=== PATIENT | male | born 1950 | race Caucasian/White ===

== ENCOUNTER 2016-04-20 14:42 | Emergency (ER) | payer OTHER ==
[~2016-04-20] VITALS: Ht 170.2 cm; Wt 116.6 kg
[~2016-04-20 14:42] MED LIST: ALBUTEROL2.5 MG/3 M INH; AMIODARONE HCL200 M1 PO; ASPIRIN CHILDRE81 MG PO; ASPIRIN EC81 M1 PO; ATORVASTATIN CA20 M1 PO; ATORVASTATIN CA20 MG PO; ATORVASTATIN CA40 MG PO; BACTRIM DS 8001 TAB PO; CIPRO 500MG TA500 MG PO; CLOPIDOGREL75 M1 PO; COUMADIN2.5 M1 PO; FLOMAX(MONOGRA0.4 MG PO; HEPARIN 2525000 UNI1 IV; HUMALOG 100U100 U/ML SC; HUMALOG100 U/ML SC; INVOKANA100 MG PO; LANTUS SOLOS100 U/ML SC; LANTUS100 U/ML SC; LEVEMIR 10100 UNITS/ SC; LEVOTHYROXINE112 MCG PO; LOPRESSOR 12.12.5 MG PO; LOVENOX150 MG/1 M SC; MIRALAX17 GM PO; NAC600 MG PO; NOVOLIN R1000 UNIT2 SC; Senokot S PO; ULTRAM50 M1 PO; VANCOMYCIN 11000 MG IV
[2016-04-20] MEDS ORDERED: FUROSEMIDE40 M1 PO (16:07)
[2016-04-20] MEDS ORDERED: LEVOTHYROXINE88 MCG PO (16:07)
[2016-04-20] MEDS ORDERED: TAMSULOSIN HCL0.4 M1 PO (16:08)
[2016-04-20] MEDS ORDERED: AMMONIUM LACTA226 GM TOP (16:08)
[2016-04-20] MEDS ORDERED: LANTUS100 UNIT/1 SC ×2 (16:09→16:10)
[2016-04-20] MEDS ORDERED: HUMALOG100 UNIT/2 SC (16:09)
[2016-04-20] MEDS ORDERED: SYMBICORT 16010.2 GM INH (16:11)
[2016-04-20] MEDS ORDERED: SPIRIVA18 MCG INH (16:11)
[2016-04-20 16:26] VITALS: BP 108/74
--- NOTE | 2016-04-20 16:30 | ED GENERAL ADULT ---
History of Present Illness General Chief Complaint: Laceration Procedure Stated Complaint: LEFT HAND LAC Source: patient, family Exam Limitations: no limitations Vital Signs & Intake/Output Vital Signs & Intake/Output Vital Signs Date Time Temp Pulse Resp B/P Pulse O2 O2 Flow FiO2 Ox Delivery Rate 04/20 1626 96.8 74 20 108/74 97 Room Air 04/20 1600 96 04/20 1451 96.5 75 20 90/60 92 Room Air Allergies Coded Allergies: Penicillins (PT DOES NOT REMEMBER 12/05/15) ampicillin (RASH 12/05/15) sulbactam (RASH 12/05/15) Reconcile Medications Amiodarone HCl 200 MG TABLET 1 TAB PO QAM HEART (Reported) Ammonium Lactate 12 % LOTION 1 MAGNUS TOP PRN FEET (Reported) Aspirin (Ecotrin*) 81 MG TABLET.DR 1 TAB PO DAILY HEART/HEALTH (Reported) Atorvastatin Calcium 20 MG TABLET 1 TAB PO DAILY CHOLESTEROL (Reported) Budesonide/Formoterol Fumarate (Symbicort 160-4.5 Mcg Inhaler) 160 MCG-4.5 MCG/ ACTUATION HFA.AER.AD 2 PUF INH BID COPD (Reported) Clopidogrel Bisulfate (Clopidogrel) 75 MG TABLET 1 TAB PO QAM BLOOD THINNER ( Reported) Furosemide 40 MG TABLET 1 TAB PO DAILY DIURETIC (Reported) Insulin Lispro (Humalog) 100 UNIT/ML VIAL DM (Reported) Insulin-Lantus (Lantus) 100 UNIT/ML VIAL 35 UNITS SC QPM DM (Reported) Insulin-Lantus (Lantus) 100 UNIT/ML VIAL 45 UNITS SC QAM DM (Reported) Levothyroxine Sodium 88 MCG TABLET 1 TAB PO DAILY THYROID (Reported) Tamsulosin HCl 0.4 MG CAP.ER.24H 1 CAP PO DAILY PROSTATE (Reported) Tiotropium [place] (Spiriva) 18 MCG CAP.W.DEV 1 CAP INH DAILY COPD (Reported) Warfarin Sodium (Coumadin) 2.5 MG TABLET 1 TAB PO AD BLOOD THINNER (Reported) Triage Note: PT TO ED FOR LAC TO LEFT HAND RING FINGER. 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 PT IS ON COUMADIN AND PLAVIX. UNKNOWN LAST TETANUS. Triage Nurses Notes Reviewed? yes HPI: This is a 65 yo male with significant cardiac history who is on ASA, coumadin and plaavix therapy at this time. He has most of his medications managed at [facility]. He was using a pen knife this am to cut tape and cut a shallow part of his l. ring finger. Pt was concerned as he did not stop bleeding so he came to ED. (OPAL LADD MD) Onset: Abrupt Duration: day(s):, constant, continues in ED, waxing and waning Injury Environment: home Severity: moderate, severe (YESI MATHEW,GIOVANI Meyer) Past History Travel History Traveled to [place] past 21 day No Medical History Any Pertinent Medical History? 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 Hx Contributory? No (OPAL LADD MD) Review of Systems Review of Systems Constitutional: Reports: no symptoms. EENTM: Reports: no symptoms. Respiratory: Reports: no symptoms. Cardiovascular: Reports: no symptoms. GI: Reports: no symptoms. Genitourinary: Reports: no symptoms. Musculoskeletal: Denies: no symptoms. Skin: Denies: erythema, lesions. Hematologic/Endocrine: Reports: bleeding. (OPAL LADD MD) Physical Exam Physical Exam General Appearance: well developed/nourished, no apparent distress, alert, awake , comfortable Head: atraumatic, normal appearance Ears, Nose, Throat: normal pharynx, normal ENT inspection Neck: normal inspection Respiratory: normal breath sounds Cardiovascular: regular rate/rhythm Gastrointestinal: soft, non-tender Extremities: L. FOUTH METACARPAL WITH SHALLOW 2 CM BROAD BASED CUT WITH NO AVULSION PRESENT. pROFUSELY BLEEDING. nO OTHERY ERYTHEMA PRESENT. PT HAS NO TENDERNESS TO PALPATION. Core Measures ACS in differential dx? No CVA/TIA Diagnosis: No Severe Sepsis Present: No Septic Shock Present: No (OPAL LADD MD) Progress Differential Diagnoses I considered the following diagnoses in my evaluation of the patient: [ABRASION, AVULSION, CUT, INFECTED WOUND] Plan of Care: USED STERILE SALINE SOLUTION TO CLEAN DIGIT. USED CALCIUM ALGINATE DRESSING FOR INITIAL LAYER WITH GAUZE FOR WRAPPING. DID NOT USE TOPICAL ANTIBIOTIC PT HAS OPEN SHALLOW WOUND. Initial ED EKG: none (OPAL LADD MD) Departure Departure Time of Disposition: 1627 Disposition: HOME OR SELF CARE Condition: Stable Clinical Impression Primary Impression: Wound abscess Referrals: DMITRIY MATHEW,RY Fox (PCP/Family) Additional Instructions: 1. Keep area of wound clean 2. Continue to use the calcium alginate dressing and gauze to wrap wound 3. No need for oral antibiotics unless you notice the digit becoming warm, red and exuding pus 4. Your would will continue to bleed as you are on three blood thinners but applying adequate pressure with help clot. 4. Do not stop blood thinners without the guidance of your PCP or finisher hand. Departure Forms: Customer Survey General Discharge Information (OPAL LADD MD) Resident Co-Sign Statement Statement: ED Attending supervision documentation- [x] I saw and evaluated the patient. I have also reviewed all the pertinent lab results and diagnostic results. I agree with the findings and the plan of care as documented in the Resident's documentation. [] I have reviewed the ED Record and agree with the Resident's documentation. [] Additions or exceptions (if any) to the Resident's note and plan are summarized below: [] (YESI MATHEW,GIOVANI Meyer) Critical Care Note Critical Care Note Critical Care Time: non-applicable (OPAL LADD MD)
== END 2016-04-20 16:53 ==
LOC: ERH 14:42
DX: S61.215A Laceration without foreign body of left ring finger without damage to nail, initial encounter (principal); W26.8XXA Contact with other sharp object(s), not elsewhere classified, initial encounter; Y93.89 Activity, other specified; Y92.9 Unspecified place or not applicable

== ENCOUNTER 2017-06-23 15:10 | Inpatient (IN) | payer OTHER ==
[~2017-06-23] VITALS: Ht 170.2 cm; Wt 122.5 kg
[~2017-06-23 15:10] MED LIST changes: +AMMONIUM LACTA226 GM TOP; +FUROSEMIDE40 M1 PO; +HUMALOG100 UNIT/2 SC; +LANTUS100 UNIT/1 SC; +PREDNISONE10 M2 PO; +SPIRIVA18 MCG INH; +SYMBICORT 16010.2 GM INH; +TAMSULOSIN HCL0.4 M1 PO; +ZITHROMAX500 M2 PO
--- NOTE | 2017-06-23 15:59 | ED GI/GU/ABDOMINAL COMPLAINT ---
History of Present Illness General Chief Complaint: General Adult Stated Complaint: PT SHAKEY,HEADACHE,CAN'T HOLD HIS HEAD UP Source: patient, family, old records Exam Limitations: no limitations Vital Signs & Intake/Output Vital Signs & Intake/Output Vital Signs Date Time Temp Pulse Resp B/P B/P Pulse O2 O2 Flow FiO2 Mean Ox Delivery Rate 06/23 1853 98.9 82 18 118/56 95 Room Air 06/23 1522 99.0 80 18 103/68 94 Room Air Allergies Coded Allergies: Penicillins (PT DOES NOT REMEMBER 12/05/15) ampicillin (RASH 12/05/15) sulbactam (RASH 12/05/15) Reconcile Medications Amiodarone (Cordarone) 200 MG TABLET 1 TAB PO QAM HEART (Reported) Aspirin (Ecotrin*) 81 MG TABLET.DR 1 TAB PO DAILY HEART/HEALTH (Reported) Atorvastatin Calcium 20 MG TABLET 1 TAB PO DAILY CHOLESTEROL (Reported) Clopidogrel Bisulfate (Clopidogrel) 75 MG TABLET 1 TAB PO QAM BLOOD THINNER ( Reported) Furosemide 40 MG TABLET 1 TAB PO DAILY DIURETIC (Reported) Insulin Lispro (Humalog) 100 UNIT/ML VIAL DM (Reported) Insulin-Lantus (Lantus) 100 UNIT/ML VIAL 30 UNITS SC QPM DM (Reported) Insulin-Lantus (Lantus) 100 UNIT/ML VIAL 40 UNITS SC QAM DM (Reported) Levothyroxine Sodium 112 MCG TABLET 1 TAB PO DAILY AC THYROID (Reported) Tamsulosin HCl 0.4 MG CAP.ER.24H 1 CAP PO DAILY PROSTATE (Reported) Tiotropium [place] (Spiriva) 18 MCG CAP.W.DEV 1 CAP INH DAILY COPD (Reported) Warfarin Sodium (Coumadin) 2.5 MG TABLET 1 TAB PO MoTuThSa BLOOD THINNER ( Reported) Triage Note: 66 YO MALE TO TRIAGE C/O INCRASE IN WEAKESS AND UPPER BACK PAIN. STATES L SIDED ABD PAIN, STATES HE HASNT BEEN ABLE TO EAT FOR 2 DAYS DUE TO THE PAIN AND WEAKNESS. NOTED WITH RENESS TO RLE, STATES HE HAD CELLULITIS RECENTLY. Triage Nurses Notes Reviewed? yes Duration: getting worse Timing: recent history Quality/Severity: severe Severity Numbers: 7 Location: generalized abdomen Radiation: no radiation HPI: Patient is a 66-year-old male with a past medical history of COPD, diabetes, CABG currently on Plavix Coumadin and aspirin, remote history of colon cancer in remission status post colectomy, who presents emergency room with concerns of a three-day history of nonproductive cough and dyspnea on exertion and shortness of breath intermittent abdominal pain generalized weakness and fatigue and lower extremity swelling and weeping wounds Patient denies any fever but does have chills. Denies any chest pain arm pain jaw pain nausea vomiting. Patient states that he is too weak to go to bed last 2 days and has had decreased by mouth intake. Last bowel movement was 2 days ago no blood no melena. Patient is also complaining of left-sided low back pain with no mechanism of injury for the past 3 days (Kenan Martins) Past History Travel History Traveled to [place] past 21 day No Medical History Any Pertinent Medical History? 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 Hx Contributory? No (Kenan Martins) Review of Systems Review of Systems Constitutional: Reports: see HPI, chills, malaise, weakness. EENTM: Reports: see HPI. Respiratory: Reports: see HPI, cough, short of breath. Cardiovascular: Reports: see HPI, peripheral edema. Denies: chest pain. GI: Reports: see HPI, abdominal pain. Genitourinary: Reports: no symptoms. Musculoskeletal: Reports: see HPI, back pain. Skin: Reports: see HPI. Neurological/Psychological: Reports: no symptoms. Hematologic/Endocrine: Reports: no symptoms. Immunologic/Allergic: Reports: no symptoms. All Other Systems: Reviewed and Negative (Kenan Martins) Physical Exam Physical Exam General Appearance: alert, awake, lethargic Head: atraumatic Eyes: Bilateral: normal appearance, PERRL, EOMI. Ears, Nose, Throat, Mouth: hearing grossly normal, moist mucous membrane Neck: normal inspection, no midline tenderness Respiratory: normal breath sounds, chest non-tender, no respiratory distress Cardiovascular: regular rate/rhythm Gastrointestinal: normal bowel sounds, soft, tenderness Back: normal inspection, LEFT LATERAL POINT TENDERNESS Neurologic/Psych: no motor/sensory deficits, awake Comments: Noted bilateral lower extremity decreased dermatome sensation noted skin scabs and mild weeping serous anginous discharge +1 edema Core Measures ACS in differential dx? No Sepsis Present: Yes Sepsis Focused Exam Completed? Yes (Neli TREVIÑO,Kenan) Progress Differential Diagnosis: AMI, appendicitis, biliary colic, bowel obstruction, colon cancer, cholecystitis, diverticulitis, epididymitis, esophageal varices, gastritis, hepatitis, hernia, hemorrhoids, ischemic bowel, inflamm bowel dis, Malinda-Aysha tear, orchitis, pancreatitis, prostatitis, peptic ulcer, PUD/GERD, perforated viscous, pyelonephritis, SBO, STD, testicular torsion, ureterolithiasis, urinary retention, urethritis, UTI/pyelo Plan of Care: Orders Procedure Date/time Status Nothing by Mouth 06/24 B Active Patient Data 06/23 192 Active Admit to inpatient 06/23 191 Active LACTIC ACID 06/23 191 Active CULTURE,URINE 06/23 1821 Active URINALYSIS 06/23 1821 Complete LIPASE 06/23 1622 Complete CREATINE PHOSPHOKINASE 06/23 1622 Complete AMYLASE 06/23 1622 Complete PARTIAL THROMBOPLASTIN TIME 06/23 1613 Complete PROTHROMBIN TIME 06/23 1613 Complete BLOOD CULTURE 06/23 1610 Active TROPONIN LEVEL 06/23 1610 Complete LACTIC ACID 06/23 161 Complete COMPREHENSIVE METABOLIC PANEL 06/23 161 Complete CBC WITHOUT DIFFERENTIAL 06/23 161 Complete B-TYPE NATRIURETIC PEP (BNP) 06/23 161 Complete EKG 06/23 1610 Active Intake & Output 06/23 1555 Active Current Medications Sig/Sj Start time Last Medication Dose Stop Time Status Admin Sodium Chloride 1,000 ML BOLUS ONE 06/23 1900 AC (Normal Saline 0.9%) 06/23 1958 Sodium Chloride 1,000 ML BOLUS ONE 06/23 1900 AC (Normal Saline 0.9%) 06/23 1958 Laboratory Tests 05/09/18 1917: Lactic Acid Pending 06/23/171834: Urine Color YEL, Urine Clarity HAZY H, Urine pH 6.5, Ur Specific Barto 1.015, Urine Protein NEG, Urine Ketones NEG, Urine Nitrite NEG, Urine Bilirubin NEG, Urine Urobilinogen 0.2, Ur Leukocyte Esterase MOD H, Ur Microscopic SEDIMENT EXAMINED, Urine RBC 10-15 H, Urine WBC 15-25 H, Ur Epithelial Cells RARE, Urine Bacteria FEW H, Urine Hemoglobin LARGE H, Urine Glucose >=1000 H 06/23/17 162: Amylase Cancelled, Lipase Cancelled 06/23/17 162: Anion Gap 14, Estimated GFR 26 L, BUN/Creatinine Ratio 10.4, Glucose 321 H, Lactic Acid 2.1, Calcium 8.9, Total Bilirubin 2.0 H, AST 32, ALT 40, Alkaline Phosphatase 112, Creatine Kinase 100, Troponin I < 0.01, Dzt-[id number]-Bcmuqifhzri Pept 371 H, Total Protein 7.5, Albumin 3.8, Globulin 3.7, Albumin/Globulin Ratio 1.0 L, Amylase 40, Lipase 164, PT 24.6 H, INR 2.24 H, APTT 38 H, CBC w Diff MAN DIFF ORDERED, RBC 5.55, MCV 86.3, MCH 28.2, MCHC 32.7 L, RDW 15.5 H, MPV 8.5, Gran % 86.4 H, Lymphocytes % 3.4 L, Monocytes % 10.0 H, Eosinophils % 0.1, Basophils % 0.1, Absolute Granulocytes 14.8 H, Segmented Neutrophils 84 H, Band Neutrophils 1, Absolute Lymphocytes 0.6 L, Lymphocytes 4 L, Monocytes 10 H, Absolute Monocytes 1.7 H, Absolute Eosinophils 0, Basophils 1, Absolute Basophils 0, Platelet Estimate VERIFIED BY SMEAR, Normocytic RBCs VERIFIED, Normochromic RBCs VERIFIED, Fld Total RBCs Counted 100 06/23/17 1620: Creatine Kinase Cancelled Microbiology 06/23 1834 URINE ROUT: Urine Culture - RECD 06/23 164 BLOOD: Blood Culture - RECD 06/23 1621 BLOOD: Blood Culture - RECD Differential diagnoses include COPD acute MO pulmonary embolism sepsis cellulitis DVT meningitis Diagnostic Imaging: Viewed by Me: CT Scan. Radiology Impression: acute abnormality Initial ED EK BPM,MULTIPLE ARTIFACT, FIRST DEGREE AV BLOCK Comments: PATIENT: CARRIE JACK PRESENT AGE: 66 PATIENT ACCOUNT NO: [id number] : 50 LOCATION: [facility] ORDERING PHYSICIAN: Kenan TREVIÑO SERVICE DATE: 06/23/17 EXAM TYPE: CAT - CT ABD & PELVIS W/O IV CONTRAS; CT CHEST WO IV CONTRAST EXAMINATION: CT CHEST, ABDOMEN, AND PELVIS WITHOUT CONTRAST CLINICAL INFORMATION: Cough, shortness of breath, and abdominal pain. COMPARISON: Pelvic CT fibroid [address] 12/05/2015. TECHNIQUE: Multidetector CT acquisitions of the chest, abdomen, and pelvis are obtained without contrast. Multiplanar reformats are acquired and utilized for image interpretation. FINDINGS: CHEST CT: There is no focal consolidation or pneumothorax. A partially calcified 7 mm pulmonary nodule along the periphery of the right middle lobe and calcified right hilar lymph nodes compatible with the sequela of old granulomatous disease are redemonstrated. There is atelectasis versus chronic appearing scarring within the lingula and left lower lobe and there is a trace dependent left pleural effusion with adjacent airspace opacity that may reflect atelectasis versus pneumonia. There are tiny innumerable groundglass nodules within the right upper lobe and to a lesser extent the superior segment of the right lower lobe and right middle lobe that are nonspecific and that may be the sequela of old infection or smoking-related lung disease. These are similar in pattern to the prior exam. There are a few similar nodules along the major fissure, likely fissural lymph nodes. There are mild dependent secretions within the trachea. Redemonstrated calcified mediastinal and hilar lymph nodes of the sequela of old granulomatous disease. Prominent mediastinal and hilar lymph nodes are stable. There is coronary artery atherosclerotic calcification. Heart is normal in size without a pericardial effusion. Retropharyngeal course of the common carotid arteries. The thyroid gland is unremarkable. No acute osseous abnormalities. Thoracic spondylosis. Median sternotomy wires. Old healed rib fractures. ABDOMEN AND PELVIS WITHOUT CONTRAST: Limited evaluation of the unenhanced liver, spleen, adrenal glands, and pancreas reveals no definite abnormality. There is cholelithiasis without acute cholecystitis. Left-sided obstructive uropathy with a 4 mm obstructing calculus at the left ureterovesicular junction resulting in moderate left-sided hydroureteronephrosis and significant left-sided perinephric stranding. There is a 1.2 cm calculus within the upper pole of the left kidney. Punctate nonobstructing calculus within the lower pole of the right kidney. There are multiple calculi scattered throughout the right renal hilum, the largest within the midpole measuring up to 1 cm. Partial colectomy changes. There is an enterocolonic anastomosis within the left lower quadrant. No focal inflammatory changes adjacent to the large or the small bowel. No bowel obstruction. There is no free air and there is no intra-abdominal free fluid. No mesenteric or retroperitoneal adenopathy. The pelvic viscera are normal. No pelvic adenopathy. There are no acute osseous abnormalities. Bilateral L5 pars defects with grade 1 spondylolytic anterolisthesis of L5 on S1. Degenerative changes throughout the lumbar spine. There is rectus sheath diastases that is similar to the prior exam. IVC filter in place. Extensive aortoiliac atherosclerotic calcification. IMPRESSION: - Left-sided obstructive uropathy with a 4 mm obstructing calculus (mean Hounsfield units 442) at the left ureterovesicular junction resulting in moderate left-sided hydroureteronephrosis and significant left-sided perinephric stranding. There is also a 1.2 cm calculus within the upper pole of the left kidney. Multiple additional bilateral renal calculi as described. - There is cholelithiasis without acute cholecystitis. - There is atelectasis versus chronic appearing scarring within the lingula and left lower lobe and there is a trace dependent left pleural effusion with adjacent airspace opacity that may reflect atelectasis versus pneumonia. - There are tiny innumerable groundglass nodules within the right upper lobe and to a lesser extent the superior segment of the right lower lobe and right middle lobe that are nonspecific and that may be the sequela of old infection or smoking-related lung disease. These are similar in pattern to the prior exam. - There are mild dependent secretions within the trachea. - Prominent mediastinal and hilar lymph nodes are stable. - Bilateral L5 pars defects with grade 1 spondylolytic anterolisthesis of L5 on S1. DICTATED BY: Steven Springer MD DATE/TIME DICTATED:06/23/171752 PULL OUT OPERATOR:EDEL DATE/TIME TRANSCRIBED:06/23/171752 (Kenan Martins) ED Sepsis Exam Date of Focused Sepsis Exam: 06/23/17 Time of Focused Sepsis Exam: 1750 Sepsis Cardiac Exam: Regular Rate/Rhythm Sepsis Resp Exam: CTA Sepsis Cap Refill Exam: <2 Sec Sepsis Peripheral Pulse Exam: Normal Sepsis Peripheral Pulse Location: Radial Sepsis Skin Color Exam: Normal for Ethnicity Skin Temp/Moisture Exam: Warm/Dry (Kenan Martins) Departure Departure Disposition: STILL A PATIENT Condition: Stable Clinical Impression Primary Impression: Sepsis Secondary Impressions: Kidney stone on left side, Obstructive uropathy, Pyelonephritis Referrals: Mathew MATHEW,Aashish Fox (PCP/Family) Departure Forms: Customer Survey General Discharge Information Admission Note Spoke With: Ian Sears MD Documentation of Exam: Documentation of any treatments & extenuating circumstances including Concerns Regarding Discharge (functional status, medication knowledge or non-compliance, living conditions, etc.) that warrant an admission rather than observation: [ Patient requires IV antibiotics IV fluid resuscitation repeat labs ureteral stenting urology consultation and close monitoring for concerns of sepsis etiology pyelonephritis] (Kenan Martins) PA/MANAGER TRADE Co-Sign Statement Statement: ED Attending supervision documentation- [X] I saw and evaluated the patient. I have also reviewed all the pertinent lab results and diagnostic results. I agree with the findings and the plan of care as documented in the PA's/MANAGER TRADE's documentation. [] I have reviewed the ED Record and agree with the PA's/MANAGER TRADE's documentation. [] Additions or exceptions (if any) to the PAs/MANAGER TRADE's note and plan are summarized below: [] Bilateral flank pain. No acute distress on my exam. (Steven Parson DO)
[2017-06-23 16:46] LABS: ABSOLUTE BASOPHIL COUNT 0 /CUMM (0.0-0.2); ABSOLUTE EOSINOPHIL COUNT 0 /CUMM (0.0-0.7); ABSOLUTE GRANULOCYTE CT 14.8 /CUMM (1.4-6.5); ABSOLUTE LYMPH COUNT 0.6 /CUMM (1.2-3.4); ABSOLUTE MONOCYTE COUNT 1.7 /CUMM (0.10-0.60); BASOPHIL % 0.1 % (0.0-2.0); EOSINOPHIL % 0.1 % (0-5); GRANULOCYTE % 86.4 % (42.2-75.2); HEMATOCRIT 47.9 % (42-52); MEAN CORPUSCULAR HGB 28.2 PG (27.0-31.0); MEAN CORPUSCULAR HGB CONC 32.7 G/DL (33.0-37.0); MEAN CORPUSCULAR VOLUME 86.3 FL (80.0-94.0); MEAN PLATELET VOLUME 8.5 FL (7.4-10.4); PLATELET COUNT 296 /CUMM (130-400); RBC DISTRIBUTION WIDTH 15.5 % (11.5-14.5); RED BLOOD CELL CT 5.55 /CUMM (4.70-6.10); WHITE BLOOD CELL COUNT 17.1 /CUMM (4.8-10.8)
[2017-06-23 16:59] LABS: PT 24.6 SEC (9.4-12.5); PTT 38 SEC (25-37)
--- NOTE | 2017-06-23 18:12 | CT SCAN REPORT ---
EXAMINATION: CT CHEST, ABDOMEN, AND PELVIS WITHOUT CONTRAST CLINICAL INFORMATION: Cough, shortness of breath, and abdominal pain. COMPARISON: Pelvic CT fibroid [address] 12/05/2015. TECHNIQUE: Multidetector CT acquisitions of the chest, abdomen, and pelvis are obtained without contrast. Multiplanar reformats are acquired and utilized for image interpretation. FINDINGS: CHEST CT: There is no focal consolidation or pneumothorax. A partially calcified 7 mm pulmonary nodule along the periphery of the right middle lobe and calcified right hilar lymph nodes compatible with the sequela of old granulomatous disease are redemonstrated. There is atelectasis versus chronic appearing scarring within the lingula and left lower lobe and there is a trace dependent left pleural effusion with adjacent airspace opacity that may reflect atelectasis versus pneumonia. There are tiny innumerable groundglass nodules within the right upper lobe and to a lesser extent the superior segment of the right lower lobe and right middle lobe that are nonspecific and that may be the sequela of old infection or smoking-related lung disease. These are similar in pattern to the prior exam. There are a few similar nodules along the major fissure, likely fissural lymph nodes. There are mild dependent secretions within the trachea. Redemonstrated calcified mediastinal and hilar lymph nodes of the sequela of old granulomatous disease. Prominent mediastinal and hilar lymph nodes are stable. There is coronary artery atherosclerotic calcification. Heart is normal in size without a pericardial effusion. Retropharyngeal course of the common carotid arteries. The thyroid gland is unremarkable. No acute osseous abnormalities. Thoracic spondylosis. Median sternotomy wires. Old healed rib fractures. ABDOMEN AND PELVIS WITHOUT CONTRAST: Limited evaluation of the unenhanced liver, spleen, adrenal glands, and pancreas reveals no definite abnormality. There is cholelithiasis without acute cholecystitis. Left-sided obstructive uropathy with a 4 mm obstructing calculus at the left ureterovesicular junction resulting in moderate left-sided hydroureteronephrosis and significant left-sided perinephric stranding. There is a 1.2 cm calculus within the upper pole of the left kidney. Punctate nonobstructing calculus within the lower pole of the right kidney. There are multiple calculi scattered throughout the right renal hilum, the largest within the midpole measuring up to 1 cm. Partial colectomy changes. There is an enterocolonic anastomosis within the left lower quadrant. No focal inflammatory changes adjacent to the large or the small bowel. No bowel obstruction. There is no free air and there is no intra-abdominal free fluid. No mesenteric or retroperitoneal adenopathy. The pelvic viscera are normal. No pelvic adenopathy. There are no acute osseous abnormalities. Bilateral L5 pars defects with grade 1 spondylolytic anterolisthesis of L5 on S1. Degenerative changes throughout the lumbar spine. There is rectus sheath diastases that is similar to the prior exam. IVC filter in place. Extensive aortoiliac atherosclerotic calcification. IMPRESSION: - Left-sided obstructive uropathy with a 4 mm obstructing calculus (mean Hounsfield units 442) at the left ureterovesicular junction resulting in moderate left-sided hydroureteronephrosis and significant left-sided perinephric stranding. There is also a 1.2 cm calculus within the upper pole of the left kidney. Multiple additional bilateral renal calculi as described. - There is cholelithiasis without acute cholecystitis. - There is atelectasis versus chronic appearing scarring within the lingula and left lower lobe and there is a trace dependent left pleural effusion with adjacent airspace opacity that may reflect atelectasis versus pneumonia. - There are tiny innumerable groundglass nodules within the right upper lobe and to a lesser extent the superior segment of the right lower lobe and right middle lobe that are nonspecific and that may be the sequela of old infection or smoking-related lung disease. These are similar in pattern to the prior exam. - There are mild dependent secretions within the trachea. - Prominent mediastinal and hilar lymph nodes are stable. - Bilateral L5 pars defects with grade 1 spondylolytic anterolisthesis of L5 on S1.
--- NOTE | 2017-06-23 19:51 | History & Physical ---
Marilyn Gracia MD,[facility] 06/23/17 1950: General Information and HPI MD Statement: I have seen and personally examined CARRIE CHASE and documented this H&P. The patient is a 66 year old M who presented with a patient stated chief complaint of [flank pain]. Exam Limitations: poor historian, drowsy History of Present Illness: Paatient is 66 y M with PMH of DM II, COPD not on home o2, HLP, kidney stone (s/ p placement and removal of stent in 2006), BPH, colon cancer (s/p chemotherapy + hemicolectomy, followed Dr Chi and was cleared), parox. atrial fibrillation on Coumadin, NSTEMI s/p ?stent, CABG in 2014, on dual Anitplt, diastolic CHF (not in 2015 Echo), DVT/massive bilateral PE, IVC filter in place 2006, DM2, diabetic neuropathy, diabetic nephropathy, history of recurrent right-sided pleural effusion status post right thoracotomy and right lung decortication and pneumolysis in 2006 ,MRSA bacteremia and osteomyelitis (Finger), osteoarthritis, sleep apnea on CPAP/BiPAP presented to the ED for evaluation of cough, SOB and weakness. Patient was drowsy during the conversation due to pain medication, and was contacted to complete the history. According to the , patient had left side flank pain for the last 2 days, flank pain was constant with no radiation or aliviating or aggreviating factors. He also had generalized weakness, decreased appetite, decreased ambulation. He also reported to have increased swelling and weeping of bilateral lower extremities. He also reported worsening of shortness of breathing, cough, sputum for the last 3 days. He also reported burning during urination. Patient reported his son had flulike/pneumonia symptoms. Patient last visited ED in March 2016 for hip pain and was placed in the STR for 10 days. Recent admission to [place] in October 2016 for acute respiratory distress due to bronchitis/COPD. Last Echo EF 55%, mod , R vent dilation with no sign of Pulm isufficiency. In baseline he ambulates with walker. Allergies/Medications Allergies: Coded Allergies: Penicillins (PT DOES NOT REMEMBER 12/05/15) ampicillin (RASH 12/05/15) sulbactam (RASH 12/05/15) Past History Travel History Traveled to [place] past 21 day No Medical History Neurological: NONE EENT: NONE Cardiovascular: hypertension, hyperlipidemia, CABG Respiratory: COPD, pulmonary embolism Gastrointestinal: REVERSAL OF ILLEOSTOMY COLON CA COLECTOMY Hepatic: NONE Renal: MRSA bacteremia 2/2 uti/prostatitis Musculoskeletal: osteoarthritis Psychiatric: NONE Endocrine: diabetes Blood Disorders: DVT, PE Cancer(s): colon/rectal cancer MENTAL HEALTH SOCIAL WORKER/Reproductive: NONE History of MRSA: Yes History of VRE: No History of CDIFF: No Surgical History Surgical History: colon resection (s/p r hemicolectomy), hernia repair- incisional, hernia repair-inguinal, s/p decortication for empyema s/p IVC filter Past Family/Social History Family History Relations & Conditions if any hypertension in family obesity in family SISTER SISTER (nephrectomy for cancer). Psychosocial History Who Do You Live With? spouse Services at Home: Nursing, None Primary Language: Lithuanian Functional Ability ADLs Independent: dressing, eating, toileting, bathing. Ambulation: independent, cane, walker, non-ambulatory IADLs Independent: shopping, housework, finances, food prep, telephone, transportation , medication admin. Review of Systems Review of Systems Constitutional: Reports: see HPI. Exam & Diagnostic Data Last 24 Hrs of Vital Signs/I&O Vital Signs Date Time Temp Pulse Resp B/P B/P Pulse O2 O2 Flow FiO2 Mean Ox Delivery Rate 06/23 2034 80 20 112/55 94 Room Air 06/23 1853 98.9 82 18 118/56 95 Room Air 06/23 1522 99.0 80 18 103/68 94 Room Air Intake & Output 06/23 1600 06/23 0800 06/23 0000 Intake Total Output Total Balance Patient 260 lb Weight Weight Reported by Patient Measurement Method Physical Exam General Appearance No Acute Distress, drowsy, arousable, oriented Skin Bilateral LE edema, skin changes, erythema of the right leg, bullea in medical side of ankle. Skin Temp/Moisture Exam: Warm/Dry Sepsis Skin Exam (color): Normal for Ethnicity HEENT Atraumatic Cardiovascular Normal S1, Normal S2 Lungs Clear to Auscultation Abdomen Soft, No Tenderness, Flank tenderness in left side Neurological Normal Speech Extremities as noted above, amputation of finger Last 24 Hrs of Labs/Jack: Laboratory Tests 06/23/17 191: Lactic Acid 2.0 06/23/171834: Urine Color YEL, Urine Clarity HAZY H, Urine pH 6.5, Ur Specific [place] 1.015, Urine Protein NEG, Urine Ketones NEG, Urine Nitrite NEG, Urine Bilirubin NEG, Urine Urobilinogen 0.2, Ur Leukocyte Esterase MOD H, Ur Microscopic SEDIMENT EXAMINED, Urine RBC 10-15 H, Urine WBC 15-25 H, Ur Epithelial Cells RARE, Urine Bacteria FEW H, Urine Hemoglobin LARGE H, Urine Glucose >=1000 H 06/23/17 162: Amylase Cancelled, Lipase Cancelled 06/23/17 1622: Anion Gap 14, Estimated GFR 26 L, BUN/Creatinine Ratio 10.4, Glucose 321 H, Lactic Acid 2.1, Calcium 8.9, Total Bilirubin 2.0 H, Direct Bilirubin 0.6 H, AST 32, ALT 40, Alkaline Phosphatase 112, Creatine Kinase 100, Troponin I < 0.01 , Rqa-[id number]-Bftdwglqlya Pept 371 H, Total Protein 7.5, Albumin 3.8, Globulin 3.7, Albumin/Globulin Ratio 1.0 L, Amylase 40, Lipase 164, PT 24.6 H, INR 2.24 H, APTT 38 H, CBC w Diff MAN DIFF ORDERED, RBC 5.55, MCV 86.3, MCH 28.2, MCHC 32.7 L, RDW 15.5 H, MPV 8.5, Gran % 86.4 H, Lymphocytes % 3.4 L, Monocytes % 10.0 H, Eosinophils % 0.1, Basophils % 0.1, Absolute Granulocytes 14.8 H, Segmented Neutrophils 84 H, Band Neutrophils 1, Absolute Lymphocytes 0.6 L, Lymphocytes 4 L, Monocytes 10 H, Absolute Monocytes 1.7 H, Absolute Eosinophils 0, Basophils 1, Absolute Basophils 0, Platelet Estimate VERIFIED BY SMEAR, Normocytic RBCs VERIFIED, Normochromic RBCs VERIFIED, Fld Total RBCs Counted 100 06/23/17 1620: Creatine Kinase Cancelled Microbiology 06/23 2225 URINE ROUT: Urine Culture - RECD 06/23 1835 URINE ROUT: Urine Culture - RECD 06/23 1645 BLOOD: Blood Culture - RECD 06/23 162 BLOOD: Blood Culture - RECD Assessment/Plan Assessment: Paatient is 66 y M with presented with flank pain, decreased appetite, SOB, cough, sputum, left leg erythema, and edema, weakness PMH: DM II, COPD not on home o2, HLP, kidney stone (s/p placement and removal of stent in 2006), BPH, colon cancer (s/p chemotherapy + hemicolectomy, followed Dr Chi and was cleared), parox. atrial fibrillation on Coumadin, NSTEMI s/p ? stent, CABG in 2014, on dual Anitplt, diastolic CHF (not in 2015 Echo), DVT/ massive bilateral PE, IVC filter in place 2006, DM2, diabetic neuropathy, diabetic nephropathy, history of recurrent right-sided pleural effusion status post right thoracotomy and right lung decortication and pneumolysis in 2006 , MRSA bacteremia and osteomyelitis (Finger), osteoarthritis, sleep apnea on CPAP /BiPAP VS, Ph Ex at admission: Insignificant Labs at admission: WBC 17.1, bands 1, sodium 131, CR 2.5, total bili 2, INR 2.2, UA active Imagings at admission: Abd and Chest CT: - Left-sided obstructive uropathy with a 4 mm obstructing calculus (mean Hounsfield units 442) at the left ureterovesicular junction resulting in moderate left-sided hydroureteronephrosis and significant left-sided perinephric stranding. There is also a 1.2 cm calculus within the upper pole of the left kidney. Multiple additional bilateral renal calculi as described. - There is cholelithiasis without acute cholecystitis. - There is atelectasis versus chronic appearing scarring within the lingula and left lower lobe and there is a trace dependent left pleural effusion with adjacent airspace opacity that may reflect atelectasis versus pneumonia. - There are tiny innumerable groundglass nodules within the right upper lobe and to a lesser extent the superior segment of the right lower lobe and right middle lobe that are nonspecific and that may be the sequela of old infection or smoking-related lung disease. These are similar in pattern to the prior exam. - There are mild dependent secretions within the trachea. - Prominent mediastinal and hilar lymph nodes are stable. - Bilateral L5 pars defects with grade 1 spondylolytic anterolisthesis of L5 on S1. Patient was admitted to [facility] floor for management of following conditions: Obstructive uropathy Urinary tract infection ALMAS and CKD, most likely prerenal considering unilateral obstruction COPD/bronchitis Casey increased -Admit patient to general medicine -Monitor vital sign -IV fluids -Stent placement to urology -Ceftriaxone -Watch for WBC count and fever, no treatment for cellulitis or respiratory for now -Follow cultures -Continue home medication, Coumadin, aspirin, Plavix, atorvastatin, amiodarone, levothyroxine, tamsulosin -TRC, nebs -Accu-Chek, sliding scale insulin -Hold Lasix for now FC Diabetic diet after procedure DVT: ppx, on warfarin As Ranked By This Provider Problem List: 1. Kidney stone on left side 2. Urinary tract infection Core Measures/Misc (11/01) Acute Coronary Syndrome ACS Diagnosis: No Congestive Heart Failure Congestive Heart Failure Diagnosis No Cerebrovascular Accident CVA/TIA Diagnosis: No VTE (View Protocol) VTE Risk Factors Age>40 No Mechanical VTE Prophylaxis d/t N/A MechProphylax Ordered No VTE Pharm Prophylaxis d/t NA PharmProphylax ordered Sepsis (View protocol) Sepsis Present: No Himanshu MATHEW,[facility] 06/23/17 2329: Resident Review Statement Resident Statement: examined this patient, discussed with mechanical engineering intern, agreed with mechanical engineering intern, discussed with family Other Findings: Mr. Chase is a 66-year-old male with past medical history significant for hypertension, hyperlipidemia, type 2 diabetes mellitus, colon cancer status post colostomy(reversed), paroxysmal atrial fibrillation on Coumadin, DVT/PE status post IVC filter, coronary artery disease status post CABG, COPD not on home o2, remote history of kidney stone s/p stent follow-up with Dr. Nava, BPH, osteomyelitis, right side pleural effusion status post right pleurectomy and right lung decortication pneumoysis in 2006 sleep apnea on CPAP presented to ED with chief complaint of 3 days of cough, left flank pain, lower extremity swelling and wound weeping. History was obtained from the patient and confirmed over the phone by the . Patient is alert oriented 3 however very fatigued and lethargic. He reported generalized body weakness and fatigability for the last couple of days, new onset of productive cough of thick white sputum not associated with shortness of breath or fever however he reported chills. He also reported lower extremity worsening venous stasis skin changes in terms of erythema, swelling and wound weeping. Patient reported left flank pain associated with dysuria but no hematuria. He had follow up with Dr. Nava last week (annual follow up) did not have any symptoms at that time. He also reported decrease appetite but reported well hydration. On admission vital signs temperature 99, pulse 80, blood pressure 103/68, saturating 94% on room air Pertinent lab leukocytosis 17.1 with left shift and bands 1, H&H 15.7/47.9, platelet 296, sodium 131 corrected sodium 133, potassium 4.6, BUN/creatinine 26/ 2.5 with baseline creatinine 1-5, glucose 321, INR 2.24, urine positive leukoesterase with white blood cell 15-25 Problem list #UTI with left-sided obstructive uropathy with 4 mm obstructing calculus causing left side hydroureteronephrosis with significant left side perinephritic stranding #Dehydration #ALMAS on CKD #Diabetes mellitus #CAD, hypertension, hyperlipidemia #Paroxysmal atrial fibrillation on Coumadin Plan -Admit to general medical floor -Vitals every shift -N.p.o. for urological procedure -Accu Check -Levemir 20 twice daily, home dose is Lantus 40 units every morning and 30 q. p.m. -IV fluid -Garland catheter -Avoid NSAIDs or any nephrotoxic medication -Continue home medication -Repeat CBCs, BMP, liver function test, magnesium and phosphorus, INR in a.m. -DVT prophylaxis Coumadin based on INR, Alps -Code full [id number] 06/24/17 0034: General Information and HPI Allergies/Medications Home Med list Albuterol Sulfate 0.63 MG/3 ML VIAL.NEB 1 Vial INH/NED TID PRN lung health ( Reported) Amiodarone (Cordarone) 200 MG TABLET 1 TAB PO QAM HEART (Reported) Aspirin (Ecotrin*) 81 MG TABLET.DR 1 TAB PO DAILY HEART/HEALTH (Reported) Atorvastatin Calcium 20 MG TABLET 1 TAB PO DAILY CHOLESTEROL (Reported) Clopidogrel Bisulfate (Clopidogrel) 75 MG TABLET 1 TAB PO QAM BLOOD THINNER ( Reported) Furosemide (Lasix) 20 MG TABLET 3 TAB PO DAILY leg swelling (Reported) Insulin Lispro (Humalog) 100 UNIT/ML VIAL DM (Reported) Insulin-Lantus (Lantus) 100 UNIT/ML VIAL 30 UNITS SC QPM DM (Reported) Insulin-Lantus (Lantus) 100 UNIT/ML VIAL 40 UNITS SC QAM DM (Reported) Levothyroxine Sodium 112 MCG TABLET 1 TAB PO DAILY AC THYROID (Reported) Tamsulosin HCl 0.4 MG CAP.ER.24H 1 CAP PO DAILY PROSTATE (Reported) Warfarin Sodium (Coumadin) 2.5 MG TABLET 1 TAB PO MoTuThSa BLOOD THINNER ( Reported) Attending MD Review Statement Attending Statement Attending MD Statement: examined this patient, discuss w/resident/PA/MEDICAL ASSISTANT PER DIEM, agreed w/resident/PA/MEDICAL ASSISTANT PER DIEM, reviewed EMR data (avail), reviewed images, amended to note Attending Assessment/Plan: CC: Lethargy, weakness, Left-sided flank pain PMH: DM, CAD S/P CABG, COPD, history of kidney stone, BPH, history of colon cancer S/P resection and chemotherapy followed by reconstruction surgery, paroxysmal atrial fibrillation, HFpEF, history of DVT/PE S/P IVC filter, CKD, history of recurrent pleural effusion S/P thoracotomy and decortication, history of MRSA osteomyelitis, TAYLER noncompliant with CPAP, hypothyroidism Patient came to ER for feeling extremely lethargic, poorly, tired since last 3 days, associated chills but no fever. He endorses left-sided flank pain, nonradiating, severe, persistent, present at rest. He also complains of burning urination since last 3 days. He has not eaten much in last 3 days but denies any nausea or vomiting. Productive cough with thick sputum production white colored, no blood. Denies any chest pain, chest tightness, breathing difficulty. Patient also mentioned to one of the ER staff said that he was recently treated for his lower extremity cellulitis. Vitals: Temperature 99.0, pulse 80, RR 18, blood pressure 103/68, saturating 94% on room air. On exam: A O 3, cooperative, distress due to pain and chills, neck supple, JVD normal, no lymphadenopathy, mucosa dry, no focal neurological deficit, bilateral lower extremity edema left more than right, superficial erosion and mild redness on left lower extremity with weeping but no elevation in temperature or warmth, CVS: S1-S2, RRR. RS: Clear to auscultate bilaterally. Abdomen: Soft, NT, ND, bowel sounds present, left CVA tenderness, Farrell's sign negative CT chest without IV contrast, CT abdomen and pelvis without IV contrast: - Left-sided obstructive uropathy with a 4 mm obstructing calculus (mean Hounsfield units 442) at the left ureterovesicular junction resulting in moderate left-sided hydroureteronephrosis and significant left-sided perinephric stranding. There is also a 1.2 cm calculus within the upper pole of the left kidney. Multiple additional bilateral renal calculi as described. - There is cholelithiasis without acute cholecystitis. - There is atelectasis versus chronic appearing scarring within the lingula and left lower lobe and there is a trace dependent left pleural effusion with adjacent airspace opacity that may reflect atelectasis versus pneumonia. - There are tiny innumerable groundglass nodules within the right upper lobe and to a lesser extent the superior segment of the right lower lobe and right middle lobe that are nonspecific and that may be the sequela of old infection or smoking-related lung disease. These are similar in pattern to the prior exam. - There are mild dependent secretions within the trachea. - Prominent mediastinal and hilar lymph nodes are stable. - Bilateral L5 pars defects with grade 1 spondylolytic anterolisthesis of L5 on S1. Assessment and plan 66-year-old male with extensive past medical history presented in ER for lethargy, weakness, chills, poor appetite since last 3 days, no nausea vomiting. He has left flank pain and increased cough with white colored sputum production but denies any chest pain or chest tightness. He had temperature of 99.0 in ER and had left CVA tenderness, chest was clear to auscultate. Labs showl eukocytosis with left shift mild hyponatremia 131, hyperglycemia 321 and acute kidney injury with creatinine increased up to 2.5 from 1.6. He has mildly elevated bilirubin but transaminases and alkaline phosphatase is normal, lipase 164. UA has moderate leukocyte Estrace and CT scan shows left-sided obstructive uropathy as mentioned above. Patient appears to have sepsis secondary to pyelonephritis along with obstructive uropathy. Patient also has worsening productive cough since last 3-[address] chest mentions of left-sided airspace changes: But left this is versus pneumonia. This appears less likely pneumonia at this point given we have obvious source of infection. + Left-sided obstructive uropathy + Sepsis secondary to pyelonephritis + Hyponatremia + Hyperglycemia + Acute kidney injury - Admit to general medicine after the procedure - Continue gentle hydration - Pain control - Continue IV ceftriaxone - Follow blood culture, urine culture, obtain sputum culture - Confirm his medications with his and continue them except Lasix - Continue sliding scale insulin for now along with basal insulin Levemir 20 units twice a day
--- NOTE | 2017-06-23 20:59 | Cons- Urology ---
General Information and HPI Consulting Request Date of Consult: 06/23/17 Requested By: Ian Sears MD Reason for Consult: Obstructing L distal ureteral stone with L flank pain, hydronephrosis and pyuria Source of Information: patient, old records Exam Limitations: no limitations History of Present Illness: This patient is followed in the office for BPH and is on tamsulosin. He has a hx of urinary stones in the remote past. He presented to the ER today with a 2 day hx of L flank pain, and malaise. In the ER CT scan showed an obstructing 4 mm L distal ureteral stone with proximal L hydro-ureteronephrosis and L perinephric stranding. He also has bilateral non obstructing renal calculi. U/ A showed significant pyuria. He has a leukocytosis to 17k and lactic acid of 2.1. He has a hx of DM He received a dose of ceftriaxone in the ER Allergies/Medications Allergies: Coded Allergies: Penicillins (PT DOES NOT REMEMBER 12/05/15) ampicillin (RASH 12/05/15) sulbactam (RASH 12/05/15) Home Med List: Amiodarone (Cordarone) 200 MG TABLET 1 TAB PO QAM HEART (Reported) Aspirin (Ecotrin*) 81 MG TABLET.DR 1 TAB PO DAILY HEART/HEALTH (Reported) Atorvastatin Calcium 20 MG TABLET 1 TAB PO DAILY CHOLESTEROL (Reported) Clopidogrel Bisulfate (Clopidogrel) 75 MG TABLET 1 TAB PO QAM BLOOD THINNER ( Reported) Furosemide 40 MG TABLET 1 TAB PO DAILY DIURETIC (Reported) Insulin Lispro (Humalog) 100 UNIT/ML VIAL DM (Reported) Insulin-Lantus (Lantus) 100 UNIT/ML VIAL 30 UNITS SC QPM DM (Reported) Insulin-Lantus (Lantus) 100 UNIT/ML VIAL 40 UNITS SC QAM DM (Reported) Levothyroxine Sodium 112 MCG TABLET 1 TAB PO DAILY AC THYROID (Reported) Tamsulosin HCl 0.4 MG CAP.ER.24H 1 CAP PO DAILY PROSTATE (Reported) Tiotropium Robbins (Spiriva) 18 MCG CAP.W.DEV 1 CAP INH DAILY COPD (Reported) Warfarin Sodium (Coumadin) 2.5 MG TABLET 1 TAB PO MoTuThSa BLOOD THINNER ( Reported) Current Medications: Current Medications Sig/Sj Start time Last Medication Dose Route Stop Time Status Admin Ceftriaxone Sodium 0 .STK-MED ONE 06/23 1918 DC .ROUTE Ceftriaxone Sodium 1,000 MG ONCE ONE 06/23 1899 DC 06/23 IV 06/23 Sodium Chloride 1,000 ML BOLUS ONE 06/23 1899 DC IV 06/23 1958 Sodium Chloride 1,000 ML BOLUS ONE 06/23 1899 DC IV 06/23 1958 Sodium Chloride 1,000 ML BOLUS ONE 06/23 183 DC 06/23 IV 06/23 Past History Medical History Neurological: NONE EENT: NONE Cardiovascular: hypertension, hyperlipidemia, CABG Respiratory: COPD, pulmonary embolism Gastrointestinal: REVERSAL OF ILLEOSTOMY COLON CA COLECTOMY Hepatic: NONE Renal: MRSA bacteremia 2/2 uti/prostatitis Musculoskeletal: osteoarthritis Psychiatric: NONE Endocrine: diabetes Blood Disorders: DVT, PE Cancer(s): colon/rectal cancer AS400 PROGRAMMER/Reproductive: NONE Surgical History Pertinent Surgical History: colon resection (s/p r hemicolectomy), hernia repair -incisional, hernia repair-inguinal, s/p decortication for empyema s/p IVC filter Family History Relations & Conditions If Any: hypertension in family obesity in family SISTER SISTER (nephrectomy for cancer). Psychosocial History Who Do You Live With? spouse Services at Home: Nursing, None Primary Language: [place] Functional Ability ADLs Independent: dressing, eating, toileting, bathing. Ambulation: independent, cane, walker, non-ambulatory IADLs Independent: shopping, housework, finances, food prep, telephone, transportation , medication admin. Exam & Diagnostic Data Vital Signs and I&O Vital Signs Date Time Temp Pulse Resp B/P B/P Pulse O2 O2 Flow FiO2 Mean Ox Delivery Rate 06/23 2033 80 20 112/55 94 Room Air 06/23 1853 98.9 82 18 118/56 95 Room Air 06/23 1522 99.0 80 18 103/68 94 Room Air Intake & Output 06/23 1600 06/24 0700 06/23 0000 06/22 1600 06/22 0000 Intake Total Output Total Balance Patient 260 lb Weight Weight Reported by Patient Measurement Method Somewhat ill-appearing. No acute distress Back: L CVA tenderness Abd: soft. Some LUQ tenderness. No peritoneal signs Genitalia: normal male Laboratory Tests 06/23 1835 1622 Chemistry Lactic Acid (0.7 - 2.1 mmol/L) 2.0 Amylase Cancelled Lipase Cancelled Urines Urine Color (YEL,AMB,STR) YEL Urine Clarity (CLEAR) HAZY H Urine pH (5.0 - 8.0) 6.5 Ur Specific [place] (1.001 - 1.035) 1.015 Urine Protein (NEG,<30 MG/DL) NEG Urine Ketones (NEG) NEG Urine Nitrite (NEG) NEG Urine Bilirubin (NEG) NEG Urine Urobilinogen (0.1 - 1.0 EU/dl) 0.2 Ur Leukocyte Esterase (NEG) MOD H Ur Microscopic SEDIMENT EXAMINED Urine RBC (0 - 5 /HPF) 10-15 H Urine WBC (0 - 2 /HPF) 15-25 H Ur Epithelial Cells (NONE,FEW) RARE Urine Bacteria (NEG/NONE) FEW H Urine Hemoglobin (NEG) LARGE H Urine Glucose (N MG/DL) >=1000 H 06/23 06/23 1622 1620 Chemistry Sodium (137 - 145 mmol/L) 131 L Potassium (3.5 - 5.1 mmol/L) 4.6 Chloride (98 - 107 mmol/L) 89 L Carbon Dioxide (22 - 30 mmol/L) 28 Anion Gap (5 - 16) 14 BUN (9 - 20 mg/dL) 26 H Creatinine (0.7 - 1.2 mg/dL) 2.5 H Estimated GFR (>60 ml/min) 26 L BUN/Creatinine Ratio (7 - 25 %) 10.4 Glucose (65 - 99 mg/dL) 321 H Lactic Acid (0.7 - 2.1 mmol/L) 2.1 Calcium (8.4 - 10.2 mg/dL) 8.9 Total Bilirubin (0.2 - 1.3 mg/dL) 2.0 H Direct Bilirubin (< 0.4 mg/dL) 0.6 H AST (17 - 59 U/L) 32 ALT (21 - 72 U/L) 40 Alkaline Phosphatase (< 127 U/L) 112 Creatine Kinase (55 - 170 U/L) 100 Cancelled Troponin I (<0.11 ng/ml) < 0.01 Kko-H-Cdsvdfyvcks Pept (<125 pg/mL) 371 H Total Protein (6.3 - 8.2 g/dL) 7.5 Albumin (3.5 - 5.0 g/dL) 3.8 Globulin (1.9 - 4.2 gm/dL) 3.7 Albumin/Globulin Ratio (1.1 - 2.2 %) 1.0 L Amylase (30 - 110 U/L) 40 Lipase (23 - 300 U/L) 164 Coagulation PT (9.4 - 12.5 SEC) 24.6 H INR (0.90 - 1.17) 2.24 H APTT (25 - 37 SEC) 38 H Hematology CBC w Diff MAN DIFF ORDERED WBC (4.8 - 10.8 /CUMM) 17.1 H RBC (4.70 - 6.10 /CUMM) 5.55 Hgb (14.0 - 18.0 G/DL) 15.7 Hct (42 - 52 %) 47.9 MCV (80.0 - 94.0 FL) 86.3 MCH (27.0 - 31.0 PG) 28.2 MCHC (33.0 - 37.0 G/DL) 32.7 L RDW (11.5 - 14.5 %) 15.5 H Plt Count (130 - 400 /CUMM) 296 MPV (7.4 - 10.4 FL) 8.5 Gran % (42.2 - 75.2 %) 86.4 H Lymphocytes % (20.5 - 51.1 %) 3.4 L Monocytes % (1.7 - 9.3 %) 10.0 H Eosinophils % (0 - 5 %) 0.1 Basophils % (0.0 - 2.0 %) 0.1 Absolute Granulocytes (1.4 - 6.5 /CUMM) 14.8 H Segmented Neutrophils (42.2 - 75.2 %) 84 H Band Neutrophils (0.0 - 5.0 %) 1 Absolute Lymphocytes (1.2 - 3.4 /CUMM) 0.6 L Lymphocytes (20.5 - 51.1 %) 4 L Monocytes (1.7 - 9.3 %) 10 H Absolute Monocytes (0.10 - 0.60 /CUMM) 1.7 H Absolute Eosinophils (0.0 - 0.7 /CUMM) 0 Basophils (0.0 - 2.0 %) 1 Absolute Basophils (0.0 - 0.2 /CUMM) 0 Platelet Estimate (ADEQUATE) VERIFIED BY SMEAR Normocytic RBCs VERIFIED Normochromic RBCs VERIFIED Other Body Source Fld Total RBCs Counted (%) 100 Assessment/Plan Assessment/Plan Imp: 1. Obstructing L distal ureteral calculus with proximal L hydro- ureteronephrosis, L flank pain and U/A suspicious for infection 2. DM 3. HTN 4. Hyperlipidemia 5. COPD 6. Hx of pulmonary embolism, anticoagulated Consult Acknowledgment - Thank you for your consult request.
--- NOTE | 2017-06-23 23:00 | Operative Report ---
Operative/Inv Procedure Report Surgery Date: 06/23/17 Name of Procedure: Cystoscopy, insertion of left double-J ureteral stent Pre-Operative Diagnosis: Left pyelonephritis with obstructing left distal ureteral calculus Post-Operative Diagnosis: Same Estimated Blood Loss: scant Surgeon/Welder First Class: Brandy Anesthesia: moderate sedation Drains: 26 cm 6 Austrian left double-J ureteral stent with short suture. A 16 Austrian Garland Specimens: Left kidney urine for culture Complications: None Condition: Fair Operative Indication: This patient presented to the emergency room with a 2 day history of left flank and left-sided abdominal pain, weakness and chills. His urine analysis showed pyuria. CT scan of the abdomen and pelvis showed a 4-5 mm obstructing stone in the left distal ureter with proximal hydroureteronephrosis. There were also bilateral nonobstructing renal stones. His white blood cell count was 17,000. His creatinine was elevated at 2.5 and his lactic acid level was 2.1. Based on the above was felt that he should have urgent attempt at left ureteral stent insertion to drain the left kidney. Operative/Procedure Note Note: The patient was taken to the operating room and identified. He is placed in the supine position on the cystoscopy table. Timeout was executed appropriately with the patient awake. Total intravenous anesthesia was given. The patient was then placed in the dorsolithotomy position and prepped and draped in usual fashion for cystoscopy. A surgical pause was executed appropriately. A fluoroscopy images taken with a marker on the left side of the abdomen to confirm the correct side of the surgery as well as a correct orientation of the fluoroscopy image. The 22 Austrian cystoscope sheath was placed into the bladder under direct vision using the 30 lens. Anterior urethra was normal. The prostatic urethra showed a mild to moderate prostatic hypertrophy with partial bladder outlet obstruction. Most recently meters in length. Upon entering the bladder there was a significant amount of debris noted. The bladder mucosa was inflamed. The right and left ureteral orifices were normal in location and appearance. A guidewire was placed through the cystoscope and attempted to place it in the left ureter was unsuccessful. Therefore an angle tip Glidewire was placed through an open-ended catheter. This initially would not advance into the left ureter. Some contrast was injected through the open-ended catheter into the left ureter and there was J hooking of the distal ureter. Once the contrast was injected purulent drainage was seen from the left ureter. With some further manipulation of the angle tip Glidewire through the open-ended catheter the Glidewire eventually bypassed the stone without the level of the kidney. The open-ended catheter was placed over the wire and the wire removed. Some urine from the left kidney was collected for culture. A small amount of contrast was injected through the open-ended catheter to outline the left renal collecting system. A solo wire was then placed through the open-ended catheter which was removed. Under visual fluoroscopic control a 26 cm 6 Austrian left double-J ureteral stent was placed. One stent was then placed a guidewire was removed. Fluoroscopy confirmed the proximal end of the stent coiled in the left upper pole renal calyx. The distal end of the stent was coiled in the bladder. A short suture was left attached the distal end of the stent. Purulent urine could be seen draining from the stent. A 16 Austrian Garland catheter was placed. Completion was taken to the ICU since the recovery room was closed at this time of night Findings: Left distal ureteral obstruction with purulent urine proximal to the left distal ureteral stone Discharge Disposition: Critical Care Unit
[2017-06-23] MEDS ORDERED: LASIX20 M1 PO (23:38)
[2017-06-23] MEDS ORDERED: ALBUTEROL0.63 MG/1 INH/SOL (23:39)
--- NOTE | 2017-06-23 23:40 | RADIOLOGY REPORT ---
EXAMINATION: XR KIDNEYS, URETER, BLADDER CLINICAL INDICATION: Left ureteral stent COMPARISON: CT from today TECHNIQUE: AP fluoroscopic view of the abdomen. 4 images. Total fluoroscopic time 24.4 seconds. FINDINGS: There is retrograde contrast injection into the left ureter demonstrating a distal ureteral filling defect consistent with a calculus seen on recent CT. Mild fullness of the left collecting system is noted. Final image demonstrates a left ureteral stent in place. IMPRESSION: Fluoroscopic guidance for left ureteral stent placement. Please refer to procedural report for further information.
[2017-06-24] VITALS (7 sets, daily range): BP systolic 104–122; BP diastolic 62–80
--- NOTE | 2017-06-24 00:36 | Admission Certification ---
Admission Certification Certification Statement - As attending physician, I certify that at the time of - admission, based on clinical presentation, severity of - symptoms, need for further diagnostic testing and - therapeutic interventions, and risk of adverse outcomes - without in-hospital treatment, in my clinical assessment, - this patient requires an acute hospital stay for a minimum - of two nights or longer. I have also considered psychsocial - factors such as support system, advanced age, financial - issues, cognitive issues, and failed out-patient treatments, - past re-admission history, safety of patient, and lack of - compliance as applicable. Specific rationale supporting this admission is: Left obstructive uropathy with pyelonephritis causing sepsis
--- NOTE | 2017-06-24 07:09 | PN- Housestaff ---
[facility] 0709: Subjective Follow-up For: Left hydroureteronephrosis due to left ureteric to status post stent placement. Sepsis due to acute left sided pyelonephritis Acute on chronic kidney injury Gram-positive bacteremia Subjective: No overnight events. Patient remained afebrile with a seen and examined this morning. He is on 2 L of oxygen and maintaining saturation 95%. Patient denied any chest pain, short of breath, palpitation, nausea, vomiting, chills, fever, abdominal pain dysuria. Patient is going to gram-positive cocci in blood. Review of Systems Constitutional: Denies: chills, fever, malaise. EENTM: Reports: no symptoms. Cardiovascular: Denies: chest pain, orthopena, palpitations. Respiratory: Reports: cough. Denies: short of breath, sputum production. Gastrointestinal: Denies: abdominal pain, constipation, diarrhea, nausea, vomiting. Genitourinary: Reports: no symptoms. Neurological/Psychological: Reports: no symptoms. Objective Last 24 Hrs of Vital Signs/I&O Vital Signs Date Time Temp Pulse Resp B/P B/P Pulse O2 O2 Flow FiO2 Mean Ox Delivery Rate 06/24 0902 70 114/72 06/24 0620 98.3 75 18 112/70 96 Nasal 4.0L Cannula 06/24 0423 97.9 69 18 120/68 95 Nasal Cannula 06/24 0235 98.1 73 20 118/64 95 Nasal 4.0L Cannula 06/24 0126 97 Nasal 4.0L Cannula 06/24 0040 97.9 87 20 122/62 97 Nasal 4.0L Cannula 06/23 2034 80 20 112/55 94 Room Air 06/23 1853 98.9 82 18 118/56 95 Room Air 06/23 1522 99.0 80 18 103/68 94 Room Air Intake & Output 06/24 1600 06/24 0800 06/24 0000 Intake Total 900 Output Total 625 Balance 275 Intake, IV 800 Intake, Oral 100 Number 0 Bowel Movements Output, Urine 625 Patient 270 lb Weight Weight Bed scale Measurement Method Physical Exam General Appearance: Alert, Oriented X3, Cooperative Skin: No Rashes Skin Temp/Moisture Exam: Warm/Dry Sepsis Skin Exam (color): Normal for Ethnicity HEENT: Atraumatic, PERRLA, EOMI Neck: Supple Cardiovascular: Normal S1, Normal S2 Lungs: Clear to Auscultation Abdomen: Soft, No Tenderness Neurological: Normal Speech, Strength at 5/5 X4 Ext, Normal Tone Extremities: No Edema, B/L chronic venous changes with blisters. Assessment/Plan Assessment: 66-year-old male with past medical history significant for hypertension, hyperlipidemia, type 2 diabetes mellitus, colon cancer status post colostomy( reversed), paroxysmal atrial fibrillation on Coumadin, DVT/PE status post IVC filter, coronary artery disease status post CABG, COPD not on home o2, remote history of kidney stone s/p stent follow-up with Dr. Nava, BPH, osteomyelitis, right side pleural effusion status post right pleurectomy and right lung decortication pneumoysis in 2006 sleep apnea on CPAP presented to ED with chief complaint of 3 days of cough, left flank pain, lower extremity swelling and wound weeping. We are seeing the patient for following problems: Sepsis secondary to acute pyelonephritis: -Admission patient having elevated WBC count and organ failure with lactci acid formation. Her imaging study patient was found to have left pyelonephritis. -Lactic acid is trended. -Continue gentle IV hydration. -Continue ceftriaxone -We will monitor his WBC count and LFTs. -His blood cultures are positive with gram-positive cocci. Patient has a history of MRSA infection in the past. -We will follow ID recommendations regarding antibiotics. Left ureterohydronephrosis due to left ureteral stone status post stent placement: -Purulent urine was drained with stent placement. -Postop day 1 -Continue gentle IV hydration -Discontinue Garland's catheter and we will follow x-ray KUB results. -Follow-up urology recommendations Acute on chronic kidney injury: -Patient has baseline GFR 45 and creatinine 1.5 -Presented with creatinine 2.5 and GFR 26 -Stage III CKD -No nephrotoxic medications -Gentle IV hydration -Follow-up renal function -Hold Lasix History of hypertension hyperlipidemia: -Continue atorvastatin -Holding his Lasix History of A. fib on anticoagulation: -Continue amiodarone -Continue Coumadin -Check INR History of CAD status post stent placement: -Continue aspirin and Plavix H/O diastolic CHF: -Holding lasix due to acute on chronic kidney injury. History of diabetes: -Accu-Cheks -Insulin NovoLog according to sliding scale -Continue insulin Levemir 20 units twice a day H/O COPD/TAYLER: -Continue night time CPAP as needed H/O B/L chronic venous statis: -Had b/l pedal edema and is on lasix -Left leg wounds with statis dermatitis. -Right leg statis dermatitis with a blister. DVT prophylaxis: Mechanical and patient is already on warfarin CODE STATUS: Full code Problem List: 1. Pyelonephritis 2. Sepsis 3. Kidney stone on left side Pain Ratin Pain Location: none Pain Goal: Remain pain free Pain Plan: pain pathway Tomorrow's Labs & Rationales: cbc/bep/inr Leobardo Monteiro MDchikinancy 06/24/17 1121: Attending MD Review Statement Attending Statement Attending MD Statement: examined this patient, discuss w/resident/PA/PLATE PUT IN WORKER, agreed w/resident/PA/PLATE PUT IN WORKER, reviewed EMR data (avail), discussed with nursing, discussed with case mgmt, amended to note Attending Assessment/Plan: Patient seen and examined. Lethargic not in acute distress. He is afebrile. He is hemodynamically stable. Denies nausea vomiting. Denies shortness of breath or cough. Denies chest pain. Admits to some flank pain. Garland catheter is in place draining concentrated urine. Comment currently maintaining saturation on 4 L of oxygen saturating 96%. Patient admits to history of COPD. He denies being on any inhalers however he does have Spiriva and his medication regimen. Nursing staff states that he declined to take his medication this morning. On examination he has adequate entry bilaterally with no added sounds. Abdomen soft and nontender. He has trace peripheral edema. Labs show improvement in his white cell count and creatinine level. Problems: 1. Sepsis secondary to pyelonephritis. 2. Acute on chronic kidney disease secondary to obstructive uropathy. 3. Left-sided hydroureteronephrosis secondary to obstructing renal stone 4. Gram-positive cocci bacteremia 5. Atrial fibrillation on anticoagulation 6. COPD not on home oxygen 7. Coronary artery disease status post CABG on dual antiplatelet therapy. 8. History of DVT and pulmonary embolism. IVC filter in place. 9. Diabetes mellitus with complications of neuropathy, nephropathy 10. Obstructive sleep apnea on CPAP therapy. Plan: -Patient is now growing gram-positive cocci in blood culture bottles. Recommend adding vancomycin to his regimen. Continue antibiotic therapy with IV ceftriaxone for his pyelonephritis. -ID consultation for antibiotic stewardship. -Discontinue Garland catheter as recommended by the urology service. Mobilize patient. -Renal function is improving. Continue to monitor serum chemistry. -Continue anticoagulant therapy. -Respiratory therapy to provide patient with CPAP therapy at night and TRC
--- NOTE | 2017-06-24 07:28 | PN- Urology ---
Subjective Subjective: Feels better. L flank pain resolved Objective Vital Signs and I&Os Vital Signs Date Time Temp Pulse Resp B/P B/P Pulse O2 O2 Flow FiO2 Mean Ox Delivery Rate 06/25 619 98.3 75 18 112/70 96 Nasal 4.0L Cannula 06/24 0423 97.9 69 18 120/68 95 Nasal Cannula 06/24 0235 98.1 73 20 118/64 95 Nasal 4.0L Cannula 06/24 0126 97 Nasal 4.0L Cannula 06/24 0040 97.9 87 20 122/62 97 Nasal 4.0L Cannula 06/23 2034 80 20 112/55 94 Room Air 06/23 1853 98.9 82 18 118/56 95 Room Air 06/23 1522 99.0 80 18 103/68 94 Room Air Intake & Output 06/24 0800 06/24 0000 06/23 1600 06/23 0800 06/23 0000 06/22 1600 Intake Total Output Total 625 Balance -625 Number 0 Bowel Movements Output, Urine 625 Patient 270 lb 260 lb Weight Weight Bed scale Reported by Patient Measurement Method Back: soft and non tender Genitalia: marrero in place. Draining mostly clear urine Laboratory Tests 06/23 06/23 06/23 1917 1835 1622 Chemistry Lactic Acid (0.7 - 2.1 mmol/L) 2.0 Amylase Cancelled Lipase Cancelled Urines Urine Color (YEL,AMB,STR) YEL Urine Clarity (CLEAR) HAZY H Urine pH (5.0 - 8.0) 6.5 Ur Specific [place] (1.001 - 1.035) 1.015 Urine Protein (NEG,<30 MG/DL) NEG Urine Ketones (NEG) NEG Urine Nitrite (NEG) NEG Urine Bilirubin (NEG) NEG Urine Urobilinogen (0.1 - 1.0 EU/dl) 0.2 Ur Leukocyte Esterase (NEG) MOD H Ur Microscopic SEDIMENT EXAMINED Urine RBC (0 - 5 /HPF) 10-15 H Urine WBC (0 - 2 /HPF) 15-25 H Ur Epithelial Cells (NONE,FEW) RARE Urine Bacteria (NEG/NONE) FEW H Urine Hemoglobin (NEG) LARGE H Urine Glucose (N MG/DL) >=1000 H 06/23 06/23 1622 1620 Chemistry Sodium (137 - 145 mmol/L) 131 L Potassium (3.5 - 5.1 mmol/L) 4.6 Chloride (98 - 107 mmol/L) 89 L Carbon Dioxide (22 - 30 mmol/L) 28 Anion Gap (5 - 16) 14 BUN (9 - 20 mg/dL) 26 H Creatinine (0.7 - 1.2 mg/dL) 2.5 H Estimated GFR (>60 ml/min) 26 L BUN/Creatinine Ratio (7 - 25 %) 10.4 Glucose (65 - 99 mg/dL) 321 H Lactic Acid (0.7 - 2.1 mmol/L) 2.1 Calcium (8.4 - 10.2 mg/dL) 8.9 Total Bilirubin (0.2 - 1.3 mg/dL) 2.0 H Direct Bilirubin (< 0.4 mg/dL) 0.6 H AST (17 - 59 U/L) 32 ALT (21 - 72 U/L) 40 Alkaline Phosphatase (< 127 U/L) 112 Creatine Kinase (55 - 170 U/L) 100 Cancelled Troponin I (<0.11 ng/ml) < 0.01 Mhu-T-Pxhorncmois Pept (<125 pg/mL) 371 H Total Protein (6.3 - 8.2 g/dL) 7.5 Albumin (3.5 - 5.0 g/dL) 3.8 Globulin (1.9 - 4.2 gm/dL) 3.7 Albumin/Globulin Ratio (1.1 - 2.2 %) 1.0 L Amylase (30 - 110 U/L) 40 Lipase (23 - 300 U/L) 164 Coagulation PT (9.4 - 12.5 SEC) 24.6 H INR (0.90 - 1.17) 2.24 H APTT (25 - 37 SEC) 38 H Hematology CBC w Diff MAN DIFF ORDERED WBC (4.8 - 10.8 /CUMM) 17.1 H RBC (4.70 - 6.10 /CUMM) 5.55 Hgb (14.0 - 18.0 G/DL) 15.7 Hct (42 - 52 %) 47.9 MCV (80.0 - 94.0 FL) 86.3 MCH (27.0 - 31.0 PG) 28.2 MCHC (33.0 - 37.0 G/DL) 32.7 L RDW (11.5 - 14.5 %) 15.5 H Plt Count (130 - 400 /CUMM) 296 MPV (7.4 - 10.4 FL) 8.5 Gran % (42.2 - 75.2 %) 86.4 H Lymphocytes % (20.5 - 51.1 %) 3.4 L Monocytes % (1.7 - 9.3 %) 10.0 H Eosinophils % (0 - 5 %) 0.1 Basophils % (0.0 - 2.0 %) 0.1 Absolute Granulocytes (1.4 - 6.5 /CUMM) 14.8 H Segmented Neutrophils (42.2 - 75.2 %) 84 H Band Neutrophils (0.0 - 5.0 %) 1 Absolute Lymphocytes (1.2 - 3.4 /CUMM) 0.6 L Lymphocytes (20.5 - 51.1 %) 4 L Monocytes (1.7 - 9.3 %) 10 H Absolute Monocytes (0.10 - 0.60 /CUMM) 1.7 H Absolute Eosinophils (0.0 - 0.7 /CUMM) 0 Basophils (0.0 - 2.0 %) 1 Absolute Basophils (0.0 - 0.2 /CUMM) 0 Platelet Estimate (ADEQUATE) VERIFIED BY SMEAR Normocytic RBCs VERIFIED Normochromic RBCs VERIFIED Other Body Source [place] Total RBCs Counted (%) 100 Assessment/Plan Assessment/Plan Imp: 1. Improved s/p cysto and L ureteral stent insertion for L distal ureteral stone and pyonephrosis. Patient also has non obstructing bilateral renal stones Plan: 1. OK to remove marrero today 2. Please order KUB 3. Continue ceftriaxone 4. f/u cultures 5. In view of comorbidities will likely give 4-6 weeks in hopes that L distal ureteral stone will pass. If not he will require L ureteroscopy and laser litho which will require general anesthesia 6. Strain urine
[2017-06-24 07:55] LABS: ABSOLUTE BASOPHIL COUNT 0 /CUMM (0.0-0.2); ABSOLUTE EOSINOPHIL COUNT 0.1 /CUMM (0.0-0.7); ABSOLUTE LYMPH COUNT 0.8 /CUMM (1.2-3.4); BASOPHIL % 0 % (0.0-2.0); WHITE BLOOD CELL COUNT 15.5 /CUMM (4.8-10.8)
[2017-06-24 08:02] LABS: ABSOLUTE GRANULOCYTE CT 12.9 /CUMM (1.4-6.5); ABSOLUTE MONOCYTE COUNT 1.7 /CUMM (0.10-0.60); EOSINOPHIL % 0.6 % (0-5); GRANULOCYTE % 83.1 % (42.2-75.2); MEAN CORPUSCULAR VOLUME 87.7 FL (80.0-94.0); MEAN PLATELET VOLUME 8.7 FL (7.4-10.4); PLATELET COUNT 261 /CUMM (130-400); RBC DISTRIBUTION WIDTH 15.5 % (11.5-14.5)
[2017-06-24 08:16] LABS: HEMATOCRIT 41.2 % (42-52)
[2017-06-24 08:18] LABS: PT 26.5 SEC (9.4-12.5)
--- NOTE | 2017-06-24 15:07 | RADIOLOGY REPORT ---
EXAMINATION: XR KIDNEYS, URETER, BLADDER CLINICAL INDICATION: Obstructive uropathy. COMPARISON: CT of the chest, abdomen and pelvis done on 06/23/2017. Fluoroscopic images obtained at the time of the left-sided internal ureteric stent placement on 06/23/2017. TECHNIQUE: AP view of the abdomen. FINDINGS: There is a left-sided internal ureteric stent present, appears in good position. There is a radiopaque density seen projecting over the left renal outline partially obscured by the superior part of the stent, measures 1.6 cm at its maximum dimension, consistent with previous CT detected radiopaque calculus. There is a 0.7 cm radiodensity seen projecting over the superior right renal outline, and 0.8 cm radiodensity at the inferior right renal outline, consistent with previous CT detected right renal calculi. Incidental note is made of an IVC filter. Nonspecific bowel gas pattern is noted. IMPRESSION: 1. Left-sided internal ureteric stent, appears in good position. 2. Bilateral renal calculi. 3. Evidence of inferior vena cava filter.
--- NOTE | 2017-06-24 16:10 | Cons- Infect Disease ---
General Information and HPI Consulting Request Date of Consult: 06/24/17 Requested By: Meghana Monteiro MD Reason for Consult: Positive blood cultures for gram-positive cocci in clusters Source of Information: patient, family, old records History of Present Illness: This is a 66-year-old man with diabetes, hypertension, coronary artery disease, status post CABG, atrial fibrillation, maintained on Coumadin, hyperlipidemia, chronic renal insufficiency, COPD, sleep apnea, DVT/PE, status post IVC filter, colon cancer, status post resection, BPH and nephrolithiasis, with a history of MRSA sepsis of urologic origin 3 years prior to admission, last hospitalized 8 months prior to admission with an exacerbation of COPD, seen in the emergency room 2-1/2 months prior to admission with left groin pain and found to have a tear/avulsion of the distal left iliopsoas tendon, discharged to a short-term rehab facility for 10 days, with difficulty in raising his left leg since then, admitted on June 23 with a several day history of left flank pain, burning on urination, anorexia with decreased p.o. intake, increased weakness and chills. On admission he was afebrile, with a blood pressure of 103/68. Laboratory data revealed a white blood cell count of 17,000, glucose 321, BUN/creatinine 26 and 2.5, bilirubin 2.0, INR 2.24/PTT 38. Urinalysis 10-15 RBC/15-[address] of the chest, abdomen and pelvis revealed left-sided obstructive uropathy with a 4 mm obstructing calculus at the left UVJ resulting in a moderate left-sided hydroureteronephrosis and significant left-sided perinephric stranding, with additional bilateral renal calculi; cholelithiasis without acute cholecystitis; atelectasis versus chronic appearing scarring within the lingula and left lower lobe with a trace left pleural effusion. He was begun on Ceftriaxone and taken to the OR that evening for cystoscopy and insertion of a left double-J ureteral stent. He has remained afebrile since admission and feels improved today. This morning blood cultures 2 were reported positive for gram-positive cocci in clusters. Allergies/Medications Allergies: Coded Allergies: Penicillins (PT DOES NOT REMEMBER 12/05/15) ampicillin (RASH 12/05/15) sulbactam (RASH 12/05/15) Home Med List: Albuterol Sulfate 0.63 MG/3 ML VIAL.NEB 1 Vial INH/NDE TID PRN lung health ( Reported) Amiodarone (Cordarone) 200 MG TABLET 1 TAB PO QAM HEART (Reported) Aspirin (Ecotrin*) 81 MG TABLET.DR 1 TAB PO DAILY HEART/HEALTH (Reported) Atorvastatin Calcium 20 MG TABLET 1 TAB PO DAILY CHOLESTEROL (Reported) Clopidogrel Bisulfate (Clopidogrel) 75 MG TABLET 1 TAB PO QAM BLOOD THINNER ( Reported) Furosemide (Lasix) 20 MG TABLET 3 TAB PO DAILY leg swelling (Reported) Insulin Lispro (Humalog) 100 UNIT/ML VIAL DM (Reported) Insulin-Lantus (Lantus) 100 UNIT/ML VIAL 30 UNITS SC QPM DM (Reported) Insulin-Lantus (Lantus) 100 UNIT/ML VIAL 40 UNITS SC QAM DM (Reported) Levothyroxine Sodium 112 MCG TABLET 1 TAB PO DAILY AC THYROID (Reported) Tamsulosin HCl 0.4 MG CAP.ER.24H 1 CAP PO DAILY PROSTATE (Reported) Warfarin Sodium (Coumadin) 2.5 MG TABLET 1 TAB PO MoTuThSa BLOOD THINNER ( Reported) Past History Travel History Traveled to [place] past 21 day No Medical History Blood Transfusion Hx: No Neurological: NONE EENT: NONE Cardiovascular: AFIB, hypertension, hyperlipidemia, CABG Respiratory: COPD, obstructive sleep apnea, pulmonary embolism Hepatic: NONE Renal: benign prost hyperplasia, chronic kidney disease, uti/prostatitis Musculoskeletal: osteoarthritis Psychiatric: NONE Endocrine: diabetes Blood Disorders: DVT, PE Cancer(s): colon/rectal cancer [employer] P[employer] HELPER/Reproductive: NONE History of MRSA: Yes History of VRE: No History of CDIFF: No Isolation History: Contact Surgical History Surgical History: CABG, colon resection (s/p r hemicolectomy), hernia repair- incisional, hernia repair-inguinal, s/p decortication for empyema s/p IVC filter R INDEX FINGER AMPT Family History Relations & Conditions If Any: hypertension in family obesity in family SISTER SISTER (nephrectomy for cancer). Psychosocial History Where Do You Live? Home Who Do You Live With? spouse Services at Home: None Primary Language: Slovak Smoking Status: Former Smoker Functional Ability ADLs Independent: dressing, eating, toileting, bathing. Ambulation: independent, cane, walker, non-ambulatory IADLs Independent: shopping, housework, finances, food prep, telephone, transportation , medication admin. Review of Systems Review of Systems All Other Systems: Reviewed and Negative Exam & Diagnostic Data Last 24 Hrs of Vital Signs/I&O Vital Signs Date Time Temp Pulse Resp B/P B/P Pulse O2 O2 Flow FiO2 Mean Ox Delivery Rate 06/24 1445 Nasal 2.0L Cannula 06/24 1434 98.1 73 22 110/75 97 Room Air 06/24 0905 70 114/72 06/24 0902 70 114/72 06/24 0800 97 Nasal 4.0L Cannula 06/24 0620 98.3 75 18 112/70 96 Nasal 4.0L Cannula 06/24 0423 97.9 69 18 120/68 95 Nasal Cannula 06/24 0235 98.1 73 20 118/64 95 Nasal 4.0L Cannula 06/24 0126 97 Nasal 4.0L Cannula 06/24 0040 97.9 87 20 122/62 97 Nasal 4.0L Cannula 06/23 2034 80 20 112/55 94 Room Air 06/23 1853 98.9 82 18 118/56 95 Room Air Intake & Output 06/24 1600 06/24 0800 06/24 0000 Intake Total 700 900 Output Total 725 625 Balance -25 275 Intake, IV 700 800 Intake, Oral 100 Number 0 Bowel Movements Output, Urine 725 625 Patient 270 lb Weight Weight Bed scale Measurement Method Physical Exam Other Physical Findings: He is awake and alert in no acute distress. He is afebrile. Skin reveals no rash. HEENT exam is negative. Neck is supple with no adenopathy. Lungs are clear. Heart irregular rhythm with no murmur. Abdomen is obese, soft, nontender with positive bowel sounds. Back no CVA tenderness. Extremities mild erythema of the left lower extremity, with multiple superficial ulcerations; 2+ pulses, with no cyanosis, clubbing or edema; pain on lifting the left leg. Neuro is without focality. Garland catheter is in place. Last 24 Hours of Lab Results: Laboratory Tests 06/24 06/23 0705 1917 Chemistry Sodium (137 - 145 mmol/L) 133 L Potassium (3.5 - 5.1 mmol/L) 4.0 Chloride (98 - 107 mmol/L) 96 L Carbon Dioxide (22 - 30 mmol/L) 28 Anion Gap (5 - 16) 9 BUN (9 - 20 mg/dL) 24 H Creatinine (0.7 - 1.2 mg/dL) 2.0 H Estimated GFR (>60 ml/min) 34 L BUN/Creatinine Ratio (7 - 25 %) 12.0 Lactic Acid (0.7 - 2.1 mmol/L) 2.0 Magnesium (1.6 - 2.3 mg/dL) 1.8 Total Bilirubin (0.2 - 1.3 mg/dL) 1.1 Direct Bilirubin (< 0.4 mg/dL) 0.3 AST (17 - 59 U/L) 20 ALT (21 - 72 U/L) 27 Alkaline Phosphatase (< 127 U/L) 80 Total Protein (6.3 - 8.2 g/dL) 5.8 L Albumin (3.5 - 5.0 g/dL) 2.8 L Coagulation PT (9.4 - 12.5 SEC) 26.5 H INR (0.90 - 1.17) 2.41 H Hematology CBC w Diff NO MAN DIFF REQ WBC (4.8 - 10.8 /CUMM) 15.5 H RBC (4.70 - 6.10 /CUMM) 4.70 Hgb (14.0 - 18.0 G/DL) 13.2 L Hct (42 - 52 %) 41.2 L MCV (80.0 - 94.0 FL) 87.7 MCH (27.0 - 31.0 PG) 28.0 MCHC (33.0 - 37.0 G/DL) 32.0 L RDW (11.5 - 14.5 %) 15.5 H Plt Count (130 - 400 /CUMM) 261 MPV (7.4 - 10.4 FL) 8.7 Gran % (42.2 - 75.2 %) 83.1 H Lymphocytes % (20.5 - 51.1 %) 5.0 L Monocytes % (1.7 - 9.3 %) 11.3 H Eosinophils % (0 - 5 %) 0.6 Basophils % (0.0 - 2.0 %) 0 Absolute Granulocytes (1.4 - 6.5 /CUMM) 12.9 H Absolute Lymphocytes (1.2 - 3.4 /CUMM) 0.8 L Absolute Monocytes (0.10 - 0.60 /CUMM) 1.7 H Absolute Eosinophils (0.0 - 0.7 /CUMM) 0.1 Absolute Basophils (0.0 - 0.2 /CUMM) 0 06/23 06/23 1835 1622 Chemistry Amylase Cancelled Lipase Cancelled Urines Urine Color (YEL,AMB,STR) YEL Urine Clarity (CLEAR) HAZY H Urine pH (5.0 - 8.0) 6.5 Ur Specific [place] (1.001 - 1.035) 1.015 Urine Protein (NEG,<30 MG/DL) NEG Urine Ketones (NEG) NEG Urine Nitrite (NEG) NEG Urine Bilirubin (NEG) NEG Urine Urobilinogen (0.1 - 1.0 EU/dl) 0.2 Ur Leukocyte Esterase (NEG) MOD H Ur Microscopic SEDIMENT EXAMINED Urine RBC (0 - 5 /HPF) 10-15 H Urine WBC (0 - 2 /HPF) 15-25 H Ur Epithelial Cells (NONE,FEW) RARE Urine Bacteria (NEG/NONE) FEW H Urine Hemoglobin (NEG) LARGE H Urine Glucose (N MG/DL) >=1000 H 06/23 06/23 1622 1620 Chemistry Sodium (137 - 145 mmol/L) 131 L Potassium (3.5 - 5.1 mmol/L) 4.6 Chloride (98 - 107 mmol/L) 89 L Carbon Dioxide (22 - 30 mmol/L) 28 Anion Gap (5 - 16) 14 BUN (9 - 20 mg/dL) 26 H Creatinine (0.7 - 1.2 mg/dL) 2.5 H Estimated GFR (>60 ml/min) 26 L BUN/Creatinine Ratio (7 - 25 %) 10.4 Glucose (65 - 99 mg/dL) 321 H Lactic Acid (0.7 - 2.1 mmol/L) 2.1 Calcium (8.4 - 10.2 mg/dL) 8.9 Total Bilirubin (0.2 - 1.3 mg/dL) 2.0 H Direct Bilirubin (< 0.4 mg/dL) 0.6 H AST (17 - 59 U/L) 32 ALT (21 - 72 U/L) 40 Alkaline Phosphatase (< 127 U/L) 112 Creatine Kinase (55 - 170 U/L) 100 Cancelled Troponin I (<0.11 ng/ml) < 0.01 Ier-C-Lthydwayrqz Pept (<125 pg/mL) 371 H Total Protein (6.3 - 8.2 g/dL) 7.5 Albumin (3.5 - 5.0 g/dL) 3.8 Globulin (1.9 - 4.2 gm/dL) 3.7 Albumin/Globulin Ratio (1.1 - 2.2 %) 1.0 L Amylase (30 - 110 U/L) 40 Lipase (23 - 300 U/L) 164 Coagulation PT (9.4 - 12.5 SEC) 24.6 H INR (0.90 - 1.17) 2.24 H APTT (25 - 37 SEC) 38 H Hematology CBC w Diff MAN DIFF ORDERED WBC (4.8 - 10.8 /CUMM) 17.1 H RBC (4.70 - 6.10 /CUMM) 5.55 Hgb (14.0 - 18.0 G/DL) 15.7 Hct (42 - 52 %) 47.9 MCV (80.0 - 94.0 FL) 86.3 MCH (27.0 - 31.0 PG) 28.2 MCHC (33.0 - 37.0 G/DL) 32.7 L RDW (11.5 - 14.5 %) 15.5 H Plt Count (130 - 400 /CUMM) 296 MPV (7.4 - 10.4 FL) 8.5 Gran % (42.2 - 75.2 %) 86.4 H Lymphocytes % (20.5 - 51.1 %) 3.4 L Monocytes % (1.7 - 9.3 %) 10.0 H Eosinophils % (0 - 5 %) 0.1 Basophils % (0.0 - 2.0 %) 0.1 Absolute Granulocytes (1.4 - 6.5 /CUMM) 14.8 H Segmented Neutrophils (42.2 - 75.2 %) 84 H Band Neutrophils (0.0 - 5.0 %) 1 Absolute Lymphocytes (1.2 - 3.4 /CUMM) 0.6 L Lymphocytes (20.5 - 51.1 %) 4 L Monocytes (1.7 - 9.3 %) 10 H Absolute Monocytes (0.10 - 0.60 /CUMM) 1.7 H Absolute Eosinophils (0.0 - 0.7 /CUMM) 0 Basophils (0.0 - 2.0 %) 1 Absolute Basophils (0.0 - 0.2 /CUMM) 0 Platelet Estimate (ADEQUATE) VERIFIED BY SMEAR Normocytic RBCs VERIFIED Normochromic RBCs VERIFIED Other Body Source Fld Total RBCs Counted (%) 100 Last 24 Hours of Jack Results: Blood cultures 2 June 23 positive for gram-positive cocci in clusters Urine culture June 23 from the ER greater than 100,000 colonies of Staph aureus Urine culture June 23 from the OR negative Diagnostic Data Recent Imaging Findings: CT of the chest, abdomen and pelvis revealed left-sided obstructive uropathy with a 4 mm obstructing calculus at the left UVJ resulting in a moderate left- sided hydroureteronephrosis and significant left-sided perinephric stranding, with additional bilateral renal calculi; cholelithiasis without acute cholecystitis; atelectasis versus chronic appearing scarring within the lingula and left lower lobe with a trace left pleural effusion. Assessment/Plan Assessment/Plan Impression: This is a 66-year-old man with multiple medical problems including diabetes, atrial fibrillation, maintained on Coumadin, COPD and nephrolithiasis, admitted on June 23 with a several day history of left flank pain, burning on urination, anorexia with decreased p.o. intake, increased weakness and chills, found to be afebrile with a leukocytosis, pyuria and with a CT of the chest, abdomen and pelvis revealed left-sided obstructive uropathy with a 4 mm obstructing calculus , status post cystoscopy with placement of a left ureteral stent on the evening of admission, now with blood cultures 2 positive for gram-positive cocci in clusters and with a urine culture positive for Staph aureus. His clinical picture is consistent with sepsis of urologic origin. Given his history of MRSA it seems likely that his blood and urine cultures will prove to be MRSA, and his antibiotics should be adjusted to cover this organism pending final cultures. Of note staph aureus is an unusual urinary pathogen in the absence of instrumentation or catheterization, but he did have a similar presentation 3 years ago. He has no manifestations of endocarditis but he may need further evaluation for this, including EVELYNE, to help determine the optimal duration of therapy. Urology comments noted and appreciated. With regard to his left iliopsoas tear, review of his previous CT scan reveals a probable hematoma, which appears much smaller on his recent scan. Suggestion: 1. Repeat blood cultures 2 in the AM 2. Echocardiogram 3. Follow-up final blood and urine cultures 4. Discontinue Garland catheter 5. Discontinue Ceftriaxone 6. Begin Vancomycin 1500 mg IV every 24 hour pending above Consult Acknowledgment - Thank you for your consult request.
[2017-06-25 02:00] VITALS: BP 98/68
[2017-06-25 06:45] VITALS: BP 110/50
--- NOTE | 2017-06-25 07:22 | PN- Housestaff ---
[facility]: Subjective Follow-up For: Left hydroureteronephrosis due to left ureteric to status post stent placement. Sepsis due to acute left sided pyelonephritis Acute on chronic kidney injury MRSA bacteremia Subjective: No overnight events. Patient remained afebrile overnight. Seen and examined this morning. He denied any chest pain, short of breath, nausea, vomiting, chills, fever, abdominal pain dysuria. He is using 1 L of oxygen and maintaining saturation 93%. We will try to wean off his oxygen today. As he is not using any home oxygen at home. Patient is using CPAP at nighttime but not using regularly. He refused to use Cpap last night. Patient is going for an echocardiogram today Review of Systems Constitutional: Denies: chills, fever. EENTM: Reports: no symptoms. Cardiovascular: Denies: chest pain, palpitations. Respiratory: Denies: cough, short of breath, sputum production. Gastrointestinal: Denies: abdominal pain, constipation, diarrhea, nausea, vomiting. Genitourinary: Reports: no symptoms. Neurological/Psychological: Reports: no symptoms. Objective Last 24 Hrs of Vital Signs/I&O Vital Signs Date Time Temp Pulse Resp B/P B/P Pulse O2 O2 Flow FiO2 Mean Ox Delivery Rate 06/25 0645 98.2 64 26 110/50 93 Room Air 06/25 0200 98.9 68 20 98/68 94 Nasal 1.5L Cannula 06/25 0000 Nasal 1.5L Cannula 06/24 2230 98.9 70 20 104/72 936 Nasal 1.5L Cannula 06/24 1850 99.9 73 20 110/80 93 Nasal 1.5L Cannula 06/24 1600 97 Nasal 2.0L Cannula 06/24 1445 Nasal 2.0L Cannula 06/24 1434 98.1 73 22 110/75 97 Room Air 06/24 0905 70 114/72 06/24 0902 70 114/72 Intake & Output 06/25 1600 06/25 0800 06/25 0000 Intake Total 700 400 Output Total 250 575 Balance 450 -175 Intake, IV 600 300 Intake, Oral 100 100 Output, Urine 250 575 Physical Exam General Appearance: Alert, Oriented X3, Cooperative Skin Temp/Moisture Exam: Warm/Dry Sepsis Skin Exam (color): Normal for Ethnicity HEENT: Atraumatic, PERRLA, EOMI Neck: Supple Cardiovascular: Normal S1, Normal S2 Lungs: Clear to Auscultation Abdomen: Soft, No Tenderness Neurological: Normal Speech, Strength at 5/5 X4 Ext, Normal Tone Extremities: B/L chronic venous chages with wounds on left leg Assessment/Plan Assessment: 66-year-old male with past medical history significant for hypertension, hyperlipidemia, type 2 diabetes mellitus, colon cancer status post colostomy( reversed), paroxysmal atrial fibrillation on Coumadin, DVT/PE status post IVC filter, coronary artery disease status post CABG, COPD not on home o2, remote history of kidney stone s/p stent follow-up with Dr. Nava, BPH, osteomyelitis, right side pleural effusion status post right pleurectomy and right lung decortication pneumoysis in 2006 sleep apnea on CPAP presented to ED with chief complaint of 3 days of cough, left flank pain, lower extremity swelling and wound weeping. We are seeing the patient for following problems: Sepsis secondary to acute pyelonephritis: -Admission patient having elevated WBC count and organ failure with lactci acid formation. Her imaging study patient was found to have left pyelonephritis. -Ceftriaxone was discontinued yesterday and vancomycin was started. day 2 -We will monitor his WBC count and LFTs. -Blood and urine culture is growing MRSA -If his repeat blood culturers come back positive we will repeat blood cultures. -We will follow ID recommendations regarding antibiotics. -We will do echocardiogram to look for infective endocarditis as patient having MRSA bacteremia. Possibly patient need EVELYNE to rule out endocarditis and then we will decide about total duration of antibiotics. Left ureterohydronephrosis due to left ureteral stone status post stent placement: -Purulent urine was drained with stent placement. -Postop day 2 -Patient is drinking without any complaint. We will encourage oral hydration. -Urology will follow the patient as outpatient. If patient will not be able to pass his stone lithotripsy will be done as outpatient. -Follow-up urology recommendations Acute on chronic kidney injury:(improving) -Patient has baseline GFR 45 and creatinine 1.5 -Presented with creatinine 2.5 and GFR 26 -Stage III CKD -No nephrotoxic medications -Today his creatinine level is 1.7 -Hold Lasix History of hypertension hyperlipidemia: -Continue atorvastatin -Holding his Lasix History of A. fib on anticoagulation: -Continue amiodarone -We are holding his coumadin to prepare him for proline possibly on Wednesday. If his comes below 2 and proline is delayed then we will start iv heparin. -His INR is 2.45 History of CAD status post stent placement: -Continue aspirin and Plavix H/O diastolic CHF: -Holding lasix due to acute on chronic kidney injury. History of diabetes: -Accu-Cheks -Insulin NovoLog according to sliding scale -Continue insulin Levemir 20 units twice a day -His fasting blood sugar level is 101 today H/O COPD/TAYLER: -Continue night time CPAP as needed H/O B/L chronic venous statis: -Had b/l pedal edema and is on lasix -Left leg wounds with statis dermatitis. -Right leg statis dermatitis with a blister. DVT prophylaxis: Mechanical and patient is already on warfarin CODE STATUS: Full code Problem List: 1. Urinary tract infection 2. Kidney stone on left side 3. Pyelonephritis 4. Sepsis Pain Ratin Pain Location: none Pain Goal: Remain pain free Pain Plan: pain pathway Tomorrow's Labs & Rationales: cbc/bep/inr Meghana Monteiro MD 06/25/17 1107: Attending MD Review Statement Attending Statement Attending MD Statement: examined this patient, discuss w/resident/PA/ADMINISTRATIVE LIAISON, agreed w/resident/PA/ADMINISTRATIVE LIAISON, reviewed EMR data (avail), discussed with nursing, discussed with case mgmt, amended to note Attending Assessment/Plan: Patient seen and examined. Lying comfortably in bed and not in acute distress. No issues overnight reported by nursing staff. Afebrile and hemodynamically stable. Cultures are growing staph aureus in the urine. Blood cultures positive for gram-positive cocci. Is alert and oriented 3. Ambulating freely. Offers no new complaints this morning. Is reluctant to have a PICC line placed stating that the procedure was painful last time he had one. Plan: -Continue antibiotic therapy with vancomycin. -Patient is scheduled for echocardiogram today to evaluate for endocarditis. -Follow-up antibiotic sensitivity from cultures. -Duration of antibiotic therapy to be decided pending results of echocardiogram. -Patient encouraged to use his bronchodilators. Wean off oxygen supplementation. -Mobilize patient as tolerated.
--- NOTE | 2017-06-25 07:24 | PN- Urology ---
Subjective Subjective: Feels better Objective Vital Signs and I&Os Vital Signs Date Time Temp Pulse Resp B/P B/P Pulse O2 O2 Flow FiO2 Mean Ox Delivery Rate 06/25 0645 98.2 64 26 110/50 93 Room Air 06/25 0200 98.9 68 20 98/68 94 Nasal 1.5L Cannula 06/25 0000 Nasal 1.5L Cannula 06/24 2230 98.9 70 20 104/72 936 Nasal 1.5L Cannula 06/24 1850 99.9 73 20 110/80 93 Nasal 1.5L Cannula 06/24 1600 97 Nasal 2.0L Cannula 06/24 1445 Nasal 2.0L Cannula 06/24 1434 98.1 73 22 110/75 97 Room Air 06/24 0905 70 114/72 06/24 0902 70 114/72 06/24 0800 97 Nasal 4.0L Cannula Intake & Output 06/25 0800 06/25 0000 06/24 1600 06/24 0800 06/24 0000 /09 1600 Intake Total 700 400 700 900 Output Total 250 575 725 625 Balance 450 -175 -25 275 Intake, IV 600 300 700 800 Intake, Oral 100 100 100 Number 0 Bowel Movements Output, Urine 250 575 725 625 Patient 270 lb 260 lb Weight Weight Bed scale Reported by Patient Measurement Method Back: no CVA tenderness Abd: soft and non tender Genitalia: marrero is out. Voiding spontaneously WBC count trending down Blood and urine cultures pos for Staph Patient now on vanco per ID Assessment/Plan Assessment/Plan Imp: 1. POD #2 s/p cysto and L ureteral stent insertion for obstructing stone with pyonephrosis. Clinically improved but with blood and urine cultures pos for staph 2. L distal ureteral stone 3. Other bilateral non obstructing stones Plan: 1. Agree with vanco for now 2. Further abx per ID 3. If L ureteral stone does not pass spontaneously will need L ureteroscopy and laser litho at some point in future
[2017-06-25 08:52] LABS: ABSOLUTE BASOPHIL COUNT 0 /CUMM (0.0-0.2); ABSOLUTE EOSINOPHIL COUNT 0.4 /CUMM (0.0-0.7); ABSOLUTE GRANULOCYTE CT 9.7 /CUMM (1.4-6.5); ABSOLUTE LYMPH COUNT 0.8 /CUMM (1.2-3.4); ABSOLUTE MONOCYTE COUNT 1.5 /CUMM (0.10-0.60); BASOPHIL % 0.4 % (0.0-2.0); GRANULOCYTE % 78.3 % (42.2-75.2); MEAN CORPUSCULAR HGB 28.5 PG (27.0-31.0); MEAN CORPUSCULAR HGB CONC 32.7 G/DL (33.0-37.0); MEAN CORPUSCULAR VOLUME 87.2 FL (80.0-94.0); MEAN PLATELET VOLUME 8.6 FL (7.4-10.4); PLATELET COUNT 319 /CUMM (130-400); RBC DISTRIBUTION WIDTH 15.2 % (11.5-14.5); RED BLOOD CELL CT 4.24 /CUMM (4.70-6.10); WHITE BLOOD CELL COUNT 12.4 /CUMM (4.8-10.8)
[2017-06-25 08:54] LABS: PT 26.9 SEC (9.4-12.5)
[2017-06-25 14:00] VITALS: BP 104/52
--- NOTE | 2017-06-25 14:15 | PN- Infect Dx ---
Subjective Subjective: Afebrile. He notes some discomfort with urination but otherwise feels improved. Objective Last 24 Hrs of Vital Signs/I&O Vital Signs Date Time Temp Pulse Resp B/P B/P Pulse O2 O2 Flow FiO2 Mean Ox Delivery Rate 06/25 1400 98.2 68 26 104/52 97 Nasal Cannula 06/25 0847 68 114/72 06/25 0847 68 114/72 06/25 0800 95 Nasal 1.5L Cannula 06/25 0645 98.2 64 26 110/50 93 Room Air 06/25 0200 98.9 68 20 98/68 94 Nasal 1.5L Cannula 06/25 0000 Nasal 1.5L Cannula 06/24 2230 98.9 70 20 104/72 936 Nasal 1.5L Cannula 06/24 1850 99.9 73 20 110/80 93 Nasal 1.5L Cannula 06/24 1600 97 Nasal 2.0L Cannula 06/24 1445 Nasal 2.0L Cannula 06/24 1434 98.1 73 22 110/75 97 Room Air Intake & Output 06/25 1600 06/25 0800 06/25 0000 Intake Total 700 400 Output Total 250 575 Balance 450 -175 Intake, IV 600 300 Intake, Oral 100 100 Output, Urine 250 575 Physical Exam Other Physical Findings: He appears comfortable in no acute distress Lungs are clear Heart regular rhythm with no murmur Back no CVA tenderness Extremities venous stasis changes both lower extremities, with superficial ulcerations on the left leg, with mild surrounding erythema Results Last 24 Hours of Lab Results: Laboratory Tests 06/25 0744 Chemistry Sodium (137 - 145 mmol/L) 134 L Potassium (3.5 - 5.1 mmol/L) 3.8 Chloride (98 - 107 mmol/L) 98 Carbon Dioxide (22 - 30 mmol/L) 26 Anion Gap (5 - 16) 11 BUN (9 - 20 mg/dL) 24 H Creatinine (0.7 - 1.2 mg/dL) 1.7 H Estimated GFR (>60 ml/min) 41 L BUN/Creatinine Ratio (7 - 25 %) 14.1 Coagulation PT (9.4 - 12.5 SEC) 26.9 H INR (0.90 - 1.17) 2.45 H Hematology CBC w Diff NO MAN DIFF REQ WBC (4.8 - 10.8 /CUMM) 12.4 H RBC (4.70 - 6.10 /CUMM) 4.24 L Hgb (14.0 - 18.0 G/DL) 12.1 L Hct (42 - 52 %) 37.0 L MCV (80.0 - 94.0 FL) 87.2 MCH (27.0 - 31.0 PG) 28.5 MCHC (33.0 - 37.0 G/DL) 32.7 L RDW (11.5 - 14.5 %) 15.2 H Plt Count (130 - 400 /CUMM) 319 MPV (7.4 - 10.4 FL) 8.6 Gran % (42.2 - 75.2 %) 78.3 H Lymphocytes % (20.5 - 51.1 %) 6.3 L Monocytes % (1.7 - 9.3 %) 12.0 H Eosinophils % (0 - 5 %) 3.0 Basophils % (0.0 - 2.0 %) 0.4 Absolute Granulocytes (1.4 - 6.5 /CUMM) 9.7 H Absolute Lymphocytes (1.2 - 3.4 /CUMM) 0.8 L Absolute Monocytes (0.10 - 0.60 /CUMM) 1.5 H Absolute Eosinophils (0.0 - 0.7 /CUMM) 0.4 Absolute Basophils (0.0 - 0.2 /CUMM) 0 Last 24 Hours of Jack Results: Blood cultures 2 June 23 positive for MRSA Urine culture June 23 (from the ER) revealed "multiple colony types present consistent with contamination" Urine culture June 23 (from the OR) approximately 40,000 colonies of Staph aureus Assessment/Plan ID Impression: MRSA sepsis of urologic origin, status post cystoscopy and insertion of a left ureteral stent 2 days ago for an obstructing left distal ureteral calculus, with his temperatures remaining normal and his white blood cell count decreasing on Vancomycin, Day 2 of treatment. Though he has no manifestations of endocarditis a EVELYNE will likely need to be done to determine the optimal duration of therapy. Suggestion: 1. Follow-up blood cultures from today 2. Follow-up echocardiogram done earlier today 3. Would pursue a EVELYNE if the transthoracic echo is negative 4. Will need to pursue placement of a Pro-Line (which will require discontinuation of Coumadin and possible bridging with Heparin) 5. Further management of his nephrolithiasis per Urology 6. Continue Vancomycin Dr. Parry will be covering over the weekend
--- NOTE | 2017-06-25 15:30 | Cons- Cardiology ---
General Information and HPI Consulting Request Date of Consult: 06/25/17 Requested By: Meghana Monteiro MD Reason for Consult: MRSA bacteremia; possible performance of TE Source of Information: patient, old records Exam Limitations: no limitations History of Present Illness: Mr. Chase is a very nice 66-year-old, unfortunate white male who is well-known to me. His past medical history is remarkable for diabetes, chronic obstructive pulmonary disease, restrictive lung disease related to post bypass surgery issues, kidney stones, colon cancer status post chemotherapy and hemicolectomy, paroxysmal atrial for ablation on Coumadin, history of coronary bypass surgery in 2014, prior diastolic heart failure, history of DVT and significant bilateral pulmonary emboli with IVC filter placement, etc. The patient is now admitted to the hospital with kidney stone and obstructive uropathy requiring ureteral stent placement. Subsequently, the patient has been noted to have MRSA bacteremia. I was asked to see the patient for performance of a possible transesophageal echocardiogram. At the moment, the patient is sitting in the bedside chair. He has no specific complaints. He is feeling better than on admission. He is concerned about his lower extremity edema and weeping skin ulcerations on his left lower extremity. Of note, the patient was recently entered into the [facility] for improved monitoring and treatment of his lower extremity edema Allergies/Medications Allergies: Coded Allergies: Penicillins (PT DOES NOT REMEMBER 12/05/15) ampicillin (RASH 12/05/15) sulbactam (RASH 12/05/15) Home Med List: Albuterol Sulfate 0.63 MG/3 ML VIAL.NEB 1 Vial INH/NED TID PRN lung health ( Reported) Amiodarone (Cordarone) 200 MG TABLET 1 TAB PO QAM HEART (Reported) Aspirin (Ecotrin*) 81 MG TABLET.DR 1 TAB PO DAILY HEART/HEALTH (Reported) Atorvastatin Calcium 20 MG TABLET 1 TAB PO DAILY CHOLESTEROL (Reported) Clopidogrel Bisulfate (Clopidogrel) 75 MG TABLET 1 TAB PO QAM BLOOD THINNER ( Reported) Furosemide (Lasix) 20 MG TABLET 3 TAB PO DAILY leg swelling (Reported) Insulin Lispro (Humalog) 100 UNIT/ML VIAL DM (Reported) Insulin-Lantus (Lantus) 100 UNIT/ML VIAL 30 UNITS SC QPM DM (Reported) Insulin-Lantus (Lantus) 100 UNIT/ML VIAL 40 UNITS SC QAM DM (Reported) Levothyroxine Sodium 112 MCG TABLET 1 TAB PO DAILY AC THYROID (Reported) Tamsulosin HCl 0.4 MG CAP.ER.24H 1 CAP PO DAILY PROSTATE (Reported) Warfarin Sodium (Coumadin) 2.5 MG TABLET 1 TAB PO MoTuThSa BLOOD THINNER ( Reported) Current Medications: Current Medications Sig/Sj Start time Last Medication Dose Route Stop Time Status Admin Acetaminophen 650 MG Q6P PRN 06/23 2315 AC 06/24 PO 0122 Albuterol Sulfate 3 ML Q4P PRN 06/24 1530 AC INH Amiodarone HCl 200 MG QAM 06/24 0900 AC 06/25 PO 0847 Aspirin Buffered 81 MG DAILY 06/24 09 AC 06/25 PO 0847 Atorvastatin Calcium 20 MG 1700 06/24 1700 AC 06/24 PO 1656 Ceftriaxone Sodium 1,000 MG DAILY 06/24 0900 DC 06/24 IV 0904 Clopidogrel Bisulfate 75 MG QAM 06/24 0900 AC 06/25 PO 0847 Dextrose/Sodium 1,000 ML .Q10H 06/23 2315 DC 06/24 Chloride IV 1059 Insulin Aspart 0 TIDAC 06/24 0800 AC 06/24 SC 1657 Insulin Detemir 20 UNITS BID 06/24 0900 AC 06/25 SC 0847 Levothyroxine Sodium 0.112 MG DAILY AC 06/24 0700 AC 06/25 PO 0559 Sodium Chloride 1,000 ML Q13H 06/24 1545 DC 06/24 IV 06/25 0444 1645 Tamsulosin HCl 0.4 MG DAILY 06/24 09 AC 06/25 PO 0847 Tiotropium [place] 1 PUF DAILY 06/24 09 AC INH Vancomycin HCl 1,500 MG 1800 06/25 1800 AC Sodium Chloride 250 ML IV Vancomycin HCl 1,500 MG Q24 06/25 0900 CAN IV Vancomycin HCl 2,000 MG ONCE ONE 06/24 1600 DC 06/24 Sodium Chloride 500 ML IV 06/24 1759 1731 Vancomycin HCl 2,000 MG ONCE ONE 06/24 1545 CAN IV 06/24 1546 Warfarin Sodium 2.5 MG COUMADIN 1700 ONE 06/25 1700 CAN PO 06/25 1701 Warfarin Sodium 2.5 MG COUMADIN 1700 ONE 06/24 1700 DC 06/24 PO 06/24 1701 1701 Past History Travel History Traveled to [place] past 21 day No Medical History Blood Transfusion Hx: No Neurological: NONE EENT: NONE Cardiovascular: AFIB, hypertension, hyperlipidemia, CABG Respiratory: COPD, obstructive sleep apnea, pulmonary embolism Hepatic: NONE Renal: benign prost hyperplasia, chronic kidney disease, uti/prostatitis Musculoskeletal: osteoarthritis Psychiatric: NONE Endocrine: diabetes Blood Disorders: DVT, PE Cancer(s): colon/rectal cancer [employer] INST[employer]ER/Reproductive: NONE Surgical History Surgical History: CABG, colon resection (s/p r hemicolectomy), hernia repair- incisional, hernia repair-inguinal, s/p decortication for empyema s/p IVC filter R INDEX FINGER AMPT Family History Relations & Conditions If Any: hypertension in family obesity in family SISTER SISTER (nephrectomy for cancer). Psychosocial History Where Do You Live? Home Who Do You Live With? spouse Services at Home: None Primary Language: Czech Smoking Status: Former Smoker Functional Ability ADLs Independent: dressing, eating, toileting, bathing. Ambulation: independent, cane, walker, non-ambulatory IADLs Independent: shopping, housework, finances, food prep, telephone, transportation , medication admin. ECHO Results (as available) Report: CONCLUSIONS Normal left ventricular size, wall thickness and systolic function with no obvious regional wall motion abnormalities. The left atrium is normal in size. The mitral valve is normal in structure and function. Diffuse thickening (sclerosis) of the aortic valve cusps without reduced excursion. No aortic stenosis. No aortic regurgitation. Pulmonary artery systolic pressure is normal. No obvious valvular vegetations are seen on this study. Consider EVELYNE if clinically indicated. Exam & Diagnostic Data Vital Signs and I&O Vital Signs Date Time Temp Pulse Resp B/P B/P Pulse O2 O2 Flow FiO2 Mean Ox Delivery Rate 06/25 1400 98.2 68 26 104/52 97 Nasal Cannula 06/25 0847 68 114/72 06/25 0847 68 114/72 06/25 0800 95 Nasal 1.5L Cannula 06/25 0645 98.2 64 26 110/50 93 Room Air 06/25 0200 98.9 68 20 98/68 94 Nasal 1.5L Cannula 06/25 0000 Nasal 1.5L Cannula 06/24 2230 98.9 70 20 104/72 936 Nasal 1.5L Cannula 06/24 1850 99.9 73 20 110/80 93 Nasal 1.5L Cannula 06/24 1600 97 Nasal 2.0L Cannula Intake & Output 05/11 1600 05/11 0800 05/11 0000 06/24 0806/24 0000 Intake Total 700 400 700 900 Output Total 250 575 725 625 Balance 450 -175 -25 275 Intake, IV 600 300 700 800 Intake, Oral 100 100 100 Number 0 Bowel Movements Output, Urine 250 575 725 625 Patient 270 lb Weight Weight Bed scale Measurement Method Physical Exam: General Appearance: well developed/nourished, overweight white male,, alert, awake, oriented Head: normal HEENT: Normal Neck: supple, JVP normal, carotid upstrokes normal bilaterally, no masses or thyromegaly Respiratory: chest non-tender, essentially clear to auscultation and percussion bilaterally Cardiovascular: regular rate/rhythm, normal S1, S2, 1-2/6 systolic murmur Abdomen: normal bowel sounds, soft, non-tender Extremities: normal inspection, bilateral lower extremity edema, greater on the left side. Bilateral stasis changes, worse on the left side. Unroofed blister with weeping left lower extremity Vascular: Pulses are 2+ and equal bilaterally Neurologic: Grossly normal/nonfocal Labs/Jack Results: Laboratory Tests 06/25 06/24 0744 0705 Chemistry Sodium (137 - 145 mmol/L) 134 L 133 L Potassium (3.5 - 5.1 mmol/L) 3.8 4.0 Chloride (98 - 107 mmol/L) 98 96 L Carbon Dioxide (22 - 30 mmol/L) 26 28 Anion Gap (5 - 16) 11 9 BUN (9 - 20 mg/dL) 24 H 24 H Creatinine (0.7 - 1.2 mg/dL) 1.7 H 2.0 H Estimated GFR (>60 ml/min) 41 L 34 L BUN/Creatinine Ratio (7 - 25 %) 14.1 12.0 Magnesium (1.6 - 2.3 mg/dL) 1.8 Total Bilirubin (0.2 - 1.3 mg/dL) 1.1 Direct Bilirubin (< 0.4 mg/dL) 0.3 AST (17 - 59 U/L) 20 ALT (21 - 72 U/L) 27 Alkaline Phosphatase (< 127 U/L) 80 Total Protein (6.3 - 8.2 g/dL) 5.8 L Albumin (3.5 - 5.0 g/dL) 2.8 L Coagulation PT (9.4 - 12.5 SEC) 26.9 H 26.5 H INR (0.90 - 1.17) 2.45 H 2.41 H Hematology CBC w Diff NO MAN DIFF REQ NO MAN DIFF REQ WBC (4.8 - 10.8 /CUMM) 12.4 H 15.5 H RBC (4.70 - 6.10 /CUMM) 4.24 L 4.70 Hgb (14.0 - 18.0 G/DL) 12.1 L 13.2 L Hct (42 - 52 %) 37.0 L 41.2 L MCV (80.0 - 94.0 FL) 87.2 87.7 MCH (27.0 - 31.0 PG) 28.5 28.0 MCHC (33.0 - 37.0 G/DL) 32.7 L 32.0 L RDW (11.5 - 14.5 %) 15.2 H 15.5 H Plt Count (130 - 400 /CUMM) 319 261 MPV (7.4 - 10.4 FL) 8.6 8.7 Gran % (42.2 - 75.2 %) 78.3 H 83.1 H Lymphocytes % (20.5 - 51.1 %) 6.3 L 5.0 L Monocytes % (1.7 - 9.3 %) 12.0 H 11.3 H Eosinophils % (0 - 5 %) 3.0 0.6 Basophils % (0.0 - 2.0 %) 0.4 0 Absolute Granulocytes (1.4 - 6.5 /CUMM) 9.7 H 12.9 H Absolute Lymphocytes (1.2 - 3.4 /CUMM) 0.8 L 0.8 L Absolute Monocytes (0.10 - 0.60 /CUMM) 1.5 H 1.7 H Absolute Eosinophils (0.0 - 0.7 /CUMM) 0.4 0.1 Absolute Basophils (0.0 - 0.2 /CUMM) 0 0 06/23 06/23 06/23 191 1835 1622 Chemistry Lactic Acid (0.7 - 2.1 mmol/L) 2.0 Amylase Cancelled Lipase Cancelled Urines Urine Color (YEL,AMB,STR) YEL Urine Clarity (CLEAR) HAZY H Urine pH (5.0 - 8.0) 6.5 Ur Specific [place] (1.001 - 1.035) 1.015 Urine Protein (NEG,<30 MG/DL) NEG Urine Ketones (NEG) NEG Urine Nitrite (NEG) NEG Urine Bilirubin (NEG) NEG Urine Urobilinogen (0.1 - 1.0 EU/dl) 0.2 Ur Leukocyte Esterase (NEG) MOD H Ur Microscopic SEDIMENT EXAMINED Urine RBC (0 - 5 /HPF) 10-15 H Urine WBC (0 - 2 /HPF) 15-25 H Ur Epithelial Cells (NONE,FEW) RARE Urine Bacteria (NEG/NONE) FEW H Urine Hemoglobin (NEG) LARGE H Urine Glucose (N MG/DL) >=1000 H 06/23 06/23 1622 1620 Chemistry Sodium (137 - 145 mmol/L) 131 L Potassium (3.5 - 5.1 mmol/L) 4.6 Chloride (98 - 107 mmol/L) 89 L Carbon Dioxide (22 - 30 mmol/L) 28 Anion Gap (5 - 16) 14 BUN (9 - 20 mg/dL) 26 H Creatinine (0.7 - 1.2 mg/dL) 2.5 H Estimated GFR (>60 ml/min) 26 L BUN/Creatinine Ratio (7 - 25 %) 10.4 Glucose (65 - 99 mg/dL) 321 H Lactic Acid (0.7 - 2.1 mmol/L) 2.1 Calcium (8.4 - 10.2 mg/dL) 8.9 Total Bilirubin (0.2 - 1.3 mg/dL) 2.0 H Direct Bilirubin (< 0.4 mg/dL) 0.6 H AST (17 - 59 U/L) 32 ALT (21 - 72 U/L) 40 Alkaline Phosphatase (< 127 U/L) 112 Creatine Kinase (55 - 170 U/L) 100 Cancelled Troponin I (<0.11 ng/ml) < 0.01 [id number] Pept (<125 pg/mL) 371 H Total Protein (6.3 - 8.2 g/dL) 7.5 Albumin (3.5 - 5.0 g/dL) 3.8 Globulin (1.9 - 4.2 gm/dL) 3.7 Albumin/Globulin Ratio (1.1 - 2.2 %) 1.0 L Amylase (30 - 110 U/L) 40 Lipase (23 - 300 U/L) 164 Coagulation PT (9.4 - 12.5 SEC) 24.6 H INR (0.90 - 1.17) 2.24 H APTT (25 - 37 SEC) 38 H Hematology CBC w Diff MAN DIFF ORDERED WBC (4.8 - 10.8 /CUMM) 17.1 H RBC (4.70 - 6.10 /CUMM) 5.55 Hgb (14.0 - 18.0 G/DL) 15.7 Hct (42 - 52 %) 47.9 MCV (80.0 - 94.0 FL) 86.3 MCH (27.0 - 31.0 PG) 28.2 MCHC (33.0 - 37.0 G/DL) 32.7 L RDW (11.5 - 14.5 %) 15.5 H Plt Count (130 - 400 /CUMM) 296 MPV (7.4 - 10.4 FL) 8.5 Gran % (42.2 - 75.2 %) 86.4 H Lymphocytes % (20.5 - 51.1 %) 3.4 L Monocytes % (1.7 - 9.3 %) 10.0 H Eosinophils % (0 - 5 %) 0.1 Basophils % (0.0 - 2.0 %) 0.1 Absolute Granulocytes (1.4 - 6.5 /CUMM) 14.8 H Segmented Neutrophils (42.2 - 75.2 %) 84 H Band Neutrophils (0.0 - 5.0 %) 1 Absolute Lymphocytes (1.2 - 3.4 /CUMM) 0.6 L Lymphocytes (20.5 - 51.1 %) 4 L Monocytes (1.7 - 9.3 %) 10 H Absolute Monocytes (0.10 - 0.60 /CUMM) 1.7 H Absolute Eosinophils (0.0 - 0.7 /CUMM) 0 Basophils (0.0 - 2.0 %) 1 Absolute Basophils (0.0 - 0.2 /CUMM) 0 Platelet Estimate (ADEQUATE) VERIFIED BY SMEAR Normocytic RBCs VERIFIED Normochromic RBCs VERIFIED Other Body Source Fld Total RBCs Counted (%) 100 Diagnostic Data Other Results CTA chest: IMPRESSION: - Left-sided obstructive uropathy with a 4 mm obstructing calculus (mean Hounsfield units 442) at the left ureterovesicular junction resulting in moderate left-sided hydroureteronephrosis and significant left-sided perinephric stranding. There is also a 1.2 cm calculus within the upper pole of the left kidney. Multiple additional bilateral renal calculi as described. - There is cholelithiasis without acute cholecystitis. - There is atelectasis versus chronic appearing scarring within the lingula and left lower lobe and there is a trace dependent left pleural effusion with adjacent airspace opacity that may reflect atelectasis versus pneumonia. - There are tiny innumerable groundglass nodules within the right upper lobe and to a lesser extent the superior segment of the right lower lobe and right middle lobe that are nonspecific and that may be the sequela of old infection or smoking-related lung disease. These are similar in pattern to the prior exam. - There are mild dependent secretions within the trachea. - Prominent mediastinal and hilar lymph nodes are stable. - Bilateral L5 pars defects with grade 1 spondylolytic anterolisthesis of L5 on S1. Assessment/Plan Assessment/Plan Assessment: 1. MRSA bacteremia 2. Coronary disease, status post bypass surgery 3. Tricuspid insufficiency with mild pulmonary hypertension 4. Nephrolithiasis with left hydronephrosis and ureteral stent placement 5. Diabetes 6. Restrictive lung disease related to post surgical/bypass related issues and underlying COPD 7. Probable sleep apnea 8. Acute on chronic renal insufficiency 9. History of hypertension/hyperlipidemia 10. History of paroxysmal atrial fibrillation on anticoagulant therapy 11. Lower extremity edema with venous insufficiency and venous stasis changes Recommendations: -Continue as recommended by infectious disease service and medical team -Continue conservative treatment for lower extremity edema including leg elevation, [place] wraps if necessary for control of edema, sodium restriction, etc. -Restart low-dose Lasix when able -I will discuss the EVELYNE further with Dr. astorga. For now, EVELYNE equipment is not available and no further procedures can be performed until at least Wednesday. Consult Acknowledgment - Thank you for your consult request.
--- NOTE | 2017-06-25 16:12 | ECHOCARDIOGRAM REPORT ---
CARRIE JACK Age: 66 : 1950 Gender: M Exam Date: 06/25/2017 10:28 Exam Location: [address] [place] [address] Ht (in): 67 Wt (lb): 270 BSA: 2.47 BP: 110 / 50 Ordering Physician: Eloisa Hernandez MD Referring Physician: Eloisa Hernandez MD Technologist: Hieu Hicks [facility] Room Number: 226-1 Indications: INFECTIVE ENDOCARDITIS Rhythm: Sinus Technical Quality: Fair FINDINGS Left Ventricle Normal size left ventricle. Hypokinetic inferior wall. Borderline normal left ventricular ejection fraction estimated at 50-55%. Right Ventricle Right ventricle not well visualized, grossly normal. Right Atrium Right atrium not well visualized, grossly normal. Left Atrium Mild to moderate left atrial dilatation. Mitral Valve Mitral valve thickened. Aortic Valve Trileaflet aortic valve. Diffuse thickening (sclerosis) of the aortic valve cusps without reduced excursion. No aortic stenosis. No aortic regurgitation. Tricuspid Valve Tricuspid valve not well visualized, grossly normal. Mild tricuspid regurgitation. Right ventricular systolic pressure estimated to be elevated at 45 mmHg. Pulmonic Valve Pulmonic valve not well visualized, grossly normal. Pericardium No pericardial effusion. Great Vessels Aortic root and proximal ascending aorta not well visualized, grossly normal. CONCLUSIONS 1. This was a technically difficult examination. 2. Mild aortic sclerosis is present with no valvular stenosis or insufficiency. Minimal enlargement of the ascending aorta is present. 3. Mitral leaflet thickening is present with no valvular prolapse. Mild to moderate left atrial enlargement is present. 4. There is no pericardial fluid present. 5. The left ventricular chamber size is normal with an ejection fraction of 50-55%. Localized inferoposterior hypokinesia appears to be present. 6. Mild tricuspid insufficiency is present with mild pulmonary hypertension and an estimated RV systolic pressure of 45 mmHg Austen Gregory M.D. (Electronically Signed) Final Date: 25 Jun 2017 16:11 MEASUREMENTS (Male / Female) Normal Values 2D ECHO LV Diastolic Diameter PLAX 4.9 cm 4.2 - 5.9 / 3.9 - 5.3 cm LV Systolic Diameter PLAX 3.1 cm 2.1 - 4.0 cm LV Fractional Shortening PLAX 36.7 % 25 - 46 % LV Ejection Fraction 2D Teich 66.4 % IVS Diastolic Thickness 1.1 cm LVPW Diastolic Thickness 1.1 cm LV Relative Wall Thickness 0.4 RV Internal Dim ED PLAX 2.8 cm 1.9 - 3.8 cm LVOT Diameter 2.1 cm Aortic Root Diameter 2.9 cm LA Systolic Diameter LX 3.4 cm 3.0 - 4.0 / 2.7 - 3.8 cm LA Volume 61.0 cm 18 - 58 / 22 - 52 cm Ascending Aorta Diameter 3.8 cm DOPPLER AV Peak Velocity 100.0 cm/s AV Peak Gradient 4.0 mmHg AV Mean Velocity 71.9 cm/s AV Mean Gradient 2.0 mmHg AV Velocity Time Integral 23.5 cm LVOT Peak Velocity 73.5 cm/s LVOT Peak Gradient 2.2 mmHg LVOT Mean Velocity 54.8 cm/s LVOT Mean Gradient 1.0 mmHg LVOT Velocity Time Integral 19.2 cm LVOT Stroke Volume 66.5 cm AV Area Cont Eq vti 2.8 cm AV Area Cont Eq pk 2.5 cm MV Peak Velocity 88.2 cm/s MV Peak Gradient 3.1 mmHg MV Mean Velocity 54.3 cm/s MV Mean Gradient 1.0 mmHg Mitral E Point Velocity 73.5 cm/s Mitral A Point Velocity 95.8 cm/s Mitral E to A Ratio 0.8 MV PHT Velocity 89.6 cm/s MV Deceleration [place] 251.0 cm/s MV Pressure Half Time 107.1 ms MV Area PHT 2.1 cm MV Deceleration Time 296.0 ms TR Peak Velocity 311.0 cm/s TR Peak Gradient 38.7 mmHg Right Atrial Pressure 5.0 mmHg Pulmonary Artery Systolic Pressu 43.7 mmHg Right Ventricular Systolic Press 43.7 mmHg
[2017-06-25 21:55] VITALS: BP 128/80
[2017-06-26 06:20] VITALS: BP 122/74
--- NOTE | 2017-06-26 08:16 | PN- Housestaff ---
Subjective Follow-up For: Left hydroureteronephrosis due to left ureteric to status post stent placement. Sepsis due to acute left sided pyelonephritis Acute on chronic kidney injury MRSA bacteremia Subjective: Patient seen and examined. He is eating breakfast and states that he feels good. He denies any chest pain, shortness of breath, abdominal pain, fever, chills. Patient is not currently on O2. Patient had a TTE yesterday which did not show any evidence of vegetation. Patient is continued on vancomycin. Overnight vitals are stable. Continues to not use CPAP regularly. Review of Systems Constitutional: Reports: no symptoms. Cardiovascular: Reports: no symptoms. Respiratory: Reports: no symptoms. Gastrointestinal: Reports: no symptoms. Genitourinary: Reports: no symptoms. Musculoskeletal: Reports: no symptoms. Skin: Reports: change in skin color, lesions. Objective Last 24 Hrs of Vital Signs/I&O Vital Signs Date Time Temp Pulse Resp B/P B/P Pulse O2 O2 Flow FiO2 Mean Ox Delivery Rate 06/26 1121 112/62 06/26 0852 70 104/00 06/26 0800 93 Room Air 06/26 0620 97.8 85 20 122/74 97 Nasal Cannula 06/26 0000 Nasal 1.5L Cannula 06/25 2155 98.2 74 20 128/80 96 06/25 1600 Nasal 1.5L Cannula 06/25 1400 98.2 68 26 104/52 97 Nasal Cannula Intake & Output 06/26 1600 12 0800 06/26 0000 Intake Total 200 100 Output Total 400 Balance -200 100 Intake, Oral 200 100 Output, Urine 400 Physical Exam General Appearance: Alert, Oriented X3, Cooperative Skin: No Rashes, patient has left lower leg bandage from healing ulcer Skin Temp/Moisture Exam: Warm/Dry Sepsis Skin Exam (color): Normal for Ethnicity HEENT: Atraumatic, EOMI, Mucous Membr. moist/pink Cardiovascular: Regular Rate, Normal S1, Normal S2 Lungs: Clear to Auscultation, Normal Air Movement Abdomen: Normal Bowel Sounds, Soft, No Tenderness Neurological: Normal Speech Extremities: No Clubbing, No Cyanosis, Normal Pulses Current Medications: Current Medications Sig/Sj Start time Last Medication Dose Route Stop Time Status Admin Acetaminophen 650 MG Q6P PRN 06/23 2315 AC 06/24 PO 0122 Albuterol Sulfate 3 ML Q4P PRN 06/24 1530 AC INH Amiodarone HCl 200 MG QAM 06/24 0900 AC 06/26 PO 0852 Aspirin Buffered 81 MG DAILY 06/24 09 AC 06/26 PO 0852 Atorvastatin Calcium 20 MG 1700 06/24 1700 AC 06/25 PO 1718 Clopidogrel Bisulfate 75 MG QAM 06/24 0900 AC 06/26 PO 0852 Insulin Aspart 0 TIDAC 06/24 08 AC 06/26 SC 1211 Insulin Detemir 20 UNITS BID 06/24 09 AC 06/26 SC 0853 Levothyroxine Sodium 0.112 MG DAILY AC 06/24 0700 AC 06/26 PO 0548 Sodium Chloride 500 ML BOLUS ONE 06/26 1145 DC 06/26 IV 06/26 1244 1211 Sodium Chloride 500 ML BOLUS ONE 06/26 0930 DC 06/26 IV 06/26 1029 0928 Tamsulosin HCl 0.4 MG DAILY 06/24 09 AC 06/25 PO 0847 Tiotropium [place]mark 1 PUF DAILY 06/24 09 AC 06/26 INH 0854 Vancomycin HCl 1,500 MG 1800 06/25 1800 AC 06/25 Sodium Chloride 250 ML IV 1728 Warfarin Sodium 2.5 MG COUMADIN 1700 ONE 06/25 1700 CAN PO 06/25 1701 Last 24 Hrs of Lab/Jack Results Last 24 Hrs of Labs/Mics: Laboratory Tests 06/26/17 0655: Anion Gap 10, Estimated GFR 47 L, BUN/Creatinine Ratio 15.3, PT 26.3 H, INR 2.39 H, CBC w Diff NO MAN DIFF REQ, RBC 4.36 L, MCV 88.0, MCH 28.5, MCHC 32.4 L, RDW 15.3 H, MPV 8.6, Gran % 74.3, Lymphocytes % 6.8 L, Monocytes % 12.5 H, Eosinophils % 5.6 H, Basophils % 0.8, Absolute Granulocytes 6.0, Absolute Lymphocytes 0.6 L, Absolute Monocytes 1.0 H, Absolute Eosinophils 0.5, Absolute Basophils 0.1 Assessment/Plan Assessment: 66-year-old male with past medical history significant for hypertension, hyperlipidemia, type 2 diabetes mellitus, colon cancer status post colostomy ( reversed), paroxysmal atrial fibrillation on Coumadin, DVT/PE status post IVC filter, coronary artery disease status post CABG, COPD not on home o2, remote history of kidney stone s/p stent follow-up with Dr. Nava, BPH, osteomyelitis, right side pleural effusion status post right pleurectomy and right lung decortication pneumoysis in 2006 sleep apnea on CPAP presented to ED with chief complaint of 3 days of cough, left flank pain, lower extremity swelling and wound weeping. We are seeing the patient for following problems: Sepsis secondary to acute pyelonephritis: -Admission patient having elevated WBC count and organ failure with lactic acid formation. On imaging study patient was found to have left pyelonephritis. -Ceftriaxone was discontinued and vancomycin was started. day 3 -We will monitor his WBC count and LFTs. -Blood and urine culture is growing MRSA from April 23 with repeat cultures taken on April 25. -If his repeat blood culturers come back positive we will repeat blood cultures. -We will follow ID recommendations regarding antibiotics. -TTE NO EVIDENCE ENDOCARDITIS, possibly patient need EVELYNE to rule out endocarditis and then we will decide about total duration of antibiotics. Follow ID recommendations. Left ureterohydronephrosis due to left ureteral stone status post stent placement: -Purulent urine was drained with stent placement. -Postop day 3 -Patient is drinking without any complaint. We will encourage oral hydration. -Urology will follow the patient as outpatient. If patient will not be able to pass his stone lithotripsy will be done as outpatient. -Follow-up urology recommendations Acute on chronic kidney injury:(improving) -Patient has baseline GFR 45 and creatinine 1.5 -Presented with creatinine 2.5 and GFR 26 -Stage III CKD -No nephrotoxic medications -Today his creatinine level is 1.5 -Hold Lasix History of hypertension hyperlipidemia: -Continue atorvastatin -Holding his Lasix History of A. fib on anticoagulation: -Continue amiodarone -We are holding his coumadin to prepare him for proline possibly on Wednesday. If his comes below 2 and proline is delayed then we will start iv heparin. -His INR is 2.39 History of CAD status post stent placement: -Continue aspirin and Plavix H/O diastolic CHF: -Holding lasix due to acute on chronic kidney injury. History of diabetes: -Accu-Cheks -Insulin NovoLog according to sliding scale -Continue insulin Levemir 20 units twice a day H/O COPD/TAYLER: -Continue night time CPAP as needed H/O B/L chronic venous statis: -Had b/l pedal edema and is on lasix -Left leg wounds with statis dermatitis. -Left leg statis dermatitis with a blister. DVT prophylaxis: Mechanical and patient is already on warfarin CODE STATUS: Full code Problem List: 1. Urinary tract infection 2. Kidney stone on left side 3. Pyelonephritis 4. Sepsis Pain Ratin Pain Location: na Pain Goal: Remain pain free Pain Plan: na Tomorrow's Labs & Rationales: na
--- NOTE | 2017-06-26 08:39 | PN- Urology ---
Subjective Subjective: Continues to feel better every day Objective Vital Signs and I&Os Vital Signs Date Time Temp Pulse Resp B/P B/P Pulse O2 O2 Flow FiO2 Mean Ox Delivery Rate 06/27 619 97.8 85 20 122/74 97 Nasal Cannula 06/26 0000 Nasal 1.5L Cannula 06/25 2155 98.2 74 20 128/80 96 06/25 1600 Nasal 1.5L Cannula 06/25 1400 98.2 68 26 104/52 97 Nasal Cannula 06/25 0847 68 114/72 06/25 0847 68 114/72 Intake & Output 06/26 1600 06/26 0800 06/26 0000 06/25 1600 06/25 0800 06/25 0000 Intake Total 200 100 520 700 400 Output Total 400 520 250 575 Balance -200 100 0 450 -175 Intake, IV 600 300 Intake, Oral 200 100 520 100 100 Output, Urine 400 520 250 575 Back: No CVA tenderness Abd: soft and non tender. Bladder not palpable Laboratory Tests 06/26 654 Chemistry Sodium Pending Potassium Pending Chloride Pending Carbon Dioxide Pending Anion Gap Pending BUN Pending Creatinine Pending BUN/Creatinine Ratio Pending Coagulation PT Pending INR Pending Hematology CBC w Diff Pending WBC Pending RBC Pending Hgb Pending Hct Pending MCV Pending MCH Pending MCHC Pending RDW Pending Plt Count Pending MPV Pending Leukocytosis and renal fxn continue to improve Culture pos for MRSA and pt on IV vanco KUB: Not able to see L distal ureteral stone Assessment/Plan Assessment/Plan Imp: 1. s/p insertion of L ureteral stent for urosepsis due to 4-5 mm obstructing L distal ureteral stone with pyonephrosis 2. Other bilateral non obstructing renal stones Plan: 1. Abx per ID 2. Would prefer to observe L distal ureteral stone for 4-6 weeks to see if it will pass spontaneously in effort to avoid general anesthesia. If stone doesn't pass or unable to wait 4-6 weeks then would need L ureteroscopy, laser litho and stent exchange under general anesthesia
[2017-06-26 08:56] LABS: PT 26.3 SEC (9.4-12.5)
[2017-06-26 08:58] LABS: ABSOLUTE BASOPHIL COUNT 0.1 /CUMM (0.0-0.2); ABSOLUTE EOSINOPHIL COUNT 0.5 /CUMM (0.0-0.7); ABSOLUTE LYMPH COUNT 0.6 /CUMM (1.2-3.4); BASOPHIL % 0.8 % (0.0-2.0); EOSINOPHIL % 5.6 % (0-5); GRANULOCYTE % 74.3 % (42.2-75.2); HEMATOCRIT 38.4 % (42-52); MEAN CORPUSCULAR HGB 28.5 PG (27.0-31.0); MEAN CORPUSCULAR HGB CONC 32.4 G/DL (33.0-37.0); MEAN PLATELET VOLUME 8.6 FL (7.4-10.4); PLATELET COUNT 307 /CUMM (130-400); RBC DISTRIBUTION WIDTH 15.3 % (11.5-14.5); RED BLOOD CELL CT 4.36 /CUMM (4.70-6.10); WHITE BLOOD CELL COUNT 8.1 /CUMM (4.8-10.8)
--- NOTE | 2017-06-26 11:09 | PN- Att Addend ---
Attending Addendum Attending Brief Note Patient seen and examined. No issues overnight reported by nursing staff. Remains afebrile and hemodynamically stable. Resting comfortably and not in any acute distress. Blood pressure this morning noted to be low. Nursing staff reported blood pressure low 100 systolic via Doppler. Patient denies any dizziness. Denies any chest pain or palpitations. He reports feeling well. He declines to use CPAP therapy at night. Vital Signs Date Time Temp Pulse Resp B/P B/P Pulse O2 O2 Flow FiO2 Mean Ox Delivery Rate 06/26 0852 70 104/00 06/26 0800 93 Room Air 06/26 0620 97.8 85 20 122/74 97 Nasal Cannula 06/26 0000 Nasal 1.5L Cannula 06/25 2155 98.2 74 20 128/80 96 06/25 1600 Nasal 1.5L Cannula 06/25 1400 98.2 68 26 104/52 97 Nasal Cannula General appearance: Obese and not in any acute distress. HEENT: Anicteric, no pallor, pupils equal and reactive. Neck: Supple with no jugular venous distention. Heart: S1-S2 irregular. Lungs: Adequate and symmetric air entry bilaterally with no added sounds. Abdomen: Nondistended with normal bowel sounds. Soft, nontender with no palpable masses. Extremities: No pedal edema. No cyanosis. Skin: Intact Laboratory Tests 06/26/17 0655: Anion Gap 10, Estimated GFR 47 L, BUN/Creatinine Ratio 15.3, PT 26.3 H, INR 2.39 H, CBC w Diff NO MAN DIFF REQ, RBC 4.36 L, MCV 88.0, MCH 28.5, MCHC 32.4 L, RDW 15.3 H, MPV 8.6, Gran % 74.3, Lymphocytes % 6.8 L, Monocytes % 12.5 H, Eosinophils % 5.6 H, Basophils % 0.8, Absolute Granulocytes 6.0, Absolute Lymphocytes 0.6 L, Absolute Monocytes 1.0 H, Absolute Eosinophils 0.5, Absolute Basophils 0.1 Microbiology 06/25 1143 BLOOD: Blood Culture - RECD Problems: 1. Sepsis secondary to acute pyelonephritis and MRSA bacteremia 2. Left hydroureteronephrosis secondary to obstructive stone. 3. Acute on chronic kidney disease; improving 4. Atrial fibrillation on anticoagulation 5. Hypotension Plan: -Fluid bolus with normal saline at 500cc an hour 1 L. He is currently afebrile. No leukocytosis on labs. Low blood pressure does not appear to be secondary to sepsis at present. -Hold Flomax this morning. Administer at bedtime. -Continue amiodarone for rate control. -Coumadin on hold in anticipation of prolonged placement on Wednesday. Monitor INR through the . -Urology follow-up this morning appreciated. -Further treatment course will be determined by response of blood pressure to fluid bolus. -Continue antibiotic course with vancomycin. No vegetations listed on transthoracic echocardiogram. Transesophageal echocardiogram currently not functioning per report from the cardiology service, consider completing this procedure as an outpatient to help determine antibiotic duration.
[2017-06-26 11:21] VITALS: BP 112/62
--- NOTE | 2017-06-26 12:58 | PN- Infect Dx ---
Subjective Subjective: This is a 66-year-old man with a significant past medical history for diabetes, atrial fibrillation, chronic renal insufficiency, COPD, colon cancer, a history of MRSA sepsis of urologic origin 3 years prior to admission. He was admitted on June 23 with a several day history of left flank pain, burning on urination, anorexia with decreased p.o. intake, increased weakness and chills. On admission he was afebrile and a white blood cell count of 17,000. CT of the chest, abdomen and pelvis revealed left-sided obstructive uropathy with a 4 mm obstructing calculus at the left UVJ resulting in a moderate left-sided hydroureteronephrosis and significant left-sided perinephric stranding, with additional bilateral renal calculi; cholelithiasis without acute cholecystitis; atelectasis versus chronic appearing scarring within the lingula and left lower lobe with a trace left pleural effusion. He was begun on Ceftriaxone and taken to the OR that evening for cystoscopy and insertion of a left double-J ureteral stent. He has remained afebrile since admission and his white blood cell count has normalized. Blood cultures demonstrate MRSA. The patient feels very well today and is sitting up eating. Review of Systems Constitutional: Reports: no symptoms. EENTM: Reports: no symptoms. Cardiovascular: Reports: no symptoms. Respiratory: Reports: no symptoms. Gastrointestinal: Reports: no symptoms. Genitourinary: Reports: no symptoms. Musculoskeletal: Reports: no symptoms. Skin: Reports: no symptoms. Neurological/Psychological: Reports: no symptoms. Objective Last 24 Hrs of Vital Signs/I&O Vital Signs Date Time Temp Pulse Resp B/P B/P Pulse O2 O2 Flow FiO2 Mean Ox Delivery Rate 06/26 1121 112/62 06/26 0852 70 104/00 06/26 0800 93 Room Air 06/26 0620 97.8 85 20 122/74 97 Nasal Cannula 06/26 0000 Nasal 1.5L Cannula 06/25 2155 98.2 74 20 128/80 96 06/25 1600 Nasal 1.5L Cannula 06/25 1400 98.2 68 26 104/52 97 Nasal Cannula Intake & Output 06/26 1600 06/26 0800 05 0000 Intake Total 200 100 Output Total 400 Balance -200 100 Intake, Oral 200 100 Output, Urine 400 Physical Exam General Appearance: well developed/nourished, no apparent distress, alert, awake Head: atraumatic Neck: normal inspection, supple, full range of motion Cardiovascular: regular rate/rhythm Respiratory: normal breath sounds, chest non-tender, no respiratory distress Abdomen: normal bowel sounds, soft, non-tender Extremities: Legs dressed Neurologic/Psychiatric: no motor/sensory deficits, awake, alert, oriented x 3 Results Last 24 Hours of Lab Results: Laboratory Tests 06/26 0655 Chemistry Sodium (137 - 145 mmol/L) 138 Potassium (3.5 - 5.1 mmol/L) 4.0 Chloride (98 - 107 mmol/L) 101 Carbon Dioxide (22 - 30 mmol/L) 27 Anion Gap (5 - 16) 10 BUN (9 - 20 mg/dL) 23 H Creatinine (0.7 - 1.2 mg/dL) 1.5 H Estimated GFR (>60 ml/min) 47 L BUN/Creatinine Ratio (7 - 25 %) 15.3 Coagulation PT (9.4 - 12.5 SEC) 26.3 H INR (0.90 - 1.17) 2.39 H Hematology CBC w Diff NO MAN DIFF REQ WBC (4.8 - 10.8 /CUMM) 8.1 RBC (4.70 - 6.10 /CUMM) 4.36 L Hgb (14.0 - 18.0 G/DL) 12.4 L Hct (42 - 52 %) 38.4 L MCV (80.0 - 94.0 FL) 88.0 MCH (27.0 - 31.0 PG) 28.5 MCHC (33.0 - 37.0 G/DL) 32.4 L RDW (11.5 - 14.5 %) 15.3 H Plt Count (130 - 400 /CUMM) 307 MPV (7.4 - 10.4 FL) 8.6 Gran % (42.2 - 75.2 %) 74.3 Lymphocytes % (20.5 - 51.1 %) 6.8 L Monocytes % (1.7 - 9.3 %) 12.5 H Eosinophils % (0 - 5 %) 5.6 H Basophils % (0.0 - 2.0 %) 0.8 Absolute Granulocytes (1.4 - 6.5 /CUMM) 6.0 Absolute Lymphocytes (1.2 - 3.4 /CUMM) 0.6 L Absolute Monocytes (0.10 - 0.60 /CUMM) 1.0 H Absolute Eosinophils (0.0 - 0.7 /CUMM) 0.5 Absolute Basophils (0.0 - 0.2 /CUMM) 0.1 Last 24 Hours of Jack Results: Microbiology Date/Time Procedure - Status Source Growth 06/25 1143 Blood Culture - RECD BLOOD 06/25 0744 Blood Culture - RECD BLOOD 06/23 2321 Respiratory Culture - CAN LOWER RESP Cancelled: SPECIMEN NOT RECEIVED IN LABORATORY 06/23 232 Gram Stain - CAN LOWER RESP Cancelled: SPECIMEN NOT RECEIVED IN LABORATORY 06/23 2225 Urine Culture - RES URINE ROUT STAPH AUREUS 06/23 1835 Urine Culture - COMP URINE ROUT 06/23 1645 Blood Culture - RES BLOOD METH RESIST STAPH AUREUS 06/23 1622 Blood Culture - RES BLOOD METH RESIST STAPH AUREUS Recent Imaging Studies: Reviewed Assessment/Plan ID Impression: This patient is a 66-year-old white male with MRSA sepsis of urologic origin, status post cystoscopy and insertion of a left ureteral stent 2 days ago for an obstructing left distal ureteral calculus. His temperatures and white blood cell count are now normal. Will need an EVELYNE to determine duration of therapy. This could be done as an outpatient. Suggestion: 1. Cultures remain negative could consider discharge as early as tomorrow if remain negative 2. Would pursue a EVELYNE as an outpatient 3. We will need line placement for optimal course of antibiotics 4. Continue Vancomycin
[2017-06-26 14:46] VITALS: BP 130/75
[2017-06-26 22:09] VITALS: BP 110/60
[2017-06-27 04:00] VITALS: BP 122/70
--- NOTE | 2017-06-27 06:36 | PN- Housestaff ---
[facility] Subjective Follow-up For: Left hydroureteronephrosis due to left ureteric stone s/p stent placement. Sepsis due to acute pyelonephritis Acute on chronic kidney injury(improving) MRSA bacteremia Subjective: Overnight events. Patient remained afebrile. Seen and examined this morning. He denied any chest pain, short of breath, nausea, vomiting, chills, fever, abdominal pain and dysuria. Patient is on room air and maintaining saturation 96%. We are holding his Coumadin to prepare him for pro-line tomorrow. Review of Systems Constitutional: Denies: chills, malaise. EENTM: Reports: no symptoms. Cardiovascular: Denies: chest pain, orthopena, palpitations. Respiratory: Denies: cough, short of breath, sputum production. Gastrointestinal: Denies: abdominal pain, constipation, diarrhea, melena, nausea, vomiting. Genitourinary: Reports: no symptoms. Neurological/Psychological: Reports: no symptoms. Objective Last 24 Hrs of Vital Signs/I&O Vital Signs Date Time Temp Pulse Resp B/P B/P Pulse O2 O2 Flow FiO2 Mean Ox Delivery Rate 06/27 0857 110/56 06/27 0400 97.8 72 20 122/70 96 Room Air 06/26 2209 98.5 66 20 110/60 96 06/26 1446 98.3 80 20 130/75 97 06/26 1121 112/62 Intake & Output 06/27 1600 06/27 0800 06/27 0000 Intake Total 360 400 Output Total 650 800 Balance -290 -400 Intake, Oral 360 400 Output, Urine 650 800 Physical Exam General Appearance: Alert, Oriented X3, Cooperative Skin: No Rashes Skin Temp/Moisture Exam: Warm/Dry Sepsis Skin Exam (color): Normal for Ethnicity HEENT: Atraumatic, PERRLA, EOMI Neck: Supple Cardiovascular: Normal S1, Normal S2 Lungs: Clear to Auscultation Abdomen: Soft, No Tenderness Neurological: Normal Speech, Strength at 5/5 X4 Ext, Normal Tone Extremities: b/l chronic venous changes with blisters on left leg and one blister on right Assessment/Plan Assessment: 66-year-old male with past medical history significant for hypertension, hyperlipidemia, type 2 diabetes mellitus, colon cancer status post colostomy ( reversed), paroxysmal atrial fibrillation on Coumadin, DVT/PE status post IVC filter, coronary artery disease status post CABG, COPD not on home o2, remote history of kidney stone s/p stent follow-up with Dr. Nava, BPH, osteomyelitis, right side pleural effusion status post right pleurectomy and right lung decortication pneumoysis in 2006 sleep apnea on CPAP presented to ED with chief complaint of 3 days of cough, left flank pain, lower extremity swelling and wound weeping. We are seeing the patient for following problems: Sepsis secondary to acute pyelonephritis: -Admission patient having elevated WBC count and organ failure with lactic acid formation. On imaging study patient was found to have left pyelonephritis. -Ceftriaxone was discontinued and vancomycin was started. day 4 -Blood and urine culture is growing MRSA from April 23 with repeat cultures taken on April 25. -If his repeat blood culturers come back positive we will repeat blood cultures. -We will follow ID recommendations regarding antibiotics. -Patient is afebrile and his WBC count is within normal limits. -His transthoracic echocardiogram is negative for endocarditis follow EVELYNE to rule out endocarditis. Left ureterohydronephrosis due to left ureteral stone status post stent placement: -Purulent urine was drained with stent placement. -Postop day 4 -Urology will follow the patient as outpatient with CT scan abdomen. If patient will not be able to pass his stone lithotripsy will be done as outpatient. -Garland's catheter was removed. -Follow-up urology recommendations Acute on chronic kidney injury:(improving) -Patient has baseline GFR 45 and creatinine 1.5 -Presented with creatinine 2.5 and GFR 26 -Stage III CKD -No nephrotoxic medications -Hold Lasix History of hypertension hyperlipidemia: -Continue atorvastatin -Holding his Lasix History of A. fib on anticoagulation: -Continue amiodarone -We are holding his coumadin to prepare him for proline possibly on Wednesday. If his comes below 2 and proline is delayed then we will start iv heparin. -Today INR is 2.04 History of CAD status post stent placement: -Continue aspirin and Plavix H/O diastolic CHF: -Holding lasix due to acute on chronic kidney injury. History of diabetes: -Accu-Cheks -Insulin NovoLog according to sliding scale -Continue insulin Levemir 20 units twice a day H/O COPD/TAYLER: -Continue night time CPAP as needed H/O B/L chronic venous statis: -Had b/l pedal edema and is on lasix -Left leg wounds with statis dermatitis. -Left leg statis dermatitis with a blister. DVT prophylaxis: Mechanical and patient is already on warfarin CODE STATUS: Full code Problem List: 1. Pyelonephritis 2. Kidney stone on left side 3. Sepsis Pain Ratin Pain Location: none Pain Goal: Remain pain free Pain Plan: pain pathway Tomorrow's Labs & Rationales: inr Meghana Monteiro MD 06/27/17 1006: Attending MD Review Statement Attending Statement Attending MD Statement: examined this patient, discuss w/resident/PA/ENTRY LEVEL CHEMIST, agreed w/resident/PA/ENTRY LEVEL CHEMIST, reviewed EMR data (avail), discussed with nursing, discussed with case mgmt, amended to note Attending Assessment/Plan: Patient seen and examined. Sitting comfortably in his chair not in any acute distress. No issues overnight reported by nursing staff. He remains afebrile hemodynamically stable. He has no leukocytosis on laboratory data. Blood pressure was on the lower side yesterday morning. After a liter fluid bolus his blood pressure improved and remains stable. Coumadin is on hold in anticipation of pleural line during the week. Follow-up INR today. If within acceptable range tomorrow his pro-line may be placed and patient discharged home on antibiotic recommendations per the ID service. He will follow-up with the cardiology service as an outpatient for scheduling of a EVELYNE.
--- NOTE | 2017-06-27 08:33 | PN- Urology ---
Subjective Subjective: Patient comfortable Objective Vital Signs and I&Os Vital Signs Date Time Temp Pulse Resp B/P B/P Pulse O2 O2 Flow FiO2 Mean Ox Delivery Rate 06/27 0400 97.8 72 20 122/70 96 Room Air 06/26 2209 98.5 66 20 110/60 96 06/26 1446 98.3 80 20 130/75 97 06/26 1121 112/62 06/26 0852 70 104/00 Intake & Output 06/27 1600 06/27 0800 06/27 0000 06/26 1600 06/26 0800 06/26 0000 Intake Total 816 661 4335 200 100 Output Total 650 800 700 400 Balance -290 -400 1050 -200 100 Intake, IV 1000 Intake, Oral 360 400 750 200 100 Output, Urine 650 800 700 400 Back: no CVA tenderness Abd: soft and non tender voiding spontaneously Laboratory Tests 06/27 07 Coagulation PT Pending INR Pending Hematology CBC w Diff Pending WBC Pending RBC Pending Hgb Pending Hct Pending MCV Pending MCH Pending MCHC Pending RDW Pending Plt Count Pending MPV Pending Leukocytosis resolved and renal fxn continues to improve Assessment/Plan Assessment/Plan Imp: 1. s/p L ureteral stent insertion for obstructing L distal ureteral stone with pyonephrosis 2. bilateral non obstructing renal stones Plan: 1. Agree with vanco per ID for MRSA in blood and urine 2. Pt will f/u in office and will repeat CT scan. If L ureteral stone has passed will just remove stent. If not he will need L ureteroscopy and laser lithotripsy in the future 3. continue tamsulosin
[2017-06-27 10:21] LABS: PT 22.4 SEC (9.4-12.5)
[2017-06-27 10:28] LABS: ABSOLUTE BASOPHIL COUNT 0 /CUMM (0.0-0.2); ABSOLUTE EOSINOPHIL COUNT 0.4 /CUMM (0.0-0.7); ABSOLUTE LYMPH COUNT 0.6 /CUMM (1.2-3.4); BASOPHIL % 0.6 % (0.0-2.0); EOSINOPHIL % 5.4 % (0-5); GRANULOCYTE % 74.3 % (42.2-75.2); HEMATOCRIT 39.3 % (42-52); MEAN CORPUSCULAR HGB 28.5 PG (27.0-31.0); MEAN CORPUSCULAR HGB CONC 32.7 G/DL (33.0-37.0); MEAN CORPUSCULAR VOLUME 87.2 FL (80.0-94.0); MEAN PLATELET VOLUME 8.4 FL (7.4-10.4); PLATELET COUNT 352 /CUMM (130-400); RBC DISTRIBUTION WIDTH 15.7 % (11.5-14.5); WHITE BLOOD CELL COUNT 8.1 /CUMM (4.8-10.8)
--- NOTE | 2017-06-27 12:07 | PN- Infect Dx ---
Subjective Subjective: This patient is a 66-year-old man with a MRSA bacteremia of urologic origin. The patient currently feels well has no complaints and is sitting in the chair eating lunch. Afebrile with a normal white blood cell count. Review of Systems Constitutional: Reports: no symptoms. EENTM: Reports: no symptoms. Cardiovascular: Reports: no symptoms. Respiratory: Reports: no symptoms. Gastrointestinal: Reports: no symptoms. Genitourinary: Reports: no symptoms. Musculoskeletal: Reports: no symptoms. Skin: Reports: no symptoms. Neurological/Psychological: Reports: no symptoms. Objective Last 24 Hrs of Vital Signs/I&O Vital Signs Date Time Temp Pulse Resp B/P B/P Pulse O2 O2 Flow FiO2 Mean Ox Delivery Rate 06/27 0857 110/56 06/27 0400 97.8 72 20 122/70 96 Room Air 06/26 2209 98.5 66 20 110/60 96 06/26 1446 98.3 80 20 130/75 97 Intake & Output 06/27 1600 06/27 0800 06/27 0000 Intake Total 360 400 Output Total 650 800 Balance -290 -400 Intake, Oral 360 400 Output, Urine 650 800 Physical Exam General Appearance: well developed/nourished, no apparent distress, alert, awake Head: atraumatic Neck: normal inspection, supple Cardiovascular: regular rate/rhythm Respiratory: normal breath sounds, lungs clear Abdomen: normal bowel sounds, soft, non-tender Results Last 24 Hours of Lab Results: Laboratory Tests 06/27 0713 Coagulation PT (9.4 - 12.5 SEC) 22.4 H INR (0.90 - 1.17) 2.04 H Hematology CBC w Diff NO MAN DIFF REQ WBC (4.8 - 10.8 /CUMM) 8.1 RBC (4.70 - 6.10 /CUMM) 4.50 L Hgb (14.0 - 18.0 G/DL) 12.8 L Hct (42 - 52 %) 39.3 L MCV (80.0 - 94.0 FL) 87.2 MCH (27.0 - 31.0 PG) 28.5 MCHC (33.0 - 37.0 G/DL) 32.7 L RDW (11.5 - 14.5 %) 15.7 H Plt Count (130 - 400 /CUMM) 352 MPV (7.4 - 10.4 FL) 8.4 Gran % (42.2 - 75.2 %) 74.3 Lymphocytes % (20.5 - 51.1 %) 7.7 L Monocytes % (1.7 - 9.3 %) 12.0 H Eosinophils % (0 - 5 %) 5.4 H Basophils % (0.0 - 2.0 %) 0.6 Absolute Granulocytes (1.4 - 6.5 /CUMM) 6.0 Absolute Lymphocytes (1.2 - 3.4 /CUMM) 0.6 L Absolute Monocytes (0.10 - 0.60 /CUMM) 1.0 H Absolute Eosinophils (0.0 - 0.7 /CUMM) 0.4 Absolute Basophils (0.0 - 0.2 /CUMM) 0 Last 24 Hours of Jack Results: Microbiology Date/Time Procedure - Status Source Growth 06/25 1143 Blood Culture - RES BLOOD 06/25 0744 Blood Culture - RES BLOOD Recent Imaging Studies: No new studies Assessment/Plan ID Impression: This patient is a 66-year-old white male with MRSA sepsis of urologic origin, status post cystoscopy and insertion of a left ureteral stent 2 days ago for an obstructing left distal ureteral calculus. His temperatures and white blood cell count remain normal. Will need an EVELYNE to determine duration of therapy as an outpatient. Current stay dependent on for line placement. Suggestion: 1. Continue vancomycin 2. Monitor INR for line placement
[2017-06-27 14:55] VITALS: BP 100/86
[2017-06-27 22:07] VITALS: BP 140/70
[2017-06-28 06:06] VITALS: BP 120/70
--- NOTE | 2017-06-28 07:05 | PN- Housestaff ---
Subjective Follow-up For: Left hydroureteronephrosis due to left ureteric stone s/p stent placement. Sepsis due to acute pyelonephritis (improved) Acute on chronic kidney injury(improving) MRSA bacteremia Subjective: No overnight events. Patient remained afebrile. Seen and examined this morning. He denied any chest pain, nausea, vomiting, chills, fever, abdominal pain and dysuria. Patient is asymptomatic he is waiting for pro-line placement for his IV antibiotics. We discontinued his Coumadin since Wednesday and we also discontinued his aspirin and Plavix now. After the pro line placement patient will be discharged. Patient will not be able to get PICC line because of his chronic kidney injury. We'll have to wait till Wednesday for pro line. Review of Systems Constitutional: Denies: chills, fever. EENTM: Reports: no symptoms. Cardiovascular: Denies: chest pain, orthopena, palpitations. Respiratory: Denies: cough, short of breath, sputum production. Gastrointestinal: Denies: abdominal pain, diarrhea, melena, nausea, vomiting. Genitourinary: Reports: no symptoms. Neurological/Psychological: Reports: no symptoms. Objective Last 24 Hrs of Vital Signs/I&O Vital Signs Date Time Temp Pulse Resp B/P B/P Pulse O2 O2 Flow FiO2 Mean Ox Delivery Rate 06/28 0955 95 Room Air 06/28 0805 59 120/70 06/28 0805 59 120/70 06/28 0800 Room Air 06/28 0606 98.0 59 20 120/70 93 Room Air 06/27 2207 98.1 63 20 140/70 93 06/27 1455 97.5 66 18 100/86 94 Room Air 06/27 1221 94 Room Air Room Air Intake & Output 06/28 1600 06/28 0800 06/28 0000 Intake Total 560 650 Output Total Balance 560 650 Intake, IV 250 Intake, Oral 560 400 Physical Exam General Appearance: Alert, Oriented X3, Cooperative Skin Temp/Moisture Exam: Warm/Dry Sepsis Skin Exam (color): Normal for Ethnicity, Cyanotic HEENT: Atraumatic, PERRLA, EOMI Neck: Supple Cardiovascular: Normal S1, Normal S2 Lungs: Clear to Auscultation Abdomen: Soft, No Tenderness Neurological: Normal Speech, Strength at 5/5 X4 Ext, Normal Tone Extremities: B/L pedal edema with chronic venous changes with blisters, Left leg swelling is more comp[are tp left and more blisters Assessment/Plan Assessment: 66-year-old male with past medical history significant for hypertension, hyperlipidemia, type 2 diabetes mellitus, colon cancer status post colostomy ( reversed), paroxysmal atrial fibrillation on Coumadin, DVT/PE status post IVC filter, coronary artery disease status post CABG, COPD not on home o2, remote history of kidney stone s/p stent follow-up with Dr. Nava, BPH, osteomyelitis, right side pleural effusion status post right pleurectomy and right lung decortication pneumoysis in 2006 sleep apnea on CPAP presented to ED with chief complaint of 3 days of cough, left flank pain, lower extremity swelling and wound weeping. We are seeing the patient for following problems: Sepsis secondary to acute pyelonephritis:(improved) -Admission patient having elevated WBC count and organ failure with lactic acid formation. On imaging study patient was found to have left pyelonephritis. -Continue IV vancomycin for MRSA bacteremia. D5 -Patient is growing MRSA in blood and urine. His TT echocardiogram is negative for endocarditis but patient needs transesophageal echocardiogram to rule out endocarditis. If patient would not have endocarditis then he will get antibiotics for 2 weeks. -Might be patient won't be able to get EVELYNE as inpatient then we will follow Dr. Gregory as outpatient for EVELYNE as inpatient machine is not working. -Patient is afebrile and his WBC count is within normal limits. Left ureterohydronephrosis due to left ureteral stone status post stent placement: -Purulent urine was drained with stent placement. -Postop day 5 -Urology will follow the patient as outpatient with CT scan abdomen. If patient will not be able to pass his stone lithotripsy will be done as outpatient. If L ureteral stone has passed will just remove stent. If not he will need L ureteroscopy and laser lithotripsy in the future. Acute on chronic kidney injury:(improving) -Patient has baseline GFR 45 and creatinine 1.5 -Presented with creatinine 2.5 and GFR 26 -Stage III CKD -No nephrotoxic medications -Today his creatinine is at his baseline 1.5 -Lasix is on hold. History of hypertension hyperlipidemia: -Continue atorvastatin -Holding his Lasix History of A. fib on anticoagulation: -Continue amiodarone -We are holding his Coumadin for pro line placement. Today his INR is 1.61 -Patient will get his proline on Wednesday and then we will resume his Coumadin after that. History of CAD status post stent placement: -We are holding his aspirin and Plavix for proline placement. H/O diastolic CHF: -Holding lasix due to acute on chronic kidney injury. History of hypothyroidism: -Continue levothyroxine History of diabetes: -Accu-Cheks -Insulin NovoLog according to sliding scale -Continue insulin Levemir 20 units twice a day -Fasting blood sugar level is 166 this morning. H/O COPD/TAYLER: -Patient doesn't want to use CPAP. He was using CPAP intermittently at home. H/O B/L chronic venous statis: -Had b/l pedal edema and is on lasix -Left leg wounds with statis dermatitis. -Left leg statis dermatitis with a blister. -Continue leg elevation and dressing on the left leg. DVT prophylaxis: Mechanical and holding his Coumadin for procedure. We will start s/c heparin for DVT prophylaxis and will hold midnight on 06/29/17 so that he can get pro line on Wednesday morning. CODE STATUS: Full code Problem List: 1. Pyelonephritis 2. Sepsis 3. Kidney stone on left side Pain Ratin Pain Location: none Pain Goal: Remain pain free Pain Plan: pain pathway Tomorrow's Labs & Rationales: inr
[2017-06-28 08:17] LABS: PT 17.6 SEC (9.4-12.5)
--- NOTE | 2017-06-28 11:40 | PN- Att Addend ---
Attending Addendum Attending Brief Note Patient seen and examined. Plan of care discussed with the medical team and the patient. Available lab work and radiology test reports were reviewed. Patient feels well and he has been able to ambulate. Denies any recent fever chills or chest pains or difficulty breathing. Overall appears stable. Exam: General: Patient awake alert oriented without any distress CVS: S1 plus S2 without any murmur or gallops Chest: Few scattered crepitation without any wheeze. There is no respiratory distress. Abdomen: Soft non-tender, bowel sound present, no guarding or rebound [employer]: Awake alert oriented without any focal neuro deficit and follows commands appropriately Extremities: No edema; no clubbing or cyanosis noted; right medial malleolus shows a small superficial lesion; left mcfarlane is covered with dressing Assessment * Acute pyelonephritis secondary to MRSA * Sepsis secondary to MRSA * Left hydronephrosis due to ureteral stone status post stent placement * Acute and chronic renal failure improving * Diabetes- well-controlled on current insulin regimen Plan * Patient agrees to proceed with PICC line * There for discharge tomorrow PICC line has been successfully inserted * Can resume Coumadin and aspirin and Plavix if PICC line has been inserted * Prepare for discharge home tomorrow Current Medications Sig/Sj Start time Last Medication Dose Route Stop Time Status Admin Acetaminophen 650 MG Q6P PRN 06/23 2315 AC 06/24 PO 0122 Albuterol Sulfate 3 ML Q4P PRN 06/24 1530 AC 06/27 INH 1221 Amiodarone HCl 200 MG QAM 06/24 899 AC 06/28 PO 0805 Aspirin Buffered 81 MG DAILY 06/24 899 DC 06/28 PO 0805 Atorvastatin Calcium 20 MG 1700 06/24 1700 AC 06/27 PO 1627 Clopidogrel Bisulfate 75 MG QAM 06/24 09 DC 06/28 PO 0806 Insulin Aspart 0 TIDAC 06/25 799 AC 06/28 SC 0805 Insulin Detemir 20 UNITS BID 06/24 899 AC 06/28 SC 0804 Levothyroxine Sodium 0.112 MG DAILY AC 06/24 0700 AC 06/28 PO 0542 Tamsulosin HCl 0.4 MG DAILY 06/24 899 AC 06/28 PO 0805 Tiotropium [place] 1 PUF DAILY 06/24 899 AC 06/28 INH 0805 Vancomycin HCl 1,500 MG 1800 06/25 1800 AC 06/27 Sodium Chloride 250 ML IV 1816 Laboratory Tests 06/28/17 0734: PT 17.6 H, INR 1.61 H 06/27/17 0713: PT 22.4 H, INR 2.04 H, CBC w Diff NO MAN DIFF REQ, RBC 4.50 L, MCV 87.2, MCH 28.5, MCHC 32.7 L, RDW 15.7 H, MPV 8.4, Gran % 74.3, Lymphocytes % 7.7 L, Monocytes % 12.0 H, Eosinophils % 5.4 H, Basophils % 0.6, Absolute Granulocytes 6.0, Absolute Lymphocytes 0.6 L, Absolute Monocytes 1.0 H, Absolute Eosinophils 0.4, Absolute Basophils 0 06/26/17 0655: Anion Gap 10, Estimated GFR 47 L, BUN/Creatinine Ratio 15.3, PT 26.3 H, INR 2.39 H, CBC w Diff NO MAN DIFF REQ, RBC 4.36 L, MCV 88.0, MCH 28.5, MCHC 32.4 L, RDW 15.3 H, MPV 8.6, Gran % 74.3, Lymphocytes % 6.8 L, Monocytes % 12.5 H, Eosinophils % 5.6 H, Basophils % 0.8, Absolute Granulocytes 6.0, Absolute Lymphocytes 0.6 L, Absolute Monocytes 1.0 H, Absolute Eosinophils 0.5, Absolute Basophils 0.1 Microbiology 06/25 1143 BLOOD: Blood Culture - RES Vital Signs Date Time Temp Pulse Resp B/P B/P Pulse O2 O2 Flow FiO2 Mean Ox Delivery Rate 06/28 0955 95 Room Air 06/28 0805 59 120/70 06/28 0805 59 120/70 06/28 0800 Room Air 06/28 0606 98.0 59 20 120/70 93 Room Air 06/27 2207 98.1 63 20 140/70 93 06/27 1455 97.5 66 18 100/86 94 Room Air 06/27 1221 94 Room Air Room Air Intake & Output 06/28 1600 06/28 0800 06/28 0000 Intake Total 560 650 Output Total Balance 560 650 Intake, IV 250 Intake, Oral 560 400 Patient 270 lb Weight
--- NOTE | 2017-06-28 11:44 | PN- Infect Dx ---
Subjective Subjective: Afebrile without complaints Objective Last 24 Hrs of Vital Signs/I&O Vital Signs Date Time Temp Pulse Resp B/P B/P Pulse O2 O2 Flow FiO2 Mean Ox Delivery Rate 06/28 0955 95 Room Air 06/28 0805 59 120/70 06/28 0805 59 120/70 06/28 0800 Room Air 06/28 0606 98.0 59 20 120/70 93 Room Air 06/27 2207 98.1 63 20 140/70 93 06/27 1455 97.5 66 18 100/86 94 Room Air 06/27 1221 94 Room Air Room Air Intake & Output 06/28 1600 06/28 0800 06/28 0000 Intake Total 560 650 Output Total Balance 560 650 Intake, IV 250 Intake, Oral 560 400 Patient 270 lb Weight Physical Exam Other Physical Findings: He appears comfortable in no acute distress Lungs are clear Heart regular rhythm with no murmur Back no CVA tenderness Results Last 24 Hours of Lab Results: Laboratory Tests 06/28 0734 Coagulation PT (9.4 - 12.5 SEC) 17.6 H INR (0.90 - 1.17) 1.61 H Last 24 Hours of Jack Results: Blood cultures 2 June 23 positive for MRSA Urine culture June 23 approximately 40,000 colonies of MRSA Blood cultures June 25 negative Recent Imaging Studies: Echocardiogram June 25, a technically difficult exam, no evidence of vegetations Assessment/Plan ID Impression: Stable, with temperatures and white blood cell count normal, on Vancomycin, Day 5 of treatment for MRSA sepsis of urologic origin, status post cystoscopy and insertion of a left ureteral stent 5 days ago for an obstructing left distal ureteral calculus. His repeat blood cultures are negative; therefore more permanent IV access can be pursued but, unfortunately, he has received Plavix today; therefore a Pro-Line will not be able to be placed for another 2 days. Though he has no manifestations of endocarditis a EVELYNE will help to determine the optimal duration of therapy; unfortunately the equipment for this test is not currently available. Suggestion: 1. Await placement of a Pro-Line 2. Would pursue EVELYNE when able (can do as an outpatient) 3. Further management of his nephrolithiasis per Urology 4. Vancomycin trough level before tonight's dose 5. Continue Vancomycin, with duration depending on the results of the EVELYNE
[2017-06-28 14:01] VITALS: BP 132/84
[2017-06-28 23:13] VITALS: BP 120/60
[2017-06-29 06:20] VITALS: BP 122/74
--- NOTE | 2017-06-29 07:12 | PN- Housestaff ---
Subjective Follow-up For: Left hydroureteronephrosis due to left ureteric stone s/p stent placement. Sepsis due to acute pyelonephritis (improved) Acute on chronic kidney injury(improving) MRSA bacteremia Subjective: No over night events. Remained afirile over night. Denied chest pain, short of breath, cough, chills, fever, abdominal pain dysuria. Patient is waiting for Proline placement. He is off Coumadin, aspirin and Plavix. He was started on subcutaneous heparin for DVT prophylaxis. We will discontinue it tonight. Patient will be discharged tomorrow after the Pro line placement. Review of Systems Constitutional: Denies: chills, fever, malaise. EENTM: Reports: no symptoms. Cardiovascular: Denies: chest pain, orthopena, palpitations. Respiratory: Denies: cough, short of breath, sputum production. Gastrointestinal: Denies: abdominal pain, constipation, diarrhea, nausea, vomiting. Genitourinary: Denies: discharge, frequency, pain. Musculoskeletal: Reports: no symptoms. Neurological/Psychological: Reports: no symptoms. Objective Last 24 Hrs of Vital Signs/I&O Vital Signs Date Time Temp Pulse Resp B/P B/P Pulse O2 O2 Flow FiO2 Mean Ox Delivery Rate 06/29 0620 97.9 75 20 122/74 95 Room Air 06/29 0000 Room Air 06/28 2313 97.8 64 20 120/60 94 Room Air 06/28 1401 97.8 62 20 132/84 96 06/28 0955 95 Room Air Intake & Output 06/29 1600 06/29 0800 06/29 0000 Intake Total 240 Output Total 525 Balance -285 Intake, Oral 240 Number 1 Bowel Movements Output, Urine 525 Physical Exam General Appearance: Alert, Oriented X3, Cooperative Skin: No Rashes Skin Temp/Moisture Exam: Warm/Dry Sepsis Skin Exam (color): Normal for Ethnicity HEENT: Atraumatic, PERRLA, EOMI Neck: Supple Cardiovascular: Normal S1, Normal S2 Lungs: Clear to Auscultation Abdomen: Soft, No Tenderness Neurological: Normal Speech, Strength at 5/5 X4 Ext, Normal Tone Extremities: B/L chronic venous changes with multiple blisters on left leg with dressing. Right leg has venous statis., Left leg has swelling compare to right Assessment/Plan Assessment: 66-year-old male with past medical history significant for hypertension, hyperlipidemia, type 2 diabetes mellitus, colon cancer status post colostomy ( reversed), paroxysmal atrial fibrillation on Coumadin, DVT/PE status post IVC filter, coronary artery disease status post CABG, COPD not on home o2, remote history of kidney stone s/p stent follow-up with Dr. Nava, BPH, osteomyelitis, right side pleural effusion status post right pleurectomy and right lung decortication pneumoysis in 2006 sleep apnea on CPAP presented to ED with chief complaint of 3 days of cough, left flank pain, lower extremity swelling and wound weeping. We are seeing the patient for following problems: Sepsis secondary to acute pyelonephritis:(improved) -Admission patient having elevated WBC count and organ failure with lactic acid formation. On imaging study patient was found to have left pyelonephritis. -Continue IV vancomycin for MRSA bacteremia. D6 -Proline placement will be done tomorrow and he will be discharged tomorrow to complete 14 days course of vancomycin. He will take vancomycin 7 more days through pro line. -Possible EVELYNE tomorrow to rule out endocarditis. Patient will be kept NPO midnight. -Patient is afebrile and his WBC count is within normal limits. Left ureterohydronephrosis due to left ureteral stone status post stent placement: -Purulent urine was drained with stent placement. -Postop day 6 -Urology will follow the patient as outpatient with CT scan abdomen. If patient will not be able to pass his stone lithotripsy will be done as outpatient. If L ureteral stone has passed will just remove stent. If not he will need L ureteroscopy and lithotripsy in the future. Acute on chronic kidney injury:(improved) -Patient has baseline GFR 45 and creatinine 1.5 -Presented with creatinine 2.5 and GFR 26 -Stage III CKD -No nephrotoxic medications -Creatinine is at his baseline 1.5 -Lasix is on hold. History of hypertension hyperlipidemia: -Continue atorvastatin -Holding his Lasix History of A. fib on anticoagulation: -Continue amiodarone -We are holding his Coumadin for pro line placement. Today his INR is 1.38 -Patient will get his proline on tomorrow and then we will resume his Coumadin after that. History of CAD status post stent placement: -We are holding his aspirin and Plavix for proline placement. H/O diastolic CHF: -Holding lasix due to acute on chronic kidney injury. History of hypothyroidism: -Continue levothyroxine History of diabetes: -Accu-Cheks -Insulin NovoLog according to sliding scale -Continue insulin Levemir 20 units twice a day -Fasting blood sugar level is 181 this morning. H/O COPD/TAYLER: -Patient doesn't want to use CPAP. He was using CPAP intermittently at home. H/O B/L chronic venous statis: -Had b/l pedal edema and is on lasix -Left leg wounds with statis dermatitis. -Left leg statis dermatitis with a blister. -Continue leg elevation and dressing on the left leg. DVT prophylaxis: Mechanical and holding his Coumadin for procedure. We will start s/c heparin for DVT prophylaxis and will discontinue tonight so that he can get pro line on Wednesday. CODE STATUS: Full code Problem List: 1. Pyelonephritis 2. Kidney stone on left side 3. Sepsis Pain Ratin Pain Location: none Pain Goal: Remain pain free Pain Plan: pain pathway Tomorrow's Labs & Rationales: inr
--- NOTE | 2017-06-29 07:26 | PN- Urology ---
Subjective Subjective: Comfortable. No complaints. Awaiting insertion of Pro-line Objective Vital Signs and I&Os Vital Signs Date Time Temp Pulse Resp B/P B/P Pulse O2 O2 Flow FiO2 Mean Ox Delivery Rate 06/30 619 97.9 75 20 122/74 95 Room Air 06/29 0000 Room Air 06/28 2313 97.8 64 20 120/60 94 Room Air 06/28 1401 97.8 62 20 132/84 96 06/28 0955 95 Room Air 06/28 0805 59 120/70 06/28 0805 59 120/70 06/28 0800 Room Air Intake & Output 06/29 0800 06/29 0000 06/28 1600 06/28 0800 06/28 0000 06/27 1600 Intake Total 240 480 560 650 500 Output Total 525 200 Balance -285 480 560 650 300 Intake, IV 250 Intake, Oral 240 480 560 400 500 Number 1 Bowel Movements Output, Urine 525 200 Patient 270 lb Weight Voiding adequately Laboratory Tests 06/29 06/28 06/28 0715 1640 0734 Coagulation PT (9.4 - 12.5 SEC) Pending 17.6 H INR (0.90 - 1.17) Pending 1.61 H Toxicology Vancomycin Trough (10.0 - 20.0 ug/mL) 12.1 Assessment/Plan Assessment/Plan Imp: 1. s/p L ureteral stent insertion for obstructing L distal ureteral stone and pyonephrosis Plan: 1. Abx per ID 2. Office f/u in 2 weeks. Will zack repeat CT at that time. If L ureteral stone has not passed will need L ureteroscopy and laser lithotripsy
[2017-06-29 08:34] LABS: PT 15.1 SEC (9.4-12.5)
--- NOTE | 2017-06-29 10:27 | Patient Discharge Instructions ---
Discharge Instructions General Discharge Information You were seen/treated for: Left hydroureteronephrosis due to left ureteric stone s/p stent placement. Sepsis due to acute pyelonephritis. Acute on chronic kidney injury. MRSA bacteremia. Watch for these problems: Fever, chills, altered mental status, pus urine, flank pain, abdominal pain, diarrhea, decrease in urine output, hematuria and dysuria. If you experience any of these symptoms please come to ED or call your primary care physician. Special Instructions: Please follow-up with your primary care physician in one week. Follow-up with your urologist in 1 week. Possible ureteroscopy and lithotripsy as outpatient if ureteric stone won't pass at that point. Use vancomycin through a proline for 9 more days till July 09. Follow-up with your learning and development director as outpatient for adjustment of lasix dose and check BEP for creatinine/BUN. Will need a CBC, BUN/creatinine and Vancomycin trough level at least weekly as an outpatient. -Please start your coumadin tomorrow 07/01/17 and check INR. Dose coumadin according to INR to keep it between 2-3. -You can start aspirin and plevix tomorrow 07/01/17. -Please follow the same insuline regimen as you were using in hospi[place] and visit Dr. Umaña as soon as possible for insulin dose adjustment. Diet Recommended Diet: Diabetic Activity Activity Self Limited: Yes Acute Coronary Syndrome Inclusion Criteria At DC or during hospital stay patient has or had the following: ACS DIAGNOSIS No Discharge Core Measures Meds if any: Prescribed or Continued at Discharge Meds if any: NOT Prescribed or Continued at Discharge Congestive Heart Failure Inclusion Criteria At DC or during hospital stay patient has or had the following: CHF DIAGNOSIS No Discharge Core Measures Meds if any: Prescribed or Continued at Discharge Meds if any: NOT Prescribed or Continued at Discharge Cerebrovascular accident Inclusion Criteria At DC or during hospital stay patient has or had the following: CVA/TIA Diagnosis No Discharge Core Measures Meds if any: Prescribed or Continued at Discharge Meds if any: NOT Prescribed or Continued at Discharge Venous thromboembolism Inclusion Criteria VTE Diagnosis No VTE Type NONE VTE Confirmed by (Test) NONE Discharge Core Measures - Per Current guidelines, there needs to be overlap - treatment for the first 5 days of Warfarin therapy. - If discharged on Warfarin prior to 5 days of - overlap therapy, the patient will need to be - assessed for post discharge needs including - *Post discharge parental anticoagulation - *Warfarin and/or parental anticoagulation education - *Follow up date to check INR post discharge At least 5 days overlap therapy as Inpatient No Meds if any: Prescribed or Continued at Discharge Note: Overlap Therapy is Warfarin and Anticoagulant Meds if any: NOT Prescribed or Continued at Discharge
[2017-06-29] MEDS ORDERED: VANCO 1.51.5 GM/250 IV (10:30)
--- NOTE | 2017-06-29 11:44 | PN- Cardiology ---
Subjective Subjective: No chest pain. No shortness of breath. No palpitations. No chills. No lightheadedness or dizziness. Objective Vital Signs and I&Os Vital Signs Date Time Temp Pulse Resp B/P B/P Pulse O2 O2 Flow FiO2 Mean Ox Delivery Rate 06/29 1009 122/74 06/29 1008 122/74 06/29 0800 Room Air 06/29 0620 97.9 75 20 122/74 95 Room Air 06/29 0000 Room Air 06/28 2313 97.8 64 20 120/60 94 Room Air 06/28 1401 97.8 62 20 132/84 96 Intake & Output 06/29 1600 06/29 0800 06/29 0000 06/28 1600 06/28 0800 06/28 0000 Intake Total 240 480 560 650 Output Total 525 Balance -285 480 560 650 Intake, IV 250 Intake, Oral 240 480 560 400 Number 1 Bowel Movements Output, Urine 525 Patient 270 lb Weight Physical Exam: Gen: NAD HEENT: normal Lungs: clear to auscultation, normal resp. effort Heart: RRR, S1, S2, no murmurs Abdomen: Soft, nontender, no masses Extremities: No clubbing, cyanosis, or edema. Neuro: Alert and oriented x 3, cranial nerves intact Current Medications: Current Medications Sig/Sj Start time Last Medication Dose Route Stop Time Status Admin Acetaminophen 650 MG Q6P PRN 06/23 2315 AC 06/24 PO 0122 Albuterol Sulfate 3 ML Q4P PRN 06/24 1530 AC 06/27 INH 1221 Amiodarone HCl 200 MG QAM 06/24 0900 AC 06/29 PO 1009 Atorvastatin Calcium 20 MG 1700 06/24 1700 AC 06/28 PO 1733 Heparin Sodium 5,000 UNIT Q8 06/28 1618 AC 06/29 (Porcine) SC 06/29 2300 0640 Insulin Aspart 0 TIDAC 06/24 0800 AC 06/29 SC 1008 Insulin Detemir 20 UNITS BID 06/24 0900 AC 06/29 SC 1008 Levothyroxine Sodium 0.112 MG DAILY AC 06/24 0700 AC 06/29 PO 0640 Patient Medication 1 ED ONE ONE 06/28 1500 DC 06/28 Teaching ED 06/28 1501 1733 Tamsulosin HCl 0.4 MG DAILY 06/24 0900 AC 06/29 PO 1008 Tiotropium [place] 1 PUF DAILY 06/24 0900 AC 06/29 INH 1008 Vancomycin HCl 1,500 MG 1800 06/25 1800 AC 06/28 Sodium Chloride 250 ML IV 1900 Results Last 48 Hrs of Labs/Mics: Laboratory Tests 06/29/17 0715: PT 15.1 H, INR 1.38 H 06/28/17 1640: Vancomycin Trough 12.1 06/28/17 0734: PT 17.6 H, INR 1.61 H Recent Imaging Studies: Echocardiogram 06/25/17: 1. This was a technically difficult examination. 2. Mild aortic sclerosis is present with no valvular stenosis or insufficiency. Minimal enlargement of the ascending aorta is present. 3. Mitral leaflet thickening is present with no valvular prolapse. Mild to moderate left atrial enlargement is present. 4. There is no pericardial fluid present. 5. The left ventricular chamber size is normal with an ejection fraction of 50-55%. Localized inferoposterior hypokinesia appears to be present. 6. Mild tricuspid insufficiency is present with mild pulmonary hypertension and an estimated RV systolic pressure of 45 mmHg Assessment/Plan Assessment/Plan Assessment: 1. MRSA bacteremia 2. Coronary disease, status post bypass surgery 3. Tricuspid insufficiency with mild pulmonary hypertension 4. Nephrolithiasis with left hydronephrosis and ureteral stent placement 5. Diabetes 6. Restrictive lung disease related to post surgical/bypass related issues and underlying COPD 7. Probable sleep apnea 8. Acute on chronic renal insufficiency 9. History of hypertension/hyperlipidemia 10. History of paroxysmal atrial fibrillation on anticoagulant therapy 11. Lower extremity edema with venous insufficiency and venous stasis changes Recommendations: * EVELYNE tomorrow if possible. The equipment has been unavailable, but is due to be back in service by tomorrow. * N.p.o. after midnight * Continue cardiac medications Continue telemetry? Not applicable
--- NOTE | 2017-06-29 11:46 | PN- Att Addend ---
Attending Addendum Attending Brief Note Patient seen and examined. Plan of care discussed with the medical team and the patient. Available lab work and radiology test reports were reviewed. No additional complaints today. Patient feels well and he has been able to ambulate. Denies any recent fever chills or chest pains or difficulty breathing. Overall appears stable. Exam: General: Patient awake alert oriented without any distress CVS: S1 plus S2 without any murmur or gallops Chest: Few scattered crepitation without any wheeze. There is no respiratory distress. Abdomen: Soft non-tender, bowel sound present, no guarding or rebound [employer]: Awake alert oriented without any focal neuro deficit and follows commands appropriately Extremities: No edema; no clubbing or cyanosis noted; right medial malleolus shows a small superficial lesion; left mcfarlane is covered with dressing Assessment * Acute pyelonephritis secondary to MRSA- stable on vancomycin * Sepsis secondary to MRSA * Left hydronephrosis due to ureteral stone status post stent placement * Acute and chronic renal failure improving * Diabetes- well-controlled on current insulin regimen Plan * Waiting for proline to be inserted tomorrow * Please check INR tomorrow morning * Prepare for discharge home tomorrow Current Medications Sig/Sj Start time Last Medication Dose Route Stop Time Status Admin Acetaminophen 650 MG Q6P PRN 06/23 2315 AC 06/24 PO 0122 Albuterol Sulfate 3 ML Q4P PRN 06/24 1530 AC 06/27 INH 1221 Amiodarone HCl 200 MG QAM 06/24 0900 AC 06/29 PO 1009 Atorvastatin Calcium 20 MG 1700 06/24 1700 AC 06/28 PO 1733 Heparin Sodium 5,000 UNIT Q8 06/28 1618 AC 06/29 (Porcine) SC 06/29 2300 0640 Insulin Aspart 0 TIDAC 06/24 0800 AC 06/29 SC 1008 Insulin Detemir 20 UNITS BID 06/24 0900 AC 06/29 SC 1008 Levothyroxine Sodium 0.112 MG DAILY AC 06/24 0700 AC 06/29 PO 0640 Patient Medication 1 ED ONE ONE 06/28 1500 DC 06/28 Teaching ED 06/28 1501 1733 Tamsulosin HCl 0.4 MG DAILY 06/24 0900 AC 06/29 PO 1008 Tiotropium [place] 1 PUF DAILY 06/24 0900 AC 06/29 INH 1008 Vancomycin HCl 1,500 MG 1800 06/25 1800 AC 06/28 Sodium Chloride 250 ML IV 1900 Laboratory Tests 06/29/17 0715: PT 15.1 H, INR 1.38 H 06/28/17 1640: Vancomycin Trough 12.1 06/28/17 0734: PT 17.6 H, INR 1.61 H 06/27/17 0713: PT 22.4 H, INR 2.04 H, CBC w Diff NO MAN DIFF REQ, RBC 4.50 L, MCV 87.2, MCH 28.5, MCHC 32.7 L, RDW 15.7 H, MPV 8.4, Gran % 74.3, Lymphocytes % 7.7 L, Monocytes % 12.0 H, Eosinophils % 5.4 H, Basophils % 0.6, Absolute Granulocytes 6.0, Absolute Lymphocytes 0.6 L, Absolute Monocytes 1.0 H, Absolute Eosinophils 0.4, Absolute Basophils 0 Vital Signs Date Time Temp Pulse Resp B/P B/P Pulse O2 O2 Flow FiO2 Mean Ox Delivery Rate 06/29 1009 122/74 06/29 1008 122/74 06/29 0800 Room Air 06/29 0620 97.9 75 20 122/74 95 Room Air 06/29 0000 Room Air 06/28 2313 97.8 64 20 120/60 94 Room Air 06/28 1401 97.8 62 20 132/84 96 Intake & Output 06/29 1600 06/29 0800 06/29 0000 Intake Total 240 Output Total 525 Balance -285 Intake, Oral 240 Number 1 Bowel Movements Output, Urine 525
[2017-06-29 13:56] VITALS: BP 130/62
--- NOTE | 2017-06-29 15:43 | PN- Infect Dx ---
Subjective Subjective: Afebrile without complaints Objective Last 24 Hrs of Vital Signs/I&O Vital Signs Date Time Temp Pulse Resp B/P B/P Pulse O2 O2 Flow FiO2 Mean Ox Delivery Rate 06/29 1412 94 Room Air 06/29 1356 97.7 70 20 130/62 90 Room Air 06/29 1009 122/74 06/29 1008 122/74 06/29 0800 Room Air 06/29 0620 97.9 75 20 122/74 95 Room Air 06/29 0000 Room Air 06/28 2313 97.8 64 20 120/60 94 Room Air Intake & Output 06/29 1600 06/29 0800 06/29 0000 Intake Total 240 Output Total 525 Balance -285 Intake, Oral 240 Number 1 Bowel Movements Output, Urine 525 Patient 270 lb Weight Physical Exam Other Physical Findings: He appears comfortable in no acute distress Back no CVA tenderness Results Last 24 Hours of Lab Results: Laboratory Tests 06/29 06/28 0715 1640 Coagulation PT (9.4 - 12.5 SEC) 15.1 H INR (0.90 - 1.17) 1.38 H Toxicology Vancomycin Trough (10.0 - 20.0 ug/mL) 12.1 Last 24 Hours of Jack Results: Blood cultures 2 June 25 negative Assessment/Plan ID Impression: Stable, with temperatures and white blood cell count remaining normal, on Vancomycin, Day 6 of treatment for MRSA sepsis of urologic origin, status post cystoscopy and insertion of a left ureteral stent 6 days ago for an obstructing left distal ureteral calculus. He is scheduled for a Pro-Line and, tentatively, a EVELYNE in the a.m. (to determine the optimal duration of therapy). His Vancomycin trough level last evening was 12 and his dose can be increased. Suggestion: 1. Await placement of a Pro-Line in the a.m. 2. Await possible EVELYNE in the a.m. 3. Repeat BUN/creatinine in the a.m. 4. Further management of his nephrolithiasis per Urology 5. Increase Vancomycin to 1750 mg IV every 24 hours, with duration dependent on EVELYNE results 6. Will need a CBC, BUN/creatinine and Vancomycin trough level at least weekly as an outpatient
--- NOTE | 2017-06-29 16:11 | Discharge Summary ---
Visit Information Visit Dates Admission Date: 06/23/17 Discharge Date: 06/30/17 Hospital Course Course Attending Physician: Natali MATHEW,Alejandro Primary Care Physician: Aashish Carmona MD Hospital Course: 66 YO M with PMH of HTN, HLD, type 2 diabetes mellitus, colon cancer status post colostomy (reversed), paroxysmal atrial fibrillation on Coumadin, DVT/PE status post IVC filter, coronary artery disease status post CABG, COPD not on home o2, remote history of kidney stone s/p stent follow-up with Dr. Nava, BPH, osteomyelitis, right side pleural effusion status post right pleurectomy and right lung decortication pneumoysis in 2006 sleep apnea on CPAP presented to ED with chief complaint of 3 days of cough, left flank pain, lower extremity swelling and wound weeping. ED course: Vitals: Temperature 99.0, pulse 80, respiratory rate 18, blood pressure 103/68, oxygen saturation 94% on room air. Labs: WBC count 17.1, hemoglobin 15.7, hematocrit 47.9, platelet count 296, sodium 131, potassium 4.6, BUN 26, creatinine 2.5, anion gap 14, estimated GFR 26, BUN/creatinine ratio 10.4, glucose 321, lactic acid 2.1, bilirubin 2.0, direct bilirubin 0.6, AST 32, ALT 40, alkaline phosphatase 112, creatinine kinase 100, INR 2.24 MRSA sepsis secondary to acute pyelonephritis: Patient was admitted with sepsis, as he was meeting criteria of SIRS and imaging studies were showing left-sided pyelonephritis. His lactic acid was trended and he was given IV fluids. Initially patient was given IV ceftriaxone. His blood and urine cultures were obtained in ED that later on came back positive with gram-positive cocci. His final blood cultures showed that he is going MRSA in blood and urine. ID consult was obtained and his antibiotics were changed to vancomycin. 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 His WBC count and LFTs were monitored. During hospital stay patient remained afebrile and his WBC count came back to normal limits. Considering patient's MRSA bacteremia transthoracic echocardiogram was done that was negative for endocarditis. EVELYNE was done that ruled out endocarditis. Patient was given vancomycin for 9 more days till July 09 to complete 2 weeks course of antibiotics. Pro line was placed to complete his 2 weeks antibiotic course at home. His vancomycin trough that was done in hospital was within therapeutic limits. Initially patient was given 1.5 g vancomycin that was increased to 1.75 g. Patient was instructed to check CBC, BEP and vancomycin trough levels at least weekly while on vancomycin. Patient was instructed to follow his primary care physician within one week after the discharge. Left ureterohydronephrosis due to left ureteral stone status post stent placement: Patient presented with left flank pain and on imaging studies patient had left ureterohydronephrosis due to left ureteral stone. Urology consult was obtained and recommendations were followed. Patient was sent to OR from ED. Left ureteric stent placement was done and pulled out urine was drained after the stent placement. Later on when his urine became clear his Garland's catheter was removed. Urology planned to follow the patient as outpatient and they will do CT scan abdomen to see if his ureteric stone would have passed. If it wouldn't pass at that point they will plan to do ureteroscopy and lithotripsy as outpatient in future. Patient was instructed to follow his urologist after the discharge. Acute on chronic kidney injury: Patient had stage III CKD with baseline GFR 45 and creatinine level I.5. He presented with a creatinine level 2.5 and GFR 26. Possibly due to dehydration in the setting of sepsis. Gentle IV hydration was done. Nephrotoxic medications were provided. Daily input and output was monitored. His Lasix was held. His creatinine level was monitored and later on his creatinine level came back to baseline and his GFR improved. Before discharge his creatinine level was 1.2 and GFR was more than 60. History of hypertension hyperlipidemia: His atorvastatin was continued but when he had his Lasix. Patient blood pressure during hospital stay remained within normal limits. After discharge patient was instructed to take 20 mg Lasix every day rather than 60 as recommended by cardiology. History of A. fib on anticoagulation: Patient was on Coumadin for anticoagulation that was continued. He was also on amiodarone for rhythm control. His INR remained within therapeutic range. Before the procedure (Pro line) his Coumadin was held for 5 days to bring back his INR was subtherapeutic level to decrease the risk of bleeding during procedure. His Coumadin was started 12 hours after the procedure decrease the risk of bleeding. Patient was instructed to check his INR and dose Coumadin accordingly to keep his INR between 23. History of CAD status post stent placement: Patient had history of CAD status post stent placement. Patient was on aspirin and Plavix that were continued. Before the procedure his aspirin and Plavix were held for 2 days to decrease the risk of bleeding during the procedure. Patient was instructed to take his aspirin and Plavix after the discharge. He was also advised to see his medicare coordinator for his advice to stop Plavix. H/O diastolic CHF: Patient history of diastolic CHF. He was on Lasix 60 mg every day that was held due to acute on chronic kidney injury. After discharge low dose Lasix was resumed as recommended by cardiology. Patient was given 20 mg Lasix daily to use after the discharge. Patient was instructed to follow his medicare coordinator after the discharge for dose adjustment according to his BUN and creatinine level. History of hypothyroidism: Continued levothyroxine. History of diabetes: During the hospital stay Accu-Cheks were done. Patient was placed on insulin NovoLog according to sliding scale and insulin Levemir 20 units twice a day. Her blood sugar levels remained under control. Same regimen was continued after the discharge and patient was advised to follow his monogram maker as soon as possible for adjustment of insulin dose according to his blood sugar levels. H/O COPD/TAYLER: Patient didn't use CPAP during hospital stay. He reported that he was using CPAP during nighttime intermittently at home. During hospital stay patient remained stable without any difficulty in breathing. On room air he was maintaining saturation above 92%. H/O B/L chronic venous statis: Patient had bilateral venous status dermatitis. On admission he had left leg multiple blisters and one blister on right leg. He had leg swelling more on the left side compared to right. Patient received daily dressing of both legs and his superficial skin tears due to blisters had been improved. Leg elevation was done to decrease the swelling. Patient was instructed to follow up outpatient wound clinic if he needs in future. DVT prophylaxis: Mechanical and patient was on Coumadin. Later on Coumadin was held in anticipation of pro line placement. During that time patient was given subcutaneous heparin to decrease risk of DVT. After the discharge his Coumadin was resumed. CODE STATUS: Full code Allergies: Coded Allergies: Penicillins (PT DOES NOT REMEMBER 12/05/15) ampicillin (RASH 12/05/15) sulbactam (RASH 12/05/15) Significant Procedures: PICC line insertion on 06/30/2017: EXAM TYPE: IR - FLUORO GUID VENOUS ACCESS; INTERVENTIONAL SETUP; US-GUIDANCE VASCULAR ACCESS CLINICAL HISTORY: This patient is a 66 year old male with infection, who presents to Interventional Radiology for placement of a single lumen Proline tunneled central venous catheter. PROCEDURES: 1. Real-time ultrasound-guided access into the right internal jugular vein after documentation of selected vessel patency, and permanent imaging storing in the patient records. 2. Placement of a tunneled central venous catheter. PHYSICIANS: Dr. Chad Riggins (attending). MONITORING: Continuous blood pressure, pulse oximetry as well as heart rate monitoring was performed by an independent registered nurse. MEDICATIONS: 1. Fentanyl 50 mcg IV were administered. 2. Lidocaine 1%, 10 mL SQ. 3. Lidocaine 1%, 10 mL with epinephrine SQ. CONTRAST: None FLUOROSCOPY TIME: 1.1 minutes DAP: 10.5 uGym2 COMPLICATIONS: None ESTIMATED BLOOD LOSS: <5 mL SPECIMENS: None IMPLANT: 5-Fr single lumen Proline central venous catheter SITE MARKING: As part of the preprocedure verification policy, a site marking procedure was initiated. Due to the nature the procedure, the insertion site could not be predetermined thus invoking the policy of exemption to site laterality and marking. Insertion site marking was performed in the procedure room in conjunction with imaging confirmation. PROCEDURE NOTE: Informed consent was obtained from the patient prior to the procedure. During this process, the procedure and potential alternatives were explained along with the intended outcome and benefits. The risks of the procedure, including the possibility of an unsuccessful procedure, as well as the risk of not doing the procedure, were discussed. The patient was given the opportunity to ask questions regarding the procedure and appeared competent to make decisions. A signed consent form documenting this discussion was placed in the medical record. A time-out procedure was performed. The neck and chest were prepped and draped in usual sterile fashion. All elements of maximal sterile barrier technique followed including use of cap, mask, sterile gown, sterile gloves, a sterile full body drape and hand hygiene. Also followed skin preparation with 2% chlorhexidine for cutaneous antisepsis, and sterile ultrasound preparation with sterile gel and probe cover when applicable. Under ultrasound and fluoroscopic-guidance, the internal jugular vein was accessed with a 5-Fr Micropuncture set. The Micropuncture 0.018 wire was advanced until the tip was located at the level of the high right atrium, and wire length was measured. This 0.018 wire was then exchanged for a longer 0.018 wire that was advanced into the IVC to maintain access during the tunneling process. After injection of subcutaneous lidocaine, a subcutaneous tunnel to the venotomy site was created in the chest using blunt dissection. The Proline catheter was then sized and pulled through the tunnel. The sheath was exchanged for a peel-away sheath over the wire. The catheter was advanced through the peel-away sheath, which was subsequently removed. The catheter was tested successfully, flushed, a Biopatch was applied and the catheter secured to the skin with a StatLock device. Dermabond was applied to the neck access site. The patient tolerated the procedure well. FINDINGS: 1. Patent right internal jugular vein. 2. Placement of a Proline catheter with tip at the superior cavoatrial junction that measures 24 cm in length. 3. Catheter flushes and aspirates well. 4. No pneumothorax. IMPRESSION: Successful and uncomplicated placement of a tunneled central venous Proline catheter. PLAN: 1. The patient was stable after the procedure and was transferred to the interventional recovery area. The patient will be transferred back to his medical room. 2. The catheter may be used immediately. Pertinent Lab Results: X-ray KUB on 06/23/2017; IMPRESSION: Fluoroscopic guidance for left ureteral stent placement. Please refer to procedural report for further information. Abdomen/pelvic CT scan on 06/23/2017: IMPRESSION: - Left-sided obstructive uropathy with a 4 mm obstructing calculus (mean Hounsfield units 442) at the left ureterovesicular junction resulting in moderate left-sided hydroureteronephrosis and significant left-sided perinephric stranding. There is also a 1.2 cm calculus within the upper pole of the left kidney. Multiple additional bilateral renal calculi as described. - There is cholelithiasis without acute cholecystitis. - There is atelectasis versus chronic appearing scarring within the lingula and left lower lobe and there is a trace dependent left pleural effusion with adjacent airspace opacity that may reflect atelectasis versus pneumonia. - There are tiny innumerable groundglass nodules within the right upper lobe and to a lesser extent the superior segment of the right lower lobe and right middle lobe that are nonspecific and that may be the sequela of old infection or smoking-related lung disease. These are similar in pattern to the prior exam. - There are mild dependent secretions within the trachea. - Prominent mediastinal and hilar lymph nodes are stable. - Bilateral L5 pars defects with grade 1 spondylolytic anterolisthesis of L5 on S1. Chest CT scan on 06/23/2017: IMPRESSION: - Left-sided obstructive uropathy with a 4 mm obstructing calculus (mean Hounsfield units 442) at the left ureterovesicular junction resulting in moderate left-sided hydroureteronephrosis and significant left-sided perinephric stranding. There is also a 1.2 cm calculus within the upper pole of the left kidney. Multiple additional bilateral renal calculi as described. - There is cholelithiasis without acute cholecystitis. - There is atelectasis versus chronic appearing scarring within the lingula and left lower lobe and there is a trace dependent left pleural effusion with adjacent airspace opacity that may reflect atelectasis versus pneumonia. - There are tiny innumerable groundglass nodules within the right upper lobe and to a lesser extent the superior segment of the right lower lobe and right middle lobe that are nonspecific and that may be the sequela of old infection or smoking-related lung disease. These are similar in pattern to the prior exam. - There are mild dependent secretions within the trachea. - Prominent mediastinal and hilar lymph nodes are stable. - Bilateral L5 pars defects with grade 1 spondylolytic anterolisthesis of L5 on S1. X-ray KUB on 06/24/2017: IMPRESSION: 1. Left-sided internal ureteric stent, appears in good position. 2. Bilateral renal calculi. 3. Evidence of inferior vena cava filter. Echocardiogram on 06/25/2017: CONCLUSIONS 1. This was a technically difficult examination. 2. Mild aortic sclerosis is present with no valvular stenosis or insufficiency. Minimal enlargement of the ascending aorta is present. 3. Mitral leaflet thickening is present with no valvular prolapse. Mild to moderate left atrial enlargement is present. 4. There is no pericardial fluid present. 5. The left ventricular chamber size is normal with an ejection fraction of 50-55%. Localized inferoposterior hypokinesia appears to be present. 6. Mild tricuspid insufficiency is present with mild pulmonary hypertension and an estimated RV systolic pressure of 45 mmHg Vascular ultrasound on 06/30/2017: FINDINGS: 1. Patent right internal jugular vein. 2. Placement of a Proline catheter with tip at the superior cavoatrial junction that measures 24 cm in length. 3. Catheter flushes and aspirates well. 4. No pneumothorax. IMPRESSION: Successful and uncomplicated placement of a tunneled central venous Proline catheter. PLAN: 1. The patient was stable after the procedure and was transferred to the interventional recovery area. The patient will be transferred back to his medical room. 2. The catheter may be used immediately. Disposition Summary Disposition Principal Diagnosis: Left hydroureteronephrosis due to left ureteric stone s/p stent placement. MRSA sepsis due to acute pyelonephritis Acute on chronic kidney injury Additional Diagnosis: History of hypertension and hyperlipidemia History of A. fib on anticoagulation History of diastolic CHF History of hypothyroidism History of diabetes History of COPD/TAYLER H/O B/L chronic venous statis Discharge Disposition: home health services Discharge Instructions General Discharge Information Code Status: Full Code Patient's Diet: Diabetic diet Patient's Activity: Self-limited Follow-Up Instructions/Appts: Please follow-up with your primary care physician in one week. Follow-up with your urologist in 1 week. Possible ureteroscopy and lithotripsy as outpatient if ureteric stone won't pass at that point. Use vancomycin through a proline for 9 more days till July 09. Follow-up with your medicare coordinator as outpatient for adjustment of lasix dose and check BEP for creatinine/BUN. Will need a CBC, BUN/creatinine and Vancomycin trough level at least weekly as an outpatient. -Please start your coumadin tomorrow 07/01/17 and check INR. Dose coumadin according to INR to keep it between 2-3. -You can start aspirin and plevix tomorrow 07/01/17. -Please follow the same insuline regimen as you were using [facility] and visit Dr. Umaña as soon as possible for insulin dose adjustment. Medications at Discharge Discharge Medications: Stop taking the following medications: Insulin-Lantus (Lantus) 100 UNIT/ML VIAL Inject into fatty tissue Every night Insulin-Lantus (Lantus) 100 UNIT/ML VIAL Inject into fatty tissue Every Morning Continue taking these medications: Clopidogrel Bisulfate (Clopidogrel) 75 MG TABLET 1 Tablet ORAL Every Morning Comments: DID NOT ADMINISTER Amiodarone (Cordarone) 200 MG TABLET 1 Tablet ORAL Every Morning Comments: Last Taken: 06/29/17 Time: 0800AM Warfarin Sodium (Coumadin) 2.5 MG TABLET 1 [facility]: DID NOT ADMINISTER Aspirin (Ecotrin*) 81 MG TABLET.DR 1 Tablet ORAL DAILY Comments: DID NOT ADMINISTER. Atorvastatin Calcium (Atorvastatin Calcium) 20 MG TABLET 1 Tablet ORAL DAILY Comments: Last Taken: 06/30/17 Time: 500PM Levothyroxine Sodium (Levothyroxine Sodium) 112 MCG TABLET 1 Tablet ORAL DAILY BEFORE BREAKFAST Comments: Last Taken: 06/30/17 Time: 0600AM Tamsulosin HCl (Tamsulosin HCl) 0.4 MG CAP.ER.24H 1 Capsule ORAL DAILY Qty = 90 Comments: Last Taken: 06/29/17 Time: 0800AM Albuterol Sulfate (Albuterol Sulfate) 0.63 MG/3 ML VIAL.NEB 1 Vial Inhale Solution THREE TIMES DAILY as needed for lung health Comments: Last Taken:06/29/17 Time:800 PM Start taking the following new medications: Vancomycin/0.9 % Sod Chloride (Vanco 1.75 G/250 Ml-0.9% NaCl) 1.75 GRAM/250 ML PLAST..BAG 1.75 Gram INTRAVEN DAILY Qty = 9 No Refills Instructions: Use 1.75 GRAM vancomycin through proline for 9 more days TILL June. . Comments: Last Taken:06/30/17 Time:315 PM Insulin Detemir (Levemir) 100 UNIT/ML VIAL 20 Units Inject into fatty tissue TWICE DAILY Qty = 2 No Refills Comments: Last Taken:06/29/17 Time:800 PM The following medications have been changed: Old: Insulin Lispro (Humalog) 100 UNIT/ML VIAL Units Inject into fatty tissue BEFORE MEALS AND AT BEDTIME New: Insulin Lispro (Humalog) 100 UNIT/ML VIAL 0 Inject into fatty tissue BEFORE MEALS AND AT BEDTIME Qty = 2 Instructions: BEFORE MEALS Blood Insulin Sugar Units <80 0 81-150 0 151-200 2 201-250 4 251-300 6 301-350 8 351-400 10 >400 12 and CULLEN MATHEW Comments: NOVOLOG GIVEN AT 600 PM Old: Furosemide (Lasix) 20 MG TABLET 3 Tablet ORAL DAILY New: Furosemide (Lasix) 20 MG TABLET 1 Tablet ORAL DAILY Qty = 30 Comments: DID NOT ADMINISTER Copies To: Brandy MATHEW,Loco Miller; Mathew MATHEW,Aashish Fox; Bri MATHEW,Willow Steinberg; Leeroy MATHEW,Natalie
[2017-06-29] MEDS ORDERED: VANCO 1.751.75 GM/25 IV (16:28)
[2017-06-29 22:35] VITALS: BP 100/60
[2017-06-30 06:20] VITALS: BP 108/64
--- NOTE | 2017-06-30 07:05 | PN- Housestaff ---
Subjective Follow-up For: Left hydroureteronephrosis due to left ureteric stone s/p stent placement. Sepsis due to acute pyelonephritis (improved) Acute on chronic kidney injury(improving) MRSA sepsis Subjective: No overnight events. Patient remained afebrile. seen and examined this morning. Patient denied any chest pain, short of breath, nausea, vomiting, abdominal pain dysuria. Patient reported having dry cough but he is not bringing any phlegm. He is nothing by mouth and going for to line placement and EVELYNE today. After the procedure patient will be discharged home today. Antibiotic duration will be decided after the EVELYNE results. Patient was given D5 half as he is nothing by mouth and his NovoLog was changed to Novolin, nothing by mouth protocol. Review of Systems Constitutional: Denies: chills, fever. EENTM: Reports: no symptoms. Cardiovascular: Denies: chest pain, palpitations. Respiratory: Reports: cough. Denies: short of breath, sputum production. Gastrointestinal: Denies: abdominal pain, constipation, diarrhea, nausea, vomiting. Genitourinary: Reports: no symptoms. Neurological/Psychological: Reports: no symptoms. Objective Last 24 Hrs of Vital Signs/I&O Vital Signs Date Time Temp Pulse Resp B/P B/P Pulse O2 O2 Flow FiO2 Mean Ox Delivery Rate 06/30 0620 97.9 62 20 108/64 94 Room Air 06/30 0000 Room Air 06/29 2235 98.2 92 20 100/60 92 06/29 1935 95 Room Air 06/29 1412 94 Room Air 06/29 1356 97.7 70 20 130/62 90 Room Air 06/29 1009 122/74 06/29 1008 122/74 Intake & Output 06/30 1600 06/30 0800 06/30 0000 Intake Total 100 100 Output Total Balance 100 100 Intake, IV 100 Intake, Oral 100 Physical Exam General Appearance: Alert, Oriented X3, Cooperative Skin Temp/Moisture Exam: Warm/Dry Sepsis Skin Exam (color): Normal for Ethnicity HEENT: Atraumatic, PERRLA, EOMI Neck: Supple Cardiovascular: Normal S1, Normal S2 Lungs: Decreased breath sounds b/l with expiratory wheezing. Abdomen: Soft, No Tenderness Neurological: Normal Speech, Strength at 5/5 X4 Ext, Normal Tone Extremities: Left leg statis dematitis. No blisters after dressing. Grade 1 pedal edema, Right leg statis dematitis but no edema only one blister and having dressing. Assessment/Plan Assessment: 66-year-old male with past medical history significant for hypertension, hyperlipidemia, type 2 diabetes mellitus, colon cancer status post colostomy ( reversed), paroxysmal atrial fibrillation on Coumadin, DVT/PE status post IVC filter, coronary artery disease status post CABG, COPD not on home o2, remote history of kidney stone s/p stent follow-up with Dr. Nava, BPH, osteomyelitis, right side pleural effusion status post right pleurectomy and right lung decortication pneumoysis in 2006 sleep apnea on CPAP presented to ED with chief complaint of 3 days of cough, left flank pain, lower extremity swelling and wound weeping. We are seeing the patient for following problems: Sepsis secondary to acute pyelonephritis:(improved) -Admission patient having elevated WBC count and organ failure with lactic acid formation. On imaging study patient was found to have left pyelonephritis. -Continue IV vancomycin for MRSA bacteremia. D7 -Patient is afebrile and his WBC count is within normal limits. -Patient is nothing by mouth and is going for EVELYNE and pro line placement today. We will continue vancomycin for 1 more week if his EVELYNE remained negative but if his EVELYNE came back positive then he needs to continue vancomycin until August 06. -Patient will need CBC, BEP and vancomycin trough levels at least weekly while on vancomycin. Left ureterohydronephrosis due to left ureteral stone status post stent placement: -Purulent urine was drained with stent placement. -Postop day 7 -Urology will follow the patient as outpatient with CT scan abdomen. If patient will not be able to pass his stone lithotripsy will be done as outpatient. If L ureteral stone has passed will just remove stent. If not he will need L ureteroscopy and lithotripsy in the future. Acute on chronic kidney injury:(improved) -Patient has baseline GFR 45 and creatinine 1.5 -Presented with creatinine 2.5 and GFR 26 -Stage III CKD -No nephrotoxic medications -His creatinine has been improved. Today his creatinine is 1.2 and his GFR is more than 60. -Lasix is on hold. History of hypertension hyperlipidemia: -Continue atorvastatin -Holding his Lasix History of A. fib on anticoagulation: -Continue amiodarone -After the procedure we will resume his Coumadin and instructed him to check INR after the discharge and dose Coumadin according to INR. -Today his INR is 1.22 History of CAD status post stent placement: -We are holding aspirin and Plavix for procedure and after the procedure. We will resume his aspirin and Plavix. H/O diastolic CHF: -Holding lasix due to acute on chronic kidney injury. We will resume his Lasix after discharge. History of hypothyroidism: -Continue levothyroxine History of diabetes: -Accu-Cheks -Considering patient is nothing by mouth but changed his insulin NovoLog to Novolin sliding scale. After the procedure we will change back to NovoLog according to sliding scale. -As patient is nothing by mouth we decreased his level made to 12 units twice a day. We will resume his level made home dose after the procedure. -Fasting blood sugar level is 143 this morning. H/O COPD/TAYLER: -Not using CPAP at nighttime during hospital stay. He reported that he was using CPAP intermittently at home and nighttime. H/O B/L chronic venous statis: -Had b/l pedal edema and is on lasix -Left leg status dermatitis. Her left leg blisters have been healed after the dressing. Left leg has grade 1 pedal edema compared to right leg. -Right leg statis dermatitis with a blister. He is getting dressings of right leg now. -Continue leg elevation and dressing on the right leg. -Patient was instructed to follow outpatient wound clinic if he needs. DVT prophylaxis: Mechanical and holding his Coumadin for procedure. We will resume his Coumadin after the procedure today. CODE STATUS: Full code Problem List: 1. Sepsis 2. Pyelonephritis 3. Kidney stone on left side Pain Ratin Pain Location: none Pain Goal: Remain pain free Pain Plan: pain pathway Tomorrow's Labs & Rationales: inr
--- NOTE | 2017-06-30 08:12 | PN- Att Addend ---
Attending Addendum Attending Brief Note Patient seen and examined. Plan of care discussed with the medical team and the patient. Available lab work and radiology test reports were reviewed. No additional complaints today. Patient nothing by mouth for possible EVELYNE today Exam: General: Patient awake alert oriented without any distress CVS: S1 plus S2 without any murmur or gallops Chest: Few scattered crepitation without any wheeze. There is no respiratory distress. Abdomen: Soft non-tender, bowel sound present, no guarding or rebound WILDERNESS GUIDE: Awake alert oriented without any focal neuro deficit and follows commands appropriately Extremities: No edema; no clubbing or cyanosis noted; right medial malleolus shows a small superficial lesion; left mcfarlane is covered with dressing Assessment * Acute pyelonephritis secondary to MRSA- stable on vancomycin * Sepsis secondary to MRSA * Left hydronephrosis due to ureteral stone status post stent placement * Acute and chronic renal failure improving * Diabetes- well-controlled on current insulin regimen * Rule out endocarditis waiting for EVELYNE Plan * Waiting for proline to be inserted today * Plan for EVELYNE today * Prepare for discharge home after EVELYNE today ; duration antibiotic regimen to be determined by the results of EVELYNE Current Medications Sig/Sj Start time Last Medication Dose Route Stop Time Status Admin Acetaminophen 650 MG Q6P PRN 06/23 2315 AC 06/24 PO 0122 Albuterol Sulfate 3 ML Q4P PRN 06/24 1530 AC 06/29 INH 1934 Amiodarone HCl 200 MG QAM 06/24 0900 AC 06/29 PO 1009 Atorvastatin Calcium 20 MG 1700 / 1700 AC 06/29 PO 1800 Dextrose/Sodium 1,000 ML Q13H 06/30 0615 AC 06/30 Chloride IV 06/30 1914 0642 Heparin Sodium 5,000 UNIT Q8 06/28 1618 DC 06/29 (Porcine) SC 06/29 2300 202 Insulin Aspart 0 TIDAC 06/24 0800 DC 06/29 SC 1250 Insulin Detemir 12 UNITS BID 06/30 0900 CAN SC Insulin Detemir 12 UNITS BID 06/30 09 AC SC Insulin Detemir 20 UNITS BID 06/24 0900 DC 06/29 SC 202 Insulin Human Regular 0 Q6 06/29 2359 AC 06/30 SC 0642 Levothyroxine Sodium 0.112 MG DAILY AC 06/24 0700 AC 06/30 PO 0642 Tamsulosin HCl 0.4 MG DAILY 06/24 0900 AC 06/29 PO 1008 Tiotropium Harris 1 PUF DAILY 06/24 0900 AC 06/29 INH 1008 Vancomycin HCl 1,750 MG 1900 06/29 1900 AC Sodium Chloride 500 ML IV Vancomycin HCl 1,750 MG 1800 06/29 1800 DC 06/29 Sodium Chloride 250 ML IV 1623 Vancomycin HCl 1,500 MG 1800 06/25 1800 DC 06/28 Sodium Chloride 250 ML IV 1900 Laboratory Tests 06/29/17 0715: PT 15.1 H, INR 1.38 H 06/28/17 1640: Vancomycin Trough 12.1 06/28/17 0734: PT 17.6 H, INR 1.61 H Vital Signs Date Time Temp Pulse Resp B/P B/P Pulse O2 O2 Flow FiO2 Mean Ox Delivery Rate 06/30 0620 97.9 62 20 108/64 94 Room Air 06/30 0000 Room Air 06/29 2235 98.2 92 20 100/60 92 06/29 1935 95 Room Air 06/29 1412 94 Room Air 06/29 1356 97.7 70 20 130/62 90 Room Air 06/29 1009 122/74 06/29 1008 122/74 Intake & Output 06/30 1600 06/30 0800 06/30 0000 Intake Total 100 100 Output Total Balance 100 100 Intake, IV 100 Intake, Oral 100
[2017-06-30 09:52] LABS: PT 13.3 SEC (9.4-12.5)
--- NOTE | 2017-06-30 09:59 | PN- Infect Dx ---
Subjective Subjective: Afebrile without complaints Objective Last 24 Hrs of Vital Signs/I&O Vital Signs Date Time Temp Pulse Resp B/P B/P Pulse O2 O2 Flow FiO2 Mean Ox Delivery Rate 07/01 619 97.9 62 20 108/64 94 Room Air 06/30 0000 Room Air 06/29 2235 98.2 92 20 100/60 92 06/29 1935 95 Room Air 06/29 1412 94 Room Air 06/29 1356 97.7 70 20 130/62 90 Room Air 06/29 1009 122/74 06/29 1008 122/74 Intake & Output 06/30 1600 06/30 0800 06/30 0000 Intake Total 100 100 Output Total Balance 100 100 Intake, IV 100 Intake, Oral 100 Physical Exam Other Physical Findings: He appears comfortable in no acute distress Exam without change Results Last 24 Hours of Lab Results: Laboratory Tests 06/30 0855 Chemistry Sodium Pending Potassium Pending Chloride Pending Carbon Dioxide Pending Anion Gap Pending BUN Pending Creatinine Pending BUN/Creatinine Ratio Pending Coagulation PT Pending INR Pending Last 24 Hours of Jack Results: Blood cultures 2 June 25 remain negative Assessment/Plan ID Impression: Stable, with temperatures and white blood cell count remaining normal, on Vancomycin, Day 7 of treatment for MRSA sepsis of urologic origin, status post cystoscopy and insertion of a left ureteral stent 1 week ago for an obstructing left distal ureteral calculus. He is scheduled for a Pro-Line and a EVELYNE later today, and the results of the EVELYNE will determine the duration of therapy. Suggestion: 1. Await placement of Pro-Line 2. Await EVELYNE 3. Further management of his nephrolithiasis per Urology 4. Continue Vancomycin until July 09 if EVELYNE is negative (and until August 06 if EVELYNE is positive) 5. Will need a CBC, BUN/creatinine and Vancomycin trough level at least weekly while on Vancomycin
--- NOTE | 2017-06-30 12:51 | INTERVENTIONAL RADIOLOGY RPT ---
CLINICAL HISTORY: This patient is a 66 year old male with infection, who presents to Interventional Radiology for placement of a single lumen Proline tunneled central venous catheter. PROCEDURES: 1. Real-time ultrasound-guided access into the right internal jugular vein after documentation of selected vessel patency, and permanent imaging storing in the patient records. 2. Placement of a tunneled central venous catheter. PHYSICIANS: Dr. Chad Riggins (attending). MONITORING: Continuous blood pressure, pulse oximetry as well as heart rate monitoring was performed by an independent registered nurse. MEDICATIONS: 1. Fentanyl 50 mcg IV were administered. 2. Lidocaine 1%, 10 mL SQ. 3. Lidocaine 1%, 10 mL with epinephrine SQ. CONTRAST: None FLUOROSCOPY TIME: 1.1 minutes DAP: 10.5 uGym2 COMPLICATIONS: None ESTIMATED BLOOD LOSS: <5 mL SPECIMENS: None IMPLANT: 5-Fr single lumen Proline central venous catheter SITE MARKING: As part of the preprocedure verification policy, a site marking procedure was initiated. Due to the nature the procedure, the insertion site could not be predetermined thus invoking the policy of exemption to site laterality and marking. Insertion site marking was performed in the procedure room in conjunction with imaging confirmation. PROCEDURE NOTE: Informed consent was obtained from the patient prior to the procedure. During this process, the procedure and potential alternatives were explained along with the intended outcome and benefits. The risks of the procedure, including the possibility of an unsuccessful procedure, as well as the risk of not doing the procedure, were discussed. The patient was given the opportunity to ask questions regarding the procedure and appeared competent to make decisions. A signed consent form documenting this discussion was placed in the medical record. A time-out procedure was performed. The neck and chest were prepped and draped in usual sterile fashion. All elements of maximal sterile barrier technique followed including use of cap, mask, sterile gown, sterile gloves, a sterile full body drape and hand hygiene. Also followed skin preparation with 2% chlorhexidine for cutaneous antisepsis, and sterile ultrasound preparation with sterile gel and probe cover when applicable. Under ultrasound and fluoroscopic-guidance, the internal jugular vein was accessed with a 5-Fr Micropuncture set. The Micropuncture 0.018 wire was advanced until the tip was located at the level of the high right atrium, and wire length was measured. This 0.018 wire was then exchanged for a longer 0.018 wire that was advanced into the IVC to maintain access during the tunneling process. After injection of subcutaneous lidocaine, a subcutaneous tunnel to the venotomy site was created in the chest using blunt dissection. The Proline catheter was then sized and pulled through the tunnel. The sheath was exchanged for a peel-away sheath over the wire. The catheter was advanced through the peel-away sheath, which was subsequently removed. The catheter was tested successfully, flushed, a Biopatch was applied and the catheter secured to the skin with a StatLock device. Dermabond was applied to the neck access site. The patient tolerated the procedure well. FINDINGS: 1. Patent right internal jugular vein. 2. Placement of a Proline catheter with tip at the superior cavoatrial junction that measures 24 cm in length. 3. Catheter flushes and aspirates well. 4. No pneumothorax. IMPRESSION: Successful and uncomplicated placement of a tunneled central venous Proline catheter. PLAN: 1. The patient was stable after the procedure and was transferred to the interventional recovery area. The patient will be transferred back to his medical room. 2. The catheter may be used immediately.
--- NOTE | 2017-06-30 14:08 | PN- Cardiology ---
Subjective Subjective: The patient remained stable from a cardiac standpoint. EVELYNE today. Objective Vital Signs and I&Os Vital Signs Date Time Temp Pulse Resp B/P B/P Pulse O2 O2 Flow FiO2 Mean Ox Delivery Rate 07/01 619 97.9 62 20 108/64 94 Room Air 06/30 0000 Room Air 06/29 2234 98.2 92 20 100/60 92 06/29 1935 95 Room Air 06/29 1412 94 Room Air Intake & Output 06/30 1600 06/30 0800 06/30 0000 06/29 1600 06/29 0800 06/29 0000 Intake Total 100 100 800 240 Output Total 525 Balance 100 100 800 -285 Intake, IV 100 Intake, Oral 100 800 240 Number 1 Bowel Movements Output, Urine 525 Patient 270 lb Weight Current Medications: Current Medications Sig/Sj Start time Last Medication Dose Route Stop Time Status Admin Acetaminophen 650 MG Q6P PRN 06/23 2315 AC 06/24 PO 0122 Albuterol Sulfate 3 ML Q4P PRN 06/24 1530 AC 06/29 INH 1934 Amiodarone HCl 200 MG QAM 06/24 0900 AC 06/29 PO 1009 Atorvastatin Calcium 20 MG 1700 06/24 1700 AC 06/29 PO 1800 Dextrose/Sodium 1,000 ML Q13H 06/30 0615 DC 06/30 Chloride IV 06/30 1914 0642 Fentanyl Citrate 0 .STK-MED ONE 06/30 0941 DC .ROUTE Heparin Sodium 0 .STK-MED ONE 06/30 924 DC (Porcine) IV Heparin Sodium 5,000 UNIT Q8 06/28 1618 DC 06/29 (Porcine) SC 06/29 Insulin Aspart 0 TIDAC 06/30 1700 AC SC Insulin Aspart 0 TIDAC 06/24 0800 DC 06/29 SC 1250 Insulin Detemir 20 UNITS BID 06/30 2100 AC SC Insulin Detemir 12 UNITS BID 06/30 0900 CAN SC Insulin Detemir 12 UNITS BID 06/30 0900 DC SC Insulin Detemir 20 UNITS BID 06/24 0900 DC 06/29 SC 202 Insulin Human Regular 0 Q6 06/29 2359 DC 06/30 SC 0642 Levothyroxine Sodium 0.112 MG DAILY AC 06/24 0700 AC 06/30 PO 0642 Lidocaine 0 .STK-MED ONE 06/30 0925 DC .ROUTE Lidocaine/Epinephrine 0 .STK-MED ONE 06/30 925 DC .ROUTE Tamsulosin HCl 0.4 MG DAILY 06/24 09 AC 06/29 PO 1008 Tiotropium [place] 1 PUF DAILY 06/24 09 AC 06/29 INH 1008 Vancomycin HCl 1,750 MG 1900 06/29 190 AC Sodium Chloride 500 ML IV Vancomycin HCl 1,750 MG 1800 06/29 1800 DC 06/29 Sodium Chloride 250 ML IV 1623 Vancomycin HCl 1,500 MG 1800 06/25 1800 DC 06/28 Sodium Chloride 250 ML IV 1900 Results Last 48 Hrs of Labs/Mics: Laboratory Tests 06/30/17 0855: Anion Gap 12, Estimated GFR > 60, BUN/Creatinine Ratio 14.2, PT 13.3 H, INR 1.22 H 06/29/17 0715: PT 15.1 H, INR 1.38 H 06/28/17 1640: Vancomycin Trough 12.1 Assessment/Plan Assessment/Plan Assessment: 1. MRSA bacteremia 2. Coronary disease, status post bypass surgery 3. Tricuspid insufficiency with mild pulmonary hypertension 4. Nephrolithiasis with left hydronephrosis and ureteral stent placement 5. Diabetes 6. Restrictive lung disease related to post surgical/bypass related issues and underlying COPD 7. Probable sleep apnea 8. Acute on chronic renal insufficiency 9. History of hypertension/hyperlipidemia 10. History of paroxysmal atrial fibrillation on anticoagulant therapy 11. Lower extremity edema with venous insufficiency and venous stasis changes Recommendations: -Continue as recommended by infectious disease service and medical team -Continue conservative treatment for lower extremity edema including leg elevation, Alverto wraps if necessary for control of edema, sodium restriction, etc. -Restart low-dose Lasix when able -The patient had an uneventful EVELYNE performed today. The EVELYNE showed no evidence of any valvular vegetative lesions. An indwelling right heart catheter was noted in the SVC. The valves all appeared unremarkable. The patient's left ventricle function was normal. A PFO was noted with a moderate sized resting [id number] shunt. Mild atheromatous plaque was present in the thoracic aorta. The patient was stable without complications post EVELYNE. Continue telemetry? No
[2017-06-30 14:39] VITALS: BP 134/72
[2017-06-30] MEDS ORDERED: LEVEMIR100 UNIT/1 SC (16:36)
[2017-06-30] MEDS ORDERED: LASIX20 M1 PO (16:36)
[2017-06-30] MEDS ORDERED: VANCO 1.751.75 GM/25 IV (16:37)
[2017-06-30] MEDS ORDERED: HUMALOG100 UNIT/2 SC (16:50)
--- NOTE | 2017-07-01 11:33 | ECHOCARDIOGRAM REPORT ---
CARRIE JACK Age: 66 : Gender: M Exam Date: 06/30/2017 12:43 Exam Location: [facility] Ht (in): 67 Wt (lb): 270 BSA: 2.47 BP: 118 / 70 Ordering Physician: Albert Azul MD Referring Physician: Albert Azul MD Technologist: Hilario Simental RDCS Room Number: Indications: Acute/Subacute Infective Endocarditis Rhythm: Sinus Technical Quality: Good Medications Lidocaine S[place]. Propofol administered by Anesthesiology. Ease of Transducer Insertion No Difficulty Complications None. Technical Difficulty FINDINGS Left Ventricle Normal size left ventricle. No obvious regional wall motion abnormalities. Normal left ventricular ejection fraction estimated at 55-60%. Right Ventricle Normal right ventricular size and function. Right Atrium Right atrial dilatation. Left Atrium Left atrial dilatation. LA Appendage Normal left atrial appendage. IA Septum Patent foramen ovale. Mitral Valve Mitral valve thickened. Trace to mild mitral regurgitation. Aortic Valve Trileaflet aortic valve. Diffuse thickening (sclerosis) of the aortic valve cusps without reduced excursion. No aortic stenosis. No aortic regurgitation. Tricuspid Valve Tricuspid valve not well visualized, grossly normal. Mild-to- moderate tricuspid regurgitation. Pulmonic Valve Structurally normal pulmonic valve. Pericardium No pericardial effusion. Great Vessels Normal size aortic root and proximal ascending aorta. Grade I plaque seen in the aortic arch. Grade I plaque seen in the descending aorta. CONCLUSIONS 1. There are no vegetative lesions detected on this examination. 2. Aortic sclerosis is present with no valvular stenosis or insufficiency. 3. Mitral leaflet thickening is present with minimal to mild mitral insufficiency and mild left atrial enlargement 4. The left atrial appendage appears normal 5. The pulmonary venous anatomy is normal bilaterally 6. Mild enlargement of the right heart chambers is noted with mild to moderate tricuspid insufficiency. The RV systolic pressure was not accurately assessed. 7. A Eustachian valve remnant is present. 8. Color flow imaging demonstrates a PFO with a small to moderate sized resting right to left shunt. 9. The ascending aorta appears normal . The remainder of the thoracic aorta was not optimally visualized. Mild plaque is noted 10. A catheter or indwelling line is noted in the SVC, extending to the level of the SVC/RA junction Austen Gregory M.D. (Electronically Signed) Final Date: 01 Jul 2017 11:32 MEASUREMENTS (Male / Female) Normal Values
== END 2017-06-30 19:40 | disposition home health service (06) | DRG 872 ==
LOC: ERH 15:10 → 2NA 19:14 → ERHI 19:14 → ENRESERV 23:57 → 2NA 06-24 00:30 → ENTRNSPT 06-30 19:39 → 2NA 06-30 19:40 → EDTRNSPTSTS 06-30 19:41 → EDTRNSPT 06-30 19:41 → CMPTRNSPT 06-30 19:47
PROVIDERS: Physician Assistant; Student in an Organized Health Care Education/Training Program
PROC: 0T778DZ Dilation of Left Ureter with Intraluminal Device, Via Natural or Artificial Opening Endoscopic (ICD-10-PCS; principal; 2017-06-23)
PROC: 02HV33Z Insertion of Infusion Device into Superior Vena Cava, Percutaneous Approach (ICD-10-PCS; 2017-06-30)
PROC: B5181ZA Fluoroscopy of Superior Vena Cava using Low Osmolar Contrast, Guidance (ICD-10-PCS; 2017-06-30)
DX: A41.89 Other specified sepsis (principal); N17.9 Acute kidney failure, unspecified; E11.21 Type 2 diabetes mellitus with diabetic nephropathy; E11.40 Type 2 diabetes mellitus with diabetic neuropathy, unspecified; N13.6 Pyonephrosis; N10 Acute pyelonephritis; I50.32 Chronic diastolic (congestive) heart failure; I13.0 Hypertensive heart and chronic kidney disease with heart failure and stage 1 through stage 4 chronic kidney disease, or unspecified chronic kidney disease; I48.0 Paroxysmal atrial fibrillation; N18.9 Chronic kidney disease, unspecified; E11.22 Type 2 diabetes mellitus with diabetic chronic kidney disease; B95.61 Methicillin susceptible Staphylococcus aureus infection as the cause of diseases classified elsewhere; Z79.01 Long term (current) use of anticoagulants; Z85.038 Personal history of other malignant neoplasm of large intestine; Z86.711 Personal history of pulmonary embolism; M19.90 Unspecified osteoarthritis, unspecified site; Z95.1 Presence of aortocoronary bypass graft; E78.5 Hyperlipidemia, unspecified; J44.9 Chronic obstructive pulmonary disease, unspecified; N40.0 Benign prostatic hyperplasia without lower urinary tract symptoms; Z79.4 Long term (current) use of insulin; Z87.442 Personal history of urinary calculi; N20.0 Calculus of kidney; Z88.1 Allergy status to other antibiotic agents; Z88.0 Allergy status to penicillin; I25.10 Atherosclerotic heart disease of native coronary artery without angina pectoris; Z98.61 Coronary angioplasty status; E03.9 Hypothyroidism, unspecified; I87.8 Other specified disorders of veins
CPT/HCPCS: 04007; 2NAP; 87184; ERO; 36415; 36592; 74018; 74176; 77001; 81001; 82436; 87040; 87070; 87086; 87147; 93005; 93010; 93325; 96360; 96361; 97110-GO; 97116-GO; 97161-GP; 97530-GO; C1769; C2617; C8929; J0696; J1642; J1644; J1815; J2001; J3370; J7040; J7042; Q9957

== ENCOUNTER 2017-07-03 11:48 | Inpatient (IN) | payer OTHER ==
[~2017-07-03] VITALS: Ht 170.2 cm; Wt 121.6 kg
[~2017-07-03 11:48] MED LIST changes: +ALBUTEROL0.63 MG/1 INH/SOL; +LASIX20 M1 PO; +LEVEMIR100 UNIT/1 SC; +VANCO 1.51.5 GM/250 IV; +VANCO 1.751.75 GM/25 IV
--- NOTE | 2017-07-03 12:02 | ED GI/GU/ABDOMINAL COMPLAINT ---
See Addendum History of Present Illness General Chief Complaint: Low Back Pain/Injury Stated Complaint: LOWER BACK PAIN ON RT SIDE,?KIDNEY STONES Source: patient, family, old records Exam Limitations: no limitations Vital Signs & Intake/Output Vital Signs & Intake/Output Vital Signs Date Time Temp Pulse Resp B/P B/P Pulse O2 O2 Flow FiO2 Mean Ox Delivery Rate 07/03 1208 98 Room Air 07/03 1153 98.6 73 18 103/71 98 Room Air Allergies Coded Allergies: Penicillins (PT DOES NOT REMEMBER 12/05/15) ampicillin (RASH 12/05/15) sulbactam (RASH 12/05/15) Reconcile Medications Albuterol Sulfate 0.63 MG/3 ML VIAL.NEB 1 Vial INH/NED TID PRN lung health ( Reported) Amiodarone (Cordarone) 200 MG TABLET 1 TAB PO QAM HEART (Reported) Aspirin (Ecotrin*) 81 MG TABLET.DR 1 TAB PO DAILY HEART/HEALTH (Reported) Atorvastatin Calcium 20 MG TABLET 1 TAB PO DAILY CHOLESTEROL (Reported) Clopidogrel Bisulfate (Clopidogrel) 75 MG TABLET 1 TAB PO QAM BLOOD THINNER ( Reported) Furosemide (Lasix) 20 MG TABLET 60 MG PO DAILY DIURETIC (Reported) Insulin Glargine,Hum.rec.anlog (Lantus Solostar) 100 UNIT/ML (3 ML) INSULN.PEN 20 UNIT SC BID DM (Reported) Insulin Lispro (Humalog) 100 UNIT/ML VIAL 0 SC TIDAC/HS DM BEFORE MEALS Blood Insulin Sugar Units <80 0 81-150 0 151-200 2 201-250 4 251-300 6 301-350 8 351-400 10 >400 12 and CALL Levothyroxine Sodium 125 MCG TABLET 1 TAB PO DAILY THYROID (Reported) Tamsulosin HCl 0.4 MG CAP.ER.24H 1 CAP PO DAILY PROSTATE (Reported) Vancomycin/0.9 % Sod Chloride (Vanco 1.75 G/250 Ml-0.9% NaCl) 1.75 GRAM/250 ML PLAST..BAG 1.75 GM IV DAILY MRSA infection Use 1.75 GRAM vancomycin through proline for 9 more days TILL June. . Warfarin Sodium (Coumadin) 2.5 MG TABLET 1 TAB PO MoTuThSa BLOOD THINNER ( Reported) Triage Note: 66 YO MALE TO TRIAGE C/O PAIN TO R FLANK, STATES HX OF KIDNEY STONE ON THE LEFT, STATES HE WAS RECENTLY D/C FROM [facility] FOR BLOOD INFECTION, STATES HAS BEEN RECIEVING ANTITIOCS AT HOME FOR THE INFECTION. PT STATES PAIN STARTED LAST PM BUT HAS BEEN GETTING PROGRESSIVELY WORSE. Triage Nurses Notes Reviewed? yes HPI: Patient developed right flank pain yesterday evening around dinnertime. The pain is been constant since then. There is no radiation. There are no aggravating or mitigating factors. There is no nausea or vomiting. Pain is cramping in nature and very similar to when he had kidney stones on the left. Patient currently has a ureteral stent on the left secondary to kidney stone and he is on IV antibiotics for bacteremia. Patient denies any fevers or chills. The pain is constant. The pain is 10 out of 10. Past History Travel History Traveled to [place] past 21 day No Medical History Any Pertinent Medical History? 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 Hx Contributory? No Review of Systems Review of Systems Constitutional: Reports: no symptoms. EENTM: Reports: no symptoms. Respiratory: Reports: no symptoms. Cardiovascular: Reports: no symptoms. GI: Reports: no symptoms. Genitourinary: Reports: no symptoms. Musculoskeletal: Reports: see HPI, back pain. Skin: Reports: no symptoms. Neurological/Psychological: Reports: no symptoms. Hematologic/Endocrine: Reports: no symptoms. Immunologic/Allergic: Reports: no symptoms. All Other Systems: Reviewed and Negative Physical Exam Physical Exam General Appearance: well developed/nourished, alert, awake, anxious, moderate distress Head: atraumatic, normal appearance Eyes: Bilateral: PERRL, EOMI. Ears, Nose, Throat, Mouth: hearing grossly normal, moist mucous membrane Neck: normal inspection, full range of motion Respiratory: normal breath sounds, chest non-tender, no respiratory distress, lungs clear, CENTRAL ACCESS IN PLACE Cardiovascular: regular rate/rhythm, normal peripheral pulses Gastrointestinal: normal bowel sounds, soft, non-tender, no organomegaly Back: CVA tenderness (R), CVA tenderness (L), TENDER TO RIGHT FLANK BUT NOT CVA TENDERNESS Extremities: normal range of motion Neurologic/Psych: no motor/sensory deficits, awake, alert, oriented x 3, normal mood/affect Core Measures ACS in differential dx? No Sepsis Present: No Sepsis Focused Exam Completed? No Progress Differential Diagnosis: ureterolithiasis, urinary retention, UTI/pyelo Plan of Care: Orders Procedure Date/time Status Nothing by Mouth 07/03 D Active ED Holding Orders 07/03 1425 Active Admit to inpatient 07/03 1425 Active Vital Signs 07/03 1425 Active Code Status 07/03 1425 Active URINALYSIS 07/03 1201 Active COMPREHENSIVE METABOLIC PANEL 07/03 1201 Complete CBC WITHOUT DIFFERENTIAL 07/03 1201 Complete Laboratory Tests 07/03/17 1217: Anion Gap 14, Estimated GFR 26 L, BUN/Creatinine Ratio 7.6, Glucose 201 H, Calcium 9.1, Total Bilirubin 0.8, AST 58, ALT 48, Alkaline Phosphatase 134 H, Total Protein 6.8, Albumin 3.4 L, Globulin 3.4, Albumin/Globulin Ratio 1.0 L, CBC w Diff NO MAN DIFF REQ, RBC 4.81, MCV 88.3, MCH 28.6, MCHC 32.3 L, RDW 15.6 H, MPV 7.7, Gran % 85.1 H, Lymphocytes % 4.7 L, Monocytes % 7.8, Eosinophils % 2.2, Basophils % 0.2, Absolute Granulocytes 10.4 H, Absolute Lymphocytes 0.6 L, Absolute Monocytes 1.0 H, Absolute Eosinophils 0.3, Absolute Basophils 0 Diagnostic Imaging: Viewed by Me: CT Scan. Discussed w/RAD: CT Scan. Radiology Impression: PATIENT: CARRIE JACK PRESENT AGE: 66 PATIENT ACCOUNT NO: [id number] : 50 LOCATION: [facility] ORDERING PHYSICIAN: Amol Marley MD SERVICE DATE: 07/03/17 EXAM TYPE: CAT - CT ABD & PELVIS W/O IV CONTRAS EXAMINATION: CT ABDOMEN AND PELVIS WITHOUT CONTRAST CLINICAL INFORMATION: Right flank pain. History of recent left sided internal ureteral stent placement. COMPARISON: Radiograph 06/24/2017, CT chest abdomen and pelvis 06/23/2017, CT pelvis 04/08/2017, CT abdomen and pelvis 09/07/2014 TECHNIQUE: Multidetector volumetric imaging was performed from the superior aspect of the liver through the pubic symphysis. Sagittal and coronal reformatted images were obtained on the technologist's workstation. DLP: 1354 mGy-cm FINDINGS: LUNG BASES: There is a small left sided pleural effusion with associated atelectasis. Aside from minimal atelectasis, the right base is clear. LIVER, GALLBLADDER, AND BILIARY TREE: The liver is grossly unremarkable on this noncontrast study. No intrahepatic biliary dilatation. The gallbladder is nondistended. Multiple layering hyperdense foci within the gallbladder most likely representing gallstones. A small amount of sludge may be present. PANCREAS: There is relative fatty atrophy of the pancreas which is otherwise unremarkable. SPLEEN: Unremarkable. ADRENAL GLANDS: Unremarkable. KIDNEYS AND URETERS: A left sided double pigtail ureteral catheter is in place. The proximal portion is located within the left renal pelvis as expected. The distal portion terminates within the bladder. There is no left sided hydronephrosis. A large upper pole calculus is redemonstrated measuring up to 1.3 cm. The Hounsfield units are 734. There is moderate right-sided hydroureteronephrosis secondary to an obstructing stone located in the distal right ureter just proximal to the UVJ. There is fat stranding surrounding the distal portion of the right ureter and prominence of the lateral conal fascia on the right. This stone measures 0.7 cm in size. The Hounsfield units are 446. BLADDER: The bladder is otherwise unremarkable. GASTROINTESTINAL TRACT: Moderately dense stool is present throughout the remaining colon. Surgical anastomosis is redemonstrated in the left lower quadrant status post partial colectomy. There are no distended loops of small or large bowel. The stomach is not significantly distended. ABDOMINAL WALL: Significant rectus diastases demonstrated. No discrete hernia. LYMPH NODES : Scattered subcentimeter lymph nodes are present throughout the mesentery and retroperitoneum. VASCULAR: An IVC filter is in place. PELVIC VISCERA: Prostate gland and seminal vesicles are unremarkable. The OSSEOUS STRUCTURES: Bilateral pars defects demonstrated at L5-S1. Multilevel degenerative changes present throughout the visualized portions of the lower thoracic and lumbar spine. IMPRESSION: 1. Acute right sided hydroureteronephrosis secondary to distal ureteral stone within 1 cm of the right UVJ. Significant associated inflammatory changes involving the distal ureter. Superimposed infection could be considered. 2. Stable appearance of left sided ureteral stent. 3. Cholelithiasis without CT evidence for acute cholecystitis. 4. Grade 1 spondylolisthesis at L5-S1, stable. DICTATED BY: Keely Grayson MD DATE/TIME DICTATED:07/03/171357 SLED MAKER :EDEL DATE/TIME TRANSCRIBED:07/03/171357 CONFIDENTIAL, DO NOT COPY WITHOUT APPROPRIATE AUTHORIZATION. <Electronically signed in Other Vendor System> SIGNED BY: Keely Grayson MD 07/03/17 1413 Initial ED EKG: none Comments: Patient and family have been updated on lab results. CAT scan is still pending as is UA. Anticipate readmission for this patient given his acute renal failure and leukocytosis in the setting of being on IV antibiotics already. Departure Departure Disposition: STILL A PATIENT Condition: Stable Clinical Impression Primary Impression: ARF (acute renal failure) Secondary Impressions: Hydronephrosis with renal and ureteral calculous obstruction, Leukocytosis Referrals: Mathew MATHEW,Aashish Fox (PCP/Family) Departure Forms: Customer Survey General Discharge Information Admission Note Spoke With: Edgard MATHEW,Marifer Suh Documentation of Exam: Documentation of any treatments & extenuating circumstances including Concerns Regarding Discharge (functional status, medication knowledge or non-compliance, living conditions, etc.) that warrant an admission rather than observation: [IV ABX, PAINCONTROL, UROLOGY CONSULT, ID CONSULT]
[2017-07-03 12:32] LABS: ABSOLUTE BASOPHIL COUNT 0 /CUMM (0.0-0.2); ABSOLUTE EOSINOPHIL COUNT 0.3 /CUMM (0.0-0.7); ABSOLUTE GRANULOCYTE CT 10.4 /CUMM (1.4-6.5); ABSOLUTE LYMPH COUNT 0.6 /CUMM (1.2-3.4); BASOPHIL % 0.2 % (0.0-2.0); EOSINOPHIL % 2.2 % (0-5); GRANULOCYTE % 85.1 % (42.2-75.2); HEMATOCRIT 42.5 % (42-52); MEAN CORPUSCULAR HGB 28.6 PG (27.0-31.0); MEAN CORPUSCULAR HGB CONC 32.3 G/DL (33.0-37.0); MEAN CORPUSCULAR VOLUME 88.3 FL (80.0-94.0); MEAN PLATELET VOLUME 7.7 FL (7.4-10.4); PLATELET COUNT 468 /CUMM (130-400); RBC DISTRIBUTION WIDTH 15.6 % (11.5-14.5); RED BLOOD CELL CT 4.81 /CUMM (4.70-6.10)
[2017-07-03 12:45] LABS: WHITE BLOOD CELL COUNT 12.2 /CUMM (4.8-10.8)
[2017-07-03] MEDS ORDERED: LASIX20 M1 PO (13:52)
[2017-07-03] MEDS ORDERED: LANTUS SOL100 UNIT/1 SC (13:53)
[2017-07-03] MEDS ORDERED: LEVOTHYROXINE125 MCG PO (13:54)
--- NOTE | 2017-07-03 14:13 | CT SCAN REPORT ---
EXAMINATION: CT ABDOMEN AND PELVIS WITHOUT CONTRAST CLINICAL INFORMATION: Right flank pain. History of recent left sided internal ureteral stent placement. COMPARISON: Radiograph 06/24/2017, CT chest abdomen and pelvis 06/23/2017, CT pelvis 04/08/2017, CT abdomen and pelvis 09/07/2014 TECHNIQUE: Multidetector volumetric imaging was performed from the superior aspect of the liver through the pubic symphysis. Sagittal and coronal reformatted images were obtained on the technologist's workstation. DLP: 1354 mGy-cm FINDINGS: LUNG BASES: There is a small left sided pleural effusion with associated atelectasis. Aside from minimal atelectasis, the right base is clear. LIVER, GALLBLADDER, AND BILIARY TREE: The liver is grossly unremarkable on this noncontrast study. No intrahepatic biliary dilatation. The gallbladder is nondistended. Multiple layering hyperdense foci within the gallbladder most likely representing gallstones. A small amount of sludge may be present. PANCREAS: There is relative fatty atrophy of the pancreas which is otherwise unremarkable. SPLEEN: Unremarkable. ADRENAL GLANDS: Unremarkable. KIDNEYS AND URETERS: A left sided double pigtail ureteral catheter is in place. The proximal portion is located within the left renal pelvis as expected. The distal portion terminates within the bladder. There is no left sided hydronephrosis. A large upper pole calculus is redemonstrated measuring up to 1.3 cm. The Hounsfield units are 734. There is moderate right-sided hydroureteronephrosis secondary to an obstructing stone located in the distal right ureter just proximal to the UVJ. There is fat stranding surrounding the distal portion of the right ureter and prominence of the lateral conal fascia on the right. This stone measures 0.7 cm in size. The Hounsfield units are 446. BLADDER: The bladder is otherwise unremarkable. GASTROINTESTINAL TRACT: Moderately dense stool is present throughout the remaining colon. Surgical anastomosis is redemonstrated in the left lower quadrant status post partial colectomy. There are no distended loops of small or large bowel. The stomach is not significantly distended. ABDOMINAL WALL: Significant rectus diastases demonstrated. No discrete hernia. LYMPH NODES: Scattered subcentimeter lymph nodes are present throughout the mesentery and retroperitoneum. VASCULAR: An IVC filter is in place. PELVIC VISCERA: Prostate gland and seminal vesicles are unremarkable. The OSSEOUS STRUCTURES: Bilateral pars defects demonstrated at L5-S1. Multilevel degenerative changes present throughout the visualized portions of the lower thoracic and lumbar spine. IMPRESSION: 1. Acute right sided hydroureteronephrosis secondary to distal ureteral stone within 1 cm of the right UVJ. Significant associated inflammatory changes involving the distal ureter. Superimposed infection could be considered. 2. Stable appearance of left sided ureteral stent. 3. Cholelithiasis without CT evidence for acute cholecystitis. 4. Grade 1 spondylolisthesis at L5-S1, stable.
[2017-07-03 15:37] LABS: PTT 51 SEC (25-37)
--- NOTE | 2017-07-03 15:50 | History & Physical ---
Brielle Dawson 07/03/17 8910: General Information and HPI MD Statement: I have seen and personally examined CARRIE JACK and documented this H&P. The patient is a 66 year old M who presented with a patient stated chief complaint of right-sided severe flank pain since last night. []. Source of Information: patient Exam Limitations: no limitations History of Present Illness: Patient is 66-year-old gentleman with past medical history significant for dyslipidemia, hypertension, insulin-dependent diabetes, colon cancer status post colostomy, paroxysmal atrial fibrillation on anticoagulation, history of DVT and pulmonary embolism status post IVC filter placement, CAD status post CABG, COPD, history of kidney stones and pyelonephritis status post left ureteric stent placement on June 23 was admitted at [facility] with pyelonephritis from June 23 to June 30 and was found to have MRSA growing in his urine and was discharged on 1.75 mg of vancomycin daily after placing the pro line, came with chief complaint of right sided colicky, severe flank pain since last night. Patient endorses that he was doing fine after discharge for a day but last night he experienced severe sharp, colicky right flank pain and was not able to sleep or light. He denied any dysuria or hematuria. He is compliant with his medications. He denied any fever, chills, any worsening lower extremity edema, shortness of breath, cough, any bowel complaints. Vital signs on admission were temperature 98.6, pulse 73, respiratory rate 18, blood pressure 103/71 and he was saturating 98% on room air. Labs were significant for WBC count 12.2, hemoglobin 13.7, hematocrit 42.5, platelet count 468, INR 1.10, sodium 139, potassium 4.9, BUN 19, creatinine 2.5, Imaging study showed 1. Acute right sided hydroureteronephrosis secondary to distal ureteral stone within 1 cm of the right UVJ. Significant associated inflammatory changes involving the distal ureter. Superimposed infection could be considered. 2. Stable appearance of left sided ureteral stent. 3. Cholelithiasis without CT evidence for acute cholecystitis. 4. Grade 1 spondylolisthesis at L5-S1, stable. Allergies/Medications Allergies: Coded Allergies: Penicillins (PT DOES NOT REMEMBER 12/05/15) ampicillin (RASH 12/05/15) sulbactam (RASH 12/05/15) Home Med list Albuterol Sulfate 0.63 MG/3 ML VIAL.NEB 1 Vial INH/NED TID PRN lung health ( Reported) Amiodarone (Cordarone) 200 MG TABLET 1 TAB PO QAM HEART (Reported) Aspirin (Ecotrin*) 81 MG TABLET.DR 1 TAB PO DAILY HEART/HEALTH (Reported) Atorvastatin Calcium 20 MG TABLET 1 TAB PO DAILY CHOLESTEROL (Reported) Clopidogrel Bisulfate (Clopidogrel) 75 MG TABLET 1 TAB PO QAM BLOOD THINNER ( Reported) Furosemide (Lasix) 20 MG TABLET 60 MG PO DAILY DIURETIC (Reported) Insulin Glargine,Hum.rec.anlog (Lantus Solostar) 100 UNIT/ML (3 ML) INSULN.PEN 20 UNIT SC BID DM (Reported) Insulin Lispro (Humalog) 100 UNIT/ML VIAL 0 SC TIDAC/HS DM BEFORE MEALS Blood Insulin Sugar Units <80 0 81-150 0 151-200 2 201-250 4 251-300 6 301-350 8 351-400 10 >400 12 and CALL Levothyroxine Sodium 125 MCG TABLET 1 TAB PO DAILY THYROID (Reported) Tamsulosin HCl 0.4 MG CAP.ER.24H 1 CAP PO DAILY PROSTATE (Reported) Vancomycin/0.9 % Sod Chloride (Vanco 1.75 G/250 Ml-0.9% NaCl) 1.75 GRAM/250 ML PLAST..BAG 1.75 GM IV DAILY MRSA infection Use 1.75 GRAM vancomycin through proline for 9 more days TILL June. . Warfarin Sodium (Coumadin) 2.5 MG TABLET 1 TAB PO MoTuThSa BLOOD THINNER ( Reported) Compliance With Home Meds: FAIR Past History Travel History Traveled to [place] past 21 day No Medical History Neurological: NONE EENT: NONE Cardiovascular: AFIB, hypertension, hyperlipidemia, CABG Respiratory: COPD, obstructive sleep apnea, pulmonary embolism Hepatic: NONE Renal: benign prost hyperplasia, chronic kidney disease, uti/prostatitis Musculoskeletal: osteoarthritis Psychiatric: NONE Endocrine: diabetes Blood Disorders: DVT, PE Cancer(s): colon/rectal cancer C D STRIPPER/Reproductive: NONE History of MRSA: Yes History of VRE: No History of CDIFF: No Isolation History: Contact Surgical History Surgical History: CABG, colon resection (s/p r hemicolectomy), hernia repair- incisional, hernia repair-inguinal, s/p decortication for empyema s/p IVC filter R INDEX FINGER AMPT Past Family/Social History Family History Relations & Conditions if any hypertension in family obesity in family SISTER SISTER (nephrectomy for cancer). Psychosocial History Who Do You Live With? spouse Services at Home: None Primary Language: Malay ETOH Use: denies use Illicit Drug Use: denies illicit drug use Functional Ability ADLs Independent: dressing, eating, toileting, bathing. Ambulation: independent, cane, walker, non-ambulatory IADLs Independent: shopping, housework, finances, food prep, telephone, transportation , medication admin. Review of Systems Review of Systems Constitutional: Denies: chills, diaphoresis, fever, malaise. EENTM: Denies: blurred vision, visual changes. Cardiovascular: Reports: edema. Denies: chest pain, orthopena. Respiratory: Reports: cough, hemoptysis. Denies: short of breath. GI: Denies: bloating, constipation, diarrhea. Genitourinary: Reports: pain. Musculoskeletal: Denies: gout, joint swelling. Skin: Reports: erythema, lesions. Neurological/Psychological: Denies: anxiety, ataxia. Exam & Diagnostic Data Last 24 Hrs of Vital Signs/I&O Vital Signs Date Time Temp Pulse Resp B/P B/P Pulse O2 O2 Flow FiO2 Mean Ox Delivery Rate 07/03 1523 97.5 67 20 126/72 97 Room Air 07/03 1208 98 Room Air 07/03 1153 98.6 73 18 103/71 98 Room Air Intake & Output 07/03 1600 07/03 0800 07/03 0000 Intake Total Output Total Balance Patient 270 lb Weight Weight Reported by Patient Measurement Method Physical Exam General Appearance Alert, Oriented X3, Cooperative, No Acute Distress Skin bilateral lower extremity erythema and weeping ulcer especially one on right medial side not worse than his baseline HEENT PERRLA, EOMI, Mucous Membr. moist/pink Neck Supple, No JVD Cardiovascular Regular Rate, Normal S1, Normal S2 Lungs Normal Air Movement Abdomen protuberant/obese no focal tenderness Neurological Normal Speech, Normal Tone Extremities 2+ bilateral tense edema with chronic venous stasis changes and ulcers Diagnostic Data EKG Results No acute ST-T wave changes Assessment/Plan Assessment: Patient is 66-year-old gentleman with past medical history significant for dyslipidemia, hypertension, insulin-dependent diabetes, colon cancer status post colostomy, paroxysmal atrial fibrillation on anticoagulation, history of DVT and pulmonary embolism status post IVC filter placement, CAD status post CABG, COPD, history of kidney stones and pyelonephritis status post left ureteric stent placement on June 23 was admitted at [facility] with pyelonephritis from June 23 to June 30 and was found to have MRSA growing in his urine and was discharged on 1.75 mg of vancomycin daily after placing the pro line. Came with right-sided flank pain and found to have another obstructing stone almost 1 cm at the UVJ needs urgent stent placement. He was also noted to have elevated leukocyte count while on vancomycin and AK I most likely prerenal as left stent is in place and no hydroureter or hydronephrosis seen on left side. Problem list 1. Right obstructed ureteric calculi needs urgent stent placement 2. History of recent pyelonephritis growing MRSA in the urine/MRSA sepsis on vancomycin 3. History of left ureteric hydronephrosis status post stent placement 4. Acute on chronic kidney injury 5. History of dyslipidemia 6. History of hypertension 7. History of CAD status post CABG 8. History of insulin-dependent diabetes 9. History of atrial fibrillation on Coumadin 10.. History of DVT/PE status post IVC filter placement 11. Cholelithiasis without evidence of cholecystitis 12. History of COPD 13. History of hypothyroidism 14. History of diastolic congestive heart failure on diuretics 15. History of bilateral lower extremity edema and chronic venous stasis ulcer and weeping wounds Plan 1. Urgent urology evaluation for right ureteric stent placement for right obstructing ureteric stone 2. Patient has leukocytosis which could be reactive due to acute obstructive renal stone but given his history of MRSA sepsis we will consider ruling out any infectious etiology. 3. Patient is taking vancomycin 1.75 g at home. His creatinine on admission is 2.5 which is elevated from his baseline of 1.8. We will draw Vanco trough level and we will adjust dose accordingly and will continue vancomycin daily. 4. We will send blood cultures and urine culture 5. We will request ID evaluation 6. We will send lactic acid and will trend his WBC count daily 7. We will keep him nothing by mouth until stent placement and we will order diet afterwards 8. We will resume his Plavix, Coumadin and aspirin most likely from tomorrow after consulting urology if it is safe to start him on Coumadin after stent. 9. We will continue Levemir 10 units twice a day for now and NovoLog sliding scale insulin 10. Regular Accu-Cheks 3 times a day and at bedtime 11. We'll continue her statins 12. We will hold his Lasix for now 13. Daily dressing change for lower extremity wound 14. We'll monitor intake and output 15. We will avoid nephrotoxic medications and will start him on gentle IV hydration given underlying acute kidney injury. Patient is full code Pharmacological DVT prophylaxis Nothing by mouth for now As Ranked By This Provider Problem List: 1. Hydronephrosis with renal and ureteral calculous obstruction 2. Urinary tract infection 3. Pyelonephritis 4. ARF (acute renal failure) Core Measures/Misc (11/01) Sepsis (View protocol) Sepsis Present: No Marifer Rene 07/03/177: Attending MD Review Statement Attending Statement Attending MD Statement: examined this patient, discuss w/resident/PA/SALES AND MERCHANDISING REPRESENTATIVE, agreed w/resident/PA/SALES AND MERCHANDISING REPRESENTATIVE, discussed with family, reviewed EMR data (avail) Attending Assessment/Plan: Rt obstructing stone at UVJ junction with rt side hydronephrosis and pyelonephritis- pt underwent stent placement today evening and was seen in PACU post the procedure. Doing ok. Making a lot of urine post stent placement. Some hematuria. Cont iv vancomycin and will consult ID Afib / DVT/ PE- was supposed to be on coumadin but did not take it post recent discharge. Will start back on coumadin tomorrow. Will d/w urology if they are ok with starting bridging therapy. ALMAS- secondary to obstructing stone. Cont to monitor renal function and recheck bep in am.
--- NOTE | 2017-07-03 17:25 | RADIOLOGY REPORT ---
EXAMINATION: XR ABDOMEN CLINICAL INDICATION: Right ureteroscopy COMPARISON: Same-day CT TECHNIQUE: Fluoroscopy provided for Dr. Garner. Cystoscopy with stent placement performed. 8 images obtained. Fluoroscopy time 13 seconds. KVP: 112 mAs: 42 FINDINGS: Images of the abdomen demonstrate placement of a double-J ureteral catheter. The proximal portion appears within the expected location of the right renal pelvis. The distal loop appears positioned in the bladder adjacent to the distal left ureteral loop. Final impression: Interval placement of right sided double-J ureteral stent. Please see the operative report for further details.
--- NOTE | 2017-07-03 19:26 | Event Note ---
Event Note Event Note: to Kathy Pagan MD was called regarding Juanito's vancomycin level and dosing. Due to vancomycin trough level of 25 we will hold his vancomycin for now and we will send his random Vanco level in the morning. Given his leukocytosis and right sided questionable pyelonephritis and we will start him on Ceftin as attempted after drawing blood cultures and sending urine analysis and culture. We will sign out to the morning team to contact consult with prelim culture results and Vanco level in a.m. for further vancomycin dosing. Postoperatively from urology was also contacted regarding Coumadin dosing and he is okay if we could give him regular Coumadin 2.5 mg today. He want to build up INR level slowly. He is also fine start bridging tomorrow.
--- NOTE | 2017-07-03 21:20 | Operative Report ---
Operative/Inv Procedure Report Surgery Date: 07/03/17 Name of Procedure: Cystoscopy, right ureteral stent placement with fluoroscopy Pre-Operative Diagnosis: Right ureteral calculus, azotemia, UTI Post-Operative Diagnosis: Same Estimated Blood Loss: scant Surgeon/Treating Plant Supervisor: Dr. Garner Anesthesia: local monitored anesthesi Implants: Right ureteral stent placement-6 Ghanaian by 26 cm Drains: 16 Ghanaian Garland catheter, with 10 mL in balloon Operative/Procedure Note Note: Indications-patient with a history of left ureteral calculus, status post left stent placement. And urosepsis at the time. Sudden onset of right flank pain this afternoon) presentation to the emergency room. CT scan revealed a 7 mm right ureteral calculus. We reviewed alternatives, and I recommended stent placement. He will eventually need to have ureteroscopy stone extraction, to be performed by Dr. Nava. He is where the complications/implications thereof, and is agreeable to undergo the procedure as follows. After uneventful administration of intravenous sedation with close anesthetic monitoring, the patient was placed in lithotomy position. At this point a 22 Ghanaian cystoscope was passed per urethra into the bladder. Thorough inspection of bladder did not reveal any stones or mucosal lesions. His left ureteral stent was identified. The right orifice was identified, and cannulated with an open-ended catheter. This was passed up into the right kidney. Through this was passed a Glidewire, and the open-ended catheter was removed. Over the guidewire was then passed double-J stent 6 Ghanaian X 26 cm. Position was verified fluoroscopically and endoscopically. This point a 16 Ghanaian Garland was passed per urethra and into the bladder. 10 mL was placed in the balloon. Urine output was noted to be clear. The patient was awakened and returned to recovery in good condition.
--- NOTE | 2017-07-03 21:34 | Cons- Urology ---
General Information and HPI Consulting Request Date of Consult: 07/03/17 Requested By: Marifer Rene MD Reason for Consult: Right ureteral calculus, azotemia, urinary tract infection. Source of Information: patient, family, old records Exam Limitations: no limitations History of Present Illness: Patient has a history of kidney stones with recent urosepsis. Had a left ureteral stent placed during her recent hospitalization. He went to earlier this week, and presented today after sudden onset of right flank pain. The pain was severe and required a visit to the emergency room. He underwent a CT scan, which revealed a 7 mm distal right ureteral calculus. He was noted to have an elevated creatinine. Patient denies any fevers/chills, but did have mild nausea. Was unable to eat today. Allergies/Medications Allergies: Coded Allergies: Penicillins (PT DOES NOT REMEMBER 12/05/15) ampicillin (RASH 12/05/15) sulbactam (RASH 12/05/15) Home Med List: Albuterol Sulfate 0.63 MG/3 ML VIAL.NEB 1 Vial INH/NED TID PRN lung health ( Reported) Amiodarone (Cordarone) 200 MG TABLET 1 TAB PO QAM HEART (Reported) Aspirin (Ecotrin*) 81 MG TABLET.DR 1 TAB PO DAILY HEART/HEALTH (Reported) Atorvastatin Calcium 20 MG TABLET 1 TAB PO DAILY CHOLESTEROL (Reported) Clopidogrel Bisulfate (Clopidogrel) 75 MG TABLET 1 TAB PO QAM BLOOD THINNER ( Reported) Furosemide (Lasix) 20 MG TABLET 60 MG PO DAILY DIURETIC (Reported) Insulin Glargine,Hum.rec.anlog (Lantus Solostar) 100 UNIT/ML (3 ML) INSULN.PEN 20 UNIT SC BID DM (Reported) Insulin Lispro (Humalog) 100 UNIT/ML VIAL 0 SC TIDAC/HS DM BEFORE MEALS Blood Insulin Sugar Units <80 0 81-150 0 151-200 2 201-250 4 251-300 6 301-350 8 351-400 10 >400 12 and CALL Levothyroxine Sodium 125 MCG TABLET 1 TAB PO DAILY THYROID (Reported) Tamsulosin HCl 0.4 MG CAP.ER.24H 1 CAP PO DAILY PROSTATE (Reported) Vancomycin/0.9 % Sod Chloride (Vanco 1.75 G/250 Ml-0.9% NaCl) 1.75 GRAM/250 ML PLAST..BAG 1.75 GM IV DAILY MRSA infection Use 1.75 GRAM vancomycin through proline for 9 more days TILL June. . Warfarin Sodium (Coumadin) 2.5 MG TABLET 1 TAB PO MoTuThSa BLOOD THINNER ( Reported) Current Medications: Current Medications Sig/Sj Start time Last Medication Dose Route Stop Time Status Admin Amiodarone HCl 200 MG QAM 07/04 0900 AC PO Aspirin Buffered 81 MG DAILY 07/04 0900 AC PO Atorvastatin Calcium 20 MG DAILY 07/04 0900 AC PO Ceftazidime 1,000 MG Q12 07/03 2100 AC IV Clopidogrel Bisulfate 75 MG QAM 07/04 0900 AC PO Heparin Sodium 5,000 UNIT Q8 07/03 1452 AC (Porcine) SC Hydromorphone HCl 2 MG ONCE ONE 07/03 2129 UNVr PO 07/03 2130 Hydromorphone HCl 1 MG ONCE ONE 07/03 1215 DC 07/03 IV 07/03 1216 1209 Hydromorphone HCl 0 .STK-MED ONE 07/03 1214 DC .ROUTE Insulin Aspart 0 TIDAC 07/03 1700 AC SC Insulin Detemir 10 UNITS BID 07/03 2100 AC SC Levothyroxine Sodium 0.125 MG DAILY AC 07/04 0700 AC PO Ondansetron HCl 0 .STK-MED ONE 07/03 1246 DC .ROUTE Ondansetron HCl 4 MG ONCE ONE 07/03 1245 DC 07/03 IV 07/03 1246 1240 Sodium Chloride 1,000 ML Q20H 07/03 1600 AC 07/03 IV 07/04 1159 1948 Tamsulosin HCl 0.4 MG DAILY 07/04 09 AC PO Warfarin Sodium 2.5 MG ONCE ONE 07/03 1930 DC PO 07/03 193 Past History Medical History Blood Transfusion Hx: Yes Neurological: NONE EENT: NONE Cardiovascular: AFIB, hypertension, hyperlipidemia, CABG Respiratory: COPD, obstructive sleep apnea, pulmonary embolism Hepatic: NONE Renal: benign prost hyperplasia, chronic kidney disease, uti/prostatitis Musculoskeletal: osteoarthritis Psychiatric: NONE Endocrine: diabetes Blood Disorders: DVT, PE Cancer(s): colon/rectal cancer COMPUTER NETWORK SUPPORT SPECIALIST/Reproductive: NONE Surgical History Pertinent Surgical History: CABG, colon resection (s/p r hemicolectomy), hernia repair-incisional, hernia repair-inguinal, s/p decortication for empyema s/p IVC filter R INDEX FINGER AMPT Family History Relations & Conditions If Any: hypertension in family obesity in family SISTER SISTER (nephrectomy for cancer). Psychosocial History Where Do You Live? Home Who Do You Live With? spouse Services at Home: None Primary Language: Macanese Smoking Status: Never Smoked ETOH Use: denies use Illicit Drug Use: denies illicit drug use Functional Ability ADLs Independent: dressing, eating, toileting, bathing. Ambulation: independent, cane, walker, non-ambulatory IADLs Independent: shopping, housework, finances, food prep, telephone, transportation , medication admin. Review of Systems Review of Systems: See HPI Exam & Diagnostic Data Vital Signs and I&O Vital Signs Date Time Temp Pulse Resp B/P B/P Pulse O2 O2 Flow FiO2 Mean Ox Delivery Rate 07/03 1903 98 Nasal 2.0L Cannula 07/03 1523 97.5 67 20 126/72 97 Room Air 07/03 1208 98 Room Air 07/03 1153 98.6 73 18 103/71 98 Room Air Intake & Output 07/03 1600 07/03 0800 07/03 0000 07/02 1600 07/02 0800 07/02 0000 Intake Total Output Total Balance Patient 270 lb Weight Weight Reported by Patient Measurement Method Physical Exam Other Physical Findings: Patient is awake alert and oriented, and resting in bed. Abdomen is soft, obese, nontender. He has no CVA tenderness. Last 24 Hours of Labs: Laboratory Tests 07/03 07/03 07/03 1945 1930 1546 Chemistry Lactic Acid (0.7 - 2.1 mmol/L) 1.3 Toxicology Vancomycin Trough Cancelled Urines Urinalysis LIGHT H Urine Color (YEL,AMB,STR) BLDY H Urine Clarity (CLEAR) CLDY H Urine pH (5.0 - 8.0) 6.5 Ur Specific [place] (1.001 - 1.035) 1.015 Urine Protein (NEG,<30 MG/DL) 100 H Urine Ketones (NEG) NEG Urine Nitrite (NEG) POS H Urine Bilirubin (NEG) NEG Urine Urobilinogen (0.1 - 1.0 EU/dl) 1.0 Ur Leukocyte Esterase (NEG) TRACE H Ur Microscopic SEDIMENT EXAMINED Urine RBC (0 - 5 /HPF) >75 H Urine WBC (0 - 2 /HPF) 3-5 H Ur Epithelial Cells (NONE,FEW) FEW Urine Bacteria (NEG/NONE) FEW H Micro UA Comment Urine Hemoglobin (NEG) LARGE H Urine Glucose (N MG/DL) 100 H 07/03 07/03 07/03 1501 1217 1201 Chemistry Sodium (137 - 145 mmol/L) 139 Potassium (3.5 - 5.1 mmol/L) 4.9 Chloride (98 - 107 mmol/L) 101 Carbon Dioxide (22 - 30 mmol/L) 24 Anion Gap (5 - 16) 14 BUN (9 - 20 mg/dL) 19 Creatinine (0.7 - 1.2 mg/dL) 2.5 H Estimated GFR (>60 ml/min) 26 L BUN/Creatinine Ratio (7 - 25 %) 7.6 Glucose (65 - 99 mg/dL) 201 H Hemoglobin A1c (4.2 - 5.8 %) Pending Lactic Acid (0.7 - 2.1 mmol/L) Cancelled 2.4 H Calcium (8.4 - 10.2 mg/dL) 9.1 Total Bilirubin (0.2 - 1.3 mg/dL) 0.8 AST (17 - 59 U/L) 58 ALT (21 - 72 U/L) 48 Alkaline Phosphatase (< 127 U/L) 134 H Total Protein (6.3 - 8.2 g/dL) 6.8 Albumin (3.5 - 5.0 g/dL) 3.4 L Globulin (1.9 - 4.2 gm/dL) 3.4 Albumin/Globulin Ratio (1.1 - 2.2 %) 1.0 L Coagulation PT (9.4 - 12.5 SEC) 12.0 INR (0.90 - 1.17) 1.10 APTT (25 - 37 SEC) 51 H Hematology CBC w Diff NO MAN DIFF REQ WBC (4.8 - 10.8 /CUMM) 12.2 H RBC (4.70 - 6.10 /CUMM) 4.81 Hgb (14.0 - 18.0 G/DL) 13.7 L Hct (42 - 52 %) 42.5 MCV (80.0 - 94.0 FL) 88.3 MCH (27.0 - 31.0 PG) 28.6 MCHC (33.0 - 37.0 G/DL) 32.3 L RDW (11.5 - 14.5 %) 15.6 H Plt Count (130 - 400 /CUMM) 468 H MPV (7.4 - 10.4 FL) 7.7 Gran % (42.2 - 75.2 %) 85.1 H Lymphocytes % (20.5 - 51.1 %) 4.7 L Monocytes % (1.7 - 9.3 %) 7.8 Eosinophils % (0 - 5 %) 2.2 Basophils % (0.0 - 2.0 %) 0.2 Absolute Granulocytes (1.4 - 6.5 /CUMM) 10.4 H Absolute Lymphocytes (1.2 - 3.4 /CUMM) 0.6 L Absolute Monocytes (0.10 - 0.60 /CUMM) 1.0 H Absolute Eosinophils (0.0 - 0.7 /CUMM) 0.3 Absolute Basophils (0.0 - 0.2 /CUMM) 0 Toxicology Vancomycin Trough (10.0 - 20.0 ug/mL) 25.0 H Urines Urine Color Cancelled Urine Clarity Cancelled Urine pH Cancelled Ur Specific [place] Cancelled Urine Protein Cancelled Urine Ketones Cancelled Urine Nitrite Cancelled Urine Bilirubin Cancelled Urine Urobilinogen Cancelled Ur Leukocyte Esterase Cancelled Ur Microscopic Cancelled Urine Hemoglobin Cancelled Urine Glucose Cancelled Imaging Results: I reviewed his CT scan, which reveals a 7 mm distal right ureteral calculus with secondary hydronephrosis. He has a left double-J stent in place, with no left hydronephrosis. Assessment/Plan Assessment/Plan I discussed the situation at length with the patient, his family, and the ER staff. He has a right ureteral calculus, with significant pain, and now azotemia. He is on vancomycin recent episode of urosepsis. His left double-J stent is indwelling and appears to be appropriate position. We reviewed alternatives, and I recommended he undergo right double-J stent placement. Reviewed the consultation/implications thereof, the certain need for further procedures to remove the right stone. He is aware that the stent will only allow for unblocking of the right kidney, to help in resolution of any potential infection, and allow the right kidney to regain normal function. She is aware of the complications discussed, and agreeable to undergo the procedure. Consent was signed. Consult Acknowledgment - Thank you for your consult request.
[2017-07-03 22:46] VITALS: BP 106/56
[2017-07-04 06:43] LABS: ABSOLUTE BASOPHIL COUNT 0 /CUMM (0.0-0.2); ABSOLUTE EOSINOPHIL COUNT 0.4 /CUMM (0.0-0.7); ABSOLUTE GRANULOCYTE CT 6.5 /CUMM (1.4-6.5); ABSOLUTE LYMPH COUNT 0.9 /CUMM (1.2-3.4); BASOPHIL % 0.5 % (0.0-2.0); EOSINOPHIL % 4.7 % (0-5); GRANULOCYTE % 73.9 % (42.2-75.2); MEAN CORPUSCULAR HGB 28.8 PG (27.0-31.0); MEAN CORPUSCULAR HGB CONC 32.8 G/DL (33.0-37.0); MEAN CORPUSCULAR VOLUME 87.6 FL (80.0-94.0); MEAN PLATELET VOLUME 7.8 FL (7.4-10.4); PLATELET COUNT 413 /CUMM (130-400); RBC DISTRIBUTION WIDTH 16.1 % (11.5-14.5); RED BLOOD CELL CT 4.21 /CUMM (4.70-6.10); WHITE BLOOD CELL COUNT 8.9 /CUMM (4.8-10.8)
[2017-07-04 06:47] LABS: PT 12.7 SEC (9.4-12.5)
[2017-07-04 06:48] LABS: HEMATOCRIT 36.9 % (42-52)
[2017-07-04 06:57] VITALS: BP 90/60
--- NOTE | 2017-07-04 08:40 | PN- Housestaff ---
Rachel Rees 07/04/17 0840: Subjective Follow-up For: Right obstructed ureteric calculi status post Cystoscopy( right ureteral stent placement with fluoroscopy). Acute on chronic kidney injury History of recent pyelonephritis growing MRSA in the urine/MRSA sepsis on vancomycin History of left ureteric hydronephrosis status post stent placement Complaints: SLIGHT PAIN AT THE SURGICAL SITE. Subjective: Patient seen and examined this morning, lying comfortably in the bed , slept well overnight. Denies any fever or chills vitals are stable. Has some postop pain after the surgical procedure well managed with the current pain regimen. Random Vanco level today is level today is 19.2, with (negative urine culture and pending blood culture results). We will continue with ceftazidim pending above Review of Systems Constitutional: Denies: diaphoresis, fever, malaise. EENTM: Denies: double vision, visual changes, eye pain. Cardiovascular: Denies: edema, orthopena. Respiratory: Denies: hemoptysis, orthopnea, short of breath. Objective Last 24 Hrs of Vital Signs/I&O Vital Signs Date Time Temp Pulse Resp B/P B/P Pulse O2 O2 Flow FiO2 Mean Ox Delivery Rate 07/04 0818 58 90/60 05 0657 98.3 58 20 90/60 98 Room Air 07/04 0000 Nasal 2.0L Cannula 07/03 2246 97.5 64 20 106/56 98 Nasal 2.0L Cannula 07/03 1903 98 Nasal 2.0L Cannula 07/03 1523 97.5 67 20 126/72 97 Room Air 07/03 1208 98 Room Air 07/03 1153 98.6 73 18 103/71 98 Room Air Intake & Output 07/04 1600 07/04 0800 07/04 0000 Intake Total 300 150 Output Total 1000 900 Balance -700 -750 Intake, IV 300 150 Output, Urine 1000 900 Patient 270 lb Weight Weight Reported by Patient Measurement Method Physical Exam General Appearance: Alert, Oriented X3 Skin: No Rashes, No Breakdown HEENT: Atraumatic, PERRLA, EOMI Neck: Supple, No JVD Cardiovascular: Regular Rate, Normal S1, Normal S2 Lungs: Clear to Auscultation, Normal Air Movement Assessment/Plan Assessment: Patient is 66-year-old gentleman with past medical history significant for dyslipidemia, hypertension, insulin-dependent diabetes, colon cancer status post colostomy, paroxysmal atrial fibrillation on anticoagulation, history of DVT and pulmonary embolism status post IVC filter placement, CAD status post CABG, COPD, history of kidney stones and pyelonephritis status post left ureteric stent placement on June 23 was admitted at [facility] with pyelonephritis from June 23 to June 30 and was found to have MRSA growing in his urine and was discharged on 1.75 mg of vancomycin daily after placing the pro line. Came with right-sided flank pain and found to have another obstructing stone almost 1 cm at the UVJ needs urgent stent placement. He was also noted to have elevated leukocyte count while on vancomycin and AK I most likely prerenal as left stent is in place and no hydroureter or hydronephrosis seen on left side. Problem list/plan: 1.Severe right-sided colicky pain due to obstructed ureteric calculi needs urgent stent placement: * [facility] * Vitals are currently stable, white cell count trended down. Patient remained afebrile overnight. Urine cultures are negative with the pending blood culture results. * Random Vanco level today is level today is 19.2, continue to hold vancomycin( as level currently above 15) * We will continue with ceftazidim pending above. * Dr. Haris Pagan MD is on board * Adequate pain control with IV Tylenol and oxycodone. * Follow urology recommendations 2. Recent pyelonephritis growing MRSA in the urine/MRSA sepsis on vancomycin( left ureteric hydronephrosis status post stent placement) * Random Vanco level today is level today is 19.2, will continue to hold vancomycin for now * Repeat random Vanco level tomorrow. 3. Acute on chronic kidney injury * Creatinine still remains elevated to 2.4 * Continue gentle IV hydration * Avoid any nephrotoxic agents. 4. History of atrial fibrillation on Coumadin: * INR today is 1.16 * Will give him 5 mg of Coumadin today. * Start bridging with heparin until INR becomes therapeutic. 5 History of dyslipidemia and hypertension,CAD status post CABG: * Continue home medications. 6. History of insulin-dependent diabetes * Continue insulin and Levemir. 7. History of DVT/PE status post IVC filter placement * Continue Coumadin. Continue rest of the medications for COPD, hypothyroidism, diastolic heart failure DVT prophylaxis with heparin and Coumadin Patient is FC Problem List: 1. ARF (acute renal failure) 2. Hydronephrosis with renal and ureteral calculous obstruction Pain Ratin Pain Location: RIGHT sided flank pain Pain Goal: Remain pain free Pain Plan: oxycodon Tomorrow's Labs & Rationales: BEP and CBCs tomorrow Marifer Rene 07/04/17 1422: Attending Review Statement Attending Statement Attending MD Statement: examined this patient, discuss w/resident/PA/[employer]Y COOK, agreed w/resident/PA/[employer] FRY COOK, reviewed EMR data (avail), discussed with nursing Attending Assessment/Plan: Rt obstructing stone at UVJ junction with rt side hydronephrosis and pyelonephritis- pt underwent cystoscopy and stent placement. Appreciated urology consult and input. Pt put on iv ceftazidime and iv vancomycin on hold due to high level. Hypotension- will give fluids bolus and increased iv fluid level . will monitor bp closely. Monitor I & O closely as was negative balance overnight. ALMAS on CKD. cont iv fluids. Afib / DVT/ PE- was supposed to be on coumadin but did not take it post recent discharge. started back on coumadin and bridging therapy. d/w pt the care plan.
[2017-07-04 14:34] VITALS: BP 116/60
[2017-07-04 19:42] LABS: PTT 44 SEC (25-37)
[2017-07-04 21:57] VITALS: BP 108/66
[2017-07-05 03:35] LABS: PTT > 120 SEC (25-37)
[2017-07-05 06:33] VITALS: BP 116/61
--- NOTE | 2017-07-05 07:12 | PN- Housestaff ---
Subjective Follow-up For: Right hydroureteronephrosis due to a right ureteric stone status post right ureteric stent placement. Acute on chronic kidney injury Subjective: No overnight events. Patient remained afebrile. seen and examined this morning. Patient denied any chest pain, short of breath, nausea, vomiting, chills, fever , abdominal pain and dysuria. Patient reported having pain around the Marrero's catheter and he received Dilaudid last night. Review of Systems Constitutional: Denies: chills, fever. EENTM: Reports: no symptoms. Cardiovascular: Denies: chest pain, orthopena, palpitations. Respiratory: Denies: cough, short of breath, sputum production. Gastrointestinal: Denies: abdominal pain, constipation, diarrhea, nausea, vomiting. Genitourinary: Reports: see HPI. Neurological/Psychological: Reports: no symptoms. Objective Last 24 Hrs of Vital Signs/I&O Vital Signs Date Time Temp Pulse Resp B/P B/P Pulse O2 O2 Flow FiO2 Mean Ox Delivery Rate 07/05 1000 Room Air 07/05 0851 128/72 07/05 0633 97.7 55 20 116/61 94 Nasal 2.0L Cannula 07/04 2157 98.2 57 20 108/66 92 Nasal 2.0L Cannula 07/04 1434 98.2 69 18 116/60 95 Intake & Output 07/05 1600 07/05 0800 07/05 0000 Intake Total 407 Output Total 1600 Balance -1600 407 Intake, IV 407 Output, Urine 1600 Patient 262 lb Weight Weight Bed scale Measurement Method Physical Exam General Appearance: Alert, Oriented X3, Cooperative Skin: No Rashes Skin Temp/Moisture Exam: Warm/Dry Sepsis Skin Exam (color): Normal for Ethnicity HEENT: Atraumatic, PERRLA, EOMI Neck: Supple Cardiovascular: Normal S1, Normal S2 Lungs: Clear to Auscultation Abdomen: Soft, No Tenderness Neurological: Normal Speech, Strength at 5/5 X4 Ext, Normal Tone Extremities: B/L GRADE 1 PEDAL EDEMA Assessment/Plan Assessment: 66-year-old gentleman with past medical history significant for dyslipidemia, hypertension, insulin-dependent diabetes, colon cancer status post colostomy, paroxysmal atrial fibrillation on anticoagulation, history of DVT and pulmonary embolism status post IVC filter placement, CAD status post CABG, COPD, history of kidney stones and pyelonephritis status post left ureteric stent placement on June 23 was admitted at [facility] with pyelonephritis from June 23 to June 30 and was found to have MRSA growing in his urine and was discharged on 1.75 mg of vancomycin daily after placing the pro line. Came with right- sided flank pain and found to have another obstructing stone almost 1 cm at the UVJ needs urgent stent placement. He was also noted to have elevated leukocyte count while on vancomycin and AK I most likely prerenal as left stent is in place and no hydroureter or hydronephrosis seen on left side. We are following the patient on general medicine floor for following problems: Right hydroureteronephrosis due to right ureteric stone s/p stent placement: -Pain management according to pain pathway. Patient will get Dilaudid for severe pain when necessary. -Continue Marrero for now. We will follow urology to discontinue Marrero cath recommended. -Follow-up urology recommendation Recent MRSA infection and pyelonephritis: -Patient was recently discharged with pro line to complete antibiotic course for 2 weeks as his echocardiogram was negative for endocarditis. -Considering his worsening GFR his vancomycin was temporarily discontinued. -We will give him 1 dose of vancomycin 1500 mg and we will check random Vanco level tomorrow. -Considering worsening renal function will may need to change the dose of vancomycin. -Follow-up ID recommendations -His ceftaz was discontinued as recommended by ID. Acute on chronic kidney injury: -Patient had stage III chronic kidney disease. -Presented with GFR 26 and creatinine level 2.5 -IV gentle hydration -Holding his Lasix -Avoid nephrotoxins medications -Nephrology recommendations -Consider ultrasound to rule out obstructive uropathy History of atrial fibrillation on Coumadin: -Continue Coumadin -Continue amiodarone for rhythm control -Continue IV heparin for bridging as his INR is subtherapeutic -Today his INR was 1.28 -Check INR every day and dose Coumadin accordingly. History of hyperlipidemia and hypertension: -Continue his home medications History of CAD status post CABG and stent placement: -Continue aspirin and Plavix History of diabetes: -Accu-Cheks -Continue insulin NovoLog according to sliding scale -Continue insulin Levemir 10 units twice a day -Fasting blood sugar level was 129 History of hypothyroidism: -Continue levothyroxine History of BPH: -Continue Flomax DVT prophylaxis: Mechanical and patient is already on Coumadin and IV heparin CODE STATUS: Full code. Problem List: 1. Hydronephrosis with renal and ureteral calculous obstruction 2. [id number] kidney injury Pain Ratin Pain Location: Around the marrero's Pain Goal: Pain 4 or less Pain Plan: pain pathway Tomorrow's Labs & Rationales: cbc/bep/inr
[2017-07-05 07:56] LABS: ABSOLUTE BASOPHIL COUNT 0.1 /CUMM (0.0-0.2); ABSOLUTE EOSINOPHIL COUNT 0.4 /CUMM (0.0-0.7); ABSOLUTE GRANULOCYTE CT 6.4 /CUMM (1.4-6.5); BASOPHIL % 0.7 % (0.0-2.0); EOSINOPHIL % 4.1 % (0-5); GRANULOCYTE % 72.8 % (42.2-75.2); HEMATOCRIT 34.9 % (42-52); MEAN CORPUSCULAR HGB 28.8 PG (27.0-31.0); MEAN CORPUSCULAR HGB CONC 32.5 G/DL (33.0-37.0); MEAN CORPUSCULAR VOLUME 88.6 FL (80.0-94.0); MEAN PLATELET VOLUME 8.5 FL (7.4-10.4); PLATELET COUNT 377 /CUMM (130-400); RBC DISTRIBUTION WIDTH 15.9 % (11.5-14.5); RED BLOOD CELL CT 3.94 /CUMM (4.70-6.10); WHITE BLOOD CELL COUNT 8.8 /CUMM (4.8-10.8)
[2017-07-05 09:33] LABS: PTT 86 SEC (25-37)
--- NOTE | 2017-07-05 11:56 | PN- Att Addend ---
Attending Addendum Attending Brief Note Patient seen and examined. Plan of care discussed with the medical team and the patient. Available lab work and radiology test reports were reviewed. His pain is well-controlled. He has been afebrile. Denies any difficulty breathing or chest pains. While signs are currently stable. Exam: General: Patient awake alert oriented without any distress CVS: S1 plus S2 without any murmur or gallops Chest: Few scattered crepitation without any wheeze. There is no respiratory distress. Abdomen: Obese Soft non-tender, bowel sound present, no guarding or rebound MANAGER CAREER: Awake alert oriented without any focal neuro deficit and follows commands appropriately Extremities: No edema; no clubbing or cyanosis noted Assessment * Right ureteric stone with hydronephrosis status post stenting * Recent history of MRSA pyelonephritis * History of recent left ureteric hydronephrosis status post stent placement * Acute and chronic kidney injury * A. fib * Diabetes currently on insulin * Hematuria- patient has a pinkish urine in Garland bag Plan * Restart vancomycin * Consider discontinuing ceftaz given his cultures are negative * ID consultation * Discontinue IV fluids * Continue Coumadin and give 10 mg today; recheck INR tomorrow; continue heparin IV * Prepare for discharge tomorrow * Check CBC tomorrow * Keep Garland catheter in Current Medications Sig/Sj Start time Last Medication Dose Route Stop Time Status Admin Acetaminophen 1,000 MG Q8 07/04 1400 AC 07/05 N/A 1 UNIT IV 0605 Amiodarone HCl 200 MG QAM 07/04 0900 AC 07/05 PO 0851 Aspirin Buffered 81 MG DAILY 07/04 0900 AC 07/05 PO 0851 Atorvastatin Calcium 20 MG DAILY 07/04 0900 AC 07/05 PO 0851 Ceftazidime 1,000 MG Q12 07/03 2100 AC 07/05 IV 0851 Clopidogrel Bisulfate 75 MG QAM 07/04 0900 AC 07/05 PO 0851 Heparin Sodium 10,000 UNIT .STK-MED ONE 07/04 2148 DC (Porcine) IV 07/04 2149 Heparin Sodium 9,185 UNIT ONCE ONE 07/04 2129 DC 07/04 (Porcine) IV 07/04 2130 2200 Heparin Sodium 25,000 UNIT Q24H 07/04 1000 AC 07/05 (Porcine) IV 1011 Sodium Chloride 500 ML Hydromorphone HCl 1 MG Q3P PRN 07/05 0945 AC 07/05 IV 1005 Hydromorphone HCl 0.6 MG ONCE ONE 07/05 0300 DC 07/05 IV 07/05 0301 0304 Insulin Aspart 0 TIDAC 07/03 1700 AC 07/04 SC 1823 Insulin Detemir 10 UNITS BID 07/03 2100 AC 07/05 SC 0845 Levothyroxine Sodium 0.125 MG DAILY AC 07/04 0700 AC 07/05 PO 0605 Oxycodone HCl 5 MG ONCE ONE 07/04 2300 DC 07/04 PO 07/04 2301 2318 Sodium Chloride 1,000 ML BOLUS ONE 07/04 1145 DC 07/04 IV 07/04 1344 1226 Sodium Chloride 1,000 ML Q13H 07/04 0915 AC 07/05 IV 0237 Sodium Chloride 1,000 ML Q20H 07/03 1600 OR 07/03 IV 07/04 1159 1948 Tamsulosin HCl 0.4 MG DAILY 07/04 0900 AC 07/05 PO 0851 Warfarin Sodium 5 MG COUMADIN 1700 ONE 07/04 1700 DC 07/04 PO 07/04 1701 1823 Laboratory Tests 07/05/17 0900: APTT 86 H 07/05/17 0530: Anion Gap 8, Estimated GFR 27 L, BUN/Creatinine Ratio 8.8, PT 14.0 H, INR 1.28 H, CBC w Diff NO MAN DIFF REQ, RBC 3.94 L, MCV 88.6, MCH 28.8, MCHC 32.5 L, RDW 15.9 H, MPV 8.5, Gran % 72.8, Lymphocytes % 11.5 L, Monocytes % 10.9 H, Eosinophils % 4.1, Basophils % 0.7, Absolute Granulocytes 6.4, Absolute Lymphocytes 1.0 L, Absolute Monocytes 1.0 H, Absolute Eosinophils 0.4, Absolute Basophils 0.1, Random Vancomycin 13.4 07/05/17 0245: APTT > 120 *H 07/04/17 1825: APTT 44 H 07/04/17 0540: Anion Gap 7, Estimated GFR 27 L, BUN/Creatinine Ratio 7.9, PT 12.7 H, INR 1.16 , CBC w Diff NO MAN DIFF REQ, RBC 4.21 L, MCV 87.6, MCH 28.8, MCHC 32.8 L, RDW 16.1 H, MPV 7.8, Gran % 73.9, Lymphocytes % 9.7 L, Monocytes % 11.2 H, Eosinophils % 4.7, Basophils % 0.5, Absolute Granulocytes 6.5, Absolute Lymphocytes 0.9 L, Absolute Monocytes 1.0 H, Absolute Eosinophils 0.4, Absolute Basophils 0, Random Vancomycin 19.8 07/03/17 1945: Urinalysis LIGHT H, Urine Color BLDY H, Urine Clarity CLDY H, Urine pH 6.5, Ur Specific Vevay 1.015, Urine Protein 100 H, Urine Ketones NEG, Urine Nitrite POS H, Urine Bilirubin NEG, Urine Urobilinogen 1.0, Ur Leukocyte Esterase TRACE H, Ur Microscopic SEDIMENT EXAMINED, Urine RBC >75 H, Urine WBC 3-5 H, Ur Epithelial Cells FEW, Urine Bacteria FEW H, Micro UA Comment , Urine Hemoglobin LARGE H, Urine Glucose 100 H 07/03/17 1930: Lactic Acid 1.3 07/03/17 1546: Vancomycin Trough Cancelled 07/03/17 1501: Lactic Acid Cancelled 07/03/17 1217: Anion Gap 14, Estimated GFR 26 L, BUN/Creatinine Ratio 7.6, Glucose 201 H, Hemoglobin A1c 9.8 H, Lactic Acid 2.4 H, Calcium 9.1, Total Bilirubin 0.8, AST 58, ALT 48, Alkaline Phosphatase 134 H, Total Protein 6.8, Albumin 3.4 L, Globulin 3.4, Albumin/Globulin Ratio 1.0 L, CBC w Diff NO MAN DIFF REQ, RBC 4.81, MCV 88.3, MCH 28.6, MCHC 32.3 L, RDW 15.6 H, MPV 7.7, Gran % 85.1 H, Lymphocytes % 4.7 L, Monocytes % 7.8, Eosinophils % 2.2, Basophils % 0.2, Absolute Granulocytes 10.4 H, Absolute Lymphocytes 0.6 L, Absolute Monocytes 1.0 H, Absolute Eosinophils 0.3, Absolute Basophils 0, Vancomycin Trough 25.0 H 07/03/17 1201: PT 12.0, INR 1.10, APTT 51 H, Urine Color Cancelled, Urine Clarity Cancelled, Urine pH Cancelled, Ur Specific Vevay Cancelled, Urine Protein Cancelled, Urine Ketones Cancelled, Urine Nitrite Cancelled, Urine Bilirubin Cancelled, Urine Urobilinogen Cancelled, Ur Leukocyte Esterase Cancelled, Ur Microscopic Cancelled, Urine Hemoglobin Cancelled, Urine Glucose Cancelled Microbiology 07/03 2100 BLOOD: Blood Culture - RES 07/03 1944 URINE ROUT: Urine Culture - COMP 07/03 1929 BLOOD: Blood Culture - RES Vital Signs Date Time Temp Pulse Resp B/P B/P Pulse O2 O2 Flow FiO2 Mean Ox Delivery Rate 07/05 1000 Room Air 07/05 0851 128/72 07/05 0633 97.7 55 20 116/61 94 Nasal 2.0L Cannula 07/04 2157 98.2 57 20 108/66 92 Nasal 2.0L Cannula 07/04 1434 98.2 69 18 116/60 95 Intake & Output 07/05 1600 07/05 0800 07/05 0000 Intake Total 407 Output Total 1600 Balance -1600 407 Intake, IV 407 Output, Urine 1600 Patient 262 lb Weight Weight Bed scale Measurement Method
--- NOTE | 2017-07-05 14:23 | Cons- Infect Disease ---
General Information and HPI Consulting Request Date of Consult: 07/05/17 Requested By: Natali MATHEW,Alejandro Reason for Consult: Obstructing right hydronephrosis Source of Information: patient, old records History of Present Illness: This is a 66-year-old man with a history of diabetes, hypertension, coronary artery disease, status post CABG, atrial fibrillation, maintained on Coumadin, hyperlipidemia, chronic renal insufficiency, COPD, sleep apnea, DVT/PE, status post IVC filter, colon cancer, status post resection, BPH and nephrolithiasis, hospitalized 10 days prior to admission with MRSA sepsis secondary to an obstructing calculus at the left UVJ, resulting in a moderate left hydroureteronephrosis, with additional bilateral renal calculi noted on his CT scan, status post cystoscopy and placement of a left ureteral stent, discharged with a Pro-Line on Vancomycin to complete a two-week course of antibiotics after a negative EVELYNE, admitted on July 03, just 3 days after discharge, with the acute onset of right flank pain. On admission he was afebrile. Laboratory data revealed a white blood cell count of 12,000, BUN/creatinine 19 and 2.5, lactic acid 2.4, alkaline phosphatase 134, Vancomycin trough level 25, INR 1.10. Urinalysis greater than 75 RBC/3-[address] of the abdomen and pelvis revealed acute right sided hydroureteronephrosis secondary to a distal ureteral stone within 1 cm of the right UVJ, a stable appearing left-sided ureteral stent with no left hydronephrosis and cholelithiasis without evidence for acute cholecystitis. He was taken to the OR for a cystoscopy and placement of a right ureteral stent. He was begun on Ceftazidime, but Vancomycin was held pending random levels. He has remained afebrile since admission. He feels improved with no further right flank pain and he has no other complaints at this time. Allergies/Medications Allergies: Coded Allergies: Penicillins (PT DOES NOT REMEMBER 12/05/15) ampicillin (RASH 12/05/15) sulbactam (RASH 12/05/15) Home Med List: Albuterol Sulfate 0.63 MG/3 ML VIAL.NEB 1 Vial INH/NED TID PRN lung health ( Reported) Amiodarone (Cordarone) 200 MG TABLET 1 TAB PO QAM HEART (Reported) Aspirin (Ecotrin*) 81 MG TABLET.DR 1 TAB PO DAILY HEART/HEALTH (Reported) Atorvastatin Calcium 20 MG TABLET 1 TAB PO DAILY CHOLESTEROL (Reported) Clopidogrel Bisulfate (Clopidogrel) 75 MG TABLET 1 TAB PO QAM BLOOD THINNER ( Reported) Furosemide (Lasix) 20 MG TABLET 60 MG PO DAILY DIURETIC (Reported) Insulin Glargine,Hum.rec.anlog (Lantus Solostar) 100 UNIT/ML (3 ML) INSULN.PEN 20 UNIT SC BID DM (Reported) Insulin Lispro (Humalog) 100 UNIT/ML VIAL 0 SC TIDAC/HS DM BEFORE MEALS Blood Insulin Sugar Units <80 0 81-150 0 151-200 2 201-250 4 251-300 6 301-350 8 351-400 10 >400 12 and CALL Levothyroxine Sodium 125 MCG TABLET 1 TAB PO DAILY THYROID (Reported) Tamsulosin HCl 0.4 MG CAP.ER.24H 1 CAP PO DAILY PROSTATE (Reported) Vancomycin/0.9 % Sod Chloride (Vanco 1.75 G/250 Ml-0.9% NaCl) 1.75 GRAM/250 ML PLAST..BAG 1.75 GM IV DAILY MRSA infection Use 1.75 GRAM vancomycin through proline for 9 more days TILL June. . Warfarin Sodium (Coumadin) 2.5 MG TABLET 1 TAB PO MoTuThSa BLOOD THINNER ( Reported) Past History Travel History Traveled to [place] past 21 day No Medical History Blood Transfusion Hx: Yes Neurological: NONE EENT: NONE Cardiovascular: AFIB, hypertension, hyperlipidemia, CABG Respiratory: COPD, obstructive sleep apnea, pulmonary embolism Hepatic: NONE Renal: benign prost hyperplasia, chronic kidney disease, uti/prostatitis Musculoskeletal: osteoarthritis Psychiatric: NONE Endocrine: diabetes Blood Disorders: DVT, PE Cancer(s): colon/rectal cancer PUBLICITY AGENT/Reproductive: NONE History of MRSA: Yes History of VRE: No History of CDIFF: No Isolation History: Contact Surgical History Surgical History: CABG, colon resection (s/p r hemicolectomy), hernia repair- incisional, hernia repair-inguinal, s/p decortication for empyema s/p IVC filter R INDEX FINGER AMPT Family History Relations & Conditions If Any: hypertension in family obesity in family SISTER SISTER (nephrectomy for cancer). Psychosocial History Where Do You Live? Home Who Do You Live With? spouse Services at Home: None Primary Language: Greenlandic Smoking Status: Never Smoked ETOH Use: denies use Illicit Drug Use: denies illicit drug use Functional Ability ADLs Independent: dressing, eating, toileting, bathing. Ambulation: independent, cane, walker, non-ambulatory IADLs Independent: shopping, housework, finances, food prep, telephone, transportation , medication admin. Review of Systems Review of Systems GI: Reports: vomiting. All Other Systems: Reviewed and Negative Exam & Diagnostic Data Last 24 Hrs of Vital Signs/I&O Vital Signs Date Time Temp Pulse Resp B/P B/P Pulse O2 O2 Flow FiO2 Mean Ox Delivery Rate 07/05 1000 Room Air 07/05 0851 128/72 07/05 0633 97.7 55 20 116/61 94 Nasal 2.0L Cannula 07/04 2157 98.2 57 20 108/66 92 Nasal 2.0L Cannula 07/04 1434 98.2 69 18 116/60 95 Intake & Output 07/05 1600 07/05 0800 07/05 0000 Intake Total 407 Output Total 1600 Balance -1600 407 Intake, IV 407 Output, Urine 1600 Patient 262 lb Weight Weight Bed scale Measurement Method Physical Exam Other Physical Findings: He is awake and alert in no acute distress. He is afebrile. Skin reveals no rash. HEENT exam is negative. Neck is supple with no adenopathy. Chest Pro- Line in the right upper chest with no inflammation at the site. Lungs are clear. Heart regular rhythm with no murmur. Abdomen is obese, soft, nontender with positive bowel sounds. Back no CVA tenderness. Extremities venous stasis changes both lower extremities, with 1+ edema bilaterally. Neuro is without focality. Garland catheter remains in place. Last 24 Hours of Lab Results: Laboratory Tests 07/05 07/05 07/05 07/04 0900 0530 0245 1825 Chemistry Sodium (137 - 145 mmol/L) 138 Potassium (3.5 - 5.1 mmol/L) 4.6 Chloride (98 - 107 mmol/L) 103 Carbon Dioxide (22 - 30 mmol/L) 27 Anion Gap (5 - 16) 8 BUN (9 - 20 mg/dL) 21 H Creatinine (0.7 - 1.2 mg/dL) 2.4 H Estimated GFR (>60 ml/min) 27 L BUN/Creatinine Ratio (7 - 25 %) 8.8 Coagulation PT (9.4 - 12.5 SEC) 14.0 H INR (0.90 - 1.17) 1.28 H APTT (25 - 37 SEC) 86 H > 120 *H 44 H Hematology CBC w Diff NO MAN DIFF REQ WBC (4.8 - 10.8 /CUMM) 8.8 RBC (4.70 - 6.10 /CUMM) 3.94 L Hgb (14.0 - 18.0 G/DL) 11.3 L Hct (42 - 52 %) 34.9 L MCV (80.0 - 94.0 FL) 88.6 MCH (27.0 - 31.0 PG) 28.8 MCHC (33.0 - 37.0 G/DL) 32.5 L RDW (11.5 - 14.5 %) 15.9 H Plt Count (130 - 400 /CUMM) 377 MPV (7.4 - 10.4 FL) 8.5 Gran % (42.2 - 75.2 %) 72.8 Lymphocytes % (20.5 - 51.1 %) 11.5 L Monocytes % (1.7 - 9.3 %) 10.9 H Eosinophils % (0 - 5 %) 4.1 Basophils % (0.0 - 2.0 %) 0.7 Absolute Granulocytes (1.4 - 6.5 /CUMM) 6.4 Absolute Lymphocytes (1.2 - 3.4 /CUMM) 1.0 L Absolute Monocytes (0.10 - 0.60 /CUMM) 1.0 H Absolute Eosinophils (0.0 - 0.7 /CUMM) 0.4 Absolute Basophils (0.0 - 0.2 /CUMM) 0.1 Toxicology Random Vancomycin (ug/ml) 13.4 Last 24 Hours of Jack Results: Blood cultures July 03 negative Urine culture July 03 negative Diagnostic Data Recent Imaging Findings: CT of the abdomen and pelvis revealed acute right sided hydroureteronephrosis secondary to a distal ureteral stone within 1 cm of the right UVJ, a stable appearing left-sided ureteral stent with no left hydronephrosis and cholelithiasis without evidence for acute cholecystitis. Assessment/Plan Assessment/Plan Impression: This is a 66-year-old man with a history of diabetes, chronic renal insufficiency, BPH and nephrolithiasis, hospitalized 10 days prior to admission with MRSA sepsis secondary to an obstructing calculus at the left UVJ, requiring placement of a left ureteral stent, discharged with a Pro-Line on Vancomycin to complete a 2 week course of antibiotics after a negative EVELYNE, admitted on July 03 , just 3 days after discharge, with the acute onset of right flank pain, found to be afebrile with a mild leukocytosis, renal insufficiency and an elevated lactic acid with a CT of the abdomen revealing an acute right-sided hydroureteronephrosis secondary to a distal ureteral stone, status post cystoscopy and placement of a right ureteral stent on the evening of admission. His readmission appears to be secondary to an obstructing calculus of the right kidney, which likely explains his pain and which has been relieved with the placement of a ureteral stent. It does not appear that he was septic, though his lactic acid was elevated, with his temperatures remaining normal (though they were normal on his recent hospitalization as well) and with a mild leukocytosis, which appears more likely to be secondary to hemoconcentration. His urine and blood cultures remain negative; therefore the Ceftazidime can be discontinued. He will need to be continued on the Vancomycin to complete at least a 1 week course from his recent instrumentation. His creatinine remains elevated and may be multifactorial, perhaps secondary to dehydration or medications, including the Vancomycin, though his levels have not been in the toxic range, with sepsis less likely as noted above. Suggestion: 1. Renal evaluation 2. Remove Garland catheter if okay with Renal and Urology 3. Eventual lithotripsy per Urology 4. Discontinue Ceftazidime 5. Redose with Vancomycin 1500 mg IV 1 and recheck a random Vancomycin level in the a.m. Consult Acknowledgment - Thank you for your consult request.
[2017-07-05 15:06] VITALS: BP 122/62
--- NOTE | 2017-07-05 17:27 | Transfer of Care Summary ---
Hospital Course Course Hospital Course: 66-year-old gentleman with past medical history significant for dyslipidemia, hypertension, insulin-dependent diabetes, colon cancer status post colostomy, paroxysmal atrial fibrillation on anticoagulation, history of DVT and pulmonary embolism status post IVC filter placement, CAD status post CABG, COPD, history of kidney stones and pyelonephritis status post left ureteric stent placement on June 23 was admitted at [facility] with pyelonephritis from June 23 to June 30 and was found to have MRSA growing in his urine and was discharged on 1.75 mg of vancomycin daily after placing the pro line. Came with right- sided flank pain and found to have another obstructing stone almost 1 cm at the UVJ needs urgent stent placement. He was also noted to have elevated leukocyte count while on vancomycin and AK I most likely prerenal as left stent is in place and no hydroureter or hydronephrosis seen on left side. Patient was admitted for right hydroureteronephrosis and stent placement was done in right ureteric. We will continue Garland's catheter until neurology recommends to remove it. Patient had recent history of MRSA sepsis. He was sent home last time with pro line to complete 2 weeks course of vancomycin. As his renal function is worsening, we may need to change the dose of vancomycin. Yesterday we gave him vancomycin 1500 mg once and we'll check his random vancomycin level tomorrow. Considering his acute on chronic kidney injury even after IV hydration his creatinine level is not improving. We are holding his Lasix considering his renal dysfunction. Nephrology consult was obtained and they recommended a renal ultrasound to rule out obstructive uropathy even after placing right ureteric stent. He has a history of A. fib and on Coumadin. There are bridging Coumadin with IV heparin as his INR is subtherapeutic. Assessment/Plan: Right hydroureteronephrosis due to right ureteric stone s/p stent placement: -Pain management according to pain pathway. Patient will get Dilaudid for severe pain when necessary. -Continue Garland for now. We will follow urology to discontinue Garland cath recommended. -Follow-up urology recommendation Recent MRSA infection and pyelonephritis: -Patient was recently discharged with pro line to complete antibiotic course for 2 weeks as his echocardiogram was negative for endocarditis. -Considering his worsening GFR his vancomycin was temporarily discontinued. -We will give him 1 dose of vancomycin 1500 mg and we will check random Vanco level tomorrow. -Considering worsening renal function will may need to change the dose of vancomycin. -Follow-up ID recommendations -His ceftaz was discontinued as recommended by ID. Acute on chronic kidney injury: -Patient had stage III chronic kidney disease. -Presented with GFR 26 and creatinine level 2.5 -IV gentle hydration -Holding his Lasix -Avoid nephrotoxins medications -Nephrology recommendations -Consider ultrasound to rule out obstructive uropathy History of atrial fibrillation on Coumadin: -Continue Coumadin -Continue amiodarone for rhythm control -Continue IV heparin for bridging as his INR is subtherapeutic -Today his INR was 1.28 -Check INR every day and dose Coumadin accordingly. History of hyperlipidemia and hypertension: -Continue his home medications History of CAD status post CABG and stent placement: -Continue aspirin and Plavix History of diabetes: -Accu-Cheks -Continue insulin NovoLog according to sliding scale -Continue insulin Levemir 10 units twice a day -Fasting blood sugar level was 129 History of hypothyroidism: -Continue levothyroxine History of BPH: -Continue Flomax DVT prophylaxis: Mechanical and patient is already on Coumadin and IV heparin CODE STATUS: Full code
--- NOTE | 2017-07-05 18:48 | Cons- Nephrology ---
General Information and HPI Consulting Request Date of Consult: 07/05/17 Requested By: Alejandro Hurst MD Reason for Consult: ALMAS Source of Information: patient, family, old records Exam Limitations: no limitations History of Present Illness: The patient is a 66-year-old man with a complex past medical history that includes diabetes mellitus, hypertension, hyperlipidemia, coronary artery disease status post CABG, atrial fibrillation on Coumadin, CKD with a baseline creatinine in the mid 1's over the past 3 years, COPD with obstructive sleep apnea, DVT, pulmonary embolism, IVC filter, resection of a colon CA, BPH and nephrolithiasis. With regard to the latter, he was hospitalized 12 days ago with an obstructing calculus at the left ureterovesical junction with associated MRSA sepsis for which he was discharged on vancomycin (via a Pro-line) with plans for a 2 week course of therapy. He was now admitted on 519 just 3 days after discharge complaining of right flank pain with the finding of right hydroureteronephrosis secondary to have an obstructing distal calculus. There was no residual hydronephrosis noted on the left on CT scan. He now has a right ureteral stent in place as well. On admission he was afebrile with a slight leukocytosis of approximately 12,000 coming down to 8.8 today. Cultures have been negative. Vancomycin trough level on admission was 25 at which point it was held with a random level falling to the 13.4 today. He was started on ceftazidime which is now to be discontinued and vancomycin restarted to complete the original two-week course. His right flank symptoms have resolved and he remains afebrile. However, his creatinine was 1.2 at time of discharge on 06/30 and was up to 2.5 on readmission on 07/03 with very little change since then - creatinine 2.4 today despite presumed relief of his obstruction. He currently has a Garland catheter in place with pink urine. He had no time appeared to be septic although lactate level was slightly elevated. As already noted, he has remained afebrile with negative blood/urine cultures and a white count that rapidly normalized. Finally, it should be noted that he has not been exposed to any parenteral contrast or NSAIDs. Past medical history is as delineated above Medications: See below Allergies: Penicillins, sulbactam Family history: Patient claims that 3 of his siblings have had nephrectomies but he does not know why. He also has another sibling who is known to have kidney stones. There is no family history of ESRD or renal failure to his knowledge. He has no biological children. Social history: Remote smoker, no history of alcohol or drug abuse, lives with his of 15 years (second marriage), no biological children. Allergies/Medications Allergies: Coded Allergies: Penicillins (PT DOES NOT REMEMBER 12/05/15) ampicillin (RASH 12/05/15) sulbactam (RASH 12/05/15) Home Med List: Albuterol Sulfate 0.63 MG/3 ML VIAL.NEB 1 Vial INH/NED TID PRN lung health ( Reported) Amiodarone (Cordarone) 200 MG TABLET 1 TAB PO QAM HEART (Reported) Aspirin (Ecotrin*) 81 MG TABLET.DR 1 TAB PO DAILY HEART/HEALTH (Reported) Atorvastatin Calcium 20 MG TABLET 1 TAB PO DAILY CHOLESTEROL (Reported) Clopidogrel Bisulfate (Clopidogrel) 75 MG TABLET 1 TAB PO QAM BLOOD THINNER ( Reported) Furosemide (Lasix) 20 MG TABLET 60 MG PO DAILY DIURETIC (Reported) Insulin Glargine,Hum.rec.anlog (Lantus Solostar) 100 UNIT/ML (3 ML) INSULN.PEN 20 UNIT SC BID DM (Reported) Insulin Lispro (Humalog) 100 UNIT/ML VIAL 0 SC TIDAC/HS DM BEFORE MEALS Blood Insulin Sugar Units <80 0 81-150 0 151-200 2 201-250 4 251-300 6 301-350 8 351-400 10 >400 12 and CALL Levothyroxine Sodium 125 MCG TABLET 1 TAB PO DAILY THYROID (Reported) Tamsulosin HCl 0.4 MG CAP.ER.24H 1 CAP PO DAILY PROSTATE (Reported) Vancomycin/0.9 % Sod Chloride (Vanco 1.75 G/250 Ml-0.9% NaCl) 1.75 GRAM/250 ML PLAST..BAG 1.75 GM IV DAILY MRSA infection Use 1.75 GRAM vancomycin through proline for 9 more days TILL June. . Warfarin Sodium (Coumadin) 2.5 MG TABLET 1 TAB PO MoTuThSa BLOOD THINNER ( Reported) Review of Systems Review of Systems: Gen.: Appetite good, no weight loss or weight gain Skin: No rash or jaundice HEENT: No visual or hearing disturbances, no discharge Cardiopulmonary: No shortness of breath, cough, chest pain, orthopnea GI: No nausea, vomiting, abdominal pain, diarrhea; right flank pain has resolved : Garland catheter in place draining pink urine and causing some mild discomfort Musculoskeletal: No arthralgias, arthritis, myalgias, weakness Neuro: No weakness, altered mental status, paresthesias Past History Travel History Traveled to [place] past 21 day No Medical History Blood Transfusion Hx: Yes Neurological: NONE EENT: NONE Cardiovascular: AFIB, hypertension, hyperlipidemia, CABG Respiratory: COPD, obstructive sleep apnea, pulmonary embolism Hepatic: NONE Renal: benign prost hyperplasia, chronic kidney disease, uti/prostatitis Musculoskeletal: osteoarthritis Psychiatric: NONE Endocrine: diabetes Blood Disorders: DVT, PE Cancer(s): colon/rectal cancer TRASH HAULER/Reproductive: NONE Surgical History Surgical History: CABG, colon resection (s/p r hemicolectomy), hernia repair- incisional, hernia repair-inguinal, s/p decortication for empyema s/p IVC filter R INDEX FINGER AMPT Family History Relations & Conditions If Any: hypertension in family obesity in family SISTER SISTER (nephrectomy for cancer). Psychosocial History Where Do You Live? Home Who Do You Live With? spouse Services at Home: None Primary Language: Spanish Smoking Status: Never Smoked ETOH Use: denies use Illicit Drug Use: denies illicit drug use Functional Ability ADLs Independent: dressing, eating, toileting, bathing. Ambulation: independent, cane, walker, non-ambulatory IADLs Independent: shopping, housework, finances, food prep, telephone, transportation , medication admin. Exam & Diagnostic Data Vital Signs and I&O Vital Signs Date Time Temp Pulse Resp B/P B/P Pulse O2 O2 Flow FiO2 Mean Ox Delivery Rate 07/05 1506 97.6 61 20 122/62 93 Room Air 07/05 1000 Room Air 07/05 0851 128/72 07/05 0633 97.7 55 20 116/61 94 Nasal 2.0L Cannula 07/04 2157 98.2 57 20 108/66 92 Nasal 2.0L Cannula Intake & Output 07/05 1600 07/05 0400 07/04 1600 07/04 0400 07/03 1600 07/03 0400 Intake Total 5270 560 7203 150 Output Total 2600 1000 900 Balance -2443 921 5348 -750 Intake, IV 955 952 0642 150 Intake, Oral 800 1800 Number 0 0 Bowel Movements Output, Urine 2600 1000 900 Patient 262 lb 270 lb 270 lb Weight Weight Bed scale Reported by Patient Reported by Patient Measurement Method Physical Exam: General: Well-developed, obese white male in NAD Skin: No rash or jaundice HEENT: Conjunctivae pink, sclerae anicteric, mucous membranes moist Neck: Without masses or thyromegaly, no supraclavicular or cervical adenopathy Chest: Clear to P&A; healed sternotomy scar Heart: Irregular rhythm without S3 or rub Abdomen: Obese, soft and nontender without palpable masses or organomegaly Extremities: 1+ dependent edema bilaterally Neuro: Awake and alert, no focal findings, no asterixis or myoclonus Assessment/Plan Assessment/Recommendations Assessment: 66-year-old man with multiple comorbidities as detailed above including bilateral nephrolithiasis which resulted in a recent obstructive episode on the left with associated ALMAS which recovered following placement of the stent. At that time he also had MRSA bacteremia presumably secondary to the obstructive uropathy. He now comes in with a similar episode involving the right side with documented hydroureteronephrosis also treated with stenting. Renal function has yet to start improving again raising the possibility of either persistent upper tract obstruction or another etiology such as vancomycin toxicity or less likely sepsis-associated ATN. He has not been exposed to any parenteral contrast or NSAIDs. Recommendations: 1. Renal ultrasound to ensure that the right hydronephrosis has resolved. 2. Gentle hydration with IV normal saline at 75 mL per hour. 3. Antibiotic therapy per ID. If vancomycin to be resumed, monitor levels daily for now. 4. Can discontinue Garland catheter if okay with urology. Thank you. Will follow with you.
--- NOTE | 2017-07-05 20:18 | ULTRASOUND REPORT ---
EXAMINATION: RENAL ULTRASOUND CLINICAL INFORMATION: Right hydroureteronephrosis. Follow-up following stent placement. COMPARISON: 07/03/2017. TECHNIQUE: Real-time imaging of the kidneys and bladder. FINDINGS: RIGHT KIDNEY: Within the upper pole, there is an approximately 11 mm nonobstructive calculus. Within the lower pole, there is an 8 mm nonobstructive calculus. Hydronephrosis is identified on the prior exam has since resolved. The right kidney measures 12.6 cm. LEFT KIDNEY: There is no hydronephrosis. There is a 10 mm nonobstructive calculus within the upper pole. The left kidney measures 12.3 cm. BLADDER: The urinary bladder is empty. A Garland catheter is in place. There is no pelvic free fluid. IMPRESSION: No obstructive renal calculi bilaterally. Interval resolution of previously identified right hydronephrosis.
[2017-07-05 22:33] LABS: PTT 70 SEC (25-37)
[2017-07-05 23:25] VITALS: BP 124/64
[2017-07-06 05:29] LABS: ABSOLUTE BASOPHIL COUNT 0.1 /CUMM (0.0-0.2); ABSOLUTE EOSINOPHIL COUNT 0.4 /CUMM (0.0-0.7); ABSOLUTE GRANULOCYTE CT 5.3 /CUMM (1.4-6.5); ABSOLUTE LYMPH COUNT 0.7 /CUMM (1.2-3.4); ABSOLUTE MONOCYTE COUNT 0.8 /CUMM (0.10-0.60); BASOPHIL % 0.7 % (0.0-2.0); EOSINOPHIL % 5.9 % (0-5); GRANULOCYTE % 72.9 % (42.2-75.2); HEMATOCRIT 35.8 % (42-52); MEAN CORPUSCULAR HGB 28.6 PG (27.0-31.0); MEAN CORPUSCULAR HGB CONC 32.3 G/DL (33.0-37.0); MEAN CORPUSCULAR VOLUME 88.5 FL (80.0-94.0); MEAN PLATELET VOLUME 7.7 FL (7.4-10.4); PLATELET COUNT 412 /CUMM (130-400); RBC DISTRIBUTION WIDTH 15.8 % (11.5-14.5); RED BLOOD CELL CT 4.05 /CUMM (4.70-6.10); WHITE BLOOD CELL COUNT 7.3 /CUMM (4.8-10.8)
[2017-07-06 05:36] LABS: PT 18.9 SEC (9.4-12.5)
[2017-07-06 07:18] VITALS: BP 127/64
--- NOTE | 2017-07-06 07:57 | PN- Housestaff ---
Subjective Follow-up For: Right ALMAS Subjective: Patient seen and examined. Sitting comfortably. Having breakfast. Offers no complaints. Wants to be discharged home soon. Foleys catheter in place. Patient continues to have reddish pink urine in the marrero bag. Patient wants Marrero catheter to be removed. Denies any fevers chills nausea vomiting chest pain or difficulty breathing Review of Systems Constitutional: Reports: see HPI. Objective Last 24 Hrs of Vital Signs/I&O Vital Signs Date Time Temp Pulse Resp B/P B/P Pulse O2 O2 Flow FiO2 Mean Ox Delivery Rate 07/06 0844 96 99/70 07/06 0843 96 99/70 07/06 0800 Room Air 07/06 0718 97.7 56 20 127/64 95 Room Air 07/05 2325 97.9 62 20 124/64 92 Room Air 07/05 1600 96 Room Air 07/05 1506 97.6 61 20 122/62 93 Room Air Intake & Output 07/06 1600 07/06 0800 07/06 0000 Intake Total 669 800 850 Output Total 900 1150 1000 Balance -231 -350 -150 Intake, IV 169 800 550 Intake, Oral 500 300 Output, Urine 900 1150 1000 Patient 268 lb Weight Weight Standing Scale Measurement Method Physical Exam General Appearance: Alert, Oriented X3, Cooperative Cardiovascular: Normal S1, Normal S2 Lungs: basal crackels few Abdomen: Normal Bowel Sounds, Soft, No Tenderness Neurological: Normal Speech Extremities: non pitting edema Current Medications: Current Medications Sig/Sj Start time Last Medication Dose Route Stop Time Status Admin Acetaminophen 1,000 MG Q8 07/04 1400 AC 07/05 N/A 1 UNIT IV 2101 Amiodarone HCl 200 MG QAM 07/04 0900 AC 07/06 PO 0844 Aspirin Buffered 81 MG DAILY 07/04 0900 AC 07/06 PO 0843 Atorvastatin Calcium 20 MG DAILY 07/04 0900 AC 07/06 PO 0843 Ceftazidime 1,000 MG Q12 07/03 2100 DC 07/05 IV 0851 Clopidogrel Bisulfate 75 MG QAM 07/04 0900 AC 07/06 PO 0843 Guaifenesin 600 MG Q12 07/06 1058 AC 07/06 PO 1217 Heparin Sodium 25,000 UNIT Q24H 07/04 1000 AC 07/06 (Porcine) IV 1200 Sodium Chloride 500 ML Hydromorphone HCl 1 MG Q3P PRN 07/05 0945 AC 07/06 IV 1102 Insulin Aspart 0 TIDAC 07/03 1700 AC 07/06 SC 1221 Insulin Detemir 10 UNITS BID 07/03 2100 AC 07/06 SC 0841 Levothyroxine Sodium 0.125 MG DAILY AC 07/04 0700 AC 07/06 PO 0457 Sodium Chloride 1,000 ML BOLUS ONE 07/06 0900 CAN IV 07/06 1059 Sodium Chloride 1,000 ML Q13H 07/05 1700 DC 07/05 IV 07/06 0559 1712 Tamsulosin HCl 0.4 MG DAILY 07/04 0900 AC 07/06 PO 0843 Vancomycin HCl 1,500 MG ONCE ONE 07/05 1700 DC 07/05 Sodium Chloride 250 ML IV 07/05 1829 1803 Vancomycin HCl 1,500 MG ONCE ONE 07/05 1630 CAN IV 07/05 1631 Warfarin Sodium 6 MG COUMADIN 1700 ONE 07/05 1700 DC 07/05 PO 07/05 1701 1711 Last 24 Hrs of Lab/Jack Results Last 24 Hrs of Labs/Mics: Laboratory Tests 07/06/17 0950: APTT 101 *H 07/06/17 0505: Anion Gap 8, Estimated GFR 32 L, BUN/Creatinine Ratio 10.0, PT 18.9 H, INR 1.72 H, CBC w Diff NO MAN DIFF REQ, RBC 4.05 L, MCV 88.5, MCH 28.6, MCHC 32.3 L, RDW 15.8 H, MPV 7.7, Gran % 72.9, Lymphocytes % 10.2 L, Monocytes % 10.3 H , Eosinophils % 5.9 H, Basophils % 0.7, Absolute Granulocytes 5.3, Absolute Lymphocytes 0.7 L, Absolute Monocytes 0.8 H, Absolute Eosinophils 0.4, Absolute Basophils 0.1, Random Vancomycin 19.0 07/05/17 2100: APTT 70 H Assessment/Plan Assessment: The patient is 66-year-old gentleman with past medical history significant for dyslipidemia, hypertension, insulin-dependent diabetes, colon cancer status post colostomy, paroxysmal atrial fibrillation on anticoagulation, history of DVT and pulmonary embolism status post IVC filter placement, CAD status post CABG, COPD. He has history of kidney stones and pyelonephritis status post left ureteric stent placement on June 23 (admitted at [facility] with pyelonephritis from June 23 to June 30) and was found to have MRSA growing in his urine and was discharged on 1.75 mg of vancomycin daily after placing the pro line. The patient presented with right-sided flank pain and found to have another obstructing stone almost 1 cm at the UVJ requiring urgent stent placement. He was also noted to have elevated leukocyte count while on vancomycin and ALMAS most likely prerenal as left stent is in place and no hydroureter or hydronephrosis seen on left side. The patient is being treated and evaluated for following conditions #Right hydroureteronephrosis due to right ureteric stone s/p stent placement: -Pain management according to pain pathway. Patient will get Dilaudid for severe pain when necessary. -We're going to discontinue Marrero catheter today -Follow-up urology recommendation -Eventual lithotripsy per Urology as an outpatient #Recent MRSA infection and pyelonephritis: -Patient was recently discharged with pro line to complete antibiotic course for 2 weeks as his echocardiogram was negative for endocarditis. Considering his worsening GFR his vancomycin was temporarily discontinued. -He recieved 1 dose of vancomycin 1500 mg yesterday and his random Vanco level was 19 today -Vancomycin random level in the a.m., with further doses based on this level -Patient will require at least 1 week of vancomycin after instrumentation #Acute on chronic kidney injury: Patient has hx of stage III chronic kidney disease. Presented with GFR 26 and creatinine level 2.5 -Cr 2.1 today slowly improving -IV gentle hydration -Holding his Lasix -Avoid nephrotoxins medications -F/u Nephrology recommendations #History of atrial fibrillation on Coumadin: -Continue Coumadin -Continue amiodarone for rhythm control -Continue IV heparin for bridging as his INR is subtherapeutic -Today his INR was 1.72, Coumadin dosed at 5mg -Check INR every day and dose Coumadin accordingly. #History of hyperlipidemia and hypertension: -Continue his home medications #History of CAD status post CABG and stent placement: -Continue aspirin and Plavix #History of hypothyroidism: -Continue levothyroxine #History of BPH: -Continue Flomax Diabetic diet/DVT prophylaxis with Coumadin and IV heparin/full code Problem List: 1. [id number] kidney injury Pain Ratin Pain Location: none Pain Goal: Pain 4 or less Pain Plan: prn Tomorrow's Labs & Rationales: cbc
[2017-07-06 10:56] LABS: PTT 101 SEC (25-37)
--- NOTE | 2017-07-06 11:23 | PN- Att Addend ---
Attending Addendum Attending Brief Note Patient seen and examined. Plan of care discussed with the medical team and the patient. Available lab work and radiology test reports were reviewed. He reports discomfort due to Garland catheter. He has been afebrile. Denies any difficulty breathing or chest pains. Garland is draining pinkish red urine Exam: General: Patient awake alert oriented without any distress CVS: S1 plus S2 without any murmur or gallops Chest: Few scattered crepitation without any wheeze. There is no respiratory distress. Abdomen: Obese Soft non-tender, bowel sound present, no guarding or rebound POURER METAL: Awake alert oriented without any focal neuro deficit and follows commands appropriately Extremities: No edema; no clubbing or cyanosis noted Assessment * Right ureteric stone with hydronephrosis status post stenting- hydronephrosis nor resolved based on ultrasound report * Recent history of MRSA pyelonephritis- currently on vancomycin treatment * History of recent left ureteric hydronephrosis status post stent placement * Acute and chronic kidney injury- creatinine gradually improving * A. fib * Diabetes currently on insulin * Hematuria- patient has a pinkish urine in Garland bag Plan * Adjust vancomycin dose based on vancomycin level; patient may need to skip a dose today given his level is 19 * Continue Coumadin and give 5 mg today; recheck INR tomorrow; continue heparin IV till INR is 2 * Check CBC tomorrow * Remove Garland catheter * Out of bed and ambulate; plan for discharge home tomorrow * Recheck BEP tomorrow Current Medications Sig/Sj Start time Last Medication Dose Route Stop Time Status Admin Acetaminophen 1,000 MG Q8 07/04 1400 AC 07/05 N/A 1 UNIT IV 2101 Amiodarone HCl 200 MG QAM 07/04 0900 AC 07/06 PO 0844 Aspirin Buffered 81 MG DAILY 07/04 0900 AC 07/06 PO 0843 Atorvastatin Calcium 20 MG DAILY 07/04 0900 AC 07/06 PO 0843 Ceftazidime 1,000 MG Q12 07/03 2100 DC 07/05 IV 0851 Clopidogrel Bisulfate 75 MG QAM 07/04 0900 AC 07/06 PO 0843 Guaifenesin 600 MG Q12 07/06 1058 AC PO Heparin Sodium 25,000 UNIT Q24H 07/04 1000 AC 07/06 (Porcine) IV 0734 Sodium Chloride 500 ML Hydromorphone HCl 1 MG Q3P PRN 07/05 0945 AC 07/06 IV 1102 Insulin Aspart 0 TIDAC 07/03 1700 AC 07/06 SC 0842 Insulin Detemir 10 UNITS BID 07/03 2100 AC 07/06 SC 0841 Levothyroxine Sodium 0.125 MG DAILY AC 07/04 0700 AC 07/06 PO 0457 Sodium Chloride 1,000 ML BOLUS ONE 07/06 0900 CAN IV 07/06 1059 Sodium Chloride 1,000 ML Q13H 07/05 1700 DC 07/05 IV 07/06 0559 1712 Sodium Chloride 1,000 ML Q13H 07/04 0915 FL 07/05 IV 1203 Tamsulosin HCl 0.4 MG DAILY 07/04 0900 07/06 PO 0843 Vancomycin HCl 1,500 MG ONCE ONE 07/05 1700 FL 07/05 Sodium Chloride 250 ML IV 07/05 1829 1803 Vancomycin HCl 1,500 MG ONCE ONE 07/05 1630 CAN IV 07/05 1631 Warfarin Sodium 6 MG COUMADIN 1700 ONE 07/05 1700 FL 07/05 PO 07/05 1701 1711 Laboratory Tests 07/06/17 0950: APTT 101 *H 07/06/17 0505: Anion Gap 8, Estimated GFR 32 L, BUN/Creatinine Ratio 10.0, PT 18.9 H, INR 1.72 H, CBC w Diff NO MAN DIFF REQ, RBC 4.05 L, MCV 88.5, MCH 28.6, MCHC 32.3 L, RDW 15.8 H, MPV 7.7, Gran % 72.9, Lymphocytes % 10.2 L, Monocytes % 10.3 H , Eosinophils % 5.9 H, Basophils % 0.7, Absolute Granulocytes 5.3, Absolute Lymphocytes 0.7 L, Absolute Monocytes 0.8 H, Absolute Eosinophils 0.4, Absolute Basophils 0.1, Random Vancomycin 19.0 07/05/17 2100: APTT 70 H 07/05/17 0900: APTT 86 H 07/05/17 0530: Anion Gap 8, Estimated GFR 27 L, BUN/Creatinine Ratio 8.8, PT 14.0 H, INR 1.28 H, CBC w Diff NO MAN DIFF REQ, RBC 3.94 L, MCV 88.6, MCH 28.8, MCHC 32.5 L, RDW 15.9 H, MPV 8.5, Gran % 72.8, Lymphocytes % 11.5 L, Monocytes % 10.9 H, Eosinophils % 4.1, Basophils % 0.7, Absolute Granulocytes 6.4, Absolute Lymphocytes 1.0 L, Absolute Monocytes 1.0 H, Absolute Eosinophils 0.4, Absolute Basophils 0.1, Random Vancomycin 13.4 07/05/17 0245: APTT > 120 *H 07/04/17 1825: APTT 44 H 07/04/17 0540: Anion Gap 7, Estimated GFR 27 L, BUN/Creatinine Ratio 7.9, PT 12.7 H, INR 1.16 , CBC w Diff NO MAN DIFF REQ, RBC 4.21 L, MCV 87.6, MCH 28.8, MCHC 32.8 L, RDW 16.1 H, MPV 7.8, Gran % 73.9, Lymphocytes % 9.7 L, Monocytes % 11.2 H, Eosinophils % 4.7, Basophils % 0.5, Absolute Granulocytes 6.5, Absolute Lymphocytes 0.9 L, Absolute Monocytes 1.0 H, Absolute Eosinophils 0.4, Absolute Basophils 0, Random Vancomycin 19.8 07/03/17 194: Urinalysis LIGHT H, Urine Color BLDY H, Urine Clarity CLDY H, Urine pH 6.5, Ur Specific [place] 1.015, Urine Protein 100 H, Urine Ketones NEG, Urine Nitrite POS H, Urine Bilirubin NEG, Urine Urobilinogen 1.0, Ur Leukocyte Esterase TRACE H, Ur Microscopic SEDIMENT EXAMINED, Urine RBC >75 H, Urine WBC 3-5 H, Ur Epithelial Cells FEW, Urine Bacteria FEW H, Micro UA Comment , Urine Hemoglobin LARGE H, Urine Glucose 100 H 07/03/17 1930: Lactic Acid 1.3 07/03/17 1546: Vancomycin Trough Cancelled 07/03/17 1501: Lactic Acid Cancelled 07/03/17 1217: Anion Gap 14, Estimated GFR 26 L, BUN/Creatinine Ratio 7.6, Glucose 201 H, Hemoglobin A1c 9.8 H, Lactic Acid 2.4 H, Calcium 9.1, Total Bilirubin 0.8, AST 58, ALT 48, Alkaline Phosphatase 134 H, Total Protein 6.8, Albumin 3.4 L, Globulin 3.4, Albumin/Globulin Ratio 1.0 L, CBC w Diff NO MAN DIFF REQ, RBC 4.81, MCV 88.3, MCH 28.6, MCHC 32.3 L, RDW 15.6 H, MPV 7.7, Gran % 85.1 H, Lymphocytes % 4.7 L, Monocytes % 7.8, Eosinophils % 2.2, Basophils % 0.2, Absolute Granulocytes 10.4 H, Absolute Lymphocytes 0.6 L, Absolute Monocytes 1.0 H, Absolute Eosinophils 0.3, Absolute Basophils 0, Vancomycin Trough 25.0 H 07/03/17 1201: PT 12.0, INR 1.10, APTT 51 H, Urine Color Cancelled, Urine Clarity Cancelled, Urine pH Cancelled, Ur Specific [place] Cancelled, Urine Protein Cancelled, Urine Ketones Cancelled, Urine Nitrite Cancelled, Urine Bilirubin Cancelled, Urine Urobilinogen Cancelled, Ur Leukocyte Esterase Cancelled, Ur Microscopic Cancelled, Urine Hemoglobin Cancelled, Urine Glucose Cancelled Microbiology 07/03 2100 BLOOD: Blood Culture - RES 07/03 1944 URINE ROUT: Urine Culture - COMP 07/03 1929 BLOOD: Blood Culture - RES Vital Signs Date Time Temp Pulse Resp B/P B/P Pulse O2 O2 Flow FiO2 Mean Ox Delivery Rate 07/06 0844 96 99/70 07/06 0843 96 99/70 07/06 0718 97.7 56 20 127/64 95 Room Air 07/05 2325 97.9 62 20 124/64 92 Room Air 07/05 1600 96 Room Air 07/05 1506 97.6 61 20 122/62 93 Room Air Intake & Output 07/06 1600 07/06 0800 07/06 0000 Intake Total 800 850 Output Total 1150 1000 Balance -350 -150 Intake, IV 800 550 Intake, Oral 300 Output, Urine 1150 1000 Renal ultrasound No obstructive renal calculi bilaterally. Interval resolution of previously identified right hydronephrosis.
--- NOTE | 2017-07-06 14:12 | PN- Infect Dx ---
Subjective Subjective: Afebrile. He complained of urethral discomfort earlier today, which has resolved with removal of the Garland. He was reportedly short of breath earlier. Objective Last 24 Hrs of Vital Signs/I&O Vital Signs Date Time Temp Pulse Resp B/P B/P Pulse O2 O2 Flow FiO2 Mean Ox Delivery Rate 07/06 0844 96 99/70 07/06 0843 96 99/70 07/06 0800 Room Air 07/06 0718 97.7 56 20 127/64 95 Room Air 07/05 2325 97.9 62 20 124/64 92 Room Air 07/05 1600 96 Room Air 07/05 1506 97.6 61 20 122/62 93 Room Air Intake & Output 07/06 1600 07/06 0800 07/06 0000 Intake Total 800 850 Output Total 1150 1000 Balance -350 -150 Intake, IV 800 550 Intake, Oral 300 Output, Urine 1150 1000 Patient 268 lb Weight Weight Standing Scale Measurement Method Physical Exam Other Physical Findings: He appears comfortable in no acute distress Chest Pro-Line in the right upper chest with no inflammation at the site Lungs decreased breath sounds at both bases Heart regular rhythm with no murmur Back no CVA tenderness Extremities chronic venous stasis changes with 1+ edema both lower extremities Results Last 24 Hours of Lab Results: Laboratory Tests 07/06 07/06 07/05 0950 0505 2100 Chemistry Sodium (137 - 145 mmol/L) 139 Potassium (3.5 - 5.1 mmol/L) 4.3 Chloride (98 - 107 mmol/L) 104 Carbon Dioxide (22 - 30 mmol/L) 27 Anion Gap (5 - 16) 8 BUN (9 - 20 mg/dL) 21 H Creatinine (0.7 - 1.2 mg/dL) 2.1 H Estimated GFR (>60 ml/min) 32 L BUN/Creatinine Ratio (7 - 25 %) 10.0 Coagulation PT (9.4 - 12.5 SEC) 18.9 H INR (0.90 - 1.17) 1.72 H APTT (25 - 37 SEC) 101 *H 70 H Hematology CBC w Diff NO MAN DIFF REQ WBC (4.8 - 10.8 /CUMM) 7.3 RBC (4.70 - 6.10 /CUMM) 4.05 L Hgb (14.0 - 18.0 G/DL) 11.6 L Hct (42 - 52 %) 35.8 L MCV (80.0 - 94.0 FL) 88.5 MCH (27.0 - 31.0 PG) 28.6 MCHC (33.0 - 37.0 G/DL) 32.3 L RDW (11.5 - 14.5 %) 15.8 H Plt Count (130 - 400 /CUMM) 412 H MPV (7.4 - 10.4 FL) 7.7 Gran % (42.2 - 75.2 %) 72.9 Lymphocytes % (20.5 - 51.1 %) 10.2 L Monocytes % (1.7 - 9.3 %) 10.3 H Eosinophils % (0 - 5 %) 5.9 H Basophils % (0.0 - 2.0 %) 0.7 Absolute Granulocytes (1.4 - 6.5 /CUMM) 5.3 Absolute Lymphocytes (1.2 - 3.4 /CUMM) 0.7 L Absolute Monocytes (0.10 - 0.60 /CUMM) 0.8 H Absolute Eosinophils (0.0 - 0.7 /CUMM) 0.4 Absolute Basophils (0.0 - 0.2 /CUMM) 0.1 Toxicology Random Vancomycin (ug/ml) 19.0 Last 24 Hours of Jack Results: Blood cultures 2 July 03 negative Recent Imaging Studies: Renal ultrasound July 05 reveals interval resolution of the previously identified right hydronephrosis Assessment/Plan ID Impression: Stable, with temperatures and white blood cell count remaining normal, on Vancomycin, Day 13 of treatment for MRSA sepsis, diagnosed on his previous hospitalization for left pyelonephritis in the setting of an obstructing calculus, for which he required a cystoscopy and placement of a left ureteral stent on that hospitalization, now 3 days status post repeat cystoscopy with placement of a right ureteral stent for an obstructing calculus of the right kidney. Though his cultures from this admission are negative he should be continued on the Vancomycin for at least 1 week from his most recent instrumentation. His Vancomycin level from today is 19; therefore he should not require any doses today. His creatinine is slowly improving, with Renal evaluation noted and appreciated. Suggestion: 1. Repeat chest x-ray 2. Eventual lithotripsy per Urology as an outpatient 3. Vancomycin random level in the a.m., with further doses based on this level
[2017-07-06 14:45] VITALS: BP 146/68
--- NOTE | 2017-07-06 15:52 | PN- Nephrology ---
Assessment/Plan Nephrology Assessment: 1. ALMAS secondary to obstructive uropathy and possibly an element of intravascular volume depletion - now beginning to improve status post right ureteral stent plus IV fluids 2. Multiple comorbidities as outlined Suggestion: 1. Can discontinue IV fluids tonight or tomorrow morning 2. Antibiotic therapy per ID 3. Monitor vancomycin trough level 4. Continue to monitor intake and output, chemistries daily Subjective Subjective: Patient is in relatively good spirits and without complaints. Garland catheter has been removed. Serum creatinine drifting down to 2.1 today. Electrolytes within normal limits. Patient remains afebrile with normal WBC. All cultures remain negative thus far. Objective Vital Signs and I&Os Vital Signs Date Time Temp Pulse Resp B/P B/P Pulse O2 O2 Flow FiO2 Mean Ox Delivery Rate 07/06 1445 97.7 59 20 146/68 95 Room Air 07/06 0844 96 99/70 07/06 0843 96 99/70 07/06 0800 Room Air 07/06 0718 97.7 56 20 127/64 95 Room Air 07/05 2325 97.9 62 20 124/64 92 Room Air 07/05 1600 96 Room Air Intake & Output 07/06 1600 07/06 0400 07/05 1600 07/05 0400 07/04 1600 07/04 0400 Intake Total 0503 047 6919 407 3600 150 Output Total 2200 1000 2600 1000 900 Balance -731 -150 -6114 550 5300 -750 Intake, IV 969 550 546 988 4216 150 Intake, Oral 500 744 589 6227 Number 0 0 Bowel Movements Output, Urine 2200 1000 2600 1000 900 Patient 268 lb 262 lb 270 lb Weight Weight Standing Scale Bed scale Reported by Patient Measurement Method Physical Exam: General: Well-developed, obese white male in NAD Skin: No rash or jaundice HEENT: Conjunctivae pink, sclerae anicteric, mucous membranes moist Neck: Without masses or thyromegaly, no supraclavicular or cervical adenopathy Chest: Clear to P&A; healed sternotomy scar Heart: Irregular rhythm without S3 or rub Abdomen: Obese, soft and nontender without palpable masses or organomegaly Extremities: 1+ dependent edema bilaterally Neuro: Awake and alert, no focal findings, no asterixis or myoclonus Results Pertinent Lab Results: Laboratory Tests 07/06 07/06 07/05 07/05 0950 0505 2100 0900 Chemistry Sodium (137 - 145 mmol/L) 139 Potassium (3.5 - 5.1 mmol/L) 4.3 Chloride (98 - 107 mmol/L) 104 Carbon Dioxide (22 - 30 mmol/L) 27 Anion Gap (5 - 16) 8 BUN (9 - 20 mg/dL) 21 H Creatinine (0.7 - 1.2 mg/dL) 2.1 H Estimated GFR (>60 ml/min) 32 L BUN/Creatinine Ratio (7 - 25 %) 10.0 Coagulation PT (9.4 - 12.5 SEC) 18.9 H INR (0.90 - 1.17) 1.72 H APTT (25 - 37 SEC) 101 *H 70 H 86 H Hematology CBC w Diff NO MAN DIFF REQ WBC (4.8 - 10.8 /CUMM) 7.3 RBC (4.70 - 6.10 /CUMM) 4.05 L Hgb (14.0 - 18.0 G/DL) 11.6 L Hct (42 - 52 %) 35.8 L MCV (80.0 - 94.0 FL) 88.5 MCH (27.0 - 31.0 PG) 28.6 MCHC (33.0 - 37.0 G/DL) 32.3 L RDW (11.5 - 14.5 %) 15.8 H Plt Count (130 - 400 /CUMM) 412 H MPV (7.4 - 10.4 FL) 7.7 Gran % (42.2 - 75.2 %) 72.9 Lymphocytes % (20.5 - 51.1 %) 10.2 L Monocytes % (1.7 - 9.3 %) 10.3 H Eosinophils % (0 - 5 %) 5.9 H Basophils % (0.0 - 2.0 %) 0.7 Absolute Granulocytes (1.4 - 6.5 /CUMM) 5.3 Absolute Lymphocytes (1.2 - 3.4 /CUMM) 0.7 L Absolute Monocytes (0.10 - 0.60 /CUMM) 0.8 H Absolute Eosinophils (0.0 - 0.7 /CUMM) 0.4 Absolute Basophils (0.0 - 0.2 /CUMM) 0.1 Toxicology Random Vancomycin (ug/ml) 19.0 07/05 07/05 07/04 0530 0245 1825 Chemistry Sodium (137 - 145 mmol/L) 138 Potassium (3.5 - 5.1 mmol/L) 4.6 Chloride (98 - 107 mmol/L) 103 Carbon Dioxide (22 - 30 mmol/L) 27 Anion Gap (5 - 16) 8 BUN (9 - 20 mg/dL) 21 H Creatinine (0.7 - 1.2 mg/dL) 2.4 H Estimated GFR (>60 ml/min) 27 L BUN/Creatinine Ratio (7 - 25 %) 8.8 Coagulation PT (9.4 - 12.5 SEC) 14.0 H INR (0.90 - 1.17) 1.28 H APTT (25 - 37 SEC) > 120 *H 44 H Hematology CBC w Diff NO MAN DIFF REQ WBC (4.8 - 10.8 /CUMM) 8.8 RBC (4.70 - 6.10 /CUMM) 3.94 L Hgb (14.0 - 18.0 G/DL) 11.3 L Hct (42 - 52 %) 34.9 L MCV (80.0 - 94.0 FL) 88.6 MCH (27.0 - 31.0 PG) 28.8 MCHC (33.0 - 37.0 G/DL) 32.5 L RDW (11.5 - 14.5 %) 15.9 H Plt Count (130 - 400 /CUMM) 377 MPV (7.4 - 10.4 FL) 8.5 Gran % (42.2 - 75.2 %) 72.8 Lymphocytes % (20.5 - 51.1 %) 11.5 L Monocytes % (1.7 - 9.3 %) 10.9 H Eosinophils % (0 - 5 %) 4.1 Basophils % (0.0 - 2.0 %) 0.7 Absolute Granulocytes (1.4 - 6.5 /CUMM) 6.4 Absolute Lymphocytes (1.2 - 3.4 /CUMM) 1.0 L Absolute Monocytes (0.10 - 0.60 /CUMM) 1.0 H Absolute Eosinophils (0.0 - 0.7 /CUMM) 0.4 Absolute Basophils (0.0 - 0.2 /CUMM) 0.1 Toxicology Random Vancomycin (ug/ml) 13.4 05/20 05/ 0540 1945 Chemistry Sodium (137 - 145 mmol/L) 137 Potassium (3.5 - 5.1 mmol/L) 4.6 Chloride (98 - 107 mmol/L) 102 Carbon Dioxide (22 - 30 mmol/L) 29 Anion Gap (5 - 16) 7 BUN (9 - 20 mg/dL) 19 Creatinine (0.7 - 1.2 mg/dL) 2.4 H Estimated GFR (>60 ml/min) 27 L BUN/Creatinine Ratio (7 - 25 %) 7.9 Coagulation PT (9.4 - 12.5 SEC) 12.7 H INR (0.90 - 1.17) 1.16 Hematology CBC w Diff NO MAN DIFF REQ WBC (4.8 - 10.8 /CUMM) 8.9 RBC (4.70 - 6.10 /CUMM) 4.21 L Hgb (14.0 - 18.0 G/DL) 12.1 L Hct (42 - 52 %) 36.9 L MCV (80.0 - 94.0 FL) 87.6 MCH (27.0 - 31.0 PG) 28.8 MCHC (33.0 - 37.0 G/DL) 32.8 L RDW (11.5 - 14.5 %) 16.1 H Plt Count (130 - 400 /CUMM) 413 H MPV (7.4 - 10.4 FL) 7.8 Gran % (42.2 - 75.2 %) 73.9 Lymphocytes % (20.5 - 51.1 %) 9.7 L Monocytes % (1.7 - 9.3 %) 11.2 H Eosinophils % (0 - 5 %) 4.7 Basophils % (0.0 - 2.0 %) 0.5 Absolute Granulocytes (1.4 - 6.5 /CUMM) 6.5 Absolute Lymphocytes (1.2 - 3.4 /CUMM) 0.9 L Absolute Monocytes (0.10 - 0.60 /CUMM) 1.0 H Absolute Eosinophils (0.0 - 0.7 /CUMM) 0.4 Absolute Basophils (0.0 - 0.2 /CUMM) 0 Toxicology Random Vancomycin (ug/ml) 19.8 Urines Urinalysis LIGHT H Urine Color (YEL,AMB,STR) BLDY H Urine Clarity (CLEAR) CLDY H Urine pH (5.0 - 8.0) 6.5 Ur Specific [place] (1.001 - 1.035) 1.015 Urine Protein (NEG,<30 MG/DL) 100 H Urine Ketones (NEG) NEG Urine Nitrite (NEG) POS H Urine Bilirubin (NEG) NEG Urine Urobilinogen (0.1 - 1.0 EU/dl) 1.0 Ur Leukocyte Esterase (NEG) TRACE H Ur Microscopic SEDIMENT EXAMINED Urine RBC (0 - 5 /HPF) >75 H Urine WBC (0 - 2 /HPF) 3-5 H Ur Epithelial Cells (NONE,FEW) FEW Urine Bacteria (NEG/NONE) FEW H Micro UA Comment Urine Hemoglobin (NEG) LARGE H Urine Glucose (N MG/DL) 100 H 07/03 1929 Chemistry Lactic Acid (0.7 - 2.1 mmol/L) 1.3
--- NOTE | 2017-07-06 17:32 | RADIOLOGY REPORT ---
EXAMINATION: CHEST 2 VIEWS CLINICAL INFORMATION: Shortness of breath. COMPARISON: 06/23/2017. TECHNIQUE: PA and lateral views of the chest were obtained. FINDINGS: The cardiac silhouette is enlarged, though stable. Intact midline sternal wires are present. A right central venous line is in place. The tip overlies the distal SVC. The mediastinal and hilar contours are unremarkable. There are no pneumothoraces. There is mild interstitial prominence throughout both lungs. There is blunting of the left lateral costophrenic angle. There are no consolidations. The osseous structures are unremarkable. IMPRESSION: Likely small left pleural effusion. Mild interstitial prominence likely indicative of mild vascular congestion. No consolidations.
[2017-07-06 19:10] LABS: PTT 56 SEC (25-37)
[2017-07-06 21:08] VITALS: BP 140/73
[2017-07-07 02:38] LABS: PTT 92 SEC (25-37)
[2017-07-07 05:57] LABS: PT 29.7 SEC (9.4-12.5)
[2017-07-07 06:12] VITALS: BP 144/76
[2017-07-07 09:51] LABS: ABSOLUTE BASOPHIL COUNT 0.1 /CUMM (0.0-0.2); ABSOLUTE EOSINOPHIL COUNT 0.4 /CUMM (0.0-0.7); ABSOLUTE GRANULOCYTE CT 5.9 /CUMM (1.4-6.5); ABSOLUTE LYMPH COUNT 0.8 /CUMM (1.2-3.4); ABSOLUTE MONOCYTE COUNT 0.7 /CUMM (0.10-0.60); BASOPHIL % 1.1 % (0.0-2.0); EOSINOPHIL % 4.9 % (0-5); GRANULOCYTE % 74.4 % (42.2-75.2); HEMATOCRIT 38.8 % (42-52); MEAN CORPUSCULAR HGB 29.1 PG (27.0-31.0); MEAN CORPUSCULAR HGB CONC 33.2 G/DL (33.0-37.0); MEAN CORPUSCULAR VOLUME 87.6 FL (80.0-94.0); MEAN PLATELET VOLUME 8.2 FL (7.4-10.4); PLATELET COUNT 454 /CUMM (130-400); RBC DISTRIBUTION WIDTH 15.8 % (11.5-14.5); RED BLOOD CELL CT 4.42 /CUMM (4.70-6.10); WHITE BLOOD CELL COUNT 7.9 /CUMM (4.8-10.8)
[2017-07-07 10:07] LABS: PTT 42 SEC (25-37)
--- NOTE | 2017-07-07 12:05 | PN- Infect Dx ---
Subjective Subjective: Afebrile. He feels well today without complaints Objective Last 24 Hrs of Vital Signs/I&O Vital Signs Date Time Temp Pulse Resp B/P B/P Pulse O2 O2 Flow FiO2 Mean Ox Delivery Rate 07/07 0817 60 144/76 07/07 0816 60 144/76 07/07 0800 Room Air 07/07 0612 97.8 60 24 144/76 96 Room Air 07/06 2108 97.8 77 20 140/73 94 07/06 1445 97.7 59 20 146/68 95 Room Air Intake & Output 07/07 1600 07/07 0800 07/07 0000 Intake Total 300 160 132 Output Total 700 750 Balance 300 -540 -618 Intake, IV 160 132 Intake, Oral 300 Output, Urine 700 750 Physical Exam Other Physical Findings: He appears comfortable in no acute distress Chest Pro-Line in the right upper chest with no inflammation at the site Lungs are clear Heart regular rhythm with no murmur Back no CVA tenderness Results Last 24 Hours of Lab Results: Laboratory Tests 07/07 07/07 07/07 07/07 1020 0859 0530 0200 Chemistry Sodium (137 - 145 mmol/L) 137 Potassium (3.5 - 5.1 mmol/L) 5.1 Chloride (98 - 107 mmol/L) 102 Carbon Dioxide (22 - 30 mmol/L) 26 Anion Gap (5 - 16) 8 BUN (9 - 20 mg/dL) 21 H Creatinine (0.7 - 1.2 mg/dL) 2.0 H Estimated GFR (>60 ml/min) 34 L BUN/Creatinine Ratio (7 - 25 %) 10.5 Coagulation PT (9.4 - 12.5 SEC) 29.7 H INR (0.90 - 1.17) 2.70 H APTT (25 - 37 SEC) 42 H 92 H Hematology CBC w Diff NO MAN DIFF REQ WBC (4.8 - 10.8 /CUMM) 7.9 RBC (4.70 - 6.10 /CUMM) 4.42 L Hgb (14.0 - 18.0 G/DL) 12.9 L Hct (42 - 52 %) 38.8 L MCV (80.0 - 94.0 FL) 87.6 MCH (27.0 - 31.0 PG) 29.1 MCHC (33.0 - 37.0 G/DL) 33.2 RDW (11.5 - 14.5 %) 15.8 H Plt Count (130 - 400 /CUMM) 454 H MPV (7.4 - 10.4 FL) 8.2 Gran % (42.2 - 75.2 %) 74.4 Lymphocytes % (20.5 - 51.1 %) 10.4 L Monocytes % (1.7 - 9.3 %) 9.2 Eosinophils % (0 - 5 %) 4.9 Basophils % (0.0 - 2.0 %) 1.1 Absolute Granulocytes (1.4 - 6.5 /CUMM) 5.9 Absolute Lymphocytes (1.2 - 3.4 /CUMM) 0.8 L Absolute Monocytes (0.10 - 0.60 /CUMM) 0.7 H Absolute Eosinophils (0.0 - 0.7 /CUMM) 0.4 Absolute Basophils (0.0 - 0.2 /CUMM) 0.1 Toxicology Random Vancomycin (ug/ml) 11.7 07/06 1749 Coagulation APTT (25 - 37 SEC) 56 H Last 24 Hours of Jack Results: Blood cultures 2 July 03 negative Recent Imaging Studies: Chest x-ray July 06 reveals a small left pleural effusion with mild interstitial prominence, suggesting mild vascular congestion Assessment/Plan ID Impression: Stable, with temperatures and white blood cell count remaining normal, on Vancomycin, Day 14 of treatment for MRSA sepsis, diagnosed on his previous hospitalization, secondary to left pyelonephritis in the setting of an obstructing calculus, for which he required a cystoscopy and placement of a left ureteral stent on that hospitalization, now 4 days status post repeat cystoscopy with placement of a right ureteral stent for an obstructing calculus of the right kidney. Though his cultures from this admission are negative he should be continued on the Vancomycin for at least 1 week from his most recent instrumentation. His renal function appears to be slowly improving, though it is not back to his baseline. His chest x-ray does reveal mild vascular congestion and he may need to be restarted on his diuretic. Suggestion: 1. Further management with regard to resuming his Lasix per Renal 2. Eventual lithotripsy per Urology as an outpatient 3. Redose with Vancomycin 1.5 g IV today and again on July 09, after which can discontinue Vancomycin and remove the Pro-Line
[2017-07-07] MEDS ORDERED: VANCO 1.51.5 GM/250 IV (12:46)
--- NOTE | 2017-07-07 13:04 | PN- Nephrology ---
Assessment/Plan Nephrology Assessment: 1. ALMAS secondary to obstructive uropathy and possibly an element of intravascular volume depletion - improved with creatinine down to 2.0 (baseline 1.2); status post right ureteral stent plus IV fluids 2. Multiple comorbidities as outlined Suggestion: 1. Mobilize 2. Patient cleared for discharge from renal standpoint; should have outpatient renal follow-up Subjective Subjective: Patient offers no complaints. He remains afebrile with stable vital signs. Creatinine 2.0 where it appears to have stabilized. Excellent urine output. Objective Vital Signs and I&Os Vital Signs Date Time Temp Pulse Resp B/P B/P Pulse O2 O2 Flow FiO2 Mean Ox Delivery Rate 07/07 0817 60 144/76 07/07 0816 60 144/76 07/07 0800 Room Air 07/07 0612 97.8 60 24 144/76 96 Room Air 07/06 2108 97.8 77 20 140/73 94 07/06 1445 97.7 59 20 146/68 95 Room Air Intake & Output 07/07 1600 07/07 0400 07/06 1600 07/06 0400 07/05 1600 07/05 0400 Intake Total 503 030 9916 850 1600 407 Output Total 798 886 1168 1000 2600 Balance -40 -618 -731 -150 -1000 407 Intake, IV 160 132 969 550 800 407 Intake, Oral 500 500 300 800 Number 0 Bowel Movements Output, Urine 016 037 1524 1000 2600 Patient 268 lb 262 lb Weight Weight Standing Scale Bed scale Measurement Method Physical Exam: General: Well-developed, obese white male in NAD Skin: No rash or jaundice HEENT: Conjunctivae pink, sclerae anicteric, mucous membranes moist Neck: Without masses or thyromegaly, no supraclavicular or cervical adenopathy Chest: Clear to P&A; healed sternotomy scar Heart: Irregular rhythm without S3 or rub Abdomen: Obese, soft and nontender without palpable masses or organomegaly Extremities: 1+ dependent edema bilaterally Neuro: Awake and alert, no focal findings, no asterixis or myoclonus Results Pertinent Lab Results: Laboratory Tests 07/07 07/07 07/07 07/07 1020 0859 0530 0200 Chemistry Sodium (137 - 145 mmol/L) 137 Potassium (3.5 - 5.1 mmol/L) 5.1 Chloride (98 - 107 mmol/L) 102 Carbon Dioxide (22 - 30 mmol/L) 26 Anion Gap (5 - 16) 8 BUN (9 - 20 mg/dL) 21 H Creatinine (0.7 - 1.2 mg/dL) 2.0 H Estimated GFR (>60 ml/min) 34 L BUN/Creatinine Ratio (7 - 25 %) 10.5 Coagulation PT (9.4 - 12.5 SEC) 29.7 H INR (0.90 - 1.17) 2.70 H APTT (25 - 37 SEC) 42 H 92 H Hematology CBC w Diff NO MAN DIFF REQ WBC (4.8 - 10.8 /CUMM) 7.9 RBC (4.70 - 6.10 /CUMM) 4.42 L Hgb (14.0 - 18.0 G/DL) 12.9 L Hct (42 - 52 %) 38.8 L MCV (80.0 - 94.0 FL) 87.6 MCH (27.0 - 31.0 PG) 29.1 MCHC (33.0 - 37.0 G/DL) 33.2 RDW (11.5 - 14.5 %) 15.8 H Plt Count (130 - 400 /CUMM) 454 H MPV (7.4 - 10.4 FL) 8.2 Gran % (42.2 - 75.2 %) 74.4 Lymphocytes % (20.5 - 51.1 %) 10.4 L Monocytes % (1.7 - 9.3 %) 9.2 Eosinophils % (0 - 5 %) 4.9 Basophils % (0.0 - 2.0 %) 1.1 Absolute Granulocytes (1.4 - 6.5 /CUMM) 5.9 Absolute Lymphocytes (1.2 - 3.4 /CUMM) 0.8 L Absolute Monocytes (0.10 - 0.60 /CUMM) 0.7 H Absolute Eosinophils (0.0 - 0.7 /CUMM) 0.4 Absolute Basophils (0.0 - 0.2 /CUMM) 0.1 Toxicology Random Vancomycin (ug/ml) 11.7 07/06 07/06 07/06 07/05 1749 0950 0505 2100 Chemistry Sodium (137 - 145 mmol/L) 139 Potassium (3.5 - 5.1 mmol/L) 4.3 Chloride (98 - 107 mmol/L) 104 Carbon Dioxide (22 - 30 mmol/L) 27 Anion Gap (5 - 16) 8 BUN (9 - 20 mg/dL) 21 H Creatinine (0.7 - 1.2 mg/dL) 2.1 H Estimated GFR (>60 ml/min) 32 L BUN/Creatinine Ratio (7 - 25 %) 10.0 Coagulation PT (9.4 - 12.5 SEC) 18.9 H INR (0.90 - 1.17) 1.72 H APTT (25 - 37 SEC) 56 H 101 *H 70 H Hematology CBC w Diff NO MAN DIFF REQ WBC (4.8 - 10.8 /CUMM) 7.3 RBC (4.70 - 6.10 /CUMM) 4.05 L Hgb (14.0 - 18.0 G/DL) 11.6 L Hct (42 - 52 %) 35.8 L MCV (80.0 - 94.0 FL) 88.5 MCH (27.0 - 31.0 PG) 28.6 MCHC (33.0 - 37.0 G/DL) 32.3 L RDW (11.5 - 14.5 %) 15.8 H Plt Count (130 - 400 /CUMM) 412 H MPV (7.4 - 10.4 FL) 7.7 Gran % (42.2 - 75.2 %) 72.9 Lymphocytes % (20.5 - 51.1 %) 10.2 L Monocytes % (1.7 - 9.3 %) 10.3 H Eosinophils % (0 - 5 %) 5.9 H Basophils % (0.0 - 2.0 %) 0.7 Absolute Granulocytes (1.4 - 6.5 /CUMM) 5.3 Absolute Lymphocytes (1.2 - 3.4 /CUMM) 0.7 L Absolute Monocytes (0.10 - 0.60 /CUMM) 0.8 H Absolute Eosinophils (0.0 - 0.7 /CUMM) 0.4 Absolute Basophils (0.0 - 0.2 /CUMM) 0.1 Toxicology Random Vancomycin (ug/ml) 19.0 07/05 07/05 07/05 07/04 0900 0530 0245 1825 Chemistry Sodium (137 - 145 mmol/L) 138 Potassium (3.5 - 5.1 mmol/L) 4.6 Chloride (98 - 107 mmol/L) 103 Carbon Dioxide (22 - 30 mmol/L) 27 Anion Gap (5 - 16) 8 BUN (9 - 20 mg/dL) 21 H Creatinine (0.7 - 1.2 mg/dL) 2.4 H Estimated GFR (>60 ml/min) 27 L BUN/Creatinine Ratio (7 - 25 %) 8.8 Coagulation PT (9.4 - 12.5 SEC) 14.0 H INR (0.90 - 1.17) 1.28 H APTT (25 - 37 SEC) 86 H > 120 *H 44 H Hematology CBC w Diff NO MAN DIFF REQ WBC (4.8 - 10.8 /CUMM) 8.8 RBC (4.70 - 6.10 /CUMM) 3.94 L Hgb (14.0 - 18.0 G/DL) 11.3 L Hct (42 - 52 %) 34.9 L MCV (80.0 - 94.0 FL) 88.6 MCH (27.0 - 31.0 PG) 28.8 MCHC (33.0 - 37.0 G/DL) 32.5 L RDW (11.5 - 14.5 %) 15.9 H Plt Count (130 - 400 /CUMM) 377 MPV (7.4 - 10.4 FL) 8.5 Gran % (42.2 - 75.2 %) 72.8 Lymphocytes % (20.5 - 51.1 %) 11.5 L Monocytes % (1.7 - 9.3 %) 10.9 H Eosinophils % (0 - 5 %) 4.1 Basophils % (0.0 - 2.0 %) 0.7 Absolute Granulocytes (1.4 - 6.5 /CUMM) 6.4 Absolute Lymphocytes (1.2 - 3.4 /CUMM) 1.0 L Absolute Monocytes (0.10 - 0.60 /CUMM) 1.0 H Absolute Eosinophils (0.0 - 0.7 /CUMM) 0.4 Absolute Basophils (0.0 - 0.2 /CUMM) 0.1 Toxicology Random Vancomycin (ug/ml) 13.4
--- NOTE | 2017-07-07 13:25 | PN- Att Addend ---
Attending Addendum Attending Brief Note Patient seen and examined. Plan of care discussed with the medical team and the patient. Available lab work and radiology test reports were reviewed. He has been afebrile. Denies any difficulty breathing or chest pains. Complains of bilateral hand swelling. He was able to walk yesterday. Exam: General: Patient awake alert oriented without any distress CVS: S1 plus S2 without any murmur or gallops Chest: Few scattered crepitation without any wheeze. There is no respiratory distress. 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 fib * Diabetes currently on insulin * Hematuria Plan * Adjust vancomycin as per ID recommendations; patient last dose to be given on July 09 * Discontinue heparin and continue Coumadin since INR is therapeutic * If agreed by nephrology patient can be discharged home with close follow-up; he will need a BP check as outpatient early next week * Resume Lasix if okay with nephrology * Patient can be discharged home today Current Medications Sig/Sj Start time Last Medication Dose Route Stop Time Status Admin Acetaminophen 1,000 MG Q8 07/04 1400 AC 07/05 N/A 1 UNIT IV 210 Amiodarone HCl 200 MG QAM 07/04 0900 AC 07/07 PO 0816 Aspirin Buffered 81 MG DAILY 07/04 0900 AC 07/07 PO 0816 Atorvastatin Calcium 20 MG DAILY 07/04 0900 AC 07/07 PO 0816 Clopidogrel Bisulfate 75 MG QAM 07/04 0900 AC 07/07 PO 0817 Guaifenesin 600 MG Q12 07/06 1058 AC 07/07 PO 0817 Heparin Sodium 4,800 UNIT ONCE ONE 07/07 1999 DC 07/06 (Porcine) IV 07/06 Heparin Sodium 5,000 UNIT .STK-MED ONE 07/07 1955 DC (Porcine) IV 07/06 1956 Heparin Sodium 25,000 UNIT Q24H 07/04 1000 DC 07/07 (Porcine) IV 0300 Sodium Chloride 500 ML Hydromorphone HCl 1 MG Q3P PRN 07/05 0945 AC 07/07 IV 0155 Insulin Aspart 0 TIDAC 07/03 1700 AC 07/07 SC 1220 Insulin Detemir 10 UNITS BID 07/03 2100 AC 07/07 SC 0818 Levothyroxine Sodium 0.125 MG DAILY AC 07/04 0700 AC 07/07 PO 0525 Patient Medication 1 ED ONE ONE 07/06 1714 AL 07/06 Teaching ED 07/06 171 1742 Tamsulosin HCl 0.4 MG DAILY 07/04 0900 AC 07/07 PO 0817 Vancomycin HCl 1,500 MG ONCE ONE 07/07 1330 AC Sodium Chloride 250 ML IV 07/07 1459 Warfarin Sodium 5 MG COUMADIN 1700 ONE 07/06 1700 AL 07/06 PO 07/06 1701 1741 Laboratory Tests 07/07/17 1020: Anion Gap 8, Estimated GFR 34 L, BUN/Creatinine Ratio 10.5, Random Vancomycin 11.7 07/07/17 0859: APTT 42 H, CBC w Diff NO MAN DIFF REQ, RBC 4.42 L, MCV 87.6, MCH 29.1, MCHC 33.2, RDW 15.8 H, MPV 8.2, Gran % 74.4, Lymphocytes % 10.4 L, Monocytes % 9.2, Eosinophils % 4.9, Basophils % 1.1, Absolute Granulocytes 5.9, Absolute Lymphocytes 0.8 L, Absolute Monocytes 0.7 H, Absolute Eosinophils 0.4, Absolute Basophils 0.1 07/07/17 0530: PT 29.7 H, INR 2.70 H 07/07/17 0200: APTT 92 H 07/06/17 1749: APTT 56 H 07/06/17 0950: APTT 101 *H 07/06/17 0505: Anion Gap 8, Estimated GFR 32 L, BUN/Creatinine Ratio 10.0, PT 18.9 H, INR 1.72 H, CBC w Diff NO MAN DIFF REQ, RBC 4.05 L, MCV 88.5, MCH 28.6, MCHC 32.3 L, RDW 15.8 H, MPV 7.7, Gran % 72.9, Lymphocytes % 10.2 L, Monocytes % 10.3 H , Eosinophils % 5.9 H, Basophils % 0.7, Absolute Granulocytes 5.3, Absolute Lymphocytes 0.7 L, Absolute Monocytes 0.8 H, Absolute Eosinophils 0.4, Absolute Basophils 0.1, Random Vancomycin 19.0 07/05/17 2100: APTT 70 H 07/05/17 0900: APTT 86 H 07/05/17 0530: Anion Gap 8, Estimated GFR 27 L, BUN/Creatinine Ratio 8.8, PT 14.0 H, INR 1.28 H, CBC w Diff NO MAN DIFF REQ, RBC 3.94 L, MCV 88.6, MCH 28.8, MCHC 32.5 L, RDW 15.9 H, MPV 8.5, Gran % 72.8, Lymphocytes % 11.5 L, Monocytes % 10.9 H, Eosinophils % 4.1, Basophils % 0.7, Absolute Granulocytes 6.4, Absolute Lymphocytes 1.0 L, Absolute Monocytes 1.0 H, Absolute Eosinophils 0.4, Absolute Basophils 0.1, Random Vancomycin 13.4 07/05/17 0245: APTT > 120 *H 07/04/17 1825: APTT 44 H Vital Signs Date Time Temp Pulse Resp B/P B/P Pulse O2 O2 Flow FiO2 Mean Ox Delivery Rate 07/07 0817 60 144/76 07/07 0816 60 144/76 07/07 0800 Room Air 07/07 0612 97.8 60 24 144/76 96 Room Air 07/06 2108 97.8 77 20 140/73 94 07/06 1445 97.7 59 20 146/68 95 Room Air Intake & Output 07/07 1600 07/07 0800 07/07 0000 Intake Total 500 160 132 Output Total 700 750 Balance 500 -540 -618 Intake, IV 160 132 Intake, Oral 500 Output, Urine 700 750 cxr Likely small left pleural effusion. Mild interstitial prominence likely indicative of mild vascular congestion. No consolidations.
[2017-07-07 14:01] VITALS: BP 110/60
--- NOTE | 2017-07-07 15:29 | Patient Discharge Instructions ---
Discharge Instructions General Discharge Information You were seen/treated for: Right hydroureteronephrosis due to right ureteric stone s/p stent placement: Special Instructions: -Please follow-up with her primary care doctor after discharge -Please follow-up with Dr. Harman after discharge -Please follow-up with Coumadin clinic -you have been provided with a prescription for creatinine and INR check on 07/12 pressures will be forwarded to director business travel and your PCP -Please follow-up with urologist after discharge -Pro-line needs to be removed after lastb dose of vancomycin Diet Recommended Diet: Diabetic Activity Activity Self Limited: Yes Acute Coronary Syndrome Inclusion Criteria At DC or during hospital stay patient has or had the following: ACS DIAGNOSIS No Discharge Core Measures Meds if any: Prescribed or Continued at Discharge Meds if any: NOT Prescribed or Continued at Discharge Congestive Heart Failure Inclusion Criteria At DC or during hospital stay patient has or had the following: CHF DIAGNOSIS No Discharge Core Measures Meds if any: Prescribed or Continued at Discharge Meds if any: NOT Prescribed or Continued at Discharge Cerebrovascular accident Inclusion Criteria At DC or during hospital stay patient has or had the following: CVA/TIA Diagnosis No Discharge Core Measures Meds if any: Prescribed or Continued at Discharge Meds if any: NOT Prescribed or Continued at Discharge Venous thromboembolism Inclusion Criteria VTE Diagnosis No VTE Type NONE VTE Confirmed by (Test) NONE Discharge Core Measures - Per Current guidelines, there needs to be overlap - treatment for the first 5 days of Warfarin therapy. - If discharged on Warfarin prior to 5 days of - overlap therapy, the patient will need to be - assessed for post discharge needs including - *Post discharge parental anticoagulation - *Warfarin and/or parental anticoagulation education - *Follow up date to check INR post discharge At least 5 days overlap therapy as Inpatient No Meds if any: Prescribed or Continued at Discharge Note: Overlap Therapy is Warfarin and Anticoagulant Meds if any: NOT Prescribed or Continued at Discharge
--- NOTE | 2017-07-07 17:50 | PN- Housestaff ---
Subjective Follow-up For: Right hydroureteronephrosis due to a right ureteric stone status post right ureteric stent placement. Acute on chronic kidney injury Subjective: seen and examined. offers no complains, denises fever. reports SOB unchanged from baseline. Anxious to be discharged home Review of Systems Constitutional: Reports: see HPI. Objective Last 24 Hrs of Vital Signs/I&O Vital Signs Date Time Temp Pulse Resp B/P B/P Pulse O2 O2 Flow FiO2 Mean Ox Delivery Rate 07/07 1401 97.6 66 24 110/60 95 Room Air 07/07 0817 60 144/76 07/07 0816 60 144/76 07/07 0800 Room Air 07/07 0612 97.8 60 24 144/76 96 Room Air 07/06 2108 97.8 77 20 140/73 94 Intake & Output 07/07 1600 07/07 0800 07/07 0000 Intake Total 1416 160 132 Output Total 1100 700 750 Balance 316 -540 -618 Intake, IV 66 160 132 Intake, Oral 1350 Number 1 Bowel Movements Output, Urine 1100 700 750 Physical Exam General Appearance: Alert, Oriented X3, Cooperative Cardiovascular: Normal S1, Normal S2 Lungs: Clear to Auscultation, Normal Air Movement Abdomen: Soft Neurological: Normal Speech Current Medications: Current Medications Sig/Sj Start time Last Medication Dose Route Stop Time Status Admin Acetaminophen 1,000 MG Q8 07/04 1400 AC 07/05 N/A 1 UNIT IV 2101 Amiodarone HCl 200 MG QAM 07/04 0900 AC 07/07 PO 0816 Aspirin Buffered 81 MG DAILY 07/04 0900 AC 07/07 PO 0816 Atorvastatin Calcium 20 MG DAILY 07/04 0900 AC 07/07 PO 0816 Clopidogrel Bisulfate 75 MG QAM 07/04 0900 AC 07/07 PO 0817 Guaifenesin 600 MG Q12 07/06 1058 AC 07/07 PO 0817 Heparin Sodium 4,800 UNIT ONCE ONE 07/07 1999 DC 07/06 (Porcine) IV 07/06 Heparin Sodium 5,000 UNIT .STK-MED ONE 07/07 1955 DC (Porcine) IV 07/06 1956 Heparin Sodium 25,000 UNIT Q24H 07/04 1000 DC 07/07 (Porcine) IV 0300 Sodium Chloride 500 ML Hydromorphone HCl 1 MG Q3P PRN 07/05 0945 AC 07/07 IV 0155 Insulin Aspart 0 TIDAC 07/03 1700 AC 07/07 SC 1220 Insulin Detemir 10 UNITS BID 07/03 2100 AC 07/07 SC 0818 Levothyroxine Sodium 0.125 MG DAILY AC 07/04 0700 AC 07/07 PO 0525 Tamsulosin HCl 0.4 MG DAILY 07/04 0900 AC 07/07 PO 0817 Vancomycin HCl 1,500 MG ONCE ONE 07/07 1330 DC 07/07 Sodium Chloride 250 ML IV 07/07 1459 1423 Last 24 Hrs of Lab/Jack Results Last 24 Hrs of Labs/Mics: Laboratory Tests 07/07/17 1020: Anion Gap 8, Estimated GFR 34 L, BUN/Creatinine Ratio 10.5, Random Vancomycin 11.7 07/07/17 0859: APTT 42 H, CBC w Diff NO MAN DIFF REQ, RBC 4.42 L, MCV 87.6, MCH 29.1, MCHC 33.2, RDW 15.8 H, MPV 8.2, Gran % 74.4, Lymphocytes % 10.4 L, Monocytes % 9.2, Eosinophils % 4.9, Basophils % 1.1, Absolute Granulocytes 5.9, Absolute Lymphocytes 0.8 L, Absolute Monocytes 0.7 H, Absolute Eosinophils 0.4, Absolute Basophils 0.1 07/07/17 0530: PT 29.7 H, INR 2.70 H 07/07/17 0200: APTT 92 H Assessment/Plan Assessment: The patient is 66-year-old gentleman with past medical history significant for dyslipidemia, hypertension, insulin-dependent diabetes, colon cancer status post colostomy, paroxysmal atrial fibrillation on anticoagulation, history of DVT and pulmonary embolism status post IVC filter placement, CAD status post CABG, COPD. He has history of kidney stones and pyelonephritis status post left ureteric stent placement on June 23 (admitted at [facility] with pyelonephritis from June 23 to June 30) and was found to have MRSA growing in his urine and was discharged on 1.75 mg of vancomycin daily after placing the pro line. The patient presented with right-sided flank pain and found to have another obstructing stone almost 1 cm at the UVJ requiring urgent stent placement. He was also noted to have elevated leukocyte count while on vancomycin and ALMAS most likely prerenal as left stent is in place and no hydroureter or hydronephrosis seen on left side. The patient is being treated and evaluated for following conditions #Right hydroureteronephrosis due to right ureteric stone s/p stent placement: -Pain management according to pain pathway. Patient will get Dilaudid for severe pain when necessary. -We're going to discontinue Garland catheter today -Follow-up urology recommendation -Eventual lithotripsy per Urology as an outpatient #Recent MRSA infection and pyelonephritis: -Patient was recently discharged with pro line to complete antibiotic course for 2 weeks as his echocardiogram was negative for endocarditis. Considering his worsening GFR his vancomycin was temporarily discontinued. -Redose with Vancomycin 1.5 g IV today and again on July 09, after which can discontinue Vancomycin and remove the Pro-Line #Acute on chronic kidney injury: Patient has hx of stage III chronic kidney disease. Presented with GFR 26 and creatinine level 2.5 -Cr 2.0 today slowly improving -IV gentle hydration -I talked to Dr. Ling, who recommeded starting lasix and Cr check in early next week with nephrology follow up. Script for Cr and referal for nephrology has been provided #History of atrial fibrillation on Coumadin: -Continue Coumadin 2.5 4 times a week -INR today 2.7 -Continue amiodarone for rhythm controm -Follow up INR with PCP and coumadin clinic, script for INR check provided -further management per PCP as outpt #History of hyperlipidemia and hypertension: -Continue his home medications #History of CAD status post CABG and stent placement: -Continue aspirin and Plavix #History of hypothyroidism: -Continue levothyroxine #History of BPH: -Continue Flomax Diabetic diet/DVT prophylaxis with Coumadin and IV heparin/full code Problem List: 1. Diabetes Pain Ratin Pain Location: n/a Pain Goal: Pain 4 or less Pain Plan: prn Tomorrow's Labs & Rationales: none
--- NOTE | 2017-07-07 18:13 | Discharge Summary ---
Visit Information Visit Dates Admission Date: 07/03/17 Discharge Date: 07/07/17 Hospital Course Course Attending Physician: Natali MATHEW,Alejandro Primary Care Physician: Mathew MATHEW,Aashish Fox Hospital Course: The patient is 62-year-old gentleman with past medical history significant for dyslipidemia, hypertension, insulin-dependent diabetes mellitus, colon cancer status post resection, paroxysmal atrial fibrillation on Coumadin along with history of DVT and pulmonary embolism status post IVC filter, CAD status post CABG and COPD. The patient was hospitalized 10 days prior to this admission with MRSA sepsis secondary to an obstructing calculus at the left UVJ, resulting in a moderate left hydroureteronephrosis. He is status post cystoscopy and placement of left ureteral stent. He was discharged with Proline on vancomycin to complete a two-week course of antibiotics after a negative EVELYNE. The patient presented to [facility] ED on July 03 chest 3 days after discharge with acute onset of right-sided flank pain. Vitals on presentation within normal limits patient was afebrile. Laboratory data revealed a white blood cell count of 12,000, BUN/creatinine 19 and 2.5, lactic acid 2.4, alkaline phosphatase 134, Vancomycin trough level 25, INR 1.10. Urinalysis greater than 75 RBC/3-[address] of the abdomen and pelvis revealed acute right sided hydroureteronephrosis secondary to a distal ureteral stone within 1 cm of the right UVJ, a stable appearing left-sided ureteral stent with no left hydronephrosis and cholelithiasis without evidence for acute cholecystitis. He was taken to the OR for a cystoscopy and placement of a right ureteral stent on the evening of admission and Garland catheter was placed which was discontinued on 07/06. -*Patient will follow up with urology with plan of Eventual lithotripsy As stated above patient was recently diagnosed with MRSA sepsis secondary to pyelonephritis. He was discharged with Proline on vancomycin to complete a two- week course of antibiotics after a negative EVELYNE. On this admission patient did not appear to be in septic though lactic acid level was elevated with him being afebrile and mild leukocytosis which appears most likely to be secondary to hemoconcentration. Cultures remain negative to date. Vancomycin trough level on admission was 25 at which point vancomycin was held and he was started on ceftazidime, which was later discontinued. ID was consulted to help with antibiotic coverage. Vancomycin was dosed at 1500 mg IV on 07/05 and 07/07 according to random vancomycin level. -*As per ID recommendations patient will receive another dose of 1500 mg IV vancomycin on 07/09. his antibiotic course will be completed and proline can be removed. Patient presented with creatinine of 2.5. However, his creatinine was 1.2 at time of discharge on 06/30. The ALMAS was likely secondary to obstructive uropathy and possibly an element of intravascular volume depletion. The other possible explanation can be vancomycin toxicity. He was treated with gentle IV hydration with normal saline and holding Lasix. Renal ultrasound was done on nephrology recommendations which showed interval improvement in right sided hydronephrosis. His creatinine is improving slowly with creatinine of 2.0 on discharge. -*Patient has been provided with them prescription for Cr monitoring on 07/12 with instructions to follow-up with nephrology Patient had an episode of shortness of breath without any change in oxygen saturation. Chest x-ray done showed small left-sided effusion with mild interstitial prominence likely indicative of mild vascular congestion. After confirming with nephrology patient was restarted on home dose of Lasix. -*Patient will require monitoring of creatinine with PCP and nephrology prescription for blood work for creatinine on 07/12 has been provided Patient presented with subtherapeutic INR of 1.1. He has history of atrial fibrillation and is on Coumadin he also has state and history of DVT and pulmonary embolus embolism status post IVC filter. He was bridged with heparin and Coumadin was dosed as per INR. The patient INR was therapeutic at 2.7 on , hence heparin drip has been discontinued. -*Patient is being discharged on Coumadin 2.5 mg 4 times a day. Has been advised to follow-up with Coumadin clinic and his primary care doctor a prescription for checking INR on 07/12 has been provided. There was a concern for noncompliance. If patient's INR is subtherapeutic his Coumadin dose needs to be increased. His INR should be maintained therapeutic 2-3 considering his past medical history. Patient's home medication of levothyroxine, Flomax, aspirin and Plavix, amlodipine, Lipitor were continued. He was full code during his stay Allergies: Coded Allergies: Penicillins (PT DOES NOT REMEMBER 12/05/15) ampicillin (RASH 12/05/15) sulbactam (RASH 12/05/15) Disposition Summary Disposition Principal Diagnosis: Acute right sided hydroureteronephrosis secondary to a distal ureteral stone within 1 cm of the right UVJ Additional Diagnosis: ALMAS Subtherapeutic INR Discharge Disposition: home health services Discharge Instructions General Discharge Information Code Status: Full Code Patient's Diet: Diabetic diet Patient's Activity: As tolerated Follow-Up Instructions/Appts: -Please follow-up with her primary care doctor after discharge -Please follow-up with urologist after discharge -Please follow-up with Dr. Harman after discharge, prescription for creatinine check on 07/12 has been provided -Please follow-up with Coumadin clinic -Prescription for INR check on 07/12, result will be forwarded to PCP for adjustment of Coumadin dose -Last dose of vancomycin is scheduled on 07/09 -Proline needs to be removed after the last dose Medications at Discharge Discharge Medications: Stop taking the following medications: Vancomycin/0.9 % Sod Chloride (Vanco 1.75 G/250 Ml-0.9% NaCl) 1.75 GRAM/250 ML PLAST..BAG INTRAVEN DAILY Qty = 9 Continue taking these medications: Clopidogrel Bisulfate (Clopidogrel) 75 MG TABLET 1 Tablet ORAL Every Morning Comments: DID NOT ADMINISTER Amiodarone (Cordarone) 200 MG TABLET 1 Tablet ORAL Every Morning Comments: Last Taken: 06/29/17 Time: 0800AM Warfarin Sodium (Coumadin) 2.5 MG TABLET 1 [facility] Comments: DID NOT ADMINISTER Aspirin (Ecotrin*) 81 MG TABLET.DR 1 Tablet ORAL DAILY Comments: DID NOT ADMINISTER. Atorvastatin Calcium (Atorvastatin Calcium) 20 MG TABLET 1 Tablet ORAL DAILY Comments: Last Taken: 06/30/17 Time: 500PM Tamsulosin HCl (Tamsulosin HCl) 0.4 MG CAP.ER.24H 1 Capsule ORAL DAILY Qty = 90 Comments: Last Taken: 06/29/17 Time: 0800AM Albuterol Sulfate (Albuterol Sulfate) 0.63 MG/3 ML VIAL.NEB 1 Vial Inhale Solution THREE TIMES DAILY as needed for lung health Comments: Last Taken:06/29/17 Time:800 PM Insulin Lispro (Humalog) 100 UNIT/ML VIAL 0 Inject into fatty tissue BEFORE MEALS AND AT BEDTIME Qty = 2 Instructions: BEFORE MEALS Blood Insulin Sugar Units <80 0 81-150 0 151-200 2 201-250 4 251-300 6 301-350 8 351-400 10 >400 12 and CALL Comments: NOVOLOG GIVEN AT 600 PM Furosemide (Lasix) 20 MG TABLET 60 Milligram ORAL DAILY Insulin Glargine,Hum.rec.anlog (Lantus Solostar) 100 UNIT/ML (3 ML) INSULN.PEN 20 Unit Inject into fatty tissue TWICE DAILY Levothyroxine Sodium (Levothyroxine Sodium) 125 MCG TABLET 1 Tablet ORAL DAILY Start taking the following new medications: Vancomycin/0.9 % Sod Chloride (Vanco 1.5 Gm/250 Ml-0.9% NaCl) 1.5 GRAM/250 ML PLAST..BAG 1.5 Gram INTRAVEN ONCE ON 07/09 Qty = 1 No Refills Copies To: Pascual MATHEW,Mikal Fox; Brandy MATHEW,Loco Miller; Mathew MATHEW,Aashish Fox; Anuradha MATHEW, Dgao Delaney; Bri MATHEW,Willow Steinberg Attending MD Review Statement Documenting Attending: Natali MATHEW,Alejandro
== END 2017-07-07 18:38 | DRG 659 ==
LOC: ERH 11:48 → PACUH 14:25 → 2NB 14:25 → ENTRNSPT 15:36 → EDTRNSPTSTS 15:49 → CMPTRNSPT 16:38 → ENRESERV 17:26 → DELTRNSPT 17:50 → ENTRNSPT 18:17 → 2NB 18:28 → CMPTRNSPT 19:10 → 2NB 07-05 08:03 → ENTRNSPT 07-07 18:26 → EDTRNSPTSTS 07-07 18:31 → EDTRNSPT 07-07 18:31 → 2NB 07-07 18:38 → CMPTRNSPT 07-07 18:45
PROVIDERS: Emergency Medicine; Hospitalist; Internal Medicine; Student in an Organized Health Care Education/Training Program
PROC: 0T768ZZ Dilation of Right Ureter, Via Natural or Artificial Opening Endoscopic (ICD-10-PCS; principal; 2017-07-03)
DX: N13.6 Pyonephrosis (principal); A41.9 Sepsis, unspecified organism; N17.9 Acute kidney failure, unspecified; Z68.41 Body mass index [BMI] 40.0-44.9, adult; I13.0 Hypertensive heart and chronic kidney disease with heart failure and stage 1 through stage 4 chronic kidney disease, or unspecified chronic kidney disease; L97.219 Non-pressure chronic ulcer of right calf with unspecified severity; I50.32 Chronic diastolic (congestive) heart failure; E11.22 Type 2 diabetes mellitus with diabetic chronic kidney disease; E11.42 Type 2 diabetes mellitus with diabetic polyneuropathy; N39.0 Urinary tract infection, site not specified; Z79.01 Long term (current) use of anticoagulants; Z79.4 Long term (current) use of insulin; J44.9 Chronic obstructive pulmonary disease, unspecified; G47.33 Obstructive sleep apnea (adult) (pediatric); B95.62 Methicillin resistant Staphylococcus aureus infection as the cause of diseases classified elsewhere; I87.8 Other specified disorders of veins; R60.0 Localized edema; E66.9 Obesity, unspecified; R31.9 Hematuria, unspecified; I48.0 Paroxysmal atrial fibrillation; N18.3 Chronic kidney disease, stage 3 (moderate); E78.5 Hyperlipidemia, unspecified; Z93.4 Other artificial openings of gastrointestinal tract status; I25.10 Atherosclerotic heart disease of native coronary artery without angina pectoris; Z95.1 Presence of aortocoronary bypass graft; Z86.718 Personal history of other venous thrombosis and embolism; Z88.1 Allergy status to other antibiotic agents; Z88.0 Allergy status to penicillin; Z90.49 Acquired absence of other specified parts of digestive tract; Z95.9 Presence of cardiac and vascular implant and graft, unspecified; N40.0 Benign prostatic hyperplasia without lower urinary tract symptoms; Z85.038 Personal history of other malignant neoplasm of large intestine; Z89.021 Acquired absence of right finger(s)
CPT/HCPCS: 2NBP; 36415; 36592; 71046; 74018; 74176; 76775; 81001; 82436; 87040; 87086; 93005; 93010; 96374; 96375; C2617; J0131; J0713; J1644; J2405; J3370; J7040

== ENCOUNTER 2017-07-16 09:39 | Inpatient (IN) | payer OTHER ==
[~2017-07-16] VITALS: Ht 170.2 cm; Wt 117.9 kg
[~2017-07-16 09:39] MED LIST changes: +LANTUS SOL100 UNIT/1 SC; +LEVOTHYROXINE125 MCG PO
--- NOTE | 2017-07-16 11:39 | ED GI/GU/ABDOMINAL COMPLAINT ---
History of Present Illness General Chief Complaint: Abdominal Pain/Flank Pain Stated Complaint: Stomach Pain Source: patient, family, old records Exam Limitations: no limitations Vital Signs & Intake/Output Vital Signs & Intake/Output Vital Signs Date Time Temp Pulse Resp B/P B/P Pulse O2 O2 Flow FiO2 Mean Ox Delivery Rate 07/16 1753 97.3 67 18 117/60 97 Room Air 07/16 1458 97.4 67 18 102/58 96 Room Air 07/16 1152 97.5 69 18 148/69 96 Room Air 07/16 0944 97.6 68 18 117/76 95 Room Air Allergies Coded Allergies: Penicillins (PT DOES NOT REMEMBER 12/05/15) ampicillin (RASH 12/05/15) sulbactam (RASH 12/05/15) Reconcile Medications Albuterol Sulfate 0.63 MG/3 ML VIAL.NEB 1 Vial INH/NED TID PRN lung health ( Reported) Amiodarone (Cordarone) 200 MG TABLET 1 TAB PO QAM HEART (Reported) Aspirin (Ecotrin*) 81 MG TABLET.DR 1 TAB PO DAILY HEART/HEALTH (Reported) Atorvastatin Calcium 20 MG TABLET 1 TAB PO DAILY CHOLESTEROL (Reported) Clopidogrel Bisulfate (Clopidogrel) 75 MG TABLET 1 TAB PO QAM BLOOD THINNER ( Reported) Furosemide (Lasix) 20 MG TABLET 60 MG PO DAILY DIURETIC (Reported) Insulin Glargine,Hum.rec.anlog (Lantus Solostar) 100 UNIT/ML (3 ML) INSULN.PEN 20 UNIT SC BID DM (Reported) Insulin Lispro (Humalog) 100 UNIT/ML VIAL 0 SC TIDAC/HS DM BEFORE MEALS Blood Insulin Sugar Units <80 0 81-150 0 151-200 2 201-250 4 251-300 6 301-350 8 351-400 10 >400 12 and CALL Levothyroxine Sodium 125 MCG TABLET 1 TAB PO DAILY THYROID (Reported) Tamsulosin HCl 0.4 MG CAP.ER.24H 1 CAP PO DAILY PROSTATE (Reported) Warfarin Sodium (Coumadin) 2.5 MG TABLET 1 TAB PO MoTuThSa BLOOD THINNER ( Reported) Triage Note: PT STATES HE HAS NAUSEA AND ABD PAIN THAT STARTED A FEW DAYS AGO. PT STATES HE WAS HERE FOR KIDNEY STONES A FEW WEEKS AGO. PT STATES HE HAS A PROLINE RIGHT CHEST THAT WILL BE COMING ON NEXT WEDNESDAY Triage Nurses Notes Reviewed? yes Onset: Last week Duration: week(s):, changing over time, continues in ED, getting worse, intermittent Timing: recent history Quality/Severity: cramping, sharpness, severe, vomiting Location: left lower quadrant Radiation: no radiation Activities at Onset: rest Prior Abdominal Problems: similar symptoms Past Sexual History: Unobtainable at this time Modifying Factors: Worsens With: movement, palpation. Associated Symptoms: abdominal pain, loss of appetite, nausea/vomiting, weakness HPI: 2 weeks prior to admission patient complains of intermittent left lower quadrant discomfort mild achy resolving spontaneously. 1 day prior to admission the pain increased in severity. Prior to admission the pain became severe sharp constant nonradiating associated with loss of appetite nausea vomiting. He denies fever chills diarrhea chest pain cough shortness of breath headache dysuria rash bleeding. Past History Travel History Traveled to [place] past 21 day No Medical History Any Pertinent Medical History? see below for history Neurological: NONE EENT: NONE Cardiovascular: AFIB, hypertension, hyperlipidemia, CABG Respiratory: COPD, obstructive sleep apnea, pulmonary embolism Hepatic: NONE Renal: benign prost hyperplasia, chronic kidney disease, uti/prostatitis Musculoskeletal: osteoarthritis Psychiatric: NONE Endocrine: diabetes Blood Disorders: DVT, PE Cancer(s): colon/rectal cancer AUDIT TECH/Reproductive: NONE History of MRSA: Yes History of VRE: No History of CDIFF: No Surgical History Surgical History: CABG, colon resection (s/p r hemicolectomy), hernia repair- incisional, hernia repair-inguinal, s/p decortication for empyema s/p IVC filter R INDEX FINGER AMPT Psychosocial History Who do you live with Spouse Services at Home None What is your primary language Stateless Tobacco Use: Quit >30 days ago ETOH Use: denies use Illicit Drug Use: denies illicit drug use Family History Family History, If Any: hypertension in family obesity in family SISTER SISTER (nephrectomy for cancer). Hx Contributory? No Review of Systems Review of Systems Constitutional: Reports: no symptoms. EENTM: Reports: no symptoms. Respiratory: Reports: no symptoms. Cardiovascular: Reports: no symptoms. GI: Reports: see HPI, abdominal pain, distention, nausea, vomiting. Genitourinary: Reports: no symptoms. Musculoskeletal: Reports: no symptoms. Skin: Reports: no symptoms. Neurological/Psychological: Reports: no symptoms. Hematologic/Endocrine: Reports: no symptoms. Immunologic/Allergic: Reports: no symptoms. All Other Systems: Reviewed and Negative Physical Exam Physical Exam General Appearance: well developed/nourished, alert, awake, anxious, moderate distress, obese Head: atraumatic, normal appearance Eyes: Bilateral: normal appearance, PERRL, EOMI, normal inspection. Ears, Nose, Throat, Mouth: hearing grossly normal, dry mucous membranes Neck: normal inspection, supple, full range of motion, normal alignment, no midline tenderness Respiratory: normal breath sounds, chest non-tender, no respiratory distress, quiet respiration, lungs clear Cardiovascular: regular rate/rhythm, normal peripheral pulses, norml femoral pulses equa Peripheral Pulses: 4+ carotid (R), 4+ carotid (L) Gastrointestinal: soft, abnormal bowel sounds, distention, guarding, tenderness Male Genitals: normal genitalia Back: normal inspection, normal range of motion, no vertebral tenderness Extremities: normal range of motion, no ligament instability Neurologic/Psych: no motor/sensory deficits, awake, alert, oriented x 3, normal mood/affect, 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 Yes No ASA d/t Pharmacological CI Sepsis Present: No Sepsis Focused Exam Completed? No Progress Differential Diagnosis: biliary colic, bowel obstruction, cholecystitis, diverticulitis, gastritis, ischemic bowel, pancreatitis Plan of Care: Orders Procedure Date/time Status Nothing by Mouth 07/17 B Active OXYGEN SETUP (GEN) 07/16 184 Active Saline Lock 07/16 1840 Active Admit to inpatient 07/16 1840 Active Vital Signs 07/16 184 Active Activity/Ambulation 07/16 1840 Active EKG 07/16 1840 Active Code Status 07/16 1840 Active LACTIC ACID 07/16 1405 Active URINALYSIS 07/16 1105 Active PARTIAL THROMBOPLASTIN TIME 07/16 1105 Complete PROTHROMBIN TIME 07/16 1105 Complete MAGNESIUM 07/16 1105 Complete LIPASE 07/16 1105 Complete LACTIC ACID 07/16 1105 Complete COMPREHENSIVE METABOLIC PANEL 07/16 1105 Complete CBC WITHOUT DIFFERENTIAL 07/16 1105 Complete Current Medications Sig/Sj Start time Last Medication Dose Stop Time Status Admin Sodium Chloride 1,000 ML BOLUS ONE 07/16 1900 UNVr (Normal Saline 0.9%) 07/16 195 Laboratory Tests 07/16/17 1141: Anion Gap 10, Estimated GFR 26 L, BUN/Creatinine Ratio 13.6, Glucose 221 H, Lactic Acid 1.3, Calcium 9.8, Magnesium 1.9, Total Bilirubin 0.7, AST 152 H, ALT 101 H, Alkaline Phosphatase 141 H, Total Protein 7.4, Albumin 3.6, Globulin 3.8, Albumin/Globulin Ratio 0.9 L, Lipase 393 H, PT 26.5 H, INR 2.41 H, APTT 66 H, CBC w Diff NO MAN DIFF REQ, RBC 4.70, MCV 86.6, MCH 29.4, MCHC 33.9, RDW 15.0 H, MPV 8.3, Gran % 81.4 H, Lymphocytes % 6.9 L, Monocytes % 8.6, Eosinophils % 2.7, Basophils % 0.4, Absolute Granulocytes 7.4 H, Absolute Lymphocytes 0.6 L, Absolute Monocytes 0.8 H, Absolute Eosinophils 0.2, Absolute Basophils 0 Diagnostic Imaging: Viewed by Me: CT Scan, Ultrasound. Discussed w/RAD: CT Scan, Ultrasound. Radiology Impression: 1. Small amount of portal venous air and air within the draining veins of the stomach of unclear etiology. 2. Indwelling ureteral stents and large residual stones in each kidney. No hydroureteronephrosis. 3. Diastases recti. 4. Cholelithiasis. 5. Rounded atelectasis, left lower lobe., Nondiagnostic study for portal vein patency. Recommend contrast-enhanced CT or MRI for further evaluation. Gallstones. Liver not well demonstrated. Initial ED EKG: normal axis, normal intervals, normal p-waves, normal QRS complex, normal sinus rhythm, nonspecific ST T wave chg Prior EKG: unchanged Rhythm Strip: normal sinus rhythm Departure Departure Time of Disposition: 1829 Disposition: STILL A PATIENT Condition: Stable Clinical Impression Primary Impression: Abdominal pain Secondary Impressions: ALMAS (acute kidney injury), Gastric vein injury, Lactic acidosis, Unspecified injury of portal vein, initial encounter Referrals: Mathew MATHEW,Aashish Fox (PCP/Family) Departure Forms: Customer Survey General Discharge Information Admission Note Spoke With: Omari Edgar MD Documentation of Exam: Documentation of any treatments & extenuating circumstances including Concerns Regarding Discharge (functional status, medication knowledge or non-compliance, living conditions, etc.) that warrant an admission rather than observation: Serial lab exam serial abdominal exam GI consult medication adjustment IV analgesia and nothing by mouth IV fluids continuing care discharge planning. Critical Care Note Critical Care Note Critical Care Time: 75-104 min (75)
[2017-07-16 11:50] LABS: ABSOLUTE BASOPHIL COUNT 0 /CUMM (0.0-0.2); ABSOLUTE EOSINOPHIL COUNT 0.2 /CUMM (0.0-0.7); ABSOLUTE GRANULOCYTE CT 7.4 /CUMM (1.4-6.5); ABSOLUTE LYMPH COUNT 0.6 /CUMM (1.2-3.4); ABSOLUTE MONOCYTE COUNT 0.8 /CUMM (0.10-0.60); BASOPHIL % 0.4 % (0.0-2.0); EOSINOPHIL % 2.7 % (0-5); GRANULOCYTE % 81.4 % (42.2-75.2); HEMATOCRIT 40.7 % (42-52); MEAN CORPUSCULAR HGB 29.4 PG (27.0-31.0); MEAN CORPUSCULAR HGB CONC 33.9 G/DL (33.0-37.0); MEAN CORPUSCULAR VOLUME 86.6 FL (80.0-94.0); MEAN PLATELET VOLUME 8.3 FL (7.4-10.4); PLATELET COUNT 420 /CUMM (130-400); WHITE BLOOD CELL COUNT 9.1 /CUMM (4.8-10.8)
[2017-07-16 12:00] LABS: PT 26.5 SEC (9.4-12.5); PTT 66 SEC (25-37)
--- NOTE | 2017-07-16 13:30 | CT SCAN REPORT ---
EXAMINATION: CT ABDOMEN AND PELVIS WITHOUT CONTRAST CLINICAL INFORMATION: 66-year-old male patient with left lower quadrant tenderness, nausea and vomiting. COMPARISON: CT of the abdomen and pelvis on 06/23/2017. (Left UVJ stone with left-sided hydroureteronephrosis. Bilateral renal calculi. Cholelithiasis). CT of the abdomen and pelvis on 07/03/2017. (Right-sided hydroureteronephrosis secondary to distal ureteral stone). TECHNIQUE: Multidetector volumetric imaging was performed from the superior aspect of the liver through the pubic symphysis. Sagittal and coronal reformatted images were obtained on the technologist's workstation. DLP: 1183 mGy-cm FINDINGS: Community Relations Liaison: There are bilateral indwelling ureteral stents the proximal ends of which are in the vicinity of the renal pelves and the distal ends in the bladder. Moderate gaseous distention of the stomach is seen. There is no evidence of intestinal obstruction. Previous chest surgery has been performed with sternotomy wires in place. LUNG BASES: The peripheral area of atelectasis involving the posterior lateral aspect of the left lower lobe has not improved. The degree of atelectasis is more than can be explained on the basis of the trace left pleural effusion. The orientation suggests the presence of developing rounded atelectasis. In 12/05/2015, the patient had a moderately large left pleural effusion. Left lower lobe atelectasis was observed at that time. LIVER, GALLBLADDER, AND BILIARY TREE: The liver remains normal in size. The bile ducts are not dilated. Within the left lobe, there is now evidence of air within the portal system. The etiology of this portal venous gas is uncertain. No definite pneumatosis is seen involving the GI tract. However, there is evidence of intravascular air within several draining veins of the stomach. The gallbladder is normal in size containing numerous tiny gallstones. PANCREAS: Unremarkable. SPLEEN: Unremarkable. ADRENAL GLANDS: Unremarkable. KIDNEYS AND URETERS: Neither kidney shows evidence of hydronephrosis with the indwelling ureteral stents. The triangular in shape 1.3 cm diameter calculus remains in the left kidney and the ovoid 1.2 cm calculus remains in the right kidney. There is no sign of a residual stone in either ureter or the bladder. BLADDER: A urachal remnant arises from the dome of the bladder. GASTROINTESTINAL TRACT: The patient's had a right hemicolectomy. The ileocolostomy in the left abdomen is unremarkable. There is no free air or free fluid. ABDOMINAL WALL: Patient has a large diastases of the rectus muscles. Portions of the stomach, small intestine, and remaining colon lying immediately adjacent to the fascia of this abdominal wall laxity. LYMPH NODES: Normal. VASCULAR: As mentioned above, there is evidence of portal venous gas, and intravascular air within draining veins of the stomach. An IVC filter is located inferior to the renal veins. PELVIC VISCERA: Unremarkable. OSSEOUS STRUCTURES: No acute change. IMPRESSION: 1. Small amount of portal venous air and air within the draining veins of the stomach of unclear etiology. 2. Indwelling ureteral stents and large residual stones in each kidney. No hydroureteronephrosis. 3. Diastases recti. 4. Cholelithiasis. 5. Rounded atelectasis, left lower lobe.
--- NOTE | 2017-07-16 16:22 | Cons- General Surgery ---
General Information and HPI Consulting Request Date of Consult: 07/16/17 Requested By: Blaze Reason for Consult: Portal venous gas History of Present Illness: Patient is a 66-year-old male with complex medical history. Most recently diagnosed with ureteral stone status post stent. He had bloodstream infection with MRSA requiring outpatient IV vancomycin. Patient has a indwelling catheter for IV antibiotics. Per his report antibiotics have recently completed and he was due for catheter removal as an outpatient. Over the past 2-3 days he has had progressive abdominal pain, primarily left-sided. There is been diminished appetite. He had some vomiting of mucousy material earlier today. Bowel function is normal. No fevers chills or sweats. Allergies/Medications Allergies: Coded Allergies: Penicillins (PT DOES NOT REMEMBER 12/05/15) ampicillin (RASH 12/05/15) sulbactam (RASH 12/05/15) Home Med List: Albuterol Sulfate 0.63 MG/3 ML VIAL.NEB 1 Vial INH/NED TID PRN lung health ( Reported) Amiodarone (Cordarone) 200 MG TABLET 1 TAB PO QAM HEART (Reported) Aspirin (Ecotrin*) 81 MG TABLET.DR 1 TAB PO DAILY HEART/HEALTH (Reported) Atorvastatin Calcium 20 MG TABLET 1 TAB PO DAILY CHOLESTEROL (Reported) Clopidogrel Bisulfate (Clopidogrel) 75 MG TABLET 1 TAB PO QAM BLOOD THINNER ( Reported) Furosemide (Lasix) 20 MG TABLET 60 MG PO DAILY DIURETIC (Reported) Insulin Glargine,Hum.rec.anlog (Lantus Solostar) 100 UNIT/ML (3 ML) INSULN.PEN 20 UNIT SC BID DM (Reported) Insulin Lispro (Humalog) 100 UNIT/ML VIAL 0 SC TIDAC/HS DM BEFORE MEALS Blood Insulin Sugar Units <80 0 81-150 0 151-200 2 201-250 4 251-300 6 301-350 8 351-400 10 >400 12 and CALL Levothyroxine Sodium 125 MCG TABLET 1 TAB PO DAILY THYROID (Reported) Tamsulosin HCl 0.4 MG CAP.ER.24H 1 CAP PO DAILY PROSTATE (Reported) Warfarin Sodium (Coumadin) 2.5 MG TABLET 1 TAB PO MoTuThSa BLOOD THINNER ( Reported) Past History Medical History Neurological: NONE EENT: NONE Cardiovascular: AFIB, hypertension, hyperlipidemia, CABG Respiratory: COPD, obstructive sleep apnea, pulmonary embolism Hepatic: NONE Renal: benign prost hyperplasia, chronic kidney disease, uti/prostatitis Musculoskeletal: osteoarthritis Psychiatric: NONE Endocrine: diabetes Blood Disorders: DVT, PE Cancer(s): colon/rectal cancer 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 Psychosocial History Who Do You Live With? spouse Services at Home: None Primary Language: German ETOH Use: denies use Illicit Drug Use: denies illicit drug use Functional Ability ADLs Independent: dressing, eating, toileting, bathing. Ambulation: independent, cane, walker, non-ambulatory IADLs Independent: shopping, housework, finances, food prep, telephone, transportation , medication admin. Review of Systems Review of Systems: Abdominal pain. HPI. Fatigue and dyspnea on exertion. No fevers chills or sweats Exam & Diagnostic Data Vital Signs and I&O Vital Signs Date Time Temp Pulse Resp B/P B/P Pulse O2 O2 Flow FiO2 Mean Ox Delivery Rate 07/16 1458 97.4 67 18 102/58 96 Room Air 07/16 1152 97.5 69 18 148/69 96 Room Air 07/16 0944 97.6 68 18 117/76 95 Room Air Intake & Output 07/16 1600 07/16 0800 07/16 0000 07/15 1600 07/15 0800 07/15 0000 Intake Total 1000 Output Total Balance 1000 Intake, IV 1000 Patient 260 lb Weight Weight Reported by Patient Measurement Method Physical Exam: General: Is obese no distress looks his stated age HEENT: Anicteric PERRLA EOMI Abdomen: Soft tender left mid and lower quadrants. No involuntary guarding. Large amount of laxity to the midline abdominal wall consistent with bridging repair of incisional hernia using biologic mesh performed in 2009. Extremities: Missing right finger, multiple shallow ulcerations of the tibia area bilateral no cyanosis or clubbing Assessment/Plan Assessment/Plan Abdominal pain unclear etiology. There is portal venous gas in the left lobe of the liver new from previous examinations. Per the radiologist report there is apparent venous gas in the stomach. Usually portal venous gas is an ominous finding, often times indicative of mesenteric ischemia. However ischemia to the stomach is very unusual as there is robust collateral circulation. Unclear of the etiology of the gas. Currently patient is arranged to have Doppler ultrasound of his visceral vessels. If that is unrevealing consider upper endoscopy to assess viability of the mucosa, as this would be the first sign of ischemia to be seen. Cannot feel that he has a surgical process requiring emergencies exploration. Recommend serial abdominal examination and follow-up of above outlined tests. Consult Acknowledgment - Thank you for your consult request.
--- NOTE | 2017-07-16 18:27 | ULTRASOUND REPORT ---
EXAMINATION: US ABDOMEN AND PELVIS CLINICAL INFORMATION: Assess for clot within the portal vein COMPARISON: CT scan of same day. TECHNIQUE: Targeted ultrasound with color and duplex Doppler. FINDINGS: Pancreas grossly normal. Liver not able to be well assessed due to body habitus and bowel gas. There is patency of the hepatic veins but the portal vein could not be assessed sonographically. Multiple layering gallstones noted within the gallbladder lumen. No acute inflammatory changes. Biliary tree normal with the CBD measuring 4 mm. Right kidney normal measuring 13 cm. IMPRESSION: Nondiagnostic study for portal vein patency. Recommend contrast-enhanced CT or MRI for further evaluation. Gallstones. Liver not well demonstrated.
--- NOTE | 2017-07-16 19:26 | History & Physical ---
Anastasia MATHEW,[facility] 07/16/171925: General Information and HPI MD Statement: I have seen and personally examined CARRIE CHASE and documented this H&P. The patient is a 66 year old M who presented with a patient stated chief complaint of [abdominal pain]. Source of Information: patient, family History of Present Illness: 66-year-old gentleman with past medical history significant for dyslipidemia, hypertension, insulin-dependent diabetes, colon cancer status post colostomy, paroxysmal atrial fibrillation on anticoagulation, history of DVT and pulmonary embolism status post IVC filter placement, CAD status post CABG, COPD, history of kidney stones and pyelonephritis status post left ureteric stent placement on June 23 was admitted at [facility] with pyelonephritis from June 23 to June 30 and was found to have MRSA growing in his urine and was discharged on 1.75 mg of vancomycin daily after placing the pro line, came with chief complaint of abdominal pain. Patient illnesses course of vancomycin last Wednesday. Since the day he got discharged, he had mild on and off suprapubic pain associated with nausea and vomiting for the past 2 days. He denies shortness of breath, fever, chills, contacts, bloody bowel movement, hematuria, diarrhea, constipation. Allergies/Medications Allergies: Coded Allergies: Penicillins (PT DOES NOT REMEMBER 12/05/15) ampicillin (RASH 12/05/15) sulbactam (RASH 12/05/15) Home Med list Albuterol Sulfate 0.63 MG/3 ML VIAL.NEB 1 Vial INH/NED TID PRN lung health ( Reported) Amiodarone (Cordarone) 200 MG TABLET 1 TAB PO QAM HEART (Reported) Aspirin (Ecotrin*) 81 MG TABLET.DR 1 TAB PO DAILY HEART/HEALTH (Reported) Atorvastatin Calcium 20 MG TABLET 1 TAB PO DAILY CHOLESTEROL (Reported) Clopidogrel Bisulfate (Clopidogrel) 75 MG TABLET 1 TAB PO QAM BLOOD THINNER ( Reported) Furosemide (Lasix) 20 MG TABLET 60 MG PO DAILY DIURETIC (Reported) Insulin Glargine,Hum.rec.anlog (Lantus Solostar) 100 UNIT/ML (3 ML) INSULN.PEN 20 UNIT SC BID DM (Reported) Insulin Lispro (Humalog) 100 UNIT/ML VIAL 0 SC TIDAC/HS DM BEFORE MEALS Blood Insulin Sugar Units <80 0 81-150 0 151-200 2 201-250 4 251-300 6 301-350 8 351-400 10 >400 12 and CALL Levothyroxine Sodium 125 MCG TABLET 1 TAB PO DAILY THYROID (Reported) Tamsulosin HCl 0.4 MG CAP.ER.24H 1 CAP PO DAILY PROSTATE (Reported) Warfarin Sodium (Coumadin) 2.5 MG TABLET 1 TAB PO MoTuThSa BLOOD THINNER ( Reported) Compliance With Home Meds: GOOD Past History Travel History Traveled to [place] past 21 day No Medical History Neurological: NONE EENT: NONE Cardiovascular: AFIB, hypertension, hyperlipidemia, CABG Respiratory: COPD, obstructive sleep apnea, pulmonary embolism Hepatic: NONE Renal: benign prost hyperplasia, chronic kidney disease, uti/prostatitis Musculoskeletal: osteoarthritis Psychiatric: NONE Endocrine: diabetes Blood Disorders: DVT, PE Cancer(s): colon/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 Psychosocial History Where do you live? Home Who Do You Live With? spouse Services at Home: None Primary Language: Austrian ETOH Use: denies use Illicit Drug Use: denies illicit drug use Functional Ability ADLs Independent: dressing, eating, toileting, bathing. Ambulation: independent, cane, walker, non-ambulatory IADLs Independent: shopping, housework, finances, food prep, telephone, transportation , medication admin. Sexual History Past Sexual History Unobtainable at this time Review of Systems Review of Systems Constitutional: Reports: no symptoms. Cardiovascular: Reports: no symptoms. Respiratory: Reports: no symptoms. GI: Reports: abdominal pain. Exam & Diagnostic Data Last 24 Hrs of Vital Signs/I&O Vital Signs Date Time Temp Pulse Resp B/P B/P Pulse O2 O2 Flow FiO2 Mean Ox Delivery Rate 07/16 2300 98.0 62 20 110/64 93 Room Air 07/16 2146 98.0 69 20 112/62 95 Room Air 07/16 1928 97.6 66 18 115/56 91 Room Air 07/16 1753 97.3 67 18 117/60 97 Room Air 07/16 1458 97.4 67 18 102/58 96 Room Air 07/16 1152 97.5 69 18 148/69 96 Room Air 07/16 0944 97.6 68 18 117/76 95 Room Air Intake & Output 07/16 1600 07/16 0800 06 0000 Intake Total 1000 Output Total Balance 1000 Intake, IV 1000 Patient 260 lb Weight Weight Reported by Patient Measurement Method Physical Exam General Appearance Alert, Oriented X3, Cooperative, No Acute Distress Cardiovascular Regular Rate, Normal S1, Normal S2, No Murmurs Lungs Normal Air Movement Abdomen Soft, No Tenderness, No Hepatospenomegaly Neurological Normal Speech Extremities No Edema Vascular Normal Pulses Last 24 Hrs of Labs/Jack: Laboratory Tests 07/16/17 1141: Anion Gap 10, Estimated GFR 26 L, BUN/Creatinine Ratio 13.6, Glucose 221 H, Lactic Acid 1.3, Calcium 9.8, Magnesium 1.9, Total Bilirubin 0.7, AST 152 H, ALT 101 H, Alkaline Phosphatase 141 H, Total Protein 7.4, Albumin 3.6, Globulin 3.8, Albumin/Globulin Ratio 0.9 L, Lipase 393 H, PT 26.5 H, INR 2.41 H, APTT 66 H, CBC w Diff NO MAN DIFF REQ, RBC 4.70, MCV 86.6, MCH 29.4, MCHC 33.9, RDW 15.0 H, MPV 8.3, Gran % 81.4 H, Lymphocytes % 6.9 L, Monocytes % 8.6, Eosinophils % 2.7, Basophils % 0.4, Absolute Granulocytes 7.4 H, Absolute Lymphocytes 0.6 L, Absolute Monocytes 0.8 H, Absolute Eosinophils 0.2, Absolute Basophils 0 Assessment/Plan Assessment: 66-year-old gentleman with past medical history significant for dyslipidemia, hypertension, insulin-dependent diabetes, colon cancer status post colostomy, paroxysmal atrial fibrillation on anticoagulation, history of DVT and pulmonary embolism status post IVC filter placement, CAD status post CABG, COPD, history of kidney stones and pyelonephritis status post left ureteric stent placement on June 23 was admitted at [facility] with pyelonephritis from June 23 to June 30 and was found to have MRSA growing in his urine and was discharged on 1.75 mg of vancomycin daily after placing the pro line, came with chief complaint of abdominal pain. Admission vitals Temperature 97.5, pulse rate 69, respiratory rate 18, blood pressure 148/69, 96 at room air Admission labs WBC-9.1, hemoglobin 13.8, platelets 420, sodium 136, potassium 4.4, BUN 34, creatinine 2.5, glucose 221, AST 152, ALT 101, alkaline phosphatase 141, lipase 393. ED treatment Normal saline bolus once, morphine, ondansetron. Imaging CAT scan of the abdomen and pelvis 1. Small amount of portal venous air and air within the draining veins of the stomach of unclear etiology. 2. Indwelling ureteral stents and large residual stones in each kidney. No hydroureteronephrosis. 3. Diastases recti. 4. Cholelithiasis. 5. Rounded atelectasis, left lower lobe. Ultrasound abdomen-Doppler Nondiagnostic study for portal vein patency. Recommend contrast-enhanced CT or MRI for further evaluation. Gallstones. Liver not well demonstrated. Assessment and plan Abdominal pain with CAT scan finding of portal venous gas in the left lobe of the liver-at this point it is unclear why the patient is having suprapubic pain on and off. His CAT scan showing portal gas can sometimes indicate ischemia. Surgery was called who felt that this is not an surgical emergency and recommended serial abdominal examination and follow-up with GI for possible upper endoscopy. We will place GI consult for the same. Acute kidney injury-secondary due to decreased by mouth intake. We will start him on gentle IV hydration. Urology consult in the a.m-Dr. Nava has informed the patient that he would like to remove both stents with possible removal of stone this Wednesday. Hence we'll hold his Plavix and Coumadin. Patient has a PROLINE-we will arrange for ProLine and removal on Wednesday. Patient is to be off anticoagulant for the same. We will continue his home medications NovoLog sliding scale, morphine for pain. We will keep the patient nothing by mouth for the same. Code-full code DVT prophylaxis-Alps As Ranked By This Provider Problem List: 1. [id number] kidney injury Core Measures/Misc (11/01) Acute Coronary Syndrome ACS Diagnosis: No Congestive Heart Failure Congestive Heart Failure Diagnosis No Cerebrovascular Accident CVA/TIA Diagnosis: No VTE (View Protocol) VTE Risk Factors Age>40 No Mechanical VTE Prophylaxis d/t Other No VTE Pharm Prophylaxis d/t Other Sepsis (View protocol) Sepsis Present: No If YES complete Sepsis Event Note If YES complete Sepsis Event Note Omari Edgar MD 07/17/17 0120: Core Measures/Misc (11/01) Sepsis (View protocol) If YES complete Sepsis Event Note If YES complete Sepsis Event Note Attending MD Review Statement Attending Statement Attending MD Statement: examined this patient, discuss w/resident/PA/MANAGER STORE, agreed w/resident/PA/MANAGER STORE, reviewed EMR data (avail), discussed with nursing Attending Assessment/Plan: Mr. Chase is a 66 y/o male with multiple comorbidities including history of dyslipidemia, insulin-dependent diabetes mellitus, colon cancer status post colostomy, atrial fibrillation, pulmonary embolism, coronary artery bypass, pyelonephritis status post recent stent placement comes in with complaints of abdominal pain. Patient has been having mild suprapubic pain with nausea and vomiting going on for the past couple of days. On examination vital signs blood pressure 110/64, heart rate is 62 respiratory rate of 20 afebrile saturating 93% on room air Assessment 1. Abdominal pain with minimally elevated lipase 2. Portal venous gas in the stomach with ultrasound duplex revealing no obstruction 3. Acute kidney injury 4. Bilateral pyelonephritis status post stents placement 5. Recent MRSA bloodstream infection - completed IV vancomycin 6. Insulin dependent diabetes mellitus Plan Keep the patient nothing by mouth. Surgery recommend no active surgical intervention. Will obtain gastroenterology consultation. Patient may end up with removal of both stents next week early. Holding clopidogrel and Coumadin. Continue with gentle IV hydration for acute kidney injury repeat BEP in the morning. Patient has a prone line and plan for removal on Wednesday. Continue with sliding scale. DVT prophylaxis with ALPS. Arnoldo Shukla 07/17/17 0544: Core Measures/Misc (11/01) Sepsis (View protocol) If YES complete Sepsis Event Note If YES complete Sepsis Event Note Resident Review Statement Resident Statement: examined this patient, discussed with senior internal auditor, agreed with senior internal auditor, discussed with family, reviewed EMR data (avail), discussed with nursing , discussed with case mgmt, reviewed images, amended to note Other Findings: 66-year-old gentleman with recent bilateral stent placements for hydronephrosis secondary to nephrolithiasis presents to [facility] ED for abdominal pain, nausea and vomiting of 2 weeks duration of unknown etiology. No signs of acute abdomen. Afebrile so far, with no hemodynamic instability. Without leukocytosis, evidence of ALMAS on CKD, transaminitis and a therapeutic INR for A. fib. Central port catheter to the right chest (was receiving IV vancomycin until last Wednesday) for recent episodes of MRSA pyelonephritis and stent placements. Abdominal CT with portal venous air and air within draining veins of the stomach , with a follow-up targeted ultrasound with color and duplex Doppler nondiagnostic for portal vein patency. 1. Abdominal pain of unclear etiology. Symptomatic management. IV fluids. IV antiemetics. No surgical intervention at this point. May need contrast- enhanced CT or MRI/MRV for further evaluation of portal venous system. GI consult has been placed, may require endoscopy for further characterization of gastric mucosa (and changes due to portal venous air). Keep n.p.o. 2. Status post ureteral stent placement. Urology consult, due for stent removal. Port-A-Cath to right chest due for removal. Holding aspirin, Plavix and warfarin in anticipation. Daily INR checks. Continue tamsulosin. 3. History of atrial fibrillation. Rate controlled. Therapeutic INR. Continue amiodarone. Holding warfarin. 4. History of CAD. Aspirin and Plavix on hold. Continue statin. 5. Diabetes. N.p.o. status. Half dose of long-acting insulin, Accu-Cheks every 6 and NovoLog sliding scale ordered. 6. History of COPD. TRC nebs and inhalers. Full code. N.p.o. Therapeutic INR-DVT prophylaxis.
--- NOTE | 2017-07-16 22:49 | RADIOLOGY REPORT ---
EXAMINATION: XR PORTABLE CHEST CLINICAL INFORMATION: Proline COMPARISON: Chest x-ray 05/06/2017 TECHNIQUE: Portable frontal view of the chest was obtained. 10:25 PM FINDINGS: Status post median sternotomy. Heart size is enlarged. Central port catheter tip unchanged position at the cavoatrial junction in the superior vena cava. No acute abnormality. No pulmonary vascular congestion. No infiltrate or pleural effusion. No pneumothorax. IMPRESSION: No acute abnormality of the chest.
[2017-07-16 23:00] VITALS: BP 110/64
--- NOTE | 2017-07-17 05:25 | PN- Housestaff ---
Anastasia MATHEW,Janay 07/17/17 0525: Subjective Follow-up For: Abdominal pain, nausea, vomiting Subjective: Patient seen and examined at bedside no overnight events. No complaints. Denies any further nausea, vomiting, abdominal pain. Review of Systems Constitutional: Reports: no symptoms, see HPI. Objective Last 24 Hrs of Vital Signs/I&O Vital Signs Date Time Temp Pulse Resp B/P B/P Pulse O2 O2 Flow FiO2 Mean Ox Delivery Rate 07/17 0628 98.2 58 20 110/58 97 Room Air 07/16 2300 98.0 62 20 110/64 93 Room Air 07/16 2146 98.0 69 20 112/62 95 Room Air 07/16 1928 97.6 66 18 115/56 91 Room Air 07/16 1753 97.3 67 18 117/60 97 Room Air 07/16 1458 97.4 67 18 102/58 96 Room Air 07/16 1152 97.5 69 18 148/69 96 Room Air 07/16 0944 97.6 68 18 117/76 95 Room Air Intake & Output 07/17 0800 07/17 0000 07/16 1600 Intake Total 1000 Output Total Balance 1000 Intake, IV 1000 Patient 260 lb 260 lb Weight Weight Reported by Patient Reported by Patient Measurement Method Physical Exam General Appearance: Alert, Oriented X3, Cooperative, No Acute Distress Cardiovascular: Regular Rate, Normal S1, Normal S2, No Murmurs Lungs: Clear to Auscultation Abdomen: Soft, No Tenderness, No Hepatospenomegaly Neurological: Normal Speech Current Medications: Current Medications Sig/Sj Start time Last Medication Dose Route Stop Time Status Admin Albuterol Sulfate 3 ML Q4H PRN 07/165 AC INH Amiodarone HCl 200 MG QAM 07/17 899 AC PO Atorvastatin Calcium 20 MG DAILY 07/17 899 AC PO Enoxaparin Sodium 40 MG DAILY 07/17 899 CAN SC Insulin Detemir 10 UNITS BID 07/16 2234 AC 07/16 SC 2310 Insulin Human Regular 0 Q6 07/16 2359 AC 07/17 SC 0550 Levothyroxine Sodium 0.125 MG DAILY 07/17 899 CAN PO Morphine Sulfate 2 MG Q4P PRN 07/160 AC IV Morphine Sulfate 0 .STK-MED ONE 07/16 1921 DC .ROUTE Morphine Sulfate 4 MG ONCE ONE 07/16 1914 DC 07/16 IV 07/16 1916 1917 Morphine Sulfate 0 .STK-MED ONE 07/16 1406 DC .ROUTE Morphine Sulfate 4 MG ONCE ONE 07/16 1400 DC 07/16 IV 07/16 1401 1404 Morphine Sulfate 0 .STK-MED ONE 07/16 1204 DC .ROUTE Morphine Sulfate 4 MG ONCE ONE 07/16 1115 DC 07/16 IV 07/16 1116 1200 Ondansetron HCl 4 MG Q6P PRN 07/17 0600 AC IV Ondansetron HCl 0 .STK-MED ONE 07/16 1204 DC .ROUTE Ondansetron HCl 4 MG ONCE ONE 07/16 1115 DC 07/16 IV 07/16 1116 1200 Sodium Chloride 1,000 ML .[id number] 07/16 2200 AC 07/16 IV 07/18 0039 2257 Sodium Chloride 1,000 ML BOLUS ONE 07/16 1900 DC 07/16 IV 07/16 1959 1906 Sodium Chloride 1,000 ML BOLUS ONE 07/16 1115 DC 07/16 IV 07/16 1214 1142 Tamsulosin HCl 0.4 MG DAILY 07/17 0900 AC PO Last 24 Hrs of Lab/Jack Results Last 24 Hrs of Labs/Mics: Laboratory Tests 07/17/17 0546: Sodium Pending, Potassium Pending, Chloride Pending, Carbon Dioxide Pending, Anion Gap Pending, BUN Pending, Creatinine Pending, BUN/Creatinine Ratio Pending , PT Pending, INR Pending, CBC w Diff Pending, WBC Pending, RBC Pending, Hgb Pending, Hct Pending, MCV Pending, MCH Pending, MCHC Pending, RDW Pending, Plt Count Pending, MPV Pending 07/17/17 0120: Urine Color YEL, Urine Clarity CLEAR, Urine pH 6.0, Ur Specific [place] 1.020, Urine Protein TRACE H, Urine Ketones NEG, Urine Nitrite NEG, Urine Bilirubin NEG, Urine Urobilinogen 0.2, Ur Leukocyte Esterase SMALL H, Ur Microscopic SEDIMENT EXAMINED, Urine RBC 25-50 H, Urine WBC 10-15 H, Ur Epithelial Cells RARE, Urine Bacteria RARE H, Micro UA Comment [place] H, Urine Hemoglobin MOD H, Urine Glucose NEG 07/16/17 1141: Anion Gap 10, Estimated GFR 26 L, BUN/Creatinine Ratio 13.6, Glucose 221 H, Lactic Acid 1.3, Calcium 9.8, Magnesium 1.9, Total Bilirubin 0.7, AST 152 H, ALT 101 H, Alkaline Phosphatase 141 H, Total Protein 7.4, Albumin 3.6, Globulin 3.8, Albumin/Globulin Ratio 0.9 L, Lipase 393 H, PT 26.5 H, INR 2.41 H, APTT 66 H, CBC w Diff NO MAN DIFF REQ, RBC 4.70, MCV 86.6, MCH 29.4, MCHC 33.9, RDW 15.0 H, MPV 8.3, Gran % 81.4 H, Lymphocytes % 6.9 L, Monocytes % 8.6, Eosinophils % 2.7, Basophils % 0.4, Absolute Granulocytes 7.4 H, Absolute Lymphocytes 0.6 L, Absolute Monocytes 0.8 H, Absolute Eosinophils 0.2, Absolute Basophils 0 Assessment/Plan Assessment: 66-year-old gentleman with past medical history significant for dyslipidemia, hypertension, insulin-dependent diabetes, colon cancer status post colostomy, paroxysmal atrial fibrillation on anticoagulation, history of DVT and pulmonary embolism status post IVC filter placement, CAD status post CABG, COPD, history of kidney stones and pyelonephritis status post left ureteric stent placement on June 23 was admitted at [facility] with pyelonephritis from June 23 to June 30 and was found to have MRSA growing in his urine and was discharged on 1.75 mg of vancomycin daily after placing the pro line, came with chief complaint of abdominal pain. * Abdominal pain with CAT scan finding of portal venous gas in the left lobe of the liver-at this point it is unclear why the patient is having suprapubic pain on and off. His CAT scan showing portal gas can sometimes indicate ischemia. Surgery was called who felt that this is not an surgical emergency and recommended serial abdominal examination and follow-up with GI for possible upper endoscopy. We will place GI consult for the same. * Acute kidney injury-secondary due to decreased by mouth intake. We will start him on gentle IV hydration. * Urology consult in the a.m-Dr. Nava has informed the patient that he would like to remove both stents with possible removal of stone this Wednesday. Hence we'll hold his Plavix and Coumadin. * Patient has a PROLINE-we will arrange for ProLine and removal on Wednesday. Patient is to be off anticoagulant for the same. * We will continue his home medications NovoLog sliding scale, morphine for pain. We will keep the patient nothing by mouth for the same. Code-full code DVT prophylaxis-Alps Problem List: 1. [id number] kidney injury Pain Ratin Pain Location: NONE Pain Goal: Remain pain free Pain Plan: TYLENOL Tomorrow's Labs & Rationales: CBC,BEP Hermelinda Anderson MD 07/17/17 1258: Attending MD Review Statement Attending Statement Attending MD Statement: examined this patient, discuss w/resident/PA/[employer]PER[employer]ENT [employer], agreed w/resident/PA/[employer], reviewed EMR data (avail), discussed with nursing, discussed with case mgmt, reviewed images Attending Assessment/Plan: Overall patient feels better and is no more abdominal pain. He is a fairly complex 66-year-old with a history of diabetes, atrial fibrillation, dual antiplatelet therapy and Coumadin, recent hospital stay for obstructive uropathy and an infection with a pro-line placed. The plan is for the pro-line to come out on Wednesday. He is here with a worry of an ?mesentric ischemia. Appreciate surgical evaluation who feels that that is likely not a concern at this point given the resolution of his symptoms. Will follow-up today's LFTs. His creatinines already down to 2.1 from 2.5 on admission. If the LFTs are better will try clear liquids and advance slowly. We are holding anticoagulation in anticipation of the stent removal by urology on Wednesday.
[2017-07-17 06:28] VITALS: BP 110/58
[2017-07-17 09:12] LABS: PT 26.6 SEC (9.4-12.5)
[2017-07-17 09:15] LABS: ABSOLUTE BASOPHIL COUNT 0.1 /CUMM (0.0-0.2); ABSOLUTE EOSINOPHIL COUNT 0.6 /CUMM (0.0-0.7); ABSOLUTE GRANULOCYTE CT 4.3 /CUMM (1.4-6.5); ABSOLUTE LYMPH COUNT 0.7 /CUMM (1.2-3.4); ABSOLUTE MONOCYTE COUNT 0.7 /CUMM (0.10-0.60); BASOPHIL % 1.2 % (0.0-2.0); EOSINOPHIL % 9.1 % (0-5); GRANULOCYTE % 67.8 % (42.2-75.2); HEMATOCRIT 36.7 % (42-52); MEAN CORPUSCULAR HGB CONC 33.3 G/DL (33.0-37.0); MEAN CORPUSCULAR VOLUME 87.3 FL (80.0-94.0); MEAN PLATELET VOLUME 8.3 FL (7.4-10.4); PLATELET COUNT 379 /CUMM (130-400); RBC DISTRIBUTION WIDTH 15.6 % (11.5-14.5); RED BLOOD CELL CT 4.21 /CUMM (4.70-6.10); WHITE BLOOD CELL COUNT 6.3 /CUMM (4.8-10.8)
--- NOTE | 2017-07-17 09:34 | PN- General Surgery ---
Subjective Subjective: Patient has resolution of his pain. There is no nausea vomiting. There is a small amount of flatus passage since yesterday. No bowel movement. No fevers chills or sweats. Doppler ultrasound of the abdomen was not performed correctly. The purpose of it was to assess patency of the visceral vessels, not the portal venous system. Objective Vital Signs and I&Os Vital Signs Date Time Temp Pulse Resp B/P B/P Pulse O2 O2 Flow FiO2 Mean Ox Delivery Rate / 0836 58 110/58 06/ 0836 58 110/58 06/ 0628 98.2 58 20 110/58 97 Room Air 06/ 2300 98.0 62 20 110/64 93 Room Air 06/ 2146 98.0 69 20 112/62 95 Room Air 06/ 1928 97.6 66 18 115/56 91 Room Air 06/ 1753 97.3 67 18 117/60 97 Room Air 06/ 1458 97.4 67 18 102/58 96 Room Air / 1152 97.5 69 18 148/69 96 Room Air / 0944 97.6 68 18 117/76 95 Room Air Intake & Output / 1600 / 0800 / 0000 06/ 1600 06/ 0800 06/ 0000 Intake Total 600 1000 Output Total 350 Balance 250 1000 Intake, IV 600 1000 Output, Urine 350 Patient 260 lb 260 lb Weight Weight Reported by Patient Reported by Patient Measurement Method Physical Exam: Gen.: Obese no distress looks well looks stated age HEENT: Anicteric PERRL EOMI Abdomen: Soft mild distention with tympany. Nontender. Much improved from yesterday examination Current Medications: Current Medications Sig/Sj Start time Last Medication Dose Route Stop Time Status Admin Albuterol Sulfate 3 ML Q4H PRN 07/16 2215 AC INH Amiodarone HCl 200 MG QAM 07/17 09 AC 07/17 PO 0836 Atorvastatin Calcium 20 MG DAILY 07/17 09 AC 07/17 PO 0829 Enoxaparin Sodium 40 MG DAILY 07/17 0900 CAN SC Insulin Detemir 10 UNITS BID 07/16 2234 AC 07/17 SC 0828 Insulin Human Regular 2 UNITS .STK-MED ONE 07/17 0101 DC IV 07/17 0102 Insulin Human Regular 0 Q6 07/16 2359 AC 07/17 SC 0550 Levothyroxine Sodium 0.125 MG DAILY 07/17 0900 CAN PO Morphine Sulfate 2 MG Q4P PRN 07/16 2200 AC IV Morphine Sulfate 0 .STK-MED ONE 07/16 1922 DC .ROUTE Morphine Sulfate 4 MG ONCE ONE 07/16 1915 DC 07/16 IV 07/16 1916 1917 Morphine Sulfate 0 .STK-MED ONE 07/16 1406 DC .ROUTE Morphine Sulfate 4 MG ONCE ONE 07/16 1400 DC 07/16 IV 07/16 1401 1404 Morphine Sulfate 0 .STK-MED ONE 07/16 1204 DC .ROUTE Morphine Sulfate 4 MG ONCE ONE 07/16 1115 DC 07/16 IV 07/16 1116 1200 Ondansetron HCl 4 MG Q6P PRN 07/17 0600 AC IV Ondansetron HCl 0 .STK-MED ONE 07/16 1204 DC .ROUTE Ondansetron HCl 4 MG ONCE ONE 07/16 1115 DC 07/16 IV 07/16 1116 1200 Sodium Chloride 1,000 ML .[id number] 07/16 2200 AC 07/16 IV 07/18 0039 2257 Sodium Chloride 1,000 ML BOLUS ONE 07/16 1900 DC 07/16 IV 07/16 1959 1906 Sodium Chloride 1,000 ML BOLUS ONE 07/16 1115 DC 07/16 IV 07/16 1214 1142 Tamsulosin HCl 0.4 MG DAILY 07/17 0900 AC 07/17 PO 0836 Results Last 48 Hours of Labs: Laboratory Tests 07/17 07/17 0546 0120 Chemistry Sodium Pending Potassium Pending Chloride Pending Carbon Dioxide Pending Anion Gap Pending BUN Pending Creatinine Pending BUN/Creatinine Ratio Pending Coagulation PT (9.4 - 12.5 SEC) 26.6 H INR (0.90 - 1.17) 2.42 H Hematology CBC w Diff Pending WBC Pending RBC Pending Hgb Pending Hct Pending MCV Pending MCH Pending MCHC Pending RDW Pending Plt Count Pending MPV Pending Urines Urine Color (YEL,AMB,STR) YEL Urine Clarity (CLEAR) CLEAR Urine pH (5.0 - 8.0) 6.0 Ur Specific [place] (1.001 - 1.035) 1.020 Urine Protein (NEG,<30 MG/DL) TRACE H Urine Ketones (NEG) NEG Urine Nitrite (NEG) NEG Urine Bilirubin (NEG) NEG Urine Urobilinogen (0.1 - 1.0 EU/dl) 0.2 Ur Leukocyte Esterase (NEG) SMALL H Ur Microscopic SEDIMENT EXAMINED Urine RBC (0 - 5 /HPF) 25-50 H Urine WBC (0 - 2 /HPF) 10-15 H Ur Epithelial Cells (NONE,FEW) RARE Urine Bacteria (NEG/NONE) RARE H Micro UA Comment BUDDING YEAST H Urine Hemoglobin (NEG) MOD H Urine Glucose (N MG/DL) NEG 07/16 1141 Chemistry Sodium (137 - 145 mmol/L) 136 L Potassium (3.5 - 5.1 mmol/L) 4.4 Chloride (98 - 107 mmol/L) 96 L Carbon Dioxide (22 - 30 mmol/L) 29 Anion Gap (5 - 16) 10 BUN (9 - 20 mg/dL) 34 H Creatinine (0.7 - 1.2 mg/dL) 2.5 H Estimated GFR (>60 ml/min) 26 L BUN/Creatinine Ratio (7 - 25 %) 13.6 Glucose (65 - 99 mg/dL) 221 H Lactic Acid (0.7 - 2.1 mmol/L) 1.3 Calcium (8.4 - 10.2 mg/dL) 9.8 Magnesium (1.6 - 2.3 mg/dL) 1.9 Total Bilirubin (0.2 - 1.3 mg/dL) 0.7 AST (17 - 59 U/L) 152 H ALT (21 - 72 U/L) 101 H Alkaline Phosphatase (< 127 U/L) 141 H Total Protein (6.3 - 8.2 g/dL) 7.4 Albumin (3.5 - 5.0 g/dL) 3.6 Globulin (1.9 - 4.2 gm/dL) 3.8 Albumin/Globulin Ratio (1.1 - 2.2 %) 0.9 L Lipase (23 - 300 U/L) 393 H Coagulation PT (9.4 - 12.5 SEC) 26.5 H INR (0.90 - 1.17) 2.41 H APTT (25 - 37 SEC) 66 H Hematology CBC w Diff NO MAN DIFF REQ WBC (4.8 - 10.8 /CUMM) 9.1 RBC (4.70 - 6.10 /CUMM) 4.70 Hgb (14.0 - 18.0 G/DL) 13.8 L Hct (42 - 52 %) 40.7 L MCV (80.0 - 94.0 FL) 86.6 MCH (27.0 - 31.0 PG) 29.4 MCHC (33.0 - 37.0 G/DL) 33.9 RDW (11.5 - 14.5 %) 15.0 H Plt Count (130 - 400 /CUMM) 420 H MPV (7.4 - 10.4 FL) 8.3 Gran % (42.2 - 75.2 %) 81.4 H Lymphocytes % (20.5 - 51.1 %) 6.9 L Monocytes % (1.7 - 9.3 %) 8.6 Eosinophils % (0 - 5 %) 2.7 Basophils % (0.0 - 2.0 %) 0.4 Absolute Granulocytes (1.4 - 6.5 /CUMM) 7.4 H Absolute Lymphocytes (1.2 - 3.4 /CUMM) 0.6 L Absolute Monocytes (0.10 - 0.60 /CUMM) 0.8 H Absolute Eosinophils (0.0 - 0.7 /CUMM) 0.2 Absolute Basophils (0.0 - 0.2 /CUMM) 0 Assessment/Plan Assessment/Plan Patient's abdominal pain has resolved with IV fluids and bowel rest. Etiology still unclear however given his lack of progression and relative improvement, suspect nothing surgical. Doppler ultrasound of the visceral vessels yesterday was incorrectly performed/ordered. The purpose was to evaluate arterial supply to the viscera, not portal venous drainage. Nevertheless given his improvement my suspicion for mesenteric ischemia is quite low. Recommend following up with his laboratory data today to evaluate for any leukocytosis, lactic acidosis or worsening of his LFTs. If there is continued improvement, consider restarting diet
[2017-07-17 15:41] VITALS: BP 116/88
--- NOTE | 2017-07-17 20:51 | Cons- Gastroenterology ---
General Information and HPI Consulting Request Date of Consult: 07/17/17 Requested By: Omari Edgar MD Reason for Consult: Abdominal pain Portal venous air Allergies/Medications Allergies: Coded Allergies: Penicillins (PT DOES NOT REMEMBER 12/05/15) ampicillin (RASH 12/05/15) sulbactam (RASH 12/05/15) Home Med List: Albuterol Sulfate 0.63 MG/3 ML VIAL.NEB 1 Vial INH/NED TID PRN lung health ( Reported) Amiodarone (Cordarone) 200 MG TABLET 1 TAB PO QAM HEART (Reported) Aspirin (Ecotrin*) 81 MG TABLET.DR 1 TAB PO DAILY HEART/HEALTH (Reported) Atorvastatin Calcium 20 MG TABLET 1 TAB PO DAILY CHOLESTEROL (Reported) Clopidogrel Bisulfate (Clopidogrel) 75 MG TABLET 1 TAB PO QAM BLOOD THINNER ( Reported) Furosemide (Lasix) 20 MG TABLET 60 MG PO DAILY DIURETIC (Reported) Insulin Glargine,Hum.rec.anlog (Lantus Solostar) 100 UNIT/ML (3 ML) INSULN.PEN 20 UNIT SC BID DM (Reported) Insulin Lispro (Humalog) 100 UNIT/ML VIAL 0 SC TIDAC/HS DM BEFORE MEALS Blood Insulin Sugar Units <80 0 81-150 0 151-200 2 201-250 4 251-300 6 301-350 8 351-400 10 >400 12 and CALL Levothyroxine Sodium 125 MCG TABLET 1 TAB PO DAILY THYROID (Reported) Tamsulosin HCl 0.4 MG CAP.ER.24H 1 CAP PO DAILY PROSTATE (Reported) Warfarin Sodium (Coumadin) 2.5 MG TABLET 1 TAB PO MoTuThSa BLOOD THINNER ( Reported) Current Medications: Current Medications Sig/Sj Start time Last Medication Dose Route Stop Time Status Admin Albuterol Sulfate 3 ML Q4P PRN 07/17 1145 AC INH Albuterol Sulfate 3 ML Q4H PRN 07/16 2215 DC INH Amiodarone HCl 200 MG QAM 07/17 0900 AC 07/17 PO 0836 Atorvastatin Calcium 20 MG DAILY 07/17 0900 AC 07/17 PO 0829 Enoxaparin Sodium 40 MG DAILY 07/17 0900 CAN SC Insulin Detemir 10 UNITS BID 07/16 2234 AC 07/17 SC 0828 Insulin Human Regular 2 UNITS .STK-MED ONE 07/17 1213 DC IV 07/17 1214 Insulin Human Regular 1 UNITS .STK-MED ONE 07/17 0548 DC IV 07/17 0549 Insulin Human Regular 2 UNITS .STK-MED ONE 07/17 0101 DC IV 07/17 0102 Insulin Human Regular 0 Q6 07/16 2359 AC 07/17 SC 1913 Levothyroxine Sodium 0.125 MG DAILY 07/17 0900 CAN PO Morphine Sulfate 2 MG Q4P PRN 07/16 2200 AC IV Ondansetron HCl 4 MG Q6P PRN 07/17 0600 AC IV Sodium Chloride 1,000 ML .[id number] 07/16 2200 AC 07/17 IV 07/18 0039 1039 Tamsulosin HCl 0.4 MG DAILY 07/17 0900 AC 07/17 PO 0836 Past History Travel History Traveled to [place] past 21 day No Medical History Blood Transfusion Hx: No Neurological: NONE EENT: NONE Cardiovascular: AFIB, hypertension, hyperlipidemia, CABG Respiratory: COPD, obstructive sleep apnea, pulmonary embolism Hepatic: NONE Renal: benign prost hyperplasia, chronic kidney disease, uti/prostatitis Musculoskeletal: osteoarthritis Psychiatric: NONE Endocrine: diabetes Blood Disorders: DVT, PE Cancer(s): colon/rectal cancer APPLICATION SPECIALIST/Reproductive: NONE Surgical History Surgical History: CABG, colon resection (s/p r hemicolectomy), hernia repair- incisional, hernia repair-inguinal, s/p decortication for empyema s/p IVC filter R INDEX FINGER AMPT Family History Relations & Conditions If Any: hypertension in family obesity in family SISTER SISTER (nephrectomy for cancer). Psychosocial History Where Do You Live? Home Who Do You Live With? spouse Services at Home: None Primary Language: Irish Smoking Status: Former Smoker ETOH Use: denies use Illicit Drug Use: denies illicit drug use Functional Ability ADLs Independent: dressing, eating, toileting, bathing. Ambulation: independent, cane, walker, non-ambulatory IADLs Independent: shopping, housework, finances, food prep, telephone, transportation , medication admin. Exam & Diagnostic Data Vital Signs and I&O Vital Signs Date Time Temp Pulse Resp B/P B/P Pulse O2 O2 Flow FiO2 Mean Ox Delivery Rate 07/17 1541 98.3 69 20 116/88 95 Room Air 07/17 1348 Room Air 07/17 0836 58 110/58 07/17 0836 58 110/58 07/17 0628 98.2 58 20 110/58 97 Room Air 07/16 2300 98.0 62 20 110/64 93 Room Air 07/16 2146 98.0 69 20 112/62 95 Room Air Intake & Output 07/17 0400 07/16 0400 07/15 0400 Intake Total 1200 1000 Output Total 1000 Balance 200 1000 Intake, IV 1200 1000 Output, Urine 1000 Patient 260 lb 260 lb Weight Weight Reported by Patient Reported by Patient Measurement Method Results Pertinent Lab Results: Laboratory Tests 07/17 07/17 0546 0120 Chemistry Sodium (137 - 145 mmol/L) 139 Potassium (3.5 - 5.1 mmol/L) 4.2 Chloride (98 - 107 mmol/L) 101 Carbon Dioxide (22 - 30 mmol/L) 29 Anion Gap (5 - 16) 9 BUN (9 - 20 mg/dL) 26 H Creatinine (0.7 - 1.2 mg/dL) 2.1 H Estimated GFR (>60 ml/min) 32 L BUN/Creatinine Ratio (7 - 25 %) 12.4 Total Bilirubin (0.2 - 1.3 mg/dL) 0.6 Direct Bilirubin (< 0.4 mg/dL) 0.2 AST (17 - 59 U/L) 105 H ALT (21 - 72 U/L) 93 H Alkaline Phosphatase (< 127 U/L) 101 Total Protein (6.3 - 8.2 g/dL) 6.2 L Albumin (3.5 - 5.0 g/dL) 2.8 L Coagulation PT (9.4 - 12.5 SEC) 26.6 H INR (0.90 - 1.17) 2.42 H Hematology CBC w Diff NO MAN DIFF REQ WBC (4.8 - 10.8 /CUMM) 6.3 RBC (4.70 - 6.10 /CUMM) 4.21 L Hgb (14.0 - 18.0 G/DL) 12.2 L Hct (42 - 52 %) 36.7 L MCV (80.0 - 94.0 FL) 87.3 MCH (27.0 - 31.0 PG) 29.0 MCHC (33.0 - 37.0 G/DL) 33.3 RDW (11.5 - 14.5 %) 15.6 H Plt Count (130 - 400 /CUMM) 379 MPV (7.4 - 10.4 FL) 8.3 Gran % (42.2 - 75.2 %) 67.8 Lymphocytes % (20.5 - 51.1 %) 10.6 L Monocytes % (1.7 - 9.3 %) 11.3 H Eosinophils % (0 - 5 %) 9.1 H Basophils % (0.0 - 2.0 %) 1.2 Absolute Granulocytes (1.4 - 6.5 /CUMM) 4.3 Absolute Lymphocytes (1.2 - 3.4 /CUMM) 0.7 L Absolute Monocytes (0.10 - 0.60 /CUMM) 0.7 H Absolute Eosinophils (0.0 - 0.7 /CUMM) 0.6 Absolute Basophils (0.0 - 0.2 /CUMM) 0.1 Urines Urine Color (YEL,AMB,STR) YEL Urine Clarity (CLEAR) CLEAR Urine pH (5.0 - 8.0) 6.0 Ur Specific [place] (1.001 - 1.035) 1.020 Urine Protein (NEG,<30 MG/DL) TRACE H Urine Ketones (NEG) NEG Urine Nitrite (NEG) NEG Urine Bilirubin (NEG) NEG Urine Urobilinogen (0.1 - 1.0 EU/dl) 0.2 Ur Leukocyte Esterase (NEG) SMALL H Ur Microscopic SEDIMENT EXAMINED Urine RBC (0 - 5 /HPF) 25-50 H Urine WBC (0 - 2 /HPF) 10-15 H Ur Epithelial Cells (NONE,FEW) RARE Urine Bacteria (NEG/NONE) RARE H Micro UA Comment BUDDING YEAST H Urine Hemoglobin (NEG) MOD H Urine Glucose (N MG/DL) NEG 07/16 1141 Chemistry Sodium (137 - 145 mmol/L) 136 L Potassium (3.5 - 5.1 mmol/L) 4.4 Chloride (98 - 107 mmol/L) 96 L Carbon Dioxide (22 - 30 mmol/L) 29 Anion Gap (5 - 16) 10 BUN (9 - 20 mg/dL) 34 H Creatinine (0.7 - 1.2 mg/dL) 2.5 H Estimated GFR (>60 ml/min) 26 L BUN/Creatinine Ratio (7 - 25 %) 13.6 Glucose (65 - 99 mg/dL) 221 H Lactic Acid (0.7 - 2.1 mmol/L) 1.3 Calcium (8.4 - 10.2 mg/dL) 9.8 Magnesium (1.6 - 2.3 mg/dL) 1.9 Total Bilirubin (0.2 - 1.3 mg/dL) 0.7 AST (17 - 59 U/L) 152 H ALT (21 - 72 U/L) 101 H Alkaline Phosphatase (< 127 U/L) 141 H Total Protein (6.3 - 8.2 g/dL) 7.4 Albumin (3.5 - 5.0 g/dL) 3.6 Globulin (1.9 - 4.2 gm/dL) 3.8 Albumin/Globulin Ratio (1.1 - 2.2 %) 0.9 L Lipase (23 - 300 U/L) 393 H Coagulation PT (9.4 - 12.5 SEC) 26.5 H INR (0.90 - 1.17) 2.41 H APTT (25 - 37 SEC) 66 H Hematology CBC w Diff NO MAN DIFF REQ WBC (4.8 - 10.8 /CUMM) 9.1 RBC (4.70 - 6.10 /CUMM) 4.70 Hgb (14.0 - 18.0 G/DL) 13.8 L Hct (42 - 52 %) 40.7 L MCV (80.0 - 94.0 FL) 86.6 MCH (27.0 - 31.0 PG) 29.4 MCHC (33.0 - 37.0 G/DL) 33.9 RDW (11.5 - 14.5 %) 15.0 H Plt Count (130 - 400 /CUMM) 420 H MPV (7.4 - 10.4 FL) 8.3 Gran % (42.2 - 75.2 %) 81.4 H Lymphocytes % (20.5 - 51.1 %) 6.9 L Monocytes % (1.7 - 9.3 %) 8.6 Eosinophils % (0 - 5 %) 2.7 Basophils % (0.0 - 2.0 %) 0.4 Absolute Granulocytes (1.4 - 6.5 /CUMM) 7.4 H Absolute Lymphocytes (1.2 - 3.4 /CUMM) 0.6 L Absolute Monocytes (0.10 - 0.60 /CUMM) 0.8 H Absolute Eosinophils (0.0 - 0.7 /CUMM) 0.2 Absolute Basophils (0.0 - 0.2 /CUMM) 0 Assessment/Plan Assessment/Recommendations: Full dictated note to follow. Acute left-sided abdominal pain, resolved as of today. Etiology unclear. By report, the patient also has air in the portal vein and gastric venous drainage. This is usually seen in the setting of ischemia, although there is no description of gastric wall thickness/emphysematous gastritis. Transaminitis, improving. This is possibly ischemic/vascular, or as a consequence of intra-abdominal infection/inflammation with secondary mesenteric involvement. Recommendations * Begin clear liquid diet, but do not advance * IV PPI twice a day * I will review imaging * Plan is for EGD to be performed on Wednesday Consult Acknowledgment - Thank you for your consult request.
[2017-07-17 21:38] VITALS: BP 122/74
[2017-07-18 06:53] VITALS: BP 128/78
[2017-07-18 08:15] LABS: ABSOLUTE BASOPHIL COUNT 0 /CUMM (0.0-0.2); ABSOLUTE EOSINOPHIL COUNT 0.6 /CUMM (0.0-0.7); ABSOLUTE GRANULOCYTE CT 4.1 /CUMM (1.4-6.5); ABSOLUTE LYMPH COUNT 0.7 /CUMM (1.2-3.4); ABSOLUTE MONOCYTE COUNT 0.8 /CUMM (0.10-0.60); BASOPHIL % 0.8 % (0.0-2.0); EOSINOPHIL % 9.6 % (0-5); GRANULOCYTE % 65.5 % (42.2-75.2); HEMATOCRIT 37.1 % (42-52); MEAN CORPUSCULAR HGB 29.1 PG (27.0-31.0); MEAN CORPUSCULAR HGB CONC 33.1 G/DL (33.0-37.0); MEAN CORPUSCULAR VOLUME 87.8 FL (80.0-94.0); MEAN PLATELET VOLUME 8.4 FL (7.4-10.4); PLATELET COUNT 388 /CUMM (130-400); RBC DISTRIBUTION WIDTH 15.8 % (11.5-14.5); RED BLOOD CELL CT 4.23 /CUMM (4.70-6.10); WHITE BLOOD CELL COUNT 6.3 /CUMM (4.8-10.8)
[2017-07-18 08:18] LABS: PT 29.2 SEC (9.4-12.5)
--- NOTE | 2017-07-18 08:38 | PN- Housestaff ---
Teressa Collier 07/18/17 0838: Subjective Follow-up For: Abdominal pain ALMAS Transaminitis Subjective: No complaints or acute events overnight. Patient requests his Proline be taken out as an inpatient because he has completed the prescribed antibiotics and that he will miss his scheduled outpatient appt Review of Systems Constitutional: Reports: see HPI. Objective Last 24 Hrs of Vital Signs/I&O Vital Signs Date Time Temp Pulse Resp B/P B/P Pulse O2 O2 Flow FiO2 Mean Ox Delivery Rate 07/18 0908 65 122/62 07/18 0908 65 122/62 07/18 0653 97.7 60 20 128/78 94 / 0000 Room Air 07/17 2138 97.7 63 18 122/74 92 Room Air 07/17 2045 93 Room Air 07/17 1541 98.3 69 20 116/88 95 Room Air 07/17 1348 Room Air Intake & Output 07/18 1600 07/18 0800 07/18 0000 Intake Total 75 600 Output Total 350 1050 Balance -275 -450 Intake, IV 75 600 Output, Urine 350 1050 Physical Exam General Appearance: Alert, Oriented X3, Cooperative, No Acute Distress Skin: R side Proline Cardiovascular: Regular Rate, Normal S1, Normal S2 Lungs: Clear to Auscultation, Normal Air Movement Abdomen: Normal Bowel Sounds, Soft, No Tenderness, large abdominal girth Current Medications: Current Medications Sig/Sj Start time Last Medication Dose Route Stop Time Status Admin Albuterol Sulfate 3 ML Q4P PRN 07/17 1145 AC INH Amiodarone HCl 200 MG QAM 07/17 09 AC 07/18 PO 0908 Atorvastatin Calcium 20 MG DAILY 07/17 0900 AC 07/18 PO 0908 Insulin Detemir 10 UNITS BID 07/16 2234 AC 07/18 SC 0907 Insulin Human Regular 4 UNITS .STK-MED ONE 07/18 0004 DC IV 07/18 0005 Insulin Human Regular 1 UNITS .STK-MED ONE 07/17 1912 DC IV 07/17 191 Insulin Human Regular 0 Q6 07/16 2359 AC 07/18 SC 1247 Morphine Sulfate 2 MG Q4P PRN 07/16 2200 AC IV Ondansetron HCl 4 MG Q6P PRN 07/17 0600 AC IV Pantoprazole Sodium 40 MG BID 07/18 0900 AC 07/18 IV 0908 Sodium Chloride 1,000 ML .[id number] 07/16 2200 DC 07/17 IV 07/18 0039 1039 Tamsulosin HCl 0.4 MG DAILY 07/17 0900 AC 07/18 PO 0908 Last 24 Hrs of Lab/Jack Results Last 24 Hrs of Labs/Mics: Laboratory Tests 07/18/17 0625: Anion Gap 7, Estimated GFR 36 L, BUN/Creatinine Ratio 10.0, Total Bilirubin 0.5 , Direct Bilirubin 0.1, AST 89 H, ALT 99 H, Alkaline Phosphatase 95, Total Protein 6.1 L, Albumin 2.8 L, PT 29.2 H, INR 2.65 H, CBC w Diff NO MAN DIFF REQ, RBC 4.23 L, MCV 87.8, MCH 29.1, MCHC 33.1, RDW 15.8 H, MPV 8.4, Gran % 65.5, Lymphocytes % 11.2 L, Monocytes % 12.9 H, Eosinophils % 9.6 H, Basophils % 0.8, Absolute Granulocytes 4.1, Absolute Lymphocytes 0.7 L, Absolute Monocytes 0.8 H, Absolute Eosinophils 0.6, Absolute Basophils 0 Assessment/Plan Assessment: 66-year-old gentleman with past medical history significant for dyslipidemia, hypertension, insulin-dependent diabetes, colon cancer status post colostomy, paroxysmal atrial fibrillation on anticoagulation, history of DVT and pulmonary embolism status post IVC filter placement, CAD status post CABG, COPD, history of kidney stones and pyelonephritis status post left ureteric stent placement on June 23 was admitted at [facility] with pyelonephritis from June 23 to June 30 and was found to have MRSA growing in his urine and was discharged on 1.75 mg of vancomycin daily after placing the pro line, came with chief complaint of abdominal pain. #Abdominal pain #ALMAS - improving #Transaminitis - improving Plan: Follow up with possible Proline removal if no longer needed AC on hold in anticipation for stent removal Wednesday per Uro EGD scheduled for Wednesday per GI NPO at midnight Continue amiodarone, atorvastatin, protonix, tamsulosin, ondansetron Accuchek and Novolog SS Pain: Morphine Code-full code DVT prophylaxis-Alps Problem List: 1. ARF (acute renal failure) 2. Abdominal pain Pain Ratin Pain Location: NA Pain Goal: Remain pain free Pain Plan: nA Tomorrow's Labs & Rationales: cbc, bep Justin MATHEW,Hermelinda 07/18/17 1147: Attending MD Review Statement Attending Statement Attending MD Statement: examined this patient, discuss w/resident/PA/SHELLS INSPECTOR, agreed w/resident/PA/SHELLS INSPECTOR, reviewed EMR data (avail), discussed with nursing, reviewed images Attending Assessment/Plan: Patient is tolerating the clear liquid diet. Appreciate GI evaluation. This is a 66-year-old complex male with diabetes, A. fib on Coumadin, recent obstructive uropathy with a pro-line placed on antibiotics and a plan for stent removal early next week. Outpatient he takes dual antiplatelet therapy and anticoagulation. He is here with a KI on CKD and abdominal pain. The thought that this was possibly been mesenteric ischemia is being entertained but he also has portal and gastric venous air. The plan is endoscopy on Wednesday, all of his anticoagulants and antiplatelets are on hold and will follow closely.
--- NOTE | 2017-07-18 12:30 | PN- Gastroenterology ---
Assessment/Plan GI Assessment/Recommendations: 1. Acute left-sided abdominal pain, resolved. Air in the portal vein and gastric venous drainage. This is usually seen in the setting of ischemia, although there is no description of gastric wall thickness/emphysematous gastritis. 2. Transaminitis, improving. This is possibly ischemic/vascular, or as a consequence of intra-abdominal infection/inflammation with secondary mesenteric involvement. Recommendations: * Continue clear liquid diet; nothing by mouth after midnight * Continue IV PPI twice a day * EGD to be performed tomorrow * Continue to follow LFTs; check INR Subjective Subjective: No abdominal pain, nausea, dyspepsia. Tolerating clear liquid diet. Objective Vital Signs and I&Os Vital Signs Date Time Temp Pulse Resp B/P B/P Pulse O2 O2 Flow FiO2 Mean Ox Delivery Rate 07/18 0908 65 122/62 07/18 0908 65 122/62 07/18 0653 97.7 60 20 128/78 94 / 0000 Room Air 07/17 2138 97.7 63 18 122/74 92 Room Air 07/17 2045 93 Room Air 07/17 1541 98.3 69 20 116/88 95 Room Air / 1348 Room Air Intake & Output 07/18 1600 07/18 0400 07/17 1600 07/17 0400 07/16 1600 07/16 0400 Intake Total 75 600 1200 1000 Output Total 200 1200 1000 Balance -125 -318 216 4698 Intake, IV 75 600 1200 1000 Output, Urine 200 1200 1000 Patient 260 lb 260 lb Weight Weight Reported by Patient Reported by Patient Measurement Method Physical Exam: Abdomen soft, nondistended, nontender. Current Medications: Current Medications Sig/Sj Start time Last Medication Dose Route Stop Time Status Admin Albuterol Sulfate 3 ML Q4P PRN 07/17 1145 AC INH Amiodarone HCl 200 MG QAM 07/17 0900 AC 07/18 PO 0908 Atorvastatin Calcium 20 MG DAILY 07/17 0900 AC 07/18 PO 0908 Insulin Detemir 10 UNITS BID 07/16 2234 AC 07/18 SC 0907 Insulin Human Regular 4 UNITS .STK-MED ONE 07/18 0004 DC IV 07/18 0005 Insulin Human Regular 1 UNITS .STK-MED ONE 07/17 1912 DC IV 07/17 191 Insulin Human Regular 0 Q6 07/16 2359 AC 07/18 SC 0007 Morphine Sulfate 2 MG Q4P PRN 07/16 2199 AC IV Ondansetron HCl 4 MG Q6P PRN 07/17 599 AC IV Pantoprazole Sodium 40 MG BID 07/18 899 AC 07/18 IV 0908 Sodium Chloride 1,000 ML .[id number] 07/16 2199 DC 07/17 IV 07/18 0039 1039 Tamsulosin HCl 0.4 MG DAILY 07/17 899 AC 07/18 PO 0908 Results Pertinent Lab Results: Laboratory Tests 07/18 07/17 0625 0546 Chemistry Sodium (137 - 145 mmol/L) 139 139 Potassium (3.5 - 5.1 mmol/L) 4.3 4.2 Chloride (98 - 107 mmol/L) 104 101 Carbon Dioxide (22 - 30 mmol/L) 29 29 Anion Gap (5 - 16) 7 9 BUN (9 - 20 mg/dL) 19 26 H Creatinine (0.7 - 1.2 mg/dL) 1.9 H 2.1 H Estimated GFR (>60 ml/min) 36 L 32 L BUN/Creatinine Ratio (7 - 25 %) 10.0 12.4 Total Bilirubin (0.2 - 1.3 mg/dL) 0.5 0.6 Direct Bilirubin (< 0.4 mg/dL) 0.1 0.2 AST (17 - 59 U/L) 89 H 105 H ALT (21 - 72 U/L) 99 H 93 H Alkaline Phosphatase (< 127 U/L) 95 101 Total Protein (6.3 - 8.2 g/dL) 6.1 L 6.2 L Albumin (3.5 - 5.0 g/dL) 2.8 L 2.8 L Coagulation PT (9.4 - 12.5 SEC) 29.2 H 26.6 H INR (0.90 - 1.17) 2.65 H 2.42 H Hematology CBC w Diff NO MAN DIFF REQ NO MAN DIFF REQ WBC (4.8 - 10.8 /CUMM) 6.3 6.3 RBC (4.70 - 6.10 /CUMM) 4.23 L 4.21 L Hgb (14.0 - 18.0 G/DL) 12.3 L 12.2 L Hct (42 - 52 %) 37.1 L 36.7 L MCV (80.0 - 94.0 FL) 87.8 87.3 MCH (27.0 - 31.0 PG) 29.1 29.0 MCHC (33.0 - 37.0 G/DL) 33.1 33.3 RDW (11.5 - 14.5 %) 15.8 H 15.6 H Plt Count (130 - 400 /CUMM) 388 379 MPV (7.4 - 10.4 FL) 8.4 8.3 Gran % (42.2 - 75.2 %) 65.5 67.8 Lymphocytes % (20.5 - 51.1 %) 11.2 L 10.6 L Monocytes % (1.7 - 9.3 %) 12.9 H 11.3 H Eosinophils % (0 - 5 %) 9.6 H 9.1 H Basophils % (0.0 - 2.0 %) 0.8 1.2 Absolute Granulocytes (1.4 - 6.5 /CUMM) 4.1 4.3 Absolute Lymphocytes (1.2 - 3.4 /CUMM) 0.7 L 0.7 L Absolute Monocytes (0.10 - 0.60 /CUMM) 0.8 H 0.7 H Absolute Eosinophils (0.0 - 0.7 /CUMM) 0.6 0.6 Absolute Basophils (0.0 - 0.2 /CUMM) 0 0.1 /07/16 0120 1141 Chemistry Sodium (137 - 145 mmol/L) 136 L Potassium (3.5 - 5.1 mmol/L) 4.4 Chloride (98 - 107 mmol/L) 96 L Carbon Dioxide (22 - 30 mmol/L) 29 Anion Gap (5 - 16) 10 BUN (9 - 20 mg/dL) 34 H Creatinine (0.7 - 1.2 mg/dL) 2.5 H Estimated GFR (>60 ml/min) 26 L BUN/Creatinine Ratio (7 - 25 %) 13.6 Glucose (65 - 99 mg/dL) 221 H Lactic Acid (0.7 - 2.1 mmol/L) 1.3 Calcium (8.4 - 10.2 mg/dL) 9.8 Magnesium (1.6 - 2.3 mg/dL) 1.9 Total Bilirubin (0.2 - 1.3 mg/dL) 0.7 AST (17 - 59 U/L) 152 H ALT (21 - 72 U/L) 101 H Alkaline Phosphatase (< 127 U/L) 141 H Total Protein (6.3 - 8.2 g/dL) 7.4 Albumin (3.5 - 5.0 g/dL) 3.6 Globulin (1.9 - 4.2 gm/dL) 3.8 Albumin/Globulin Ratio (1.1 - 2.2 %) 0.9 L Lipase (23 - 300 U/L) 393 H Coagulation PT (9.4 - 12.5 SEC) 26.5 H INR (0.90 - 1.17) 2.41 H APTT (25 - 37 SEC) 66 H Hematology CBC w Diff NO MAN DIFF REQ WBC (4.8 - 10.8 /CUMM) 9.1 RBC (4.70 - 6.10 /CUMM) 4.70 Hgb (14.0 - 18.0 G/DL) 13.8 L Hct (42 - 52 %) 40.7 L MCV (80.0 - 94.0 FL) 86.6 MCH (27.0 - 31.0 PG) 29.4 MCHC (33.0 - 37.0 G/DL) 33.9 RDW (11.5 - 14.5 %) 15.0 H Plt Count (130 - 400 /CUMM) 420 H MPV (7.4 - 10.4 FL) 8.3 Gran % (42.2 - 75.2 %) 81.4 H Lymphocytes % (20.5 - 51.1 %) 6.9 L Monocytes % (1.7 - 9.3 %) 8.6 Eosinophils % (0 - 5 %) 2.7 Basophils % (0.0 - 2.0 %) 0.4 Absolute Granulocytes (1.4 - 6.5 /CUMM) 7.4 H Absolute Lymphocytes (1.2 - 3.4 /CUMM) 0.6 L Absolute Monocytes (0.10 - 0.60 /CUMM) 0.8 H Absolute Eosinophils (0.0 - 0.7 /CUMM) 0.2 Absolute Basophils (0.0 - 0.2 /CUMM) 0 Urines Urine Color (YEL,AMB,STR) YEL Urine Clarity (CLEAR) CLEAR Urine pH (5.0 - 8.0) 6.0 Ur Specific [place] (1.001 - 1.035) 1.020 Urine Protein (NEG,<30 MG/DL) TRACE H Urine Ketones (NEG) NEG Urine Nitrite (NEG) NEG Urine Bilirubin (NEG) NEG Urine Urobilinogen (0.1 - 1.0 EU/dl) 0.2 Ur Leukocyte Esterase (NEG) SMALL H Ur Microscopic SEDIMENT EXAMINED Urine RBC (0 - 5 /HPF) 25-50 H Urine WBC (0 - 2 /HPF) 10-15 H Ur Epithelial Cells (NONE,FEW) RARE Urine Bacteria (NEG/NONE) RARE H Micro UA Comment BUDDING YEAST H Urine Hemoglobin (NEG) MOD H Urine Glucose (N MG/DL) NEG
--- NOTE | 2017-07-18 12:53 | PN- General Surgery ---
Subjective Subjective: FEELS WELL. NO ABD PAIN. TOLERATING CLEARS. Objective Vital Signs and I&Os Vital Signs Date Time Temp Pulse Resp B/P B/P Pulse O2 O2 Flow FiO2 Mean Ox Delivery Rate 07/18 0908 65 122/62 07/18 0908 65 122/62 07/18 0653 97.7 60 20 128/78 94 07/18 0000 Room Air 07/17 2138 97.7 63 18 122/74 92 Room Air 07/17 2045 93 Room Air 07/17 1541 98.3 69 20 116/88 95 Room Air 07/17 1348 Room Air Intake & Output 07/18 1600 07/18 0800 07/18 0000 07/17 1600 07/17 0800 07/17 0000 Intake Total 75 600 600 600 Output Total 350 1050 650 350 Balance -275 -450 -50 250 Intake, IV 75 600 600 600 Output, Urine 350 1050 650 350 Patient 260 lb Weight Weight Reported by Patient Measurement Method Physical Exam: GEN; LOOKS WELL/AGE. NAD ABD; OBESE, SOFT NT. ND Current Medications: Current Medications Sig/Sj Start time Last Medication Dose Route Stop Time Status Admin Albuterol Sulfate 3 ML Q4P PRN 07/17 1145 AC INH Amiodarone HCl 200 MG QAM 07/17 899 AC 07/18 PO 0908 Atorvastatin Calcium 20 MG DAILY 07/17 09 AC 07/18 PO 0908 Insulin Detemir 10 UNITS BID 07/16 2234 AC 07/18 SC 0907 Insulin Human Regular 4 UNITS .STK-MED ONE 07/18 0004 DC IV 07/18 0005 Insulin Human Regular 1 UNITS .STK-MED ONE 07/17 1912 DC IV 07/17 191 Insulin Human Regular 0 Q6 07/16 2359 07/18 SC 1247 Morphine Sulfate 2 MG Q4P PRN 07/16 2200 AC IV Ondansetron HCl 4 MG Q6P PRN 07/17 06 AC IV Pantoprazole Sodium 40 MG BID 07/18 09 AC 07/18 IV 0908 Sodium Chloride 1,000 ML .[id number] 07/16 2200 DC 07/17 IV 07/18 0039 1039 Tamsulosin HCl 0.4 MG DAILY 07/17 09 AC 07/18 PO 0908 Results Last 48 Hours of Labs: Laboratory Tests 07/18 07/17 0625 0546 Chemistry Sodium (137 - 145 mmol/L) 139 139 Potassium (3.5 - 5.1 mmol/L) 4.3 4.2 Chloride (98 - 107 mmol/L) 104 101 Carbon Dioxide (22 - 30 mmol/L) 29 29 Anion Gap (5 - 16) 7 9 BUN (9 - 20 mg/dL) 19 26 H Creatinine (0.7 - 1.2 mg/dL) 1.9 H 2.1 H Estimated GFR (>60 ml/min) 36 L 32 L BUN/Creatinine Ratio (7 - 25 %) 10.0 12.4 Total Bilirubin (0.2 - 1.3 mg/dL) 0.5 0.6 Direct Bilirubin (< 0.4 mg/dL) 0.1 0.2 AST (17 - 59 U/L) 89 H 105 H ALT (21 - 72 U/L) 99 H 93 H Alkaline Phosphatase (< 127 U/L) 95 101 Total Protein (6.3 - 8.2 g/dL) 6.1 L 6.2 L Albumin (3.5 - 5.0 g/dL) 2.8 L 2.8 L Coagulation PT (9.4 - 12.5 SEC) 29.2 H 26.6 H INR (0.90 - 1.17) 2.65 H 2.42 H Hematology CBC w Diff NO MAN DIFF REQ NO MAN DIFF REQ WBC (4.8 - 10.8 /CUMM) 6.3 6.3 RBC (4.70 - 6.10 /CUMM) 4.23 L 4.21 L Hgb (14.0 - 18.0 G/DL) 12.3 L 12.2 L Hct (42 - 52 %) 37.1 L 36.7 L MCV (80.0 - 94.0 FL) 87.8 87.3 MCH (27.0 - 31.0 PG) 29.1 29.0 MCHC (33.0 - 37.0 G/DL) 33.1 33.3 RDW (11.5 - 14.5 %) 15.8 H 15.6 H Plt Count (130 - 400 /CUMM) 388 379 MPV (7.4 - 10.4 FL) 8.4 8.3 Gran % (42.2 - 75.2 %) 65.5 67.8 Lymphocytes % (20.5 - 51.1 %) 11.2 L 10.6 L Monocytes % (1.7 - 9.3 %) 12.9 H 11.3 H Eosinophils % (0 - 5 %) 9.6 H 9.1 H Basophils % (0.0 - 2.0 %) 0.8 1.2 Absolute Granulocytes (1.4 - 6.5 /CUMM) 4.1 4.3 Absolute Lymphocytes (1.2 - 3.4 /CUMM) 0.7 L 0.7 L Absolute Monocytes (0.10 - 0.60 /CUMM) 0.8 H 0.7 H Absolute Eosinophils (0.0 - 0.7 /CUMM) 0.6 0.6 Absolute Basophils (0.0 - 0.2 /CUMM) 0 0.1 06/02 0120 Urines Urine Color (YEL,AMB,STR) YEL Urine Clarity (CLEAR) CLEAR Urine pH (5.0 - 8.0) 6.0 Ur Specific [place] (1.001 - 1.035) 1.020 Urine Protein (NEG,<30 MG/DL) TRACE H Urine Ketones (NEG) NEG Urine Nitrite (NEG) NEG Urine Bilirubin (NEG) NEG Urine Urobilinogen (0.1 - 1.0 EU/dl) 0.2 Ur Leukocyte Esterase (NEG) SMALL H Ur Microscopic SEDIMENT EXAMINED Urine RBC (0 - 5 /HPF) 25-50 H Urine WBC (0 - 2 /HPF) 10-15 H Ur Epithelial Cells (NONE,FEW) RARE Urine Bacteria (NEG/NONE) RARE H Micro UA Comment BUDDING YEAST H Urine Hemoglobin (NEG) MOD H Urine Glucose (N MG/DL) NEG Assessment/Plan Assessment/Plan INDETERMINANT ETIOLOGY OF PORTAL VENOUS GAS SEEN ON CT. NO ISCHEMIA CLINICALLY. AWAIT EGD. WILL DEFER TO GI. PATIENT INQUIRES RE: URETERAL STENT/MANAGEMENT. RECOMMEND D/W DR. OREILLY. LET HIM KNOW OF PATIENT'S ADMISSION STATUS. HE WILL SEE THE PATIENT TOMORROW MORNING IF YOU LET HIM KNOW.
[2017-07-18 14:50] VITALS: BP 122/78
[2017-07-18 21:44] VITALS: BP 129/80
[2017-07-19 06:19] VITALS: BP 132/82
--- NOTE | 2017-07-19 07:15 | PN- Housestaff ---
Anastasia MATHEW,Janay 07/19/17 0714: Subjective Follow-up For: Abdominal pain for evaluation bilateral renal stent placed Complaints: no complaints Subjective: Patient seen and examined at bedside no overnight events. No complaints. Denies abdominal pain, nausea, vomiting. He is aware that he is going today for endoscopy. Review of Systems Constitutional: Reports: no symptoms, see HPI. Objective Last 24 Hrs of Vital Signs/I&O Vital Signs Date Time Temp Pulse Resp B/P B/P Pulse O2 O2 Flow FiO2 Mean Ox Delivery Rate 07/19 0619 98.1 58 20 132/82 94 / 2144 97.8 68 20 129/80 98 Room Air / 1942 95 Room Air 07/18 1600 Room Air 07/18 1454 97 Room Air 07/18 1450 97.7 65 20 122/78 94 Room Air / 0908 65 122/62 07/18 0908 65 122/62 Intake & Output 07/19 1600 04 0800 07/19 0000 Intake Total Output Total 950 250 Balance -950 -250 Output, Urine 950 250 Physical Exam General Appearance: Alert, Oriented X3, Cooperative, No Acute Distress Cardiovascular: Regular Rate, Normal S1, Normal S2, No Murmurs Lungs: Normal Air Movement Abdomen: Soft, No Tenderness, No Hepatospenomegaly Neurological: Normal Speech, Strength at 5/5 X4 Ext, Normal Tone, Sensation Intact Extremities: No Edema Current Medications: Current Medications Sig/Sj Start time Last Medication Dose Route Stop Time Status Admin Albuterol Sulfate 3 ML Q4P PRN 07/17 1145 AC INH Amiodarone HCl 200 MG QAM 07/17 0900 AC 07/18 PO 0908 Atorvastatin Calcium 20 MG DAILY 07/17 0900 AC / PO 0908 Dextrose/Sodium 1,000 ML Q20H / 0830 AC Chloride IV Dextrose/Sodium 1,000 ML Q20H 07/19 0815 AC Chloride IV Insulin Detemir 10 UNITS BID 07/16 2234 AC 07/18 SC 2100 Insulin Human Regular 1 UNITS .STK-MED ONE 07/19 0013 DC IV 07/19 0014 Insulin Human Regular 2 UNITS .STK-MED ONE 07/18 1834 DC IV 07/18 1835 Insulin Human Regular 2 UNITS .STK-MED ONE 07/18 1245 DC IV 07/18 1246 Insulin Human Regular 0 Q6 07/16 2359 07/19 SC 0019 Morphine Sulfate 2 MG Q4P PRN 07/16 2200 AC 07/19 IV 0145 Ondansetron HCl 4 MG Q6P PRN 07/17 0600 IV Pantoprazole Sodium 40 MG BID 07/18 0900 AC 07/18 IV 2100 Tamsulosin HCl 0.4 MG DAILY 07/17 0900 AC 07/18 PO 0908 Last 24 Hrs of Lab/Jack Results Last 24 Hrs of Labs/Mics: Laboratory Tests 07/19/17 0720: Sodium Pending, Potassium Pending, Chloride Pending, Carbon Dioxide Pending, Anion Gap Pending, BUN Pending, Creatinine Pending, BUN/Creatinine Ratio Pending , Total Bilirubin Pending, Direct Bilirubin Pending, AST Pending, ALT Pending, Alkaline Phosphatase Pending, Total Protein Pending, Albumin Pending, CBC w Diff Pending, WBC Pending, RBC Pending, Hgb Pending, Hct Pending, MCV Pending, MCH Pending, MCHC Pending, RDW Pending, Plt Count Pending, MPV Pending Assessment/Plan Assessment: 66-year-old gentleman with past medical history significant for dyslipidemia, hypertension, insulin-dependent diabetes, colon cancer status post colostomy, paroxysmal atrial fibrillation on anticoagulation, history of DVT and pulmonary embolism status post IVC filter placement, CAD status post CABG, COPD, history of kidney stones and pyelonephritis status post left ureteric stent placement on June 23 was admitted at [facility] with pyelonephritis from June 23 to June 30 and was found to have MRSA growing in his urine and was discharged on 1.75 mg of vancomycin daily after placing the pro line, came with chief complaint of abdominal pain Assessment and plan Abdominal pain-for evaluation ALMAS-improving * Patient is going for endoscopy today given his CAT scan finding of air in the portal vein. * Patient has a pro line, and plan for IR guarded removal tomorrow. * Bilateral renal stent-patient will be followed by Dr. Nava today regarding stent removal. * Patient's Plavix and Coumadin held. Continue amiodarone, atorvastatin, Protonix, tamsulosin, and ondansetron. * Diabetes-patient is on Levemir and sliding scale insulin. We will continue monitoring his blood sugar. Patient is on D5 W half NS at 50 mL. * Code-full code * Diet-nothing by mouth for now Problem List: 1. [id number] kidney injury Pain Ratin Pain Location: none Pain Goal: Remain pain free Pain Plan: tylenol Tomorrow's Labs & Rationales: cbc,bep Jason MATHEW,Zenobia 07/19/17 1246: Attending MD Review Statement Attending Statement Attending MD Statement: examined this patient, discuss w/resident/PA/FLOATLIGHT LOADING SUPERVISOR, agreed w/resident/PA/FLOATLIGHT LOADING SUPERVISOR, reviewed EMR data (avail), discussed with nursing, discussed with case mgmt, reviewed images, amended to note Attending Assessment/Plan: Patient seen and examined, overall feels well. Abdominal pain has improved. Patient is scheduled for endoscopy today as Air in the portal and gastric venous drainage was seen on imaging. Vital Signs Date Time Temp Pulse Resp B/P B/P Pulse O2 O2 Flow FiO2 Mean Ox Delivery Rate 07/19 0856 64 132/80 07/19 0619 98.1 58 20 132/82 94 07/18 2144 97.8 68 20 129/80 98 Room Air 07/18 1942 95 Room Air 07/18 1600 Room Air 07/18 1454 97 Room Air / 1450 97.7 65 20 122/78 94 Room Air on exam; aox3, nad. cv; s1,s2, rrr resp; clear abd; soft, nt, bs+ ext; no edema Laboratory Tests 07/19 07/19 0835 0720 Chemistry Sodium (137 - 145 mmol/L) 141 Potassium (3.5 - 5.1 mmol/L) 4.2 Chloride (98 - 107 mmol/L) 104 Carbon Dioxide (22 - 30 mmol/L) 28 Anion Gap (5 - 16) 9 BUN (9 - 20 mg/dL) 16 Creatinine (0.7 - 1.2 mg/dL) 1.8 H Estimated GFR (>60 ml/min) 38 L BUN/Creatinine Ratio (7 - 25 %) 8.9 Total Bilirubin (0.2 - 1.3 mg/dL) 0.7 Direct Bilirubin (< 0.4 mg/dL) 0.2 AST (17 - 59 U/L) 60 H ALT (21 - 72 U/L) 58 Alkaline Phosphatase (< 127 U/L) 96 Total Protein (6.3 - 8.2 g/dL) 6.1 L Albumin (3.5 - 5.0 g/dL) 2.8 L Coagulation PT (9.4 - 12.5 SEC) 27.9 H INR (0.90 - 1.17) 2.54 H Hematology CBC w Diff NO MAN DIFF REQ WBC (4.8 - 10.8 /CUMM) 5.1 RBC (4.70 - 6.10 /CUMM) 4.17 L Hgb (14.0 - 18.0 G/DL) 12.2 L Hct (42 - 52 %) 36.2 L MCV (80.0 - 94.0 FL) 87.0 MCH (27.0 - 31.0 PG) 29.3 MCHC (33.0 - 37.0 G/DL) 33.6 RDW (11.5 - 14.5 %) 15.5 H Plt Count (130 - 400 /CUMM) 378 MPV (7.4 - 10.4 FL) 8.3 Gran % (42.2 - 75.2 %) 59.4 Lymphocytes % (20.5 - 51.1 %) 14.5 L Monocytes % (1.7 - 9.3 %) 15.4 H Eosinophils % (0 - 5 %) 9.5 H Basophils % (0.0 - 2.0 %) 1.2 Absolute Granulocytes (1.4 - 6.5 /CUMM) 3.0 Absolute Lymphocytes (1.2 - 3.4 /CUMM) 0.7 L Absolute Monocytes (0.10 - 0.60 /CUMM) 0.8 H Absolute Eosinophils (0.0 - 0.7 /CUMM) 0.5 Absolute Basophils (0.0 - 0.2 /CUMM) 0.1 A/P: 66 y/o M with pmh sig for dyslipidemia, hypertension, insulin-dependent diabetes, colon cancer status post colostomy, paroxysmal atrial fibrillation on anticoagulation, history of DVT and pulmonary embolism status post IVC filter placement, CAD status post CABG, COPD, history of kidney stones and pyelonephritis status post left ureteric stent placement on June 23 was admitted at [facility] with pyelonephritis from June 23 to June 30 and was found to have MRSA growing in his urine and was discharged on 1.75 mg of vancomycin daily after placing the pro line. Proton is supposed to come out tomorrow. Patient admitted for abdominal pain and found to have Air in the portal and gastric venous drainage was seen on imaging. Patient scheduled for endoscopy today. Scheduled, tomorrow. Dr. Nava to see the patient about the ureteral stent removal. Pending endoscopy, further plan of care will be discussed. Antiplatelet and anticoagulation is on hold for this and decided procedure. Continue the rest of the management. Disposition plan is pending endoscopy results and Dr. Nava seeing the patient.
[2017-07-19 08:45] LABS: ABSOLUTE BASOPHIL COUNT 0.1 /CUMM (0.0-0.2); ABSOLUTE EOSINOPHIL COUNT 0.5 /CUMM (0.0-0.7); ABSOLUTE LYMPH COUNT 0.7 /CUMM (1.2-3.4); ABSOLUTE MONOCYTE COUNT 0.8 /CUMM (0.10-0.60); BASOPHIL % 1.2 % (0.0-2.0); EOSINOPHIL % 9.5 % (0-5); GRANULOCYTE % 59.4 % (42.2-75.2); HEMATOCRIT 36.2 % (42-52); MEAN CORPUSCULAR HGB 29.3 PG (27.0-31.0); MEAN CORPUSCULAR HGB CONC 33.6 G/DL (33.0-37.0); MEAN PLATELET VOLUME 8.3 FL (7.4-10.4); PLATELET COUNT 378 /CUMM (130-400); RBC DISTRIBUTION WIDTH 15.5 % (11.5-14.5); RED BLOOD CELL CT 4.17 /CUMM (4.70-6.10); WHITE BLOOD CELL COUNT 5.1 /CUMM (4.8-10.8)
[2017-07-19 09:03] LABS: PT 27.9 SEC (9.4-12.5)
--- NOTE | 2017-07-19 10:13 | Patient Discharge Instructions ---
Discharge Instructions General Discharge Information You were seen/treated for: Abdominal pain Watch for these problems: In case of nausea, vomiting, abdominal pain, chest pain, shortness of breath please could the nearest emergency room Special Instructions: Please follow-up with your primary care provider and urologist within a week of discharge. Please follow up with your GI doctor in one month. Please have your INR checked on 07/26/17 Diet Continue normal diet: No Recommended Diet: Heart Healthy Activity Full Activity/No Limits: Yes Acute Coronary Syndrome Inclusion Criteria At DC or during hospital stay patient has or had the following: ACS DIAGNOSIS No Discharge Core Measures Meds if any: Prescribed or Continued at Discharge Meds if any: NOT Prescribed or Continued at Discharge Congestive Heart Failure Inclusion Criteria At DC or during hospital stay patient has or had the following: CHF DIAGNOSIS No Discharge Core Measures Meds if any: Prescribed or Continued at Discharge Meds if any: NOT Prescribed or Continued at Discharge Cerebrovascular accident Inclusion Criteria At DC or during hospital stay patient has or had the following: CVA/TIA Diagnosis No Discharge Core Measures Meds if any: Prescribed or Continued at Discharge Meds if any: NOT Prescribed or Continued at Discharge Venous thromboembolism Inclusion Criteria VTE Diagnosis No VTE Type NONE VTE Confirmed by (Test) NONE Discharge Core Measures - Per Current guidelines, there needs to be overlap - treatment for the first 5 days of Warfarin therapy. - If discharged on Warfarin prior to 5 days of - overlap therapy, the patient will need to be - assessed for post discharge needs including - *Post discharge parental anticoagulation - *Warfarin and/or parental anticoagulation education - *Follow up date to check INR post discharge At least 5 days overlap therapy as Inpatient No Meds if any: Prescribed or Continued at Discharge Note: Overlap Therapy is Warfarin and Anticoagulant Meds if any: NOT Prescribed or Continued at Discharge
--- NOTE | 2017-07-19 10:32 | Discharge Summary ---
Visit Information Visit Dates Admission Date: 07/16/17 Discharge Date: 07/22/17 Hospital Course Course Attending Physician: Zenobia Gomez MD Primary Care Physician: Aashish Carmona MD Hospital Course: Mr Chase is a 66-year-old gentleman with past medical history significant for dyslipidemia, hypertension, insulin-dependent diabetes, colon cancer status post colostomy, paroxysmal atrial fibrillation on Coumadin, history of DVT and pulmonary embolism status post IVC filter placement, CAD s/p CABG, COPD, history of kidney stones presented to the ED with chief complaint of abdominal pain. He was seen and admitted for: 1. Gastritis 2. ALMAS on CKD 3. Bilateral Ureteral Calculi On admission, patient complained of abdominal pain. Imaging in the ED showed large residual stones in each kidney and small amount of portal venous air and within the draining veins of the stomach. The latter was monitored with serial abdominal x-rays. GI was also consulted with plans for endoscopy to evaluate for ischemia. His upper endoscopy showed gastritis involving the greater curvature/ posterior stomach with appearance suggestive of ischemic gastritis, likely in healing phase. He was further evaluated with MRA of the abdomen which did not show any evidence of aneurysm, dissection or flow-limiting stenosis within the celiac axis or mesenteric arteries. He was recommended to follow up with his controls design engineer in 1 month after discharge. On admission, his Cr was found to be elevated to 2.5. He likely had ALMAS on CKD. He was treated with IVF with improvement in his renal function. His Cr at the time of discharge was 1.8. For his ureteral calculi, urology was consulted. He was planned for a bilateral ureteroscopy with laser litho of ureteral stones and exchange of both stents. He had a successful procedure without any complications. His aspirin and plavix that was held prior to the procedure was restarted on the day of discharge. He voided on his own with no hematuria. He was recommeded to restart his Coumadin as well and have a repeat INR as directed. He was discharged in stable disposition with recommendatios to follow up with urologist as an outpatient. Allergies: Coded Allergies: Penicillins (PT DOES NOT REMEMBER 12/05/15) ampicillin (RASH 12/05/15) sulbactam (RASH 12/05/15) Significant Procedures: SERVICE DATE: 07/21/17- EXAM TYPE: RAD - AVX-WSDNYLK-KAFULF VIEW FINDINGS: There are sequential images demonstrating bilateral retrograde polygrams and placement of a new right double-J ureteral stent. The study demonstrates exchange of the left double-J ureteral stent. At the end of the study the ureteral stents are noted with loops in the bilateral renal collecting systems and in the bladder. IMPRESSION: 1. Multiple intraoperative images during retrograde pyelograms, placement of a right double-J ureteral stent and exchange of the left double-J ureteral stent. 2. Please see the clinical/surgical notes for further details. SERVICE DATE: 07/21/17- EXAM TYPE: MRI - MRA-ABDOMEN FINDINGS: VASCULAR: 1. Mesenteric Arteries: The celiac axis, superior mesenteric artery and inferior mesenteric artery normally opacify with contrast. 2. Renal Arteries: There is early bifurcation of the right renal artery, which is patent. There is a miniscule accessory artery on the left located superiorly. The main left renal artery is patent and unremarkable. 3. Infrarenal abdominal aorta: No evidence of aneurysm, dissection or stenosis. 4. Aorto-iliac arteries: No evidence of aneurysm, dissection or stenosis. 5. Inferior Vena Cava: TrapEase infrarenal filter in place. The IVC that is able to be evaluated outside the filter is patent. 6. Ted-mesenteric venous system: Patent and unremarkable. NONVASCULAR: Lung Bases: Unremarkable. Liver, Gallbladder, and Biliary Tree: The liver is normal in size, shape, and attenuation. No focal hepatic lesion or biliary ductal dilatation is present. The gallbladder is unremarkable with no evidence of radiopaque gallstones, gallbladder wall thickening, or obvious pericholecystic inflammatory changes. Pancreas: Unremarkable. Spleen: Unremarkable. Adrenal Glands: Unremarkable. Kidneys and Ureters: The kidneys are normal in size, shape, and attenuation. No hydronephrosis, hydroureter, or calculi seen. No perinephric stranding. Multiple scattered small round well-defined T2 intense lesions within both renal cortices, right greater than left, consistent with small cysts. Small extrarenal pelves bilaterally. Gastrointestinal Tract: No evidence of bowel obstruction. Lymph Nodes: No lymphadenopathy within the abdomen. Osseous Structures: No acute osseous abnormality. Median sternotomy wires. IMPRESSION: 1. No evidence of aneurysm, dissection or flow-limiting stenosis within the celiac axis or mesenteric arteries. 2. TrapEase infrarenal IVC filter. 3. Renal cysts. SERVICE DATE: 07/16/17 EXAM TYPE: RAD - XRY-PORTABLE CHEST XRAY FINDINGS: Status post median sternotomy. Heart size is enlarged. Central port catheter tip unchanged position at the cavoatrial junction in the superior vena cava. No acute abnormality. No pulmonary vascular congestion. No infiltrate or pleural effusion. No pneumothorax. IMPRESSION: No acute abnormality of the chest. SERVICE DATE: 07/16/17 EXAM TYPE: US - US-ABD/PELV ORGAN DOPPLER FINDINGS: Pancreas grossly normal. Liver not able to be well assessed due to body habitus and bowel gas. There is patency of the hepatic veins but the portal vein could not be assessed sonographically. Multiple layering gallstones noted within the gallbladder lumen. No acute inflammatory changes. Biliary tree normal with the CBD measuring 4 mm. Right kidney normal measuring 13 cm. IMPRESSION: Nondiagnostic study for portal vein patency. Recommend contrast-enhanced CT or MRI for further evaluation. Gallstones. Liver not well demonstrated. SERVICE DATE: 07/16/17 EXAM TYPE: CAT - CT ABD & PELVIS W/O IV CONTRAST FINDINGS: Communications Editor: There are bilateral indwelling ureteral stents the proximal ends of which are in the vicinity of the renal pelves and the distal ends in the bladder. Moderate gaseous distention of the stomach is seen. There is no evidence of intestinal obstruction. Previous chest surgery has been performed with sternotomy wires in place. LUNG BASES: The peripheral area of atelectasis involving the posterior lateral aspect of the left lower lobe has not improved. The degree of atelectasis is more than can be explained on the basis of the trace left pleural effusion. The orientation suggests the presence of developing rounded atelectasis. In 12/05/2015, the patient had a moderately large left pleural effusion. Left lower lobe atelectasis was observed at that time. LIVER, GALLBLADDER, AND BILIARY TREE: The liver remains normal in size. The bile ducts are not dilated. Within the left lobe, there is now evidence of air within the portal system. The etiology of this portal venous gas is uncertain. No definite pneumatosis is seen involving the GI tract. However, there is evidence of intravascular air within several draining veins of the stomach. The gallbladder is normal in size containing numerous tiny gallstones. PANCREAS: Unremarkable. SPLEEN: Unremarkable. ADRENAL GLANDS: Unremarkable. KIDNEYS AND URETERS: Neither kidney shows evidence of hydronephrosis with the indwelling ureteral stents. The triangular in shape 1.3 cm diameter calculus remains in the left kidney and the ovoid 1.2 cm calculus remains in the right kidney. There is no sign of a residual stone in either ureter or the bladder. BLADDER: A urachal remnant arises from the dome of the bladder. GASTROINTESTINAL TRACT: The patient's had a right hemicolectomy. The ileocolostomy in the left abdomen is unremarkable. There is no free air or free fluid. ABDOMINAL WALL: Patient has a large diastases of the rectus muscles. Portions of the stomach, small intestine, and remaining colon lying immediately adjacent to the fascia of this abdominal wall laxity. LYMPH NODES: Normal. VASCULAR: As mentioned above, there is evidence of portal venous gas, and intravascular air within draining veins of the stomach. An IVC filter is located inferior to the renal veins. PELVIC VISCERA: Unremarkable. OSSEOUS STRUCTURES: No acute change. IMPRESSION: 1. Small amount of portal venous air and air within the draining veins of the stomach of unclear etiology. 2. Indwelling ureteral stents and large residual stones in each kidney. No hydroureteronephrosis. 3. Diastases recti. 4. Cholelithiasis. 5. Rounded atelectasis, left lower lobe. Disposition Summary Disposition Principal Diagnosis: Gastritis ALMAS on CKD Bilateral Ureteral Calculi Additional Diagnosis: hypertension insulin-dependent diabetes Paroxysmal atrial fibrilliation DVT PE Discharge Disposition: home or self care Discharge Instructions General Discharge Information Code Status: Full Code Patient's Diet: Diabetic diet Patient's Activity: As tolerated Follow-Up Instructions/Appts: Please follow-up with your primary care provider and urologist within a week of discharge. Please follow up with your GI doctor in one month. Please have your INR checked on 07/26/17 Medications at Discharge Discharge Medications: Continue taking these medications: Clopidogrel Bisulfate (Clopidogrel) 75 MG TABLET 1 Tablet ORAL Every Morning Comments: DID NOT ADMINISTER Amiodarone (Cordarone) 200 MG TABLET 1 Tablet ORAL Every Morning Instructions: 20 MG TABLET Comments: Last Taken: 07/22/17 Time: 0900AM Warfarin Sodium (Coumadin) 2.5 MG TABLET 1 Tablet ORAL Danny Comments: DID NOT ADMINISTER Aspirin (Ecotrin*) 81 MG TABLET. 1 Tablet ORAL DAILY Comments: DID NOT ADMINISTER. Atorvastatin Calcium (Atorvastatin Calcium) 20 MG TABLET 1 Tablet ORAL DAILY Comments: Last Taken: 07/22/17 Time: 0900 AM Tamsulosin HCl (Tamsulosin HCl) 0.4 MG CAP.ER.24H 1 Capsule ORAL DAILY Qty = 90 Comments: Last Taken: 07/22/17 Time: 0900AM Albuterol Sulfate (Albuterol Sulfate) 0.63 MG/3 ML VIAL.NEB 1 Vial Inhale Solution THREE TIMES DAILY as needed for lung health Comments: Last Taken: NOT ON THIS ADMISSION Time: Insulin Lispro (Humalog) 100 UNIT/ML VIAL 0 Inject into fatty tissue BEFORE MEALS AND AT BEDTIME Qty = 2 Instructions: BEFORE MEALS Blood Insulin Sugar Units <80 0 81-150 0 151-200 2 201-250 4 251-300 6 301-350 8 351-400 10 >400 12 and CALL Comments: NOVOLOG GIVEN AT 600 PM Furosemide (Lasix) 20 MG TABLET 60 Milligram ORAL DAILY Insulin Glargine,Hum.rec.anlog (Lantus Solostar) 100 UNIT/ML (3 ML) INSULN.PEN 20 Unit Inject into fatty tissue TWICE DAILY Levothyroxine Sodium (Levothyroxine Sodium) 125 MCG TABLET 1 Tablet ORAL DAILY Start taking the following new medications: Pantoprazole Sodium (Protonix) 40 MG TABLET.DR 1 Tablet ORAL DAILY Qty = 30 No Refills Copies To: Brandy MATHEW,Loco Miller; Mathew MATHEW,Aashish Fox; Fan MATHEW,John Hart
[2017-07-19 12:15] VITALS: BP 130/60
[2017-07-19 14:35] VITALS: BP 104/60
[2017-07-19 15:26] VITALS: BP 100/50
--- NOTE | 2017-07-19 17:05 | Proc Note Endoscopy ---
Endoscopy Procedure Procedure Date: 07/19/17 Procedure Type: EGD w/biopsy [employer]: John Chavira M.D. ASA Classification: III Indications: Abdominal pain, resolved Imaging revealing air in portal vein, and gastric vasculature Instrument: diagnostic gastroscope Meds Received: LU Patient's Tolerance: good Complications: none Extent Reached: second part of duodenum Procedure: The patient signed informed consent, and was medicated. Lidocaine pharyngeal spray was administered. Pulse oximetry, blood pressure and cardiac monitoring were performed continuously throughout the procedure. The Olympus high- definition gastroscope was inserted into the mouth and advanced to the duodenum. Retroflexion was performed within the stomach to examine the cardia. Careful examination was performed. Findings: The esophagus had normal caliber and contour. There were no varices. The mucosa was normal throughout. The GE junction at 40 cm was normal. There was no hiatal hernia. The stomach had normal distention. Peristalsis was not seen. The cardia was normal. There was tenacious mucous in the proximal stomach, and some exudate. There was patchy erythema in the fundus on the greater curvature. There was flat deep erythema of the mucosa of the body and antrum, only involving posterior aspect/greater curvature. The anterior aspects/lesser curvature were spared. Indeed, there was sharp demarcation. There were no areas of ulceration , erosion, nodularity, bleb formation, or friability. Biopsies were obtained from fundus, body and antrum. The pyloric channel was normal. The duodenal bulb was normal. Mucosa and folds of the duodenal sweep were normal. Impression: * Gastritis involving the greater curvature/posterior stomach. Appearance suggestive of ischemic gastritis, likely in healing phase. Recommendations: * Await pathology * Oral PPI twice a day * Advance to full liquid diet with polymeric supplements, and if tolerated, to regular diet tomorrow * Consider MRA, with attention to celiac artery distribution CC: Mathew MATHEW,Aashish Fox; Bri MATHEW,Willow Steinberg; Jesse MATHEW,George Thomas
--- NOTE | 2017-07-19 22:10 | Cons- Urology ---
General Information and HPI Consulting Request Date of Consult: 07/19/17 Requested By: Zenobia Gomez MD Reason for Consult: Indwelling bilateral ureteral stents, non obstructing bilateral renal stones and bilateral distal ureteral stones Source of Information: patient History of Present Illness: This patient is known to me. In early June 2017 he presented with L flank pain and fever. CT scan showed bilateral non obstructing kidney stones and an obstructing 5 mm L distal ureteral calculus. A L ureteral stent was placed. Blood and urine cultures were positive for MRSA. He improved and was discharged on IV vanco. About 10 days later he presented with R flank pain and CT showed that one of the R renal calculi had dropped into the R distal ureter and was now obstructing. A R ureteral stent was placed and his R flank pain resolved. He is now admitted with upper abdominal pain which has resolved. He underwent upper endoscopy today and findings are c/w mild ischemic gastritis. He also had some air in the portal system c/w ischemia. Allergies/Medications Allergies: Coded Allergies: Penicillins (PT DOES NOT REMEMBER 12/05/15) ampicillin (RASH 12/05/15) sulbactam (RASH 12/05/15) Home Med List: Albuterol Sulfate 0.63 MG/3 ML VIAL.NEB 1 Vial INH/NED TID PRN lung health ( Reported) Amiodarone (Cordarone) 200 MG TABLET 1 TAB PO QAM HEART (Reported) Aspirin (Ecotrin*) 81 MG TABLET.DR 1 TAB PO DAILY HEART/HEALTH (Reported) Atorvastatin Calcium 20 MG TABLET 1 TAB PO DAILY CHOLESTEROL (Reported) Clopidogrel Bisulfate (Clopidogrel) 75 MG TABLET 1 TAB PO QAM BLOOD THINNER ( Reported) Furosemide (Lasix) 20 MG TABLET 60 MG PO DAILY DIURETIC (Reported) Insulin Glargine,Hum.rec.anlog (Lantus Solostar) 100 UNIT/ML (3 ML) INSULN.PEN 20 UNIT SC BID DM (Reported) Insulin Lispro (Humalog) 100 UNIT/ML VIAL 0 SC TIDAC/HS DM BEFORE MEALS Blood Insulin Sugar Units <80 0 81-150 0 151-200 2 201-250 4 251-300 6 301-350 8 351-400 10 >400 12 and CALL Levothyroxine Sodium 125 MCG TABLET 1 TAB PO DAILY THYROID (Reported) Tamsulosin HCl 0.4 MG CAP.ER.24H 1 CAP PO DAILY PROSTATE (Reported) Warfarin Sodium (Coumadin) 2.5 MG TABLET 1 TAB PO MoTuThSa BLOOD THINNER ( Reported) Current Medications: Current Medications Sig/Sj Start time Last Medication Dose Route Stop Time Status Admin Albuterol Sulfate 3 ML Q4P PRN 07/17 1145 AC INH Amiodarone HCl 200 MG QAM 07/17 0900 AC 07/19 PO 0856 Atorvastatin Calcium 20 MG DAILY 07/17 0900 AC 07/19 PO 0856 Dextrose/Sodium 1,000 ML Q20H 07/19 2300 AC Chloride IV Dextrose/Sodium 1,000 ML Q20H / 0830 CAN Chloride IV Dextrose/Sodium 1,000 ML Q20H / 0815 DC 07/19 Chloride IV 0834 Insulin Aspart 0 TIDAC 07/19 1530 DC [place] 07/19 1800 Insulin Detemir 5 UNITS ONCE ONE 07/19 1045 NV / [place] 07/19 1046 1109 Insulin Detemir 10 UNITS BID 07/16 2234 07/19 SC 2038 Insulin Human Regular 0 Q6 / 2300 DC SC Insulin Human Regular 0 Q6 / 2359 AC SC Insulin Human Regular 0 Q6 / 2300 DC SC Insulin Human Regular 1 UNITS .STK-MED ONE 07/19 0013 DC IV / 0014 Insulin Human Regular 0 Q6 / 2359 NV 07/19 [place] 0019 Lidocaine 50 ML .STK-MED ONE 07/19 1356 [facility] 06/ 1357 Lidocaine 2 MAGNUS .STK-MED ONE 07/19 1356 NV TOP 07/19 1357 Morphine Sulfate 2 MG Q4P PRN 07/16 2200 07/19 IV 0145 Omeprazole 40 MG BID 07/19 2100 07/19 PO 2040 Ondansetron HCl 4 MG Q6P PRN 07/17 0600 IV Pantoprazole Sodium 40 MG BID 07/18 0900 DC 07/19 IV 0857 Tamsulosin HCl 0.4 MG DAILY 07/17 09 07/19 PO 0856 Past History Medical History Blood Transfusion Hx: No Neurological: NONE EENT: NONE Cardiovascular: AFIB, hypertension, hyperlipidemia, CABG Respiratory: COPD, obstructive sleep apnea, pulmonary embolism Hepatic: NONE Renal: benign prost hyperplasia, chronic kidney disease, uti/prostatitis Musculoskeletal: osteoarthritis Psychiatric: NONE Endocrine: diabetes Blood Disorders: DVT, PE Cancer(s): colon/rectal cancer 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 Psychosocial History Where Do You Live? Home Who Do You Live With? spouse Services at Home: None Primary Language: Pashto Smoking Status: Former Smoker ETOH Use: denies use Illicit Drug Use: denies illicit drug use Functional Ability ADLs Independent: dressing, eating, toileting, bathing. Ambulation: independent, cane, walker, non-ambulatory IADLs Independent: shopping, housework, finances, food prep, telephone, transportation , medication admin. Exam & Diagnostic Data Vital Signs and I&O Vital Signs Date Time Temp Pulse Resp B/P B/P Pulse O2 O2 Flow FiO2 Mean Ox Delivery Rate 07/19 1911 95 Room Air 07/19 1526 97.3 59 20 100/50 96 Room Air 07/19 1435 97.9 60 20 104/60 97 Room Air 07/19 1215 97.5 62 20 130/60 93 Room Air 07/19 0856 64 132/80 / 0619 98.1 58 20 132/82 94 Intake & Output 07/19 1600 04 0800 / 0000 /03 1600 /03 0800 06/03 0000 Intake Total 200 720 75 600 Output Total 400 950 250 856 929 3707 Balance -200 -950 -250 220 -275 -450 Intake, IV 200 75 600 Intake, Oral 0 720 Number 0 1 Bowel Movements Output, Gastric Drainage Output, Stool Output, Urine 400 950 250 [phone] Patient 260 lb Weight No acute distress. No abd pain Back: No CVA tenderness Abd: soft and non tender Genitalia: normal male Laboratory Tests 07/19 07/19 0835 0720 Chemistry Sodium (137 - 145 mmol/L) 141 Potassium (3.5 - 5.1 mmol/L) 4.2 Chloride (98 - 107 mmol/L) 104 Carbon Dioxide (22 - 30 mmol/L) 28 Anion Gap (5 - 16) 9 BUN (9 - 20 mg/dL) 16 Creatinine (0.7 - 1.2 mg/dL) 1.8 H Estimated GFR (>60 ml/min) 38 L BUN/Creatinine Ratio (7 - 25 %) 8.9 Total Bilirubin (0.2 - 1.3 mg/dL) 0.7 Direct Bilirubin (< 0.4 mg/dL) 0.2 AST (17 - 59 U/L) 60 H ALT (21 - 72 U/L) 58 Alkaline Phosphatase (< 127 U/L) 96 Total Protein (6.3 - 8.2 g/dL) 6.1 L Albumin (3.5 - 5.0 g/dL) 2.8 L Coagulation PT (9.4 - 12.5 SEC) 27.9 H INR (0.90 - 1.17) 2.54 H Hematology CBC w Diff NO MAN DIFF REQ WBC (4.8 - 10.8 /CUMM) 5.1 RBC (4.70 - 6.10 /CUMM) 4.17 L Hgb (14.0 - 18.0 G/DL) 12.2 L Hct (42 - 52 %) 36.2 L MCV (80.0 - 94.0 FL) 87.0 MCH (27.0 - 31.0 PG) 29.3 MCHC (33.0 - 37.0 G/DL) 33.6 RDW (11.5 - 14.5 %) 15.5 H Plt Count (130 - 400 /CUMM) 378 MPV (7.4 - 10.4 FL) 8.3 Gran % (42.2 - 75.2 %) 59.4 Lymphocytes % (20.5 - 51.1 %) 14.5 L Monocytes % (1.7 - 9.3 %) 15.4 H Eosinophils % (0 - 5 %) 9.5 H Basophils % (0.0 - 2.0 %) 1.2 Absolute Granulocytes (1.4 - 6.5 /CUMM) 3.0 Absolute Lymphocytes (1.2 - 3.4 /CUMM) 0.7 L Absolute Monocytes (0.10 - 0.60 /CUMM) 0.8 H Absolute Eosinophils (0.0 - 0.7 /CUMM) 0.5 Absolute Basophils (0.0 - 0.2 /CUMM) 0.1 Assessment/Plan Assessment/Plan Imp: 1. Bilateral obstructing distal ureteral calculi still present on CT scan from this admission 2. S/p cysto and bilateral ureteral stent insertion 3. Bilateral non obstructing renal calculi 4. Probable mild ischemic gastritis 5. Multiple medical issues Plan: 1. From urologic point of view he requires bilateral ureteroscopy with laser litho of ureteral stones and exchange of both stents. Assuming other physicians agree I will attempt to schedule for this Wed or . Discussed with GI 2. Please continue to hold coumadin and plavix. 3. Please order U/A and C&S Consult Acknowledgment - Thank you for your consult request.
[2017-07-19 22:45] VITALS: BP 140/70
--- NOTE | 2017-07-20 07:16 | PN- Housestaff ---
Kim MATHEW,[facility] 07/20/17 0716: Subjective Follow-up For: Abdominal pain evaluation Nephrolithiasis s/p bilateral renal stent placement Subjective: Patient resting comfortably, denies any active complaints. Review of Systems Constitutional: Reports: no symptoms. EENTM: Reports: no symptoms. Cardiovascular: Reports: no symptoms. Respiratory: Reports: no symptoms. Gastrointestinal: Reports: no symptoms. Genitourinary: Reports: no symptoms. Musculoskeletal: Reports: no symptoms. Skin: Reports: no symptoms. Neurological/Psychological: Reports: no symptoms. Hematologic/Endocrine: Reports: no symptoms. Immunologic/Allergic: Reports: no symptoms. Objective Last 24 Hrs of Vital Signs/I&O Vital Signs Date Time Temp Pulse Resp B/P B/P Pulse O2 O2 Flow FiO2 Mean Ox Delivery Rate 07/20 1050 88 132/78 / 1036 98.2 60 20 112/62 96 /05 0718 98.1 68 20 120/70 95 Room Air 06/05 0000 94 Room Air 06/04 2245 140/70 06/ 2239 97.8 66 20 94 Room Air 06/04 1911 95 Room Air 06/04 1526 97.3 59 20 100/50 96 Room Air 06/04 1435 97.9 60 20 104/60 97 Room Air 06/04 1215 97.5 62 20 130/60 93 Room Air Intake & Output / 1600 /05 0800 06/05 0000 Intake Total 390 480 Output Total 700 750 Balance -310 -270 Intake, IV 390 Intake, Oral 480 Number 2 Bowel Movements Output, Stool 200 Output, Urine 700 550 Physical Exam General Appearance: Alert, Oriented X3, Cooperative, No Acute Distress Skin: No Rashes, No Breakdown Cardiovascular: Normal S1, Normal S2, No Murmurs Lungs: Clear to Auscultation, Normal Air Movement Abdomen: Normal Bowel Sounds, Soft, No Tenderness Extremities: No Clubbing, No Cyanosis, No Edema Current Medications: Current Medications Sig/Sj Start time Last Medication Dose Route Stop Time Status Admin Albuterol Sulfate 3 ML Q4P PRN / 1145 AC INH Amiodarone HCl 200 MG QAM 07/17 0900 AC 06/05 PO 1050 Atorvastatin Calcium 20 MG DAILY / 0900 AC 06/05 PO 1050 Dextrose/Sodium 1,000 ML Q20H / 2300 DC 06/05 Chloride IV 0016 Dextrose/Sodium 1,000 ML Q20H / 0815 MO 07/19 Chloride IV 0834 Insulin Aspart 0 TIDAC 07/20 1200 SC Insulin Aspart 0 TIDAC 07/19 1530 [facility] 07/19 1800 Insulin Detemir 10 UNITS BID 07/16 2234 AC 07/19 SC 2038 Insulin Human Regular 0 Q6 07/20 2300 DC SC Insulin Human Regular 0 Q6 07/19 2359 MO 07/20 SC 0630 Insulin Human Regular 0 Q6 07/19 2300 MO SC Insulin Human Regular 0 Q6 07/16 2359 MO 07/19 SC 0019 Lidocaine 50 ML .STK-MED ONE 07/19 1356 [facility] 07/19 1357 Lidocaine 2 MAGNUS .STK-MED ONE 07/19 1356 [facility] 07/19 1357 Morphine Sulfate 2 MG Q4P PRN 07/16 2200 07/19 IV 0145 Omeprazole 40 MG BID 07/19 2100 AC 07/20 PO 1050 Ondansetron HCl 4 MG Q6P PRN 07/17 0600 IV Pantoprazole Sodium 40 MG BID 07/18 0900 MO 07/19 IV 0857 Tamsulosin HCl 0.4 MG DAILY 07/17 0900 07/20 PO 1050 Last 24 Hrs of Lab/Jack Results Last 24 Hrs of Labs/Mics: Laboratory Tests 07/20/17 0542: Anion Gap 6, Estimated GFR 36 L, BUN/Creatinine Ratio 7.4, PT 23.4 H, INR 2.13 H, CBC w Diff NO MAN DIFF REQ, RBC 4.15 L, MCV 87.2, MCH 29.0, MCHC 33.3, RDW 15.8 H, MPV 8.2, Gran % 59.9, Lymphocytes % 14.5 L, Monocytes % 13.5 H, Eosinophils % 11.5 H, Basophils % 0.6, Absolute Granulocytes 3.4, Absolute Lymphocytes 0.8 L, Absolute Monocytes 0.8 H, Absolute Eosinophils 0.7, Absolute Basophils 0 Microbiology 07/20 0731 URINE ROUT: Urine Culture - ORD Assessment/Plan Assessment: 66-year-old gentleman with past medical history significant for dyslipidemia, hypertension, insulin-dependent diabetes, colon cancer status post colostomy, paroxysmal atrial fibrillation on anticoagulation, history of DVT and pulmonary embolism status post IVC filter placement, CAD status post CABG, COPD, history of kidney stones and pyelonephritis status post left ureteric stent placement on June 23 was admitted at [facility] with pyelonephritis from June 23 to June 30 and was found to have MRSA growing in his urine and was discharged on 1.75 mg of vancomycin daily after placing the pro line, came with chief complaint of abdominal pain Assessment and plan Abdominal pain Nephrolithiasis s/p bilateral renal stent placement ALMAS * Patient had the endoscopy done yesterday showing Gastritis likely ischemic. * Will obtain MRA abdomen. * Patient has a pro line, and plan was for IR guarded removal after the Ureteroscopy. * Bilateral renal stent-patient will be followed by Dr. Nava today regarding stent removal. * Patient's Plavix and Coumadin held for bilateral ureteroscopy and laser lihto of bilateral ureteral stones tomorrow at 11:30 AM. * Continue amiodarone, atorvastatin, Protonix, tamsulosin, and ondansetron. * Diabetes-patient is on Levemir and sliding scale insulin. We will continue monitoring his blood sugar. * Appreciate GI and Urology recommendations. Code-full code Diet-Carbohydrate consistent diet Problem List: 1. Abdominal pain Pain Ratin Pain Location: Abdomen Pain Goal: Remain pain free Pain Plan: Pain Pathway Tomorrow's Labs & Rationales: BEP(ALMAS) Jason MATHEW,[facility] 07/20/17 1343: Attending MD Review Statement Attending Statement Attending MD Statement: examined this patient, discuss w/resident/PA/BEEF SPLITTER, agreed w/resident/PA/BEEF SPLITTER, reviewed EMR data (avail), discussed with nursing, discussed with case mgmt, reviewed images, amended to note Attending Assessment/Plan: Patient seen and examined, feels well. No abd pain. EGD suggestive of ischemic gastritis. Pt is seen by urologist and plan to do cystoscopy, bilateral ureteroscopy and laser lihto of bilateral ureteral stones tomorrow at 11:30 AM. Vital Signs Date Time Temp Pulse Resp B/P B/P Pulse O2 O2 Flow FiO2 Mean Ox Delivery Rate 07/20 1050 88 132/78 07/20 0718 98.1 68 20 120/70 95 Room Air / 0000 94 Room Air 07/19 2245 140/70 07/19 2239 97.8 66 20 94 Room Air 07/19 1911 95 Room Air 07/19 1526 97.3 59 20 100/50 96 Room Air 07/19 1435 97.9 60 20 104/60 97 Room Air on exam: aox3, nad. cv; s1, s2, rrr resp; clear abd: soft, nt, bs+ ext; no edema Laboratory Tests 07/20 0542 Chemistry Sodium (137 - 145 mmol/L) 139 Potassium (3.5 - 5.1 mmol/L) 4.4 Chloride (98 - 107 mmol/L) 105 Carbon Dioxide (22 - 30 mmol/L) 28 Anion Gap (5 - 16) 6 BUN (9 - 20 mg/dL) 14 Creatinine (0.7 - 1.2 mg/dL) 1.9 H Estimated GFR (>60 ml/min) 36 L BUN/Creatinine Ratio (7 - 25 %) 7.4 Coagulation PT (9.4 - 12.5 SEC) 23.4 H INR (0.90 - 1.17) 2.13 H Hematology CBC w Diff NO MAN DIFF REQ WBC (4.8 - 10.8 /CUMM) 5.7 RBC (4.70 - 6.10 /CUMM) 4.15 L Hgb (14.0 - 18.0 G/DL) 12.0 L Hct (42 - 52 %) 36.2 L MCV (80.0 - 94.0 FL) 87.2 MCH (27.0 - 31.0 PG) 29.0 MCHC (33.0 - 37.0 G/DL) 33.3 RDW (11.5 - 14.5 %) 15.8 H Plt Count (130 - 400 /CUMM) 360 MPV (7.4 - 10.4 FL) 8.2 Gran % (42.2 - 75.2 %) 59.9 Lymphocytes % (20.5 - 51.1 %) 14.5 L Monocytes % (1.7 - 9.3 %) 13.5 H Eosinophils % (0 - 5 %) 11.5 H Basophils % (0.0 - 2.0 %) 0.6 Absolute Granulocytes (1.4 - 6.5 /CUMM) 3.4 Absolute Lymphocytes (1.2 - 3.4 /CUMM) 0.8 L Absolute Monocytes (0.10 - 0.60 /CUMM) 0.8 H Absolute Eosinophils (0.0 - 0.7 /CUMM) 0.7 Absolute Basophils (0.0 - 0.2 /CUMM) 0 A/P; 66 y/o M with pmh sig for dyslipidemia, hypertension, insulin-dependent diabetes, colon cancer status post colostomy, paroxysmal atrial fibrillation on anticoagulation, history of DVT and pulmonary embolism status post IVC filter placement, CAD status post CABG, COPD, history of kidney stones and pyelonephritis status post left ureteric stent placement on June 23 was admitted at [facility] with pyelonephritis from June 23 to June 30 and was found to have MRSA growing in his urine and was discharged on 1.75 mg of vancomycin daily after placing the pro line. Status post endoscopy yesterday which showed possibility of ischemic gastritis. MRA was recommended by GI. Unfortunately no MRI available today. If we have to be done tomorrow. Patient also scheduled for cystoscopy with bilateral ureteroscopy and laser lihto of bilateral ureteral stones tomorrow at 11:30 AM. We will coordinate with MRI to see if both can be done tomorrow. Which was initially scheduled to come out today was not discontinued because patient is going for procedure tomorrow and he is a very poor IV access. Continue to hold antiplatelet and anticoagulation. Continue the rest of the medications.
[2017-07-20 07:18] VITALS: BP 120/70
[2017-07-20 07:57] LABS: ABSOLUTE BASOPHIL COUNT 0 /CUMM (0.0-0.2); ABSOLUTE EOSINOPHIL COUNT 0.7 /CUMM (0.0-0.7); ABSOLUTE GRANULOCYTE CT 3.4 /CUMM (1.4-6.5); ABSOLUTE LYMPH COUNT 0.8 /CUMM (1.2-3.4); ABSOLUTE MONOCYTE COUNT 0.8 /CUMM (0.10-0.60); BASOPHIL % 0.6 % (0.0-2.0); EOSINOPHIL % 11.5 % (0-5); GRANULOCYTE % 59.9 % (42.2-75.2); HEMATOCRIT 36.2 % (42-52); MEAN CORPUSCULAR HGB CONC 33.3 G/DL (33.0-37.0); MEAN CORPUSCULAR VOLUME 87.2 FL (80.0-94.0); MEAN PLATELET VOLUME 8.2 FL (7.4-10.4); PLATELET COUNT 360 /CUMM (130-400); RBC DISTRIBUTION WIDTH 15.8 % (11.5-14.5); RED BLOOD CELL CT 4.15 /CUMM (4.70-6.10); WHITE BLOOD CELL COUNT 5.7 /CUMM (4.8-10.8)
[2017-07-20 08:17] LABS: PT 23.4 SEC (9.4-12.5)
--- NOTE | 2017-07-20 10:24 | PN- Urology ---
Surgical Brief Attending Note Brief Attending Note: Patient is scheduled for cystoscopy, bilateral ureteroscopy and laser lihto of bilateral ureteral stones tomorrow at 11:30 AM. Please send U/A and C&S today. Please continue to hold coumadin and plavix. Please keep npo after midnight tonight except for po meds with a sip.
[2017-07-20 10:36] VITALS: BP 112/62
[2017-07-20 14:28] VITALS: BP 100/78
[2017-07-20 20:20] VITALS: BP 110/64
[2017-07-21 06:30] VITALS: BP 114/66
--- NOTE | 2017-07-21 07:12 | PN- Housestaff ---
Subjective Follow-up For: abdominal pain ALMAS Subjective: Patient seen and examined at bedside. Reports doing well. Offers no complaints at this time. Review of Systems Constitutional: Reports: no symptoms. Objective Last 24 Hrs of Vital Signs/I&O Vital Signs Date Time Temp Pulse Resp B/P B/P Pulse O2 O2 Flow FiO2 Mean Ox Delivery Rate 07/21 1102 98.1 80 18 130/70 95 Room Air 07/21 0851 78 132/80 07/21 0630 98.0 62 18 114/66 96 07/20 2020 98.4 96 18 110/64 95 Room Air 07/20 1428 98.3 60 18 100/78 96 Intake & Output 07/21 1600 07/21 0800 07/21 0000 Intake Total 150 340 720 Output Total 850 950 400 Balance -700 -610 320 Intake, IV 150 340 Intake, Oral 0 0 720 Number 0 0 1 Bowel Movements Output, Urine 850 950 400 Physical Exam General Appearance: Alert, Oriented X3, Cooperative, No Acute Distress Skin: No Rashes, No Breakdown Skin Temp/Moisture Exam: Warm/Dry Sepsis Skin Exam (color): Normal for Ethnicity HEENT: Atraumatic Cardiovascular: Normal S1, Normal S2, No Murmurs Lungs: Clear to Auscultation, Normal Air Movement Abdomen: Soft, No Tenderness Neurological: Normal Speech Extremities: trace lower extremity edema Last 24 Hrs of Lab/Jack Results Last 24 Hrs of Labs/Mics: Laboratory Tests 07/21/17 0655: Anion Gap 7, Estimated GFR 41 L, BUN/Creatinine Ratio 6.5 L, PT 17.5 H, INR 1.60 H Assessment/Plan Assessment: 66-year-old gentleman with past medical history significant for dyslipidemia, hypertension, insulin-dependent diabetes, colon cancer status post colostomy, paroxysmal atrial fibrillation on Coumadin, history of DVT and pulmonary embolism status post IVC filter placement, CAD status post CABG, COPD, history of kidney stones and pyelonephritis status post left ureteric stent placement on June 23 was admitted at [facility] with pyelonephritis from June 23 to June 30 and was found to have MRSA growing in his urine and was discharged on 1.75 mg of vancomycin daily after placing the pro line, came with chief complaint of abdominal pain Assessment: 1. Abdominal pain 2. ALMAS 3. History of A.fib on Coumadin Plan: * Scheduled for MRA today for evaluation of mesenteric atherosclerosis. * Patient has a pro line which will be removed by IR tomorrow. * Scheduled for stent removal with Urology today. * His Plavix and Coumadin can likely be restarted after the procedure. His INR is also subtherapeutic today. * Continue amiodarone, atorvastatin, Protonix, tamsulosin, and ondansetron. * Continue Levemir and Insulin SS with Accucheks * Diet: NPO. Diabetic after the procedure * DVT Prophylaxis: On Coumadin and ALPS * Code: Full Code Problem List: 1. ARF (acute renal failure) Pain Ratin Pain Location: none Pain Goal: Remain pain free Pain Plan: none Tomorrow's Labs & Rationales: CBC, BEP, INR
[2017-07-21 08:19] LABS: PT 17.5 SEC (9.4-12.5)
[2017-07-21 11:02] VITALS: BP 130/70
--- NOTE | 2017-07-21 11:41 | PN- Att Addend ---
Attending Addendum Attending Brief Note Patient seen and examined, doing okay. Scheduled to go to cystoscopy today to Dr. Lee. Patient also scheduled to get MRA abdomen today. Vital Signs Date Time Temp Pulse Resp B/P B/P Pulse O2 O2 Flow FiO2 Mean Ox Delivery Rate 07/21 1102 98.1 80 18 130/70 95 Room Air 07/21 0851 78 132/80 07/21 0630 98.0 62 18 114/66 96 07/20 2020 98.4 96 18 110/64 95 Room Air 07/20 1428 98.3 60 18 100/78 96 on exam: aox3, nad. cv; s1, s2, rrr resp; clear abd: soft, nt, bs+ ext; no edema. Laboratory Tests 07/21 06 Chemistry Sodium (137 - 145 mmol/L) 137 Potassium (3.5 - 5.1 mmol/L) 4.4 Chloride (98 - 107 mmol/L) 104 Carbon Dioxide (22 - 30 mmol/L) 26 Anion Gap (5 - 16) 7 BUN (9 - 20 mg/dL) 11 Creatinine (0.7 - 1.2 mg/dL) 1.7 H Estimated GFR (>60 ml/min) 41 L BUN/Creatinine Ratio (7 - 25 %) 6.5 L Coagulation PT (9.4 - 12.5 SEC) 17.5 H INR (0.90 - 1.17) 1.60 H A/P: 66 y/o M with pmh sig for dyslipidemia, hypertension, insulin-dependent diabetes, colon cancer status post colostomy, paroxysmal atrial fibrillation on anticoagulation, history of DVT and pulmonary embolism status post IVC filter placement, CAD status post CABG, COPD, history of kidney stones and pyelonephritis status post left ureteric stent placement and treated for MRSA UTI. Admitted this time with abdominal pain and endoscopy showing ischemic gastritis. Patient scheduled for MRA abdomen today. Check etiology and his GFR meets the criteria. Patient also scheduled for cystoscopy with Dr. Valdovinos. Pending MRA results, further management will be determined. If no significant finding than his Can be discontinued by interventional radiology either today or tomorrow. Continue current management. Disposition again will depend on the MRA results. DVT px; Coumadin with now INR subtherapeutic as it was held for anticipated procedure.
--- NOTE | 2017-07-21 14:37 | Operative Report ---
Operative/Inv Procedure Report Surgery Date: 07/21/17 Name of Procedure: Cystoscopy, bilateral ureteroscopy with laser lithotripsy, basket extraction of bilateral distal ureteral stone fragments, bilateral retrograde pyelogram, exchange of bilateral double-J ureteral stents Pre-Operative Diagnosis: Bilateral distal ureteral calculi Post-Operative Diagnosis: Same Estimated Blood Loss: scant Surgeon/Emergency Medical Technician Basic: Loco Nava MD Anesthesia: laryngeal mask airway Drains: Bilateral double-J ureteral stents and Garland catheter Specimens: Urine culture and ureteral stone fragments Complications: None Condition: Stable Operative Indication: Bilateral obstructing distal ureteral calculi Operative/Procedure Note Note: The patient was taken to the operating room and identified. He is placed in supine position on the operating table. A timeout was executed appropriately with the patient awake. Gen. anesthesia was induced via LMA. He was then placed in the dorsal lithotomy position and prepped and draped in usual fashion for cystoscopy. Surgical pause was executed appropriately. The 22 Romansh cystoscope sheath was placed into the bladder under direct vision using the 30 lens. Anterior urethra was normal. The prostatic urethra showed mild to moderate prostatic hypertrophy with partial bladder outlet obstruction. The prostatic urethra was 3 cm in length. The indwelling right double-J ureteral stent was grasped with a grasper at its distal aspect and pulled out to the external urethral meatus. A guidewire was placed through the stent and advanced up the level of the kidney. The short rigid ureteroscope was then advanced through the urethra into the bladder and into the right ureter. An 8 mm stone was seen in the right ureter. This was fragmented with the holmium laser. The fragments were removed with a helical stone basket. At this point the ureteroscope was removed. The cystoscope was placed back into the bladder. The distal end of the left ureteral stent was then grasped and pulled out the external urethral meatus. A guidewire was placed through that and advance up to the level of the kidney. The rigid ureteroscope was advanced into the left distal ureter. The holmium laser fiber was used to fragment and 8 mm calculus seen there. The stone fragments were grasped with a basket and dropped in the bladder. At this point the cystoscope was back loaded and onto the guidewire in the right kidney. An open-ended catheter was placed over the wire and some contrast injected. Next the wire and placed through the cystoscope a 26 cm 6 Romansh right double-J ureteral stent was placed. Her Tyson B confirmed the proximal end coiled in the kidney and the distal end coiled in the bladder. A long suture was left attached the distal end of the stent exiting the urethra. Next the cystoscope was back loaded onto the guidewire into the left kidney. An open-ended catheter was placed over the wire and some contrast injected to outline the left renal collecting system. The guidewire in place a 26 cm 6 Romansh left double-J ureteral stent was placed under visual fluoroscopic control. Fluoroscopy confirmed the proximal and the stent coiled in the left kidney and the distal end coiled in the bladder. A long suture was left attached the distal end of the stent as well exiting the urethra. With the cystoscope in place stone fragments in the bladder were irrigated out using Ellik evacuator. This point the bladder was left full and the cystoscope removed. A Garland catheter was placed. Patient tolerated the procedure wellcompletion was taken recovery room in stable condition. Findings: Bilateral obstructing distal ureteral calculi each about 7-8 mm in size mild prostatic hypertrophy Discharge Disposition: PACU
--- NOTE | 2017-07-21 16:23 | RADIOLOGY REPORT ---
EXAMINATION: XR ABDOMEN CLINICAL INDICATION: Bilateral ureteroscopy, lithotripsy, and retrograde left stent exchange. COMPARISON: Abdominal x-ray 07/03/2017. TECHNIQUE: Intraprocedural fluoroscopy provided for Loco Nava. 21 images were obtained. Fluoroscopy time: 25 seconds. KVP: 114 MAS: 4.4 FINDINGS: There are sequential images demonstrating bilateral retrograde polygrams and placement of a new right double-J ureteral stent. The study demonstrates exchange of the left double-J ureteral stent. At the end of the study the ureteral stents are noted with loops in the bilateral renal collecting systems and in the bladder. IMPRESSION: 1. Multiple intraoperative images during retrograde pyelograms, placement of a right double-J ureteral stent and exchange of the left double-J ureteral stent. 2. Please see the clinical/surgical notes for further details.
[2017-07-21 21:33] VITALS: BP 130/70
[2017-07-22 06:38] VITALS: BP 100/70
--- NOTE | 2017-07-22 07:13 | PN- Housestaff ---
Jhonatan MATHEW,[facility] 07/22/17 0713: Subjective Follow-up For: abdominal pain Subjective: Patient seen and examined. States his IV on his forearm itches when medications and fluids are administered. The discomfort resolves once medication administeration is stopped. He rather have the IV removed and keep the proline in until his discharge. His penile pain is minimal today. No other complaints. Review of Systems Constitutional: Reports: no symptoms. Objective Last 24 Hrs of Vital Signs/I&O Vital Signs Date Time Temp Pulse Resp B/P B/P Pulse O2 O2 Flow FiO2 Mean Ox Delivery Rate 07/22 0638 97.9 57 20 100/70 96 Room Air 07/21 2133 97.7 60 20 130/70 95 Room Air 07/21 1102 98.1 80 18 130/70 95 Room Air 07/21 0851 78 132/80 Intake & Output 07/22 1600 07/22 0800 06 0000 Intake Total 260 120 Output Total 900 Balance -640 120 Intake, IV 60 20 Intake, Oral 200 100 Output, Urine 900 Physical Exam General Appearance: Alert, Oriented X3, Cooperative, Mild Distress Skin: No Rashes, No Breakdown Skin Temp/Moisture Exam: Warm/Dry Sepsis Skin Exam (color): Normal for Ethnicity HEENT: Atraumatic Cardiovascular: Normal S1, Normal S2, No Murmurs Lungs: Normal Air Movement, decreased air movement in LLL Abdomen: Soft, No Tenderness Neurological: Normal Speech Extremities: No Edema Last 24 Hrs of Lab/Jack Results Last 24 Hrs of Labs/Mics: Laboratory Tests 07/22/17 0545: Anion Gap 10, Estimated GFR 38 L, BUN/Creatinine Ratio 5.6 L, PT 15.0 H, INR 1.37 H, CBC w Diff NO MAN DIFF REQ, RBC 4.14 L, MCV 87.4, MCH 28.9, MCHC 33.1, RDW 16.4 H, MPV 8.4, Gran % 64.0, Lymphocytes % 10.7 L, Monocytes % 14.1 H, Eosinophils % 10.0 H, Basophils % 1.2, Absolute Granulocytes 4.0, Absolute Lymphocytes 0.7 L, Absolute Monocytes 0.9 H, Absolute Eosinophils 0.6, Absolute Basophils 0.1 Microbiology 07/21 1325 URINE ROUT: Urine Culture - RES Assessment/Plan Assessment: 66-year-old gentleman with past medical history significant for dyslipidemia, hypertension, insulin-dependent diabetes, colon cancer status post colostomy, paroxysmal atrial fibrillation on Coumadin, history of DVT and pulmonary embolism status post IVC filter placement, CAD status post CABG, COPD, history of kidney stones and pyelonephritis status post left ureteric stent placement on June 23 was admitted at [facility] with pyelonephritis from June 23 to June 30 and was found to have MRSA growing in his urine and was discharged on 1.75 mg of vancomycin daily after placing the pro line, came with chief complaint of abdominal pain Assessment: 1. Abdominal pain 2. ALMAS 3. History of A.fib on Coumadin Plan: * His MRA showed patent mesenteric and renal arteries with no evidence of atherosclerosis. * Patient has a pro line which will be removed today. * He had successful removal of ureteral stones with placement of stents by urology yesterday. * His Plavix and aspirin can be restarted after the Proline removal. * If his urine does not show worsening hematuria, he can be restarted on Coumadin today. * His INR is subtherapeutic. * He is stable for discharge after his Proline removal. * Continue amiodarone, atorvastatin, Protonix, tamsulosin, and ondansetron. * Continue Levemir and Insulin SS with Accucheks * Diet: Diabetic * DVT Prophylaxis: On Coumadin and ALPS * Code: Full Code Problem List: 1. ARF (acute renal failure) Pain Ratin Pain Location: none Pain Goal: Remain pain free Pain Plan: none Tomorrow's Labs & Rationales: CBC, BEP Jason MATHEW,[place] 07/22/17 1101: Attending MD Review Statement Attending Statement Attending MD Statement: examined this patient, discuss w/resident/PA/CUSTOMER ADVISOR SPECIALIST, agreed w/resident/PA/CUSTOMER ADVISOR SPECIALIST, reviewed EMR data (avail), discussed with nursing, discussed with case mgmt, reviewed images, amended to note Attending Assessment/Plan: Patient seen and examined, overall feels well. Denies any complaints. Vital signs remained stable. MRI abdomen results came back and it does not show any evidence of dissection or stenosis or aneurysm. Patient ate was a negative study. Patient had gone for cystoscopy and stone removal yesterday and now has a Garland catheter. Per urology, 40 can be discontinued. Patient to have his Removed today. Per urology, we can resume his Plavix and later today Coumadin candidate is received if there is no increase in hematuria. Patient is otherwise medically stable for discharge home today. We'll repeat his INR check on July 26/2018. Patient to remain on PPI. Continue other current hme meds. Patient is otherwise medically stable for discharge home later today. Follwo up with PCP, Dr. Bebo Chavira in one month (per his recommendations) and Dr. Mohan in one week.
--- NOTE | 2017-07-22 07:22 | PN- Urology ---
Subjective Subjective: Comfortable Objective Vital Signs and I&Os Vital Signs Date Time Temp Pulse Resp B/P B/P Pulse O2 O2 Flow FiO2 Mean Ox Delivery Rate 07/22 0638 97.9 57 20 100/70 96 Room Air 07/21 2133 97.7 60 20 130/70 95 Room Air 07/21 1102 98.1 80 18 130/70 95 Room Air 07/21 0851 78 132/80 Intake & Output 07/22 0800 07/22 0000 07/21 1600 07/21 0800 07/21 0000 07/20 1600 Intake Total 120 150 340 720 875 Output Total 900 850 950 400 600 Balance -900 120 -700 -610 320 275 Intake, IV 20 150 340 75 Intake, Oral 100 0 0 720 800 Number 0 0 1 1 Bowel Movements Output, Urine 900 850 950 400 600 Back: No CVA tenderness Abd: soft and non tender Genitalia: marrero in place. Draining tea-colored urine Urine culture neg to date Today's labs pending Assessment/Plan Assessment/Plan Imp: 1. POD #1 s/p bilateral ureteroscopy, laser litho of bilateral ureteral stones and exchange of bilateral ureteral stents Plan: 1. OK to remove marrero today 2. OK to restart plavix this AM. If hematuria doesn't worsen may start coumadin tonight 3. Patient to f/u next week in office for removal of bilateral ureteral stents
[2017-07-22 08:24] LABS: ABSOLUTE BASOPHIL COUNT 0.1 /CUMM (0.0-0.2); ABSOLUTE EOSINOPHIL COUNT 0.6 /CUMM (0.0-0.7); ABSOLUTE LYMPH COUNT 0.7 /CUMM (1.2-3.4); ABSOLUTE MONOCYTE COUNT 0.9 /CUMM (0.10-0.60); BASOPHIL % 1.2 % (0.0-2.0); HEMATOCRIT 36.2 % (42-52); MEAN CORPUSCULAR HGB 28.9 PG (27.0-31.0); MEAN CORPUSCULAR HGB CONC 33.1 G/DL (33.0-37.0); MEAN CORPUSCULAR VOLUME 87.4 FL (80.0-94.0); MEAN PLATELET VOLUME 8.4 FL (7.4-10.4); PLATELET COUNT 340 /CUMM (130-400); RBC DISTRIBUTION WIDTH 16.4 % (11.5-14.5); RED BLOOD CELL CT 4.14 /CUMM (4.70-6.10); WHITE BLOOD CELL COUNT 6.2 /CUMM (4.8-10.8)
--- NOTE | 2017-07-22 10:09 | MRI REPORT ---
EXAMINATION: MR ANGIOGRAPHY ABDOMEN INTERPRETING VASCULAR \T\ INTERVENTIONAL RADIOLOGIST: Minoo Suárez MD, PhD HISTORY: Ischemic gastritis. DESCRIPTION: Routine abdominal MRA protocol without and with contrast was performed. 10 mL of Gadavist was administered. Images were evaluated on independent dedicated 3-D workstation and 3-D images were reconstructed with concurrent radiologist supervision and subsequently interpreted. COMPARISON: CT abdomen and pelvis 07/16/2017. FINDINGS: VASCULAR: 1. Mesenteric Arteries: The celiac axis, superior mesenteric artery and inferior mesenteric artery normally opacify with contrast. 2. Renal Arteries: There is early bifurcation of the right renal artery, which is patent. There is a miniscule accessory artery on the left located superiorly. The main left renal artery is patent and unremarkable. 3. Infrarenal abdominal aorta: No evidence of aneurysm, dissection or stenosis. 4. Aorto-iliac arteries: No evidence of aneurysm, dissection or stenosis. 5. Inferior Vena Cava: TrapEase infrarenal filter in place. The IVC that is able to be evaluated outside the filter is patent. 6. Ted-mesenteric venous system: Patent and unremarkable. NONVASCULAR: Lung Bases: Unremarkable. Liver, Gallbladder, and Biliary Tree: The liver is normal in size, shape, and attenuation. No focal hepatic lesion or biliary ductal dilatation is present. The gallbladder is unremarkable with no evidence of radiopaque gallstones, gallbladder wall thickening, or obvious pericholecystic inflammatory changes. Pancreas: Unremarkable. Spleen: Unremarkable. Adrenal Glands: Unremarkable. Kidneys and Ureters: The kidneys are normal in size, shape, and attenuation. No hydronephrosis, hydroureter, or calculi seen. No perinephric stranding. Multiple scattered small round well-defined T2 intense lesions within both renal cortices, right greater than left, consistent with small cysts. Small extrarenal pelves bilaterally. Gastrointestinal Tract: No evidence of bowel obstruction. Lymph Nodes: No lymphadenopathy within the abdomen. Osseous Structures: No acute osseous abnormality. Median sternotomy wires. IMPRESSION: 1. No evidence of aneurysm, dissection or flow-limiting stenosis within the celiac axis or mesenteric arteries. 2. TrapEase infrarenal IVC filter. 3. Renal cysts.
--- NOTE | 2017-07-22 10:54 | PN- Gastroenterology ---
Assessment/Plan GI Assessment/Recommendations: * Gastritis involving the greater curvature/posterior stomach. Endoscopic appearance suggestive of ischemic gastritis, likely in healing phase; pathology report not confirmatory. Normal celiac axis/distribution on MRA. Pain completely resolved. LFTs normalized. Recommendations: * Oral PPI once a day * Regular diet * Agree with discharge. I will see him in my office in one month. Subjective Subjective: Patient is pain-free. Tolerating diet. Objective Vital Signs and I&Os Vital Signs Date Time Temp Pulse Resp B/P B/P Pulse O2 O2 Flow FiO2 Mean Ox Delivery Rate 07/22 0934 64 118/70 07/22 0638 97.9 57 20 100/70 96 Room Air 07/21 2133 97.7 60 20 130/70 95 Room Air 07/21 1102 98.1 80 18 130/70 95 Room Air Intake & Output 07/22 1600 07/22 0400 07/21 1600 07/21 0400 07/20 1600 07/20 0400 Intake Total 260 120 971 691 7855 480 Output Total 1150 3904 268 1323 750 Balance -890 120 -1310 320 -35 -270 Intake, IV 60 20 490 465 Intake, Oral 200 100 0 720 800 480 Number 0 1 1 2 Bowel Movements Output, Stool 200 Output, Urine 1150 8622 333 3616 550 Physical Exam: Sclera anicteric. Abdomen obese, soft, nontender, nondistended. Current Medications: Current Medications Sig/Sj Start time Last Medication Dose Route Stop Time Status Admin Albuterol Sulfate 3 ML Q4P PRN 07/21 1900 AC INH Albuterol Sulfate 3 ML Q4P PRN 07/17 1145 DC INH Amiodarone HCl 200 MG QAM 07/22 899 AC 07/22 PO 0934 Amiodarone HCl 200 MG QAM 07/17 09 DC 07/21 PO 0851 Aspirin 81 MG DAILY 07/22 899 CAN PO Atorvastatin Calcium 20 MG DAILY 07/22 899 AC 07/22 PO 0934 Atorvastatin Calcium 20 MG DAILY 07/17 899 DC 07/21 PO 0851 Clopidogrel Bisulfate 75 MG DAILY 07/22 899 CAN PO Dextrose/Sodium 1,000 ML Q20H 07/20 2355 DC 07/21 Chloride IV 0010 Fentanyl Citrate 200 MCG .STK-MED ONE 07/21 1219 DC IM 07/21 1220 Hydromorphone HCl 2 MG .STK-MED ONE 07/21 1523 DC IM 07/21 1524 Insulin Aspart 0 TIDAC 07/21 1700 AC SC Insulin Detemir 10 UNITS BID 07/21 2100 AC 07/22 SC 0934 Insulin Detemir 10 UNITS BID 07/16 2234 DC 07/21 SC 0851 Insulin Human Regular 0 Q6 07/20 2359 DC 07/21 SC 0551 Lidocaine 1 MAGNUS Q12P PRN 07/21 1645 AC TOP Morphine Sulfate 2 MG Q4P PRN 07/21 1900 DC 07/22 IV 0246 Morphine Sulfate 2 MG Q4P PRN 07/16 2200 DC 07/21 IV 1633 Omeprazole 40 MG BID 07/21 2100 AC 07/22 PO 0934 Omeprazole 40 MG BID 07/19 2100 DC 07/20 PO 2020 Ondansetron HCl 4 MG Q6P PRN 07/21 1900 AC 07/22 IV 0440 Ondansetron HCl 4 MG Q6P PRN 07/17 0600 DC IV Oxycodone HCl 10 MG Q6-PRN PRN 07/22 0830 AC PO Oxycodone HCl 5 MG Q6P PRN 07/22 0830 AC PO Phenazopyridine HCl 100 MG ONCE ONE 07/21 1645 DC 07/21 PO 07/21 1646 2222 Potassium Chloride 20 MEQ Q20H 07/21 1845 DC Dextrose/Sodium 1,000 ML IV Chloride Tamsulosin HCl 0.4 MG DAILY 07/22 0900 AC 07/22 PO 0934 Tamsulosin HCl 0.4 MG DAILY 07/17 0900 DC 07/21 PO 0851 Results Pertinent Lab Results: Laboratory Tests 07/22 07/21 0545 0655 Chemistry Sodium (137 - 145 mmol/L) 138 137 Potassium (3.5 - 5.1 mmol/L) 4.7 4.4 Chloride (98 - 107 mmol/L) 102 104 Carbon Dioxide (22 - 30 mmol/L) 26 26 Anion Gap (5 - 16) 10 7 BUN (9 - 20 mg/dL) 10 11 Creatinine (0.7 - 1.2 mg/dL) 1.8 H 1.7 H Estimated GFR (>60 ml/min) 38 L 41 L BUN/Creatinine Ratio (7 - 25 %) 5.6 L 6.5 L Coagulation PT (9.4 - 12.5 SEC) 15.0 H 17.5 H INR (0.90 - 1.17) 1.37 H 1.60 H Hematology CBC w Diff NO MAN DIFF REQ WBC (4.8 - 10.8 /CUMM) 6.2 RBC (4.70 - 6.10 /CUMM) 4.14 L Hgb (14.0 - 18.0 G/DL) 12.0 L Hct (42 - 52 %) 36.2 L MCV (80.0 - 94.0 FL) 87.4 MCH (27.0 - 31.0 PG) 28.9 MCHC (33.0 - 37.0 G/DL) 33.1 RDW (11.5 - 14.5 %) 16.4 H Plt Count (130 - 400 /CUMM) 340 MPV (7.4 - 10.4 FL) 8.4 Gran % (42.2 - 75.2 %) 64.0 Lymphocytes % (20.5 - 51.1 %) 10.7 L Monocytes % (1.7 - 9.3 %) 14.1 H Eosinophils % (0 - 5 %) 10.0 H Basophils % (0.0 - 2.0 %) 1.2 Absolute Granulocytes (1.4 - 6.5 /CUMM) 4.0 Absolute Lymphocytes (1.2 - 3.4 /CUMM) 0.7 L Absolute Monocytes (0.10 - 0.60 /CUMM) 0.9 H Absolute Eosinophils (0.0 - 0.7 /CUMM) 0.6 Absolute Basophils (0.0 - 0.2 /CUMM) 0.1 06/05 0542 Chemistry Sodium (137 - 145 mmol/L) 139 Potassium (3.5 - 5.1 mmol/L) 4.4 Chloride (98 - 107 mmol/L) 105 Carbon Dioxide (22 - 30 mmol/L) 28 Anion Gap (5 - 16) 6 BUN (9 - 20 mg/dL) 14 Creatinine (0.7 - 1.2 mg/dL) 1.9 H Estimated GFR (>60 ml/min) 36 L BUN/Creatinine Ratio (7 - 25 %) 7.4 Coagulation PT (9.4 - 12.5 SEC) 23.4 H INR (0.90 - 1.17) 2.13 H Hematology CBC w Diff NO MAN DIFF REQ WBC (4.8 - 10.8 /CUMM) 5.7 RBC (4.70 - 6.10 /CUMM) 4.15 L Hgb (14.0 - 18.0 G/DL) 12.0 L Hct (42 - 52 %) 36.2 L MCV (80.0 - 94.0 FL) 87.2 MCH (27.0 - 31.0 PG) 29.0 MCHC (33.0 - 37.0 G/DL) 33.3 RDW (11.5 - 14.5 %) 15.8 H Plt Count (130 - 400 /CUMM) 360 MPV (7.4 - 10.4 FL) 8.2 Gran % (42.2 - 75.2 %) 59.9 Lymphocytes % (20.5 - 51.1 %) 14.5 L Monocytes % (1.7 - 9.3 %) 13.5 H Eosinophils % (0 - 5 %) 11.5 H Basophils % (0.0 - 2.0 %) 0.6 Absolute Granulocytes (1.4 - 6.5 /CUMM) 3.4 Absolute Lymphocytes (1.2 - 3.4 /CUMM) 0.8 L Absolute Monocytes (0.10 - 0.60 /CUMM) 0.8 H Absolute Eosinophils (0.0 - 0.7 /CUMM) 0.7 Absolute Basophils (0.0 - 0.2 /CUMM) 0 Imaging/Other Studies: Gastric biopsies consistent with mild to moderate gastritis. MRA with normal celiac axis and distribution.
[2017-07-22] MEDS ORDERED: PROTONIX40 M3 PO (11:05)
[2017-07-22 11:55] VITALS: BP 110/60
[2017-07-22 12:50] VITALS: BP 122/70
[2017-07-22 14:33] VITALS: BP 110/64
--- NOTE | 2017-07-22 16:35 | INTERVENTIONAL RADIOLOGY RPT ---
CLINICAL HISTORY: This patient is a 66-year-old male with history of infection, who requires removal of a right tunneled central venous catheter as the catheter is no longer needed. PROCEDURES: 1. Removal of central venous catheter. PHYSICIANS: Dr. Chad Riggins (attending). MEDICATIONS: None COMPLICATIONS: None. ESTIMATED BLOOD LOSS: <50 mL. SPECIMENS: None. CONTRAST: None. FLUOROSCOPY TIME: 0. PROCEDURE NOTE: Informed consent was obtained from the patient prior to the procedure. During this process, the procedure and potential alternatives were explained along with the intended outcome and benefits. The risks of the procedure, including the possibility of an unsuccessful procedure, as well as the risk of not doing the procedure, were discussed. The patient was given the opportunity to ask questions regarding the procedure and appeared competent to make decisions. A signed consent form documenting this discussion was placed in the medical record. A time-out procedure was performed. The patient was placed supine on his stretcher. The catheter entry site was prepped and draped in the usual sterile fashion. The catheter was removed using traction. The cuff was removed with the catheter. Direct pressure was applied at the venotomy site and along the tunnel until hemostasis was achieved. The exit site of the tunnel was covered with a sterile dressing. FINDINGS: The exit site of the catheter tunnel was non- erythematous and non- tender. IMPRESSION: Successful removal of the tunneled central venous catheter in the right chest. PLAN: 1. The patient was stable after the procedure and will be transferred back to his medical room. 2. The patient was instructed regarding wound care. 3. The patient is instructed to present to the emergency room or interventional radiology should the site bleed or if there are new signs of systemic or local infection. Otherwise, the patient will follow up with their primary care physician if indicated.
== END 2017-07-22 16:55 | DRG 669 ==
LOC: ERH 09:39 → 2NB 18:40 → ERHI 18:40 → ENRESERV 20:12 → ENTRNSPT 22:40 → EDTRNSPT 22:43 → EDTRNSPTSTS 22:43 → 2NB 22:52 → CMPTRNSPT 22:53 → 2NB 07-19 08:14 → ENTRNSPT 07-21 15:37 → EDTRNSPT 07-21 15:47 → EDTRNSPTSTS 07-21 15:47 → CMPTRNSPT 07-21 16:01 → 2NB 07-22 16:55
PROVIDERS: Dermatology; Emergency Medicine; Internal Medicine; Internal Medicine Hematology & Oncology; Student in an Organized Health Care Education/Training Program
PROC: 0DB68ZX Excision of Stomach, Via Natural or Artificial Opening Endoscopic, Diagnostic (ICD-10-PCS; 2017-07-19)
PROC: 0TC78ZZ Extirpation of Matter from Left Ureter, Via Natural or Artificial Opening Endoscopic (ICD-10-PCS; principal; 2017-07-21)
PROC: 0T788DZ Dilation of Bilateral Ureters with Intraluminal Device, Via Natural or Artificial Opening Endoscopic (ICD-10-PCS; principal; 2017-07-21)
PROC: 0TC68ZZ Extirpation of Matter from Right Ureter, Via Natural or Artificial Opening Endoscopic (ICD-10-PCS; principal; 2017-07-21)
PROC: BT14YZZ Fluoroscopy of Kidneys, Ureters and Bladder using Other Contrast (ICD-10-PCS; principal; 2017-07-21)
DX: N20.2 Calculus of kidney with calculus of ureter (principal); N17.9 Acute kidney failure, unspecified; N11.1 Chronic obstructive pyelonephritis; E87.2 Acidosis; K29.60 Other gastritis without bleeding; I48.2 Chronic atrial fibrillation; Z79.01 Long term (current) use of anticoagulants; J44.9 Chronic obstructive pulmonary disease, unspecified; G47.33 Obstructive sleep apnea (adult) (pediatric); I12.9 Hypertensive chronic kidney disease with stage 1 through stage 4 chronic kidney disease, or unspecified chronic kidney disease; N18.9 Chronic kidney disease, unspecified; E11.9 Type 2 diabetes mellitus without complications; Z79.4 Long term (current) use of insulin; I25.10 Atherosclerotic heart disease of native coronary artery without angina pectoris; Z95.1 Presence of aortocoronary bypass graft; R14.3 Flatulence; I48.0 Paroxysmal atrial fibrillation; Z85.038 Personal history of other malignant neoplasm of large intestine; Z90.49 Acquired absence of other specified parts of digestive tract; Z95.9 Presence of cardiac and vascular implant and graft, unspecified; Z86.718 Personal history of other venous thrombosis and embolism; Z88.1 Allergy status to other antibiotic agents; Z88.0 Allergy status to penicillin; Z79.82 Long term (current) use of aspirin; Z79.51 Long term (current) use of inhaled steroids; R74.0 Nonspecific elevation of levels of transaminase and lactic acid dehydrogenase [LDH]; R79.1 Abnormal coagulation profile; Z87.442 Personal history of urinary calculi
CPT/HCPCS: 2NBP; 70553; 36415; 36592; 71045; 74018; 74176; 81001; 82355; 82436; 87086; 88305; 88312; 93005; 93010; 96361; 96374; 96375; 96376; 99291; A9579; C2617; C8901; J1650; J1815; J2405; J3370; J3490; J7042